=== PATIENT | male | born 1935 | race Caucasian/White ===

== ENCOUNTER 2023-02-16 12:15 | Outpatient (OUT) | payer MEDICARE, SELFPAY ==
--- NOTE | 2023-02-16 12:26 | XR_ITS ---
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 TECHNIQUE: PA and lateral views of the chest. FINDINGS: The cardiomediastinal silhouette is normal. No focal consolidation is identified. There is no pneumothorax. No pleural effusion is noted. The osseous structures are intact. XR/XR chest 2V IMPRESSION: No acute cardiopulmonary process. Suggestion of COPD. Electronically authenticated by: MACRINA PALMA Date: 02/16/2023 13:05
[2023-02-16 15:23] LABS: Thyroid Stimulating Hormone 2.054 uIU/mL (0.358-3.740)
== END 2023-02-16 12:16 | disposition home or self-care (01) ==
LOC: LAB 12:19
PROVIDERS: PCP Internal Medicine; Visit Provider Internal Medicine
DX: I50.22 Chronic systolic (congestive) heart failure (principal); R53.83 Other fatigue; J84.9 Interstitial pulmonary disease, unspecified
CPT/HCPCS: 36415; 71046; 83880; 84443

== ENCOUNTER 2023-02-23 07:21 | Outpatient (OUT) | payer MEDICARE, SELFPAY ==
--- NOTE | 2023-02-23 07:37 | CT_ITS ---
[address] [address] Patient Name: MACI MORTENSEN MRN: [id number] date: 1935 Sex: M Assigned Patient Location: LAB Current Patient Location: LAB Accession/Order Number: [id number] Exam Date: 02/23/2023 08:00 Report Date: 02/23/2023 08:57 At the request of: CAROLE HEATH Procedure: CT chest w con EXAMINATION: CT chest w con HISTORY: Chronic Cough R05.3, Pulmonary Nodule R91.1 ; follow-up lung nodule COMPARISON: XR chest 02/16/2023, CTA chest 01/14/2019 TECHNIQUE: Multi-planar CT images were obtained without and/or with IV contrast as indicated by examination type. Axial, Coronal, and Sagittal images. Dose reduction techniques were achieved by using automated exposure control and/or adjustment of mA and/or kV according to patient size and/or use of iterative reconstruction technique. FINDINGS: LUNGS: 6 mm nodule within lateral basilar segment of left lower lobe. Mild emphysematous changes. PLEURA: A few thin calcified pleural plaques bilaterally. No pleural effusion or pneumothorax. VASCULATURE: No abnormality. TRESSA: No mass or adenopathy. MEDIASTINUM: No mass or adenopathy. CARDIAC: No enlargement, pericardial thickening, or significant calcification. AORTA: Borderline mild dilation of ascending aorta, 4.0 cm in diameter. Minimal atherosclerotic disease. CHEST WALL: No mass or axillary adenopathy. BONES: No bone lesion or fracture. LIMITED ABDOMEN: Fatty infiltration of liver. Limited images of the upper abdomen. OTHER: Negative. CT/CT chest w con IMPRESSION: 1. Stable 6 mm nodule within left lower lobe lateral basilar segment. 2. Mild emphysematous changes. 3. Borderline aneurysmal dilation of aortic arch. 4. Fatty infiltration of liver. Electronically authenticated by: MILKA ANDERS Date: 02/23/2023 08:57
[2023-02-23 07:39] LABS: Hemoglobin 14.2 g/dL (14.0-18.0)
[2023-02-23 07:42] LABS: Estimated GFR (African America >60 (>=60); Estimated GFR (Non-African Ame 60 (>=60)
--- NOTE | 2023-02-23 08:30 | RT_ITS ---
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 The MVV is within normal limits. The airway resistance is normal. The reduced diffusing capacity indicates a moderate loss of functional alveolar capillary surface. 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
== END 2023-02-23 07:22 | disposition home or self-care (01) ==
LOC: LAB 07:21
PROVIDERS: PCP Internal Medicine; Visit Provider Internal Medicine
DX: R91.1 Solitary pulmonary nodule (principal); R05.3 Chronic cough
CPT/HCPCS: 36415; 71260; 82565; 85018; 94010; 94726; 94729; Q9967

== ENCOUNTER 2023-03-09 08:05 | Outpatient (OUT) | payer MEDICARE, SELFPAY ==
--- NOTE | 2023-03-09 08:08 | XR_ITS ---
The [address] [address] Patient Name: MACI MORTENSEN MRN: [id number] date: 1935 Sex: M Assigned Patient Location: RAD Current Patient Location: RAD Accession/Order Number: [id number] Exam Date: 03/09/2023 08:20 Report Date: 03/09/2023 12:07 At the request of: MILKA WALKER Procedure: XR hand RT min 3V STUDY: XR hand RT min 3V, [id number] HISTORY: Right Hand Pain M79.641 COMPARISON: None FINDINGS: No acute fracture, dislocation, or suspicious osseous lesion. Severe joint space narrowing with peripheral osteophytosis and early central erosive changes of the first and second distal interphalangeal joints. Lesser degrees of degenerative changes involving the remainder of the interphalangeal joints. Mild osteoarthritis at the first through third metacarpophalangeal joints as well as at the first carpometacarpal joint. No periarticular osseous erosive changes. XR/XR hand RT min 3V IMPRESSION: 1. Severe osteophytosis in the right hand with findings suggestive of early erosive osteoarthritis. 2. No acute osseous abnormality. Electronically authenticated by: UNA TEMPLE Date: 03/09/2023 12:07
== END 2023-03-09 08:06 | disposition home or self-care (01) ==
LOC: RAD 08:05
PROVIDERS: PCP Internal Medicine; Visit Provider Orthopaedic Surgery
DX: M79.641 Pain in right hand (principal); M19.041 Primary osteoarthritis, right hand
CPT/HCPCS: 73130

== ENCOUNTER 2023-04-22 08:12 | Outpatient (OUT) | payer MEDICARE, SELFPAY ==
[2023-04-23 04:07] LABS: Testosterone 256 ng/dL (264-916)
== END 2023-04-22 08:13 | disposition home or self-care (01) ==
PROVIDERS: PCP Internal Medicine; Visit Provider Urology
DX: E29.1 Testicular hypofunction (principal)
CPT/HCPCS: 36415; 84403

== ENCOUNTER 2023-05-11 09:15 | Outpatient (OUT) | payer MEDICARE, SELFPAY ==
--- NOTE | 2023-05-11 09:19 | ECG_ITS ---
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
--- NOTE | 2023-05-11 10:08 | P.GSHP_ITS ---
History of Present Illness History of Present Illness Chief complaint: right carpal tunnel syndrome Narrative: Patient presents for preadmission testing. The patient states he has right carpal tunnel syndrome with numbness, tingling, and pain. He denies any specific trauma or injury. Review of Systems ROS Narrative REVIEW OF SYSTEMS: Negative except as stated in HPI, ten or more systems reviewed. Constitutional: No fever , chills, weakness ENT: No sore throat or epistaxis Cardiovascular: No edema, chest pain, palpitations, or activity intolerance Respiratory: No shortness of breath, cough, or wheezing Gastrointestinal: No abdominal pain, constipation, diarrhea, or vomiting Genitourinary: No dysuria or hematuria Neurological: No numbness, tingling, weakness, or headache Psychiatric: No mood changes PFSH PFS Medical History (Updated 05/11/23 @ 10:08 by Jeniffer Vidal NP) Acute renal impairment ?N28.9 - Disorder of kidney and ureter, unspecified (ICD-10) Acute systolic heart failure ?I50.21 - Acute systolic (congestive) heart failure (ICD-10) Arthritis ?M19.90 - Unspecified osteoarthritis, unspecified site (ICD-10) 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 without bleeding (ICD-10) Cardiomyopathy ?I42.9 - Cardiomyopathy, unspecified (ICD-10) Carpal tunnel syndrome ?G56.00 - Carpal tunnel syndrome, unspecified upper limb (ICD-10) Chronic kidney disease ?N18.9 - Chronic kidney disease, unspecified (ICD-10) Chronic prostatitis ?N41.1 - Chronic prostatitis (ICD-10) Chronic venous insufficiency ?I87.2 - Venous insufficiency (chronic) (peripheral) (ICD-10) COVID-19 ?U07.1 - COVID-19 (ICD-10) Delayed recovery from anesthesia Dysphagia ?R13.10 - Dysphagia, unspecified (ICD-10) Dysuria ?R30.0 - Dysuria (ICD-10) Heart failure ?I50.9 - Heart failure, unspecified (ICD-10) Increased frequency of urination ?R35.0 - Frequency of micturition (ICD-10) Interstitial lung disease ?J84.9 - Interstitial pulmonary disease, unspecified (ICD-10) Nausea ?R11.0 - Nausea (ICD-10) Nonsustained ventricular tachycardia ?I47.29 - Other ventricular tachycardia (ICD-10) Obstructive sleep apnea ?G47.33 - Obstructive sleep apnea (adult) (pediatric) (ICD-10) Prostate hyperplasia, benign localized, with urinary obstruction ?N40.1 - Benign prostatic hyperplasia with lower urinary tract symptoms (ICD- 10) ?N13.8 - Other obstructive and reflux uropathy (ICD-10) Pulmonary nodule ?R91.1 - Solitary pulmonary nodule (ICD-10) Testicular cancer ?C62.90 - Malignant neoplasm of unspecified testis, unspecified whether descended or undescended (ICD-10) Surgical History (Updated 05/11/23 @ 09:40 by Jeniffer Vidal NP) History of carpal tunnel release ?Z98.890 - Other specified postprocedural states (ICD-10) History of cataract extraction ?Z98.49 - Cataract extraction status, unspecified eye (ICD-10) History of colonoscopy ?Z98.890 - Other specified postprocedural states (ICD-10) History of orchiectomy ?Z90.79 - Acquired absence of other genital organ(s) (ICD-10) History of surgery on arm ?Z98.890 - Other specified postprocedural states (ICD-10) Status post inguinal hernia repair ?Z98.890 - Other specified postprocedural states (ICD-10) ?Z87.19 - Personal history of other diseases of the digestive system (ICD-10) Family History (Updated 05/11/23 @ 09:40 by Jeniffer Vidal NP) Other Family history of colon cancer Liver cirrhosis Social History (Updated 05/11/23 @ 09:32 by Jeniffer Vidal NP) Within the past year, how often did you have a drink containing alcohol: monthly or less Smoking status: Never smoker Highest level of school completed/degree received: high school graduate Meds Home Medications and Allergies Home Medications Medication Instructions Recorded Confirmed Type finasteride 5 mg tablet 5 mg PO DAILY 05/11/23 05/11/23 History losartan 25 mg tablet 25 mg PO DAILY 05/11/23 05/11/23 History metoprolol succinate 25 mg 12.5 mg PO DAILY 05/11/23 05/11/23 History tablet,extended release 24 hr omeprazole 40 mg capsule,delayed 40 mg PO DAILY 05/11/23 05/11/23 History release tamsulosin 0.4 mg capsule (Flomax) 0.4 mg PO DAILY 05/11/23 05/11/23 History Allergies Allergy/AdvReac Type Severity Reaction Status Date / Time No Known Drug Allergies Allergy Verified 05/11/23 09:31 Exam Narrative Exam Narrative: Constitutional: Awake, alert, comfortable, well-appearing, nontoxic, interactive, vital signs as charted Head: Normocephalic, atraumatic Neck: Supple, normal appearance, normal range of motion, no meningeal signs, no lymphadenopathy Respiratory: No respiratory distress, breath sounds clear Cardiovascular: Regular rate and rhythm, strong and regular heart tones Skin: No rashes or induration, no lesions, only visible skin inspected Neuro: No neurological deficits, normal sensation Psychiatric: Oriented ?3, normal affect Assessment and Plan Assessment and Plan (1) Carpal tunnel syndrome: Plan Right endoscopic carpal tunnel release scheduled with Dr. Gunderson 05/25/2023.
[2023-05-11 10:29] LABS: Basophils Percent Auto 0.6 % (0.2-2.0); Eosinophils Absolute Auto 0.1 10^3/uL (0.0-0.7); Eosinophils Percent Auto 1.9 % (0.9-7.0); Hematocrit 42.4 % (42.0-54.0); Hemoglobin 13.4 g/dL (14.0-18.0); Immature Granulocytes Abs Auto 0.02 10^3/uL (0.00-0.03); Immature Granulocytes Pct Auto 0.3 % (0.0-0.5); Lymphocytes Absolute Auto 1.1 10^3/uL (1.2-3.8); Lymphocytes Percent Auto 16.8 % (20.5-60.0); Mean Corpuscular HGB Conc 31.6 g/dL (29.9-35.2); Mean Corpuscular Hemoglobin 28.9 pg (25.9-34.0); Mean Corpuscular Volume 91.6 fL (80.0-94.0); Mean Platelet Volume 10.2 fL (9.5-13.5); Monocytes Absolute Auto 0.5 10^3/uL (0.3-0.8); Monocytes Percent Auto 7.2 % (1.7-12.0); Neutrophils Absolute Auto 4.6 10^3/uL (1.4-6.5); Neutrophils Percent Auto 73.2 % (43.0-75.0); Platelet Count 181 10^3/uL (150-450); Red Blood Count 4.63 10^6/uL (4.70-6.10); Red Cell Distribution Width 13.5 % (11.0-15.0); White Blood Count 6.2 10^3/uL (4.0-11.0)
[2023-05-11 10:46] LABS: INR 0.98; Partial Thromboplastin Time 27.1 sec (22.3-36.2); Prothrombin Time 10.4 sec (9.0-11.6)
[2023-05-11 11:05] LABS: Anion Gap 11.5; BUN Creatinine Ratio 30.8; Calcium 8.6 mg/dL (8.5-10.1); Carbon Dioxide 26.1 mmol/L (21.0-32.0); Chloride 107 mmol/L (98-107); Estimated GFR (African America >60 (>=60); Estimated GFR (Non-African Ame >60 (>=60); Glucose 124 mg/dL (74-106); Potassium 3.6 mmol/L (3.5-5.1); Sodium 141 mmol/L (136-145)
== END 2023-05-11 09:16 | disposition home or self-care (01) ==
LOC: PST 09:16
PROVIDERS: PCP Internal Medicine; Visit Provider Orthopaedic Surgery
DX: Z01.810 Encounter for preprocedural cardiovascular examination (principal); Z01.812 Encounter for preprocedural laboratory examination; G56.01 Carpal tunnel syndrome, right upper limb
CPT/HCPCS: 80048; 85025; 85610; 85730; 93005; G0463

== ENCOUNTER 2023-05-25 10:57 | Day surgery (SDC) | payer MEDICARE, SELFPAY ==
[2023-05-11 09:57] VITALS: BP 121/70; PULSE 82; RESP 18; TEMP 36.4; O2SAT 96; BMI 31.2
[2023-05-25 11:05] VITALS: BP 143/76; PULSE 72; RESP 18; TEMP 36.3; O2SAT 98; BMI 30.3
[2023-05-25] MEDS: LACTATED RINGER'S SOLUTION 1,000 ML 50 ML IV (11:36)
[2023-05-25] MEDS: BUPIVACAINE HCL 0.5% PF 50 MG/10 ML VIAL 5 ML INJ (13:11)
[2023-05-25] MEDS: LIDOCAINE HCL 1%-EPINEPHRINE 1:100,000 10 ML MDV 5 ML INJ (13:31)
[2023-05-25] MEDS: CEFAZOLIN SODIUM/DEXTROSE,ISO 2 GM/50 ML PIGGYBACK IV (13:40)
[2023-05-25 13:58] VITALS: BP 129/87; PULSE 65; RESP 14; TEMP 36.6; O2SAT 97
--- NOTE | 2023-05-25 14:09 | P.ORPRC_ITS ---
Procedure Note Date of procedure: 05/25/23 Pre-op diagnosis: Right carpal tunnel syndrome Post-op diagnosis: same as pre-op Procedure: Preoperative Diagnosis: right carpal tunnel syndrome Postoperative Diagnosis: Same Procedure: Right endoscopic carpal tunnel release Surgeon: Neptali Anesthesia: Local with MAC Estimated blood loss:Minimal Tourniquet time: 2 Minutes at 225 mmHg Complications: None Indications for Surgery: The patient has had signs and symptoms of carpal tunnel syndrome that have failed conservative treatment. Options were discussed with the patient as well as risks and benefits and they have elected to proceed with the surgery. Operative procedure: Prior to surgery the patient received IV antibiotics. The operative extremity was marked preoperatively. After informed consent was obtained the patient was brought to the operating room where MAC anesthesia was administered. Preoperatively 5 mm 0.5% Marcaine plain with 5 mm 1% lidocaine with epinephrine were infiltrated in the operative sight. The arm was then prepped and draped in the usual sterile fashion after placement of a well padded tourniquet. The arm was elevated, exsanguinated, and the tourniquet was inflated. A 1 cm incision was then made in a preexisting distal wrist crease. Hemostasis was achieved with bipolar electrocautery. Blunt dissection was then carried down to the forearm fascia where a U-based flap was created. Proximally the fascia was inc ised for 2 cm under direct visualization. Attention was then turned to the endoscopic carpal tunnel release. The synovial elevator was used to clear the underside of the transverse carpal ligament of soft tissue. Sequential dilators were then placed. The endoscopic carpal tunnel released instrument was then placed. The transverse fibers were then identified and release from distal to proximal. The ligament was completely release. The tourniquet was deflated and hemostasis was achieved. The wound was irrigated and closed with a nylon suture. A sterile dressing was placed. The patient was brought to the recovery room. There were no preoperative or postoperative complications. Anesthesia: MAC Surgeon: Quentin Gunderson Pathology: none sent Condition: stable Disposition: PACU
[2023-05-25 14:15] VITALS: BP 124/72; PULSE 58; RESP 18; O2SAT 97
[2023-05-25 14:30] VITALS: BP 118/68; PULSE 58; RESP 16; O2SAT 99
== END 2023-05-25 14:50 | disposition home or self-care (01) ==
PROVIDERS: PCP Internal Medicine; Visit Provider Orthopaedic Surgery
PROC: (CPT 29848; principal; 2023-05-25 12:00)
DX: G56.01 Carpal tunnel syndrome, right upper limb (principal); M19.90 Unspecified osteoarthritis, unspecified site; I42.9 Cardiomyopathy, unspecified; N18.9 Chronic kidney disease, unspecified; Z86.16 Personal history of COVID-19; R13.10 Dysphagia, unspecified; N41.1 Chronic prostatitis; J84.9 Interstitial pulmonary disease, unspecified; I47.29 Other ventricular tachycardia; G47.33 Obstructive sleep apnea (adult) (pediatric); N40.1 Benign prostatic hyperplasia with lower urinary tract symptoms; N13.8 Other obstructive and reflux uropathy; C62.90 Malignant neoplasm of unspecified testis, unspecified whether descended or undescended; I50.22 Chronic systolic (congestive) heart failure; Z79.899 Other long term (current) drug therapy; Z87.891 Personal history of nicotine dependence
CPT/HCPCS: 29848; 36415; J2704

== ENCOUNTER 2023-06-08 07:58 | Outpatient (OUT) | payer MEDICARE, SELFPAY ==
--- NOTE | 2023-06-08 08:04 | XR_ITS ---
[address] [address] Patient Name: MACI MORTENSEN MRN: [id number] date: 1935 Sex: M Assigned Patient Location: RAD Current Patient Location: [facility] Accession/Order Number: [id number] Exam Date: 06/08/2023 08:10 Report Date: 06/08/2023 09:24 At the request of: MILKA WALKER Procedure: XR knee RT 4V EXAM: XR knee RT 4V HISTORY: Right Knee Pain COMPARISON: None. TECHNIQUE: 4 views FINDINGS: No acute fracture or dislocation. Severe degenerative changes of the knee joint. Mild soft tissue swelling. XR/XR knee RT 4V IMPRESSION: Degenerative changes as above. Electronically authenticated by: MACRINA PALMA Date: 06/08/2023 09:24
== END 2023-06-08 07:59 | disposition home or self-care (01) ==
PROVIDERS: PCP Internal Medicine; Visit Provider Orthopaedic Surgery
DX: M25.561 Pain in right knee (principal)
CPT/HCPCS: 73564

== ENCOUNTER 2023-07-30 07:03 | Outpatient (RCR) | payer MEDICARE, SELFPAY ==
--- NOTE | 2023-03-11 16:23 | CR1_ITS ---
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
--- NOTE | 2023-04-08 14:56 | CR1_ITS ---
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
--- NOTE | 2023-05-06 08:35 | CR1_ITS ---
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
--- NOTE | 2023-06-05 10:28 | CR1_ITS ---
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
--- NOTE | 2023-07-06 14:42 | CR1_ITS ---
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
== END 2023-07-30 15:03 | disposition home or self-care (01) ==
LOC: CR 07:03
PROVIDERS: PCP Internal Medicine; Visit Provider Internal Medicine
DX: I20.9 Angina pectoris, unspecified (principal); I42.9 Cardiomyopathy, unspecified; I50.9 Heart failure, unspecified
CPT/HCPCS: 93797; 93798

== ENCOUNTER 2023-08-17 07:05 | Outpatient (RCR) | payer MEDICARE, SELFPAY | END 2023-09-01 07:02 | disposition home or self-care (01) | LOC: CR 07:05 | PROVIDERS: PCP Internal Medicine; Visit Provider Internal Medicine | DX: I42.9 Cardiomyopathy, unspecified (principal) ==

== ENCOUNTER 2024-01-19 07:23 | Outpatient (OUT) | payer MEDICARE, SELFPAY ==
--- NOTE | 2024-01-19 07:34 | CA_ITS ---
Patient Name: MACI MORTENSEN MR#: [id number] : 1935 Exam Date: 01/19/2024 Ordering Doctor: DR VJ ESPITIA M.D. ECHOCARDIOGRAM REPORT PROCEDURE: CA ECHO DOPPLER COMPLETE INDICATIONS: Heart failure with reduced EF COMPARISON: None. DESCRIPTION: COMPLETE ECHOCARDIOGRAM Real-time transthoracic echocardiography with 2D, M-mode, spectral and color flow Doppler performed. QUALITY: Technical quality was good. LEFT VENTRICLE: Normal chamber size. Mild concentric left ventricular hypertrophy. LV EF: Lower limits of normal left ventricular ejection fraction, (50%). DIASTOLIC: Grade II diastolic dysfunction. ATRIAL SEPTUM: LEFT ATRIUM: Moderate dilatation. RIGHT ATRIUM: Moderate dilatation. RIGHT VENTRICLE: Normal chamber size. Normal right ventricular systolic function. TRICUSPID VALVE: Normal mobility and thickness. No stenosis with trivial regurgitation. Unable to assess right-sided pressures due to lack of measurable tricuspid regurgitation. MITRAL VALVE: Normal mobility and thickness. No evidence of mitral valve stenosis. Mild mitral annular calcification. At least moderate eccentric mitral regurgitation. The jet is directed anteriorly. AORTIC VALVE: Normal trileaflet appearance. Thickened aortic valve. Normal leaflet mobility. No evidence of aortic valve stenosis. Mild aortic regurgitation. AORTIC ROOT: Normal diameter and appearance. Mildly dilated ascending aorta measuring 3.7 cm. PULMONIC VALVE: Grossly normal. No stenosis. No regurgitation. PERICARDIUM: No evidence of pericardial effusion. IVC: Collapses with inspirations. Mild dilatation measuring 2.2 cm. PLEURA: CONCLUSION: 1. Mild concentric left ventricular hypertrophy with low normal systolic function. LVEF is 50%. 2. Normal right ventricular size and systolic function. 3. Grade 2 diastolic dysfunction. 4. Moderate biatrial dilatation. 5. At least moderate mitral regurgitation. The regurgitation jet is eccentric and directed anteriorly. 6. Unable to assess right-sided pressures due to lack of measurable tricuspid regurgitation. 7. A transesophageal echocardiogram is recommended for better assessment of the severity of the mitral regurgitation. Adult Echocardiography Procedure Report Left Ventricle LVEDD (3.7 - 5.6 cm): 5.63 cm LVESD (2.2 - 4.0 cm): 4.10 cm LVIVS thickness (0.6 - 1.2 cm): 1.24 cm LVPW thickness (0.5 - 1.0 cm): 1.15 cm e': 0.09 m/s E - e': 14.47 LVOT Max Gradient: 2.55 mm[Hg] LVOT Area (cm2): 0.80 m/s Peak Velocity (LVOT): 0.80 m/s Mean Velocity (LVOT): 0.50 m/s LVOT Diameter 2.61 cm Left Ventricular Ejection Fraction: 50 % Left Atrium LA Volume Index (2D A2C): 49.57 ml/m2 Left Atrium Systolic Dimension: 4.22 cm Mitral Valve MV E to A Ratio: 1.17 Mitral Valve A-Wave Peak Velocity: 1.09 m/s Mitral Valve E-Wave Peak Velocity: 1.27 m/s Right Ventricle RV Internal Diastolic Dimension: 3.40 cm Aorta AO Root Diam: 3.65 cm Ascending Ao Diam: 3.69 cm Aortic Valve AoV Area (Peak Ben): 4.09 cm2, 4.09 cm2 AoV Area (VTI): 4.59 cm2, 4.[address] [facility]: 1.43 m/s2 Pressure Half-Time: 808.03 ms Peak Velocity(Antegrade Flow): 1.05 m/s Peak Gradient(Antegrade Flow): 4.38 mm[Hg] Mean Velocity(Antegrade Flow): 0.70 m/s Mean Gradient(Antegrade Flow): 2.19 mm[Hg] Velocity Time Integral: 25.32 cm Tricuspid Valve Peak Velocity (Regurgitant Flow): 1.36 m/s, 1.58 m/s Pulmonic Valve Peak Velocity: 0.60 m/s Peak Gradient: 0.82 mm[Hg], 2.21 mm[Hg] Right Atrium Right Atrium Systolic Pressure: 66.13 ml, 66.13 ml Dictated by: Vj Espitia M.D. on 01/19/2024 at 18:48 Approved by: Vj Espitia M.D. on 01/19/2024 at 18:56
== END 2024-01-19 07:24 | disposition home or self-care (01) ==
LOC: CARD 07:23
PROVIDERS: PCP Internal Medicine; Visit Provider Internal Medicine Interventional Cardiology
DX: I50.22 Chronic systolic (congestive) heart failure (principal)
CPT/HCPCS: 93306

== ENCOUNTER 2024-02-05 07:50 | Outpatient (OUT) | payer MEDICARE, SELFPAY ==
--- NOTE | 2024-02-05 07:55 | CT_ITS ---
[address] [address] Patient Name: MACI MORTENSEN MRN: [id number] date: 1935 Sex: M Assigned Patient Location: CT Current Patient Location: Accession/Order Number: [id number] Exam Date: 02/05/2024 08:05 Report Date: 02/06/2024 06:02 At the request of: CAROLE HEATH Procedure: CT angio chest EXAMINATION: CT angio chest HISTORY: Lung Nodule, Ascending Aortic Aneurysm COMPARISON: CT chest 02/23/2023, 01/14/2019 TECHNIQUE: Multi-planar CT images were created with IV contrast. Axial, Coronal, and Sagittal images. Dose reduction techniques were achieved by using automated exposure control and/or adjustment of mA and/or kV according to patient size and/or use of iterative reconstruction technique. 3-D reconstruction was performed on a separate workstation. FINDINGS: VASCULATURE: No pulmonary embolism or abnormal opacity. LUNGS: Mild atelectasis within lung bases partially obscuring a stable, chronic 6 mm nodule within left lower lobe lateral basilar segment. No new or suspicious nodules. PLEURA: Calcified pleural plaques bilaterally. No mass, effusion, or pneumothorax. TRESSA: No mass or adenopathy. MEDIASTINUM: No mass or adenopathy. CARDIAC: [Trace amount pericardial fluid; stable to slightly increased. Mild cardiomegaly. AORTA: Upper limits of normal in diameter. CHEST WALL: No mass or axillary adenopathy. BONES: No bone lesion or fracture. LIMITED ABDOMEN: No suspicious findings. Limited images of the upper abdomen. OTHER: Negative. CT/CT angio chest IMPRESSION: 1. Stable chronic 6 mm nodule within lateral basilar segment of left lower lobe. New mild bibasilar atelectasis or less likely infiltrates. 2. Stable mild emphysematous changes. 3. Borderline mild cardiomegaly and trace amount of pericardial fluid; stable to slightly increased. Electronically authenticated by: MILKA ANDERS Date: 02/06/2024 06:02
--- OUTSIDE RECORDS SUMMARY | 2024-02-05 07:58 | XMS_ITS | CCD ---
Author Organization [facility] Care Team Providers Care Principal Quality Engineer Name Role Phone KEKE AKERS Admitting Unavailable ADITHYA SCHMIDT Referring Unavailable DAVID MARX Primary Care Unavailable Deng Aguilar Attending Unavailable [place] Procedure Practitioner UnavailBETO Davis Surgeon Unavailable DAVID MARX Primary Care Physician [phone] BallDavid Unavailable APLING, FOSTER Sarmad Admitting Unavailable APLING, FOSTER B Attending Unavailable IVANA, DR LAM Primary Care Unavailable BALL, DR LAM Primary Care Unavailable BALL, DR LAM Admitting Unavailable BALL, DR LAM Attending Unavailable REQUEST, DR KIM LISTED Attending Unavaila ble REQUEST, DR KIM LISTED Consulting Unavaila ble REQUEST, DR KIM LISTED Admitting Unavaila ble BALL, DR LAM Primary Care Unavailable ZACANDI, TRIXIE Attending Unavailable ZAHLER, TRIXIE Consulting Unavailable ZATRIXIE CHRISTOPHER Admitting Unavailable BALL, DR LAM Primary Care Unavailable BAUER ., DR BUI Attending Unavailable BAUER ., DR BUI Consulting Unavailable BAUER ., DR BUI Admitting Unavailable BALL, DR LAM Primary Care Unavailable BALL, DR LAM Attending Unavailable BALL, DR LAM Consulting Unavailable BALL, DR LAM Primary Care Unavailable BALL, DR LAM Admitting Unavailable ZIEBER, DR MILKA Jung Consulting Unavailable APLINGFOSTER Attending Unavailable APLING, FOSTER Bañuelos Admitting Unavailable ZIEBER, DR MILKA Jung Consulting Unavailable BALL, DR LAM Primary Care Unavailable APLING FOSTER Sarmad Consulting Unavailable Robert BAUER Attending Unavailable Robert BAUER Attending Unavailable KRISS SILVERIO Attending Unavailable NUSRAT, KRISS Rider Attending Unavailable KRISS SILVERIO Attending Unavailable MOUKAVJ NGUYEN Attending Unavailable CARLO HAIR Attending Unavailable Allergies Allergy Classification Reported Allergen(s) Allergy Type Date of Onset Reaction(s) Facility (10 sources) traMADol; Translations: [TRAMADOL] Drug Allergy 2 Unknown [facility] Repository (3 sources) patient allergy list reviewed by nurse or physicia Propensity to adverse reactions 6 Comment:Done [place] acquired by [employer] Other (6 sources) TraMADol & Dietary Manage Prod *ANALGESICS - OPIOI Propensity to adverse reactions Unknown [place] [facility] by [employer] Other (1 source) No Known Medication Allergies; Translations: [No Known Medication Allergies] Propensity to adverse reactions (disorder) [facility] Repository (1 source) Angiotensin Converting Enzyme (Jose Alfredo) Inhibitors; Translations: [JOSE ALFREDO INHIBITORS] Propensity to adverse reactions to drug (disorder) 3 [facility] Repository Medications Current Medications Medication Drug Class(es) Dates Sig (Normalized) Sig (Original) amiodarone hydrochloride 200 mg oral tablet (1 source) Antiarrhythmic Start: 03-04-2019 take 1 tablet by mouth once daily amiodarone 200 mg Tab 200 mg = 1 tab(s), Oral, Daily Start Date: 03/04/19 Status: Ordered finasteride 5 mg oral tablet (12 sources) 5-alpha Reductase Inhibitor Start: 11-27-2023 take 5 mg by mouth once daily Finasteride Active 5 MG PO Daily November 27, 2023 12:00am Start: 11-15-2021 take 1 tablet by guilherme th once daily finasteride 5 mg Tab 5 mg = 1 tab(s), Oral, Daily, # 90 tab(s), Refills(s) 3, Pharmacy: [facility]/pharmacy #[id number] Start Date: 11/13/22 Status: Ordered furosemide 20 mg oral tablet (11 sources) Loop Diuretic Start: 11-27-2023 take 20 mg by mouth once daily Furosemide Active 20 MG PO Daily November 27, 2023 12:00am Start: 03-04-2019 take 1 tablet by guilherme th every twenty-four hours Furosemide 20 MG 1 tablet Orally Once a day for 30 days Nov, Active losartan potassium 25 mg oral tablet (11 sources) Angiotensin 2 Receptor David Start: 11-27-2023 take 25 mg by mouth once daily Losartan Active 25 MG PO Daily November 27, 2023 12:00am Start: 04-27-2023 losartan 25 mg Tab Refills(s) 0 Start Date: 04/27/23 Status: Ordered 24 hr metoprolol succinate 25 mg extended release oral tablet (12 sources) beta-Adrenergic David Start: 11-27-2023 take 25 mg by mouth once daily Metoprolol Succinate Active 25 MG PO Daily November 27, 2023 12:00am Start: 09-26-2019 take 1 mg by mouth once daily metoprolol 25 mg ER Tab mg tab(s), Oral, Daily, Refills(s) 0 Start Date: 09/26/19 Status: Ordered omeprazole 40 mg delayed release oral capsule (12 sources) Proton Pump Inhibitor Start: 11-27-2023 take 40 mg by mouth once daily Omeprazole Active 40 MG PO Daily November 27, 2023 12:00am Start: 03-04-2019 take 1 capsule by [facility] once daily omeprazole 40 mg Cap-DR 40 mg = 1 cap(s), Oral, Daily Start Date: 03/04/19 Status: Ordered paxlovid (300/100) 20 x 150 mg & 10 x 100mg tablet therapy pack (1 source) Start: 08-10-2023 Paxlovid (300/ 100) 20 x 150 MG & 10 x 100MG as directed Orally bid for 5 days Aug, Active tamsulosin hydrochloride 0.4 mg oral capsule (12 sources) alpha-Adrenergi c David Start: 11-27-2023 take 0.4 mg by mouth once daily Tamsulosin Active 0.4 MG PO Daily November 27, 2023 12:00am Start: 11-15-2021 take 1 capsule by [facility] once daily Flomax 0.4 mg Cap 0.4 mg = 1 cap(s), Oral, Daily, # 90 cap(s), Refills(s) 3, Pharmacy: [facility]/pharmacy #[id number] Start Date: 11/13/22 Status: Ordered testosterone cypionate 200 mg/mL intramuscular solution (2 sources) Start: 11-09-2020 testosterone c ypionate 200 mg/mL intramuscular solution 200 mg = 1 mL, IntraMuscular, q4wk, E29.1, # 10 mL, Refills(s) 3, Pharmacy: [facility]/pharmacy #[id number], 178, cm, 09/10/20 9:06:00 EST, Height/Length Dosing, 87.9, kg, 09/10/20 9:06:00 EST, Weight Dosing Start Date: 11/09/20 Status: Ordered Problems Active Problems Problem Classification Problem Date Documented Da te Episodic/Chronic Abdominal hernia (6 sources) Diaphragmatic hernia; Translations: [Diaphragmatic hernia without mention of obstruction or gangrene] Episodic Allergic reactions (6 sources) Allergic contact dermatitis caused by chemical; Translations: [Allergic contact dermatitis due to other chemical products] Episodic Aortic; peripheral; and visceral artery aneurysms (2 sources) Aneurysm of ascending aorta; Translations: [Ascending aortic aneurysm] 11-28-2023 Chronic 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) Malignant tumor of testis; Translations: [Malignant neoplasm of right testis, unspecified whether descended or undescended] Onset: 05-17-2019 Chronic Cancer of testis (16 sources) History of malignant neoplasm of testis; Translations: [Personal history of malignant neoplasm of testis] Onset: 10-15-2022 Episodic Cardiac dysrhythmias (6 sources) Cardiac arrhythmia; Translations: [Cardiac arrhythmia, unspecified] Onset: 05-15-2016 Chronic Cataract (4 sources) Age-related nuclear cataract, right eye; Translations: [AGE-REL NUCLEAR CATARACT RT EYE] Onset: 10-02-2022 Chronic Chronic kidney disease (20 sources) Chronic kidney disease stage 3A ; Translations: [Stage 3a chronic kidney disease] Onset: 01-24-2019 11-28-2023 Chronic Chronic kidney disease (2 sources) Chronic kidney disease; Translations: [Chronic kidney disease, stage 3 unspecified] Onset: 01-24-2019 Congestive heart failure; nonhypertensive (20 sources) Chronic systolic heart failure; Translations: [Chronic systolic (congestive) heart failure] Onset: 01-14-2019 Resolved: 01-23-2021 Chronic Esophageal disorders (19 sources) Gastro-esophageal reflux disease without esophagitis; Translations: [Esophageal reflux] Onset: 12-03-2015 11-28-2023 Chronic Essential hypertension (1 source) Essential (primary) hypertension; Translations: [ESSENTIAL PRIMARY HYPERTENSION] Onset: 10-15-2022 Chronic Fracture of lower limb (5 sources) Closed fracture of ankle; Translations: [Unspecified closed fracture of ankle] Episodic Genitourinary symptoms and ill-defined conditions (2 sources) Urge incontinence; Translations: [Urge incontinence of urine] Onset: 04-27-2023 Chronic Heart valve disorders (19 sources) Non-rheumatic mitral regurgitation ; Translations: [Nonrheumatic mitral (valve) insufficiency] Onset: 01-14-2019 Chronic Hyperplasia of prostate (20 sources) Benign prostatic hypertrophy with outflow obstruction; Translations: [Benign prostatic hyperplasia with lower urinary tract symptoms] Onset: 08-03-1959 Chronic Immunizations and screening for infectious disease (12 sources) Contact with and (suspected) exposure to other viral communicable diseases; Translations: [Encounter for immunization] Episodic Inflammatory conditions of male genital organs (2 sources) 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 Osteoarthritis (20 sources) Idiopathic osteoarthritis; 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, right knee] Onset: 04-14-2013 11-30-2023 Chronic Other aftercare (1 source) Other care home (current) drug therapy; Translations: [OTH JAIL CURRENT DRUG THERAPY] Onset: 10-15-2022 Episodic Other connective tissue disease (13 sources) Enthesopathy of hip region; Translations: [Iliotibial band syndrome, right leg] Episodic Other connective tissue disease (14 sources) Trochanteric bursitis of right hip; Translations: [Trochanteric bursitis, right hip] Episodic Other connective tissue disease (6 sources) Iliotibial band syndrome, right leg; Translations: [ILIOTIBIAL BAND SYNDROME RIGHT LEG] Onset: 06-17-2022 Episodic Other connective tissue disease (6 sources) Trochanteric bursitis, right hip; Translations: [TROCHANTERIC BURSITIS RIGHT HIP] Onset: 05-29-2022 Episodic Other diseases of veins and lymphatics (20 sources) Peripheral venous insufficiency; Translations: [Venous insufficiency (chronic) (peripheral)] Onset: 01-14-2019 11-28-2023 Episodic Other diseases of veins and lymphatics (5 sources) Venous insufficiency (chronic) (peripheral); Translations: [Venous (peripheral) insufficiency, unspecified] Episodic Other endocrine disorders (8 sources) Testicular hypofunction; 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 Other endocrine disorders (2 sources) 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 Other endocrine disorders (1 source) Testicular hypofunction; Translations: [TESTICULAR HYPOFUNCTION] Onset: 04-20-2022 Chronic Other eye disorders (1 source) Floppy iris syndrome; 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] Onset: 10-15-2022 Episodic Other injuries and conditions due to external causes (1 source) History of falling; Translations: [History of falling] Episodic Other injuries and conditions due to external causes (6 sources) Old healed fracture of bone ; Translations: [Personal history of (healed) traumatic fracture] Episodic Other injuries and conditions due to external causes (5 sources) History of fall; Translations: [History of falling] Episodic Other lower respiratory disease (7 sources) Interstitial lung disease; Translations: [Interstitial pulmonary disease, unspecified] Chronic Other lower respiratory disease (2 sources) Interstitial pulmonary disease, unspecified Chronic Other lower respiratory disease (10 sources) Nodule of lung; Translations: [Solitary pulmonary nodule] 11-28-2023 Episodic Other lower respiratory disease (4 sources) Solitary pulmonary nodule; Translations: [Solitary pulmonary nodule] Episodic Other lower respiratory disease (7 sources) Chronic cough; Translations: [Chronic cough] Episodic Other lower respiratory disease (6 sources) Solitary nodule of lung; Translations: [Solitary pulmonary nodule] Episodic Other lower respiratory disease (1 source) Restrictive lung disease; Translations: [Other disorders of lung] 11-28-2023 Episodic Other lower respiratory disease (1 source) Other disorders of lung; Translations: [Other diseases of lung, not elsewhere classified] 11-30-2023 Episodic Other male genital disorders (2 sources) 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 Other male genital disorders (1 source) H/O: male genital disorder; Translations: [Personal history of other diseases of male genital organs] Onset: 04-14-2022 Episodic Other male genital disorders (2 sources) History of prostatitis 09-10-2020 Episodic Other nervous system disorders (1 source) Carpal tunnel syndrome, left upper limb; Translations: [Carpal tunnel syndrome, left upper limb] Onset: 03-30-2015 Chronic Other nervous system disorders (5 sources) Carpal tunnel syndrome; Translations: [Carpal tunnel syndrome, left upper limb] Onset: 03-30-2015 Chronic Other non-traumatic joint disorders (13 sources) Arthralgia of the pelvic region and thigh; Translations: [Pain in right hip] Onset: 10-11-2018 Episodic Other non-traumatic joint disorders (3 sources) Pain in right hip; Translations: [PAIN IN RIGHT HIP] Onset: 06-20-2022 Episodic Other non-traumatic joint disorders (5 sources) Pain in right hip joint; Translations: [Pain in right hip] Episodic Other nutritional; endocrine; and metabolic disorders (1 source) Obesity, unspecified; Translations: [Obesity, unspecified] Chronic Other nutritional; endocrine; and metabolic disorders (5 sources) Obesity; Translations: [Obesity, unspecified] Chronic Other nutritional; endocrine; and metabolic disorders (2 sources) Overweight; Translations: [Overweight] 11-30-2023 Episodic Other nutritional; endocrine; and metabolic disorders (6 sources) Overweight; Translations: [Overweight] 11-30-2023 Episodic Other upper respiratory infections (6 sources) Acute pharyngitis; Translations: [Acute pharyngitis due to other specified organisms] Episodic Ananya-; endo-; and myocarditis; cardiomyopathy (except that caused by tuberculosis or sexually transmitted disease) (20 sources) Nonischemic congestive cardiomyopathy; Translations: [Dilated cardiomyopathy] Onset: 11-18-2022 Chronic Phlebitis; thrombophlebitis and thromboembolism (18 sources) Acute deep vein thrombosis of lower limb; Translations: [Acute embolism and thrombosis of unspecified deep veins of unspecified proximal lower extremity] Onset: 12-18-2015 Episodic Residual codes; unclassified (20 sources) Obstructive sleep apnea syndrome; Translations: [Obstructive sleep apnea (adult) (pediatric)] Onset: 02-18-2019 11-28-2023 Chronic Residual codes; unclassified (4 sources) Obstructive sleep apnea (adult) (pediatric); Translations: [Obstructive sleep apnea (adult)(pediatric)] Chronic Respiratory failure; insufficiency; arrest (adult) (1 source) Respiratory failure; insufficiency; arrest (adult); Translations: [Unspecified venous (peripheral) insufficiency] Onset: 01-14-2019 Unclassified (1 source) SUBACUTE COUGH; Translations: [SUBACUTE COUGH] Onset: 11-23-2022 Unclassified (1 source) Need for prophylactic vaccination against Streptococcus pneumoniae (pneumococcus); Translations: [Need for prophylactic vaccination against Streptococcus pneumoniae (pneumococcus)] Onset: 05-23-2016 Unclassified (1 source) Need for prophylactic vaccination and inoculation, Influenza; Translations: [Need for prophylactic vaccination and inoculation, Influenza] Onset: 05-18-2018 Unclassified (1 source) Other specified cough; Translations: [Other specified cough] Onset: 11-24-2017 Unclassified (1 source) Unspecified closed fracture of ankle; Translations: [Unspecified closed fracture of ankle] Unclassified (1 source) Long-term (current) use of other medications; Translations: [Long-term (current) use of other medications] 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-2018 Unclassified (1 source) Hypertrophy (benign) of prostate with urinary obstruction and other lower urinary tract symptoms [LUTS]; Translations: [Hypertrophy (benign) of prostate with urinary obstruction and other lower urinary tract symptoms [LUTS]] Onset: 08-03-1959 Unclassified (1 source) Other specified pre-operative examination; Translations: [Other specified pre-operative examination] Onset: 12-03-2015 Unclassified (1 source) Pain in joint, pelvic region and thigh; Translations: [Pain in joint, pelvic region and thigh] Onset: 10-11-2018 Unclassified (1 source) Aneurysm of the ascending aorta, without rupture; Translations: [Aneurysm of the ascending aorta, without rupture] 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-2024 Unclassified (1 source) Other ventricular tachycardia; Translations: [Other ventricular tachycardia] Onset: 02-26-2023 Past or Other Problems Problem Classification Problem Date Documented Da te Episodic/Chronic Abdominal pain (6 sources) Left lower quadrant pain; Translations: [Left lower quadrant pain] Onset: 07-30-2017 Episodic Esophageal disorders (7 sources) Esophageal disorders; Translations: [Gastroesophageal reflux disease with esophagitis without hemorrhage] Genitourinary symptoms and ill-defined conditions (14 sources) Delay when starting to pass urine; Translations: [Dysuria] Onset: 12-15-2018 02-10-2019 Episodic Malaise and fatigue (7 sources) Other fatigue; Translations: [Fatigue] Onset: 04-15-2013 Episodic Nonspecific chest pain (6 sources) Other chest pain; Translations: [Chest pain] Onset: 04-15-2013 Episodic Other connective tissue disease (1 source) Other bursitis of hip, right hip; Translations: [OTHER BURSITIS OF HIP RIGHT HIP] Onset: 03-27-2022 Episodic Other lower respiratory disease (5 sources) Cough; Translations: [Other specified cough] Onset: 11-24-2017 Episodic Other male genital disorders (1 source) Personal history of other diseases of male genital organs; Translations: [PERS HX OTH DZ MALE GENITAL ORGN] Onset: 04-20-2022 Episodic Other nervous system disorders (6 sources) Altered sensation of skin; Translations: [Disturbance of skin sensation] Onset: 11-03-2013 Episodic Other nutritional; endocrine; and metabolic disorders (12 sources) Body mass index 25-29 - overweight; Translations: [Body mass index 29.0-29.9, adult] Onset: 08-03-1959 Episodic Pneumonia (except that caused by tuberculosis or sexually transmitted disease) (6 sources) Pneumonia due to other specified infectious organisms; Translations: [Infective pneumonia] Onset: 11-24-2017 Episodic Residual codes; unclassified (6 sources) Localized edema; Translations: [Localized edema] Onset: 12-18-2015 Episodic Residual codes; unclassified (5 sources) Requires influenza virus vaccination; Translations: [Need for prophylactic vaccination and inoculation, Influenza] Onset: 05-18-2018 Episodic Screening and history of mental health and substance abuse codes (7 sources) History of tobacco use; Translations: [Personal history of tobacco use, presenting hazards to health] Onset: 11-24-2017 Episodic Skin and subcutaneous tissue infections (6 sources) Cellulitis of chest wall ; Translations: [Cellulitis of chest wall] Resolved: 02-22-2021 Episodic Unclassified (1 source) Subacute cough R05.2 Unclassified (2 sources) Chronic cough R05.3 Unclassified (5 sources) Long-term current use of drug therapy; Translations: [Long-term (current) use of other medications] 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-2018 Unclassified (1 source) Aneurysm of the ascending aorta, without rupture; Translations: [Aneurysm of the ascending aorta, without rupture] 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-2024 Unclassified (1 source) Other ventricular tachycardia; Translations: [Other ventricular tachycardia] Onset: 02-27-2023 Varicose veins of lower extremity (6 sources) Asymptomatic varicose veins; Translations: [Venous varices] Onset: 12-18-2015 Episodic Viral infection (1 source) COVID-19 Results Test Name Value Interpretation Reference Range Facility Office Visiton 01-28-2024 Follow-up visit [id number] Yaya De Anda 1935 M Date Provider Department Center 01/28/2024 VJ CUELLO HENRI [facility] Family History Family history unknown: Yes Level of Service:75356 [place] OFFICE/OUTPATIENT ESTABLISHED MOD MDM 30 MIN Normal [facility] Ambulatory Visit Summaryon 0 04-27-2023 Ambulatory Visit Summary YYAA DE ANDA :1935 Visit Date:04/27/2023 Ambulatory Visit Instructions Your Diagnosis BPH with urinary obstruction Hypogonadism male Urge incontinence Tests Performed Urnls Dip Stick Auto w/o Microscopy POC 46589 Your Care Team Attending Physician - Robert BAUER MD Primary Care Physician - DAVID MARX DO This Is Your Medications List finasteride (finasteride 5 mg Tab) tamsulosin (Flomax 0.4 mg Cap) Contact prescribing physician if questions or concerns losartan (losartan 25 mg Tab) metoprolol (metoprolol 25 mg ER Tab) omeprazole (omeprazole 40 mg Cap-DR) testosterone (testosterone cypionate 200 mg/mL intramuscular solution) Procedures Performed Urodynamics (01/05/2013), Cystoscopy (12/28/2012), TURP - Transurethral resection of prostate (11/01/2001), Transrectal biopsy of prostate using ultrasound (US) guidance (12/02/1999), Radical orchiectomy (1990). Discharge Vitals Heart Rate (Peripheral) 93 Respiratory Rate 16 Blood Pressure 130/83 Height 170 cm Height 67 in Weight 86.5 kg Weight 190.3 lb BMI 29.93 What to do next Scheduled Follow-Up Appointments Thursday 10:15 AM EDT With: ZECHARIAH WYNN, Robert Jung Where: [facility] Patient Educationon 04-27-20 23 Patient Education Urology Hypogonadism, Male Male hypogonadism is a condition of having a level of testosterone that is lower than normal. Testosterone is a chemical, or hormone, that is made mainly in the testicles. In boys, testosterone is responsible for the development of male characteristics during puberty. These include: ? Making the penis bigger. ? Growing and building the muscles. ? Growing facial hair. ? Deepening the voice. In adult men, testosterone is responsible for maintaining: ? An interest in sex and the ability to have sex. ? Muscle mass. ? Sperm production. ? Red blood cell production. ? Bone strength. Testosterone also gives men energy and a sense of well-being. Testosterone normally decreases as men age and the testicles make less testosterone. Testosterone levels can vary from man to man. Not all men will have signs and symptoms of low testosterone. Weight, alcohol use, medicines, and certain medical conditions can affect a man's testosterone level. What are the causes? This condition is caused by: ? A natural decrease in testosterone that occurs as a man grows older. This is the main cause of this condition. ? Use of medicines, such as antidepressants, steroids, and opioids. ? Diseases and conditions that affect the testicles or the making of testosterone. These include: ? Injury or damage to the testicles from trauma, cancer, cancer treatment, or infection. ? Diabetes. ? Sleep apnea. ? Genetic conditions that men are born with. ? Disease of the pituitary gland. This gland is in the brain. It produces hormones. ? Obesity. ? Metabolic syndrome. This is a group of diseases that affect blood pressure, blood sugar, cholesterol, and belly fat. ? HIV or AIDS. ? Alcohol abuse. ? Kidney failure. ? Other long-term or chronic diseases. What are the signs or symptoms? Common symptoms of this condition include: ? Loss of interest in sex (low sex drive). ? Inability to have or maintain an erection (erectile dysfunction). ? Feeling tired (fatigue). ? Mood changes, like irritability or depression. ? Loss of muscle and body hair. ? Infertility. ? Large breasts. ? Weight gain (obesity). How is this diagnosed? Your health care provider can diagnose hypogonadism based on: ? Your signs and symptoms. ? A physical exam to check your testosterone levels. This includes blood tests. Testosterone levels can change throughout the day. Levels are highest in the morning. You may need to have repeat blood tests before getting a diagnosis of hypogonadism. Depending on your medical history and test results, your health care provider may also do other tests to find the cause of low testosterone. How is this treated? This condition is treated with testosterone replacement therapy. Testosterone can be given by: ? Injection or through pellets inserted under the skin. ? Gels or patches placed on the skin or in the mouth. Testosterone therapy is not for everyone. It has risks and side effects. Your health care provider will consider your medical history, your risk for prostate cancer, your age, and your symptoms before putting you on testosterone replacement therapy. Follow these instructions at home: ? Take [id number] and prescription medicines only as told by your health care provider. ? Eat foods that are high in fiber, such as beans, whole grains, and fresh fruits and vegetables. Limit foods that are high in fat and processed sugars, such as fried or sweet foods. ? If you drink alcohol: ? Limit how much you have to 0?2 drinks a day. ? Know how much alcohol is in your drink. In the [place] one drink equals one 12 oz bottle of beer (355 mL), one 5 oz glass of wine (148 mL), or one 1? oz glass of hard liquor (44 mL). ? Return to your normal activities as told by your health care provider. Ask your health care provider what activities are safe for you. ? Keep all follow-up visits. This is important. Contact a health care provider if: ? You have any of the signs or symptoms of low testosterone. ? You have any side effects from testosterone therapy. Summary ? Male hypogonadism is a condition of having a level of testosterone that is lower than normal. ? The natural drop in testosterone production that occurs with age is the most common cause of this condition. ? Low testosterone can also be caused by many diseases and conditions that affect the testicles and the making of testosterone. ? This condition is treated with testosterone replacement therapy. ? There are risks and side effects of testosterone therapy. Your health care provider will consider your age, medical history, symptoms, and risks for prostate cancer before putting you on testosterone therapy. This information is not intended to replace advice given to you by your health care provider. Make sure you discuss any questions you have with your health care provider. Document Revised: 03/21/2021 Document (more content not included)... Normal [facility] Urology Office/Clinic Noteon 04-27-2023 Urology Office/Clinic Note Chief Complaint hypogonadism HPI Staff 87 yo male here for 1 yr f/u with T level. Previous Dx: BPH with obstruction, hypogonadism, hx of chronic prostatitis. S/p Urodynamics done 01/05/13, TURP done 11/01/01, TRUS/bx done 12/02/99, and radical orchiectomy done 1990. Most recent testosterone level done 04/2023 is 256 (264-916) and previous done 04/15/22 was 261. Pt continues taking Finasteride 5mg QD and Tamsulosin 0.4mg QD. Dysuria: no Incomplete bladder emptying: no Hematuria: no Frequency: no264- Urgency: yes if he is running water Nocturia: 2x with urgency or he begins to leak Stream: weaker Leaking: only when he gets up in the middle of the night Post void dripping: no Wearing pads/ Depends: no Urge incontinence: no Stress incontinence: no Incontinence without Sensory Awareness: no Abdominal pain: no Flank pain: no Sexual complaints: no History of Present Illness Tests reviewed: reviewed UA, T level I have reviewed the previous health record information and history for this patient from Dr. Bauer. I have reviewed and verified the staff HPI to be accurate for this encounter. There have been no associated fever, chills, flank pain, or blood in the urine. Denies any urinary infections since last encounter. Review of Systems PHQ Score Initial Depression Screen Score: 0 ROS - Provider Constitutional: denies weight loss, denies hot flashes. Eyes: denies eye problems. Gastrointestinal: denies nausea, denies vomiting. Cardiovascular: denies chest pain or angina. Integumentary: no dryness Musculoskeletal: denies musculoskeletal symptoms. ENMT: denies otolaryngeal symptoms. Respiratory: no shortness of breath. Heme/Lymph: denies easy bleeding tendency, denies easy bruising tendency. Psychiatric: no confusion, no anxiety. Genitourinary: See HPI. Physical Exam Vitals & Measurements HR: 93(Peripheral) RR: 16 BP: 130/83 HT: 67 in HT: 170 cm WT: 86.5 kg WT: 190.3 lb BMI: 29.93 General Appearance: alert, no distress, well nourished, well developed male. Genitourinary: normal scrotum, normal testes, normal urethra, normal epididymis, normal vas deferens/spermatic cord. Flank Pain: none. Bladder: nonpalpable. Assessment/Plan 1. BPH with urinary obstruction (N40.1: Benign prostatic hyperplasia with lower urinary tract symptoms) S/p TURP 2001. UA today negative for blood and infection. Taking Tamsulosin 0.4 mg QD and Finasteride 5 mg QD. Doing well with medical management. Follow up 1 yr or sooner if needed. Pt understands and agrees with plan. 2. 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 T level remains stable, level not unreasonable for pt's age unless he is symptomatic. States he has no ambition and no sex drive. Offered to restart TRT (had T injections in the past). -Pt to call if he would like to restart T injections. 3. Urge incontinence (N39.41: Urge incontinence) Nocturia 2x/night. C/o UUI at night. Drinks two cups of water in the evening. -Limit/stop fluids 2 hrs before bed. Drink more throughout the day. Follow-up With When Contact Information ZECHARIAH WYNN, Robert Jung, URL [facility] [address], [place] [address] [phone] Additional Instructions: 1 yr T level Patient Education Hypogonadism, Male I, Savanna Isabel, personally scribed for Dr. Bauer on 04/27/2023 11:21:53. . Documentation recorded by the scribe, Savanna Isabel, accurately reflects the services(s) I performed and decisions made by me. Authenticated by Dr. Bauer on 04/27/2023 11:28:27. 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 Medications finasteride 5 mg Tab, 5 mg= 1 tab(s), Oral, Daily, 3 refills Flomax 0.4 mg Cap, 0.4 mg= 1 cap(s), Oral, Daily, 3 refills losartan 25 mg Tab metoprolol 25 mg ER Tab, Oral, Daily omeprazole 40 mg Cap-DR, 40 mg= 1 cap(s), Oral, Daily testosterone cypionate 200 mg/mL intramuscular solution, 200 mg= 1 mL, IntraMuscular, q4wk, 3 refills, Not taking Allergies No Known Medication Allergies Social History Tobacco Former smoker, quit more than 30 days ago Tobacco Use:., 04/14/2022 Former smoker, quit more than 30 days ago Tobacco Use:., 04/05/2021 Former smoker, quit more than 30 days ago Tobacco Use:., 09/26/2019 Family Hi (more content not included)... Normal [facility] Comment on above: Result Comment: Elec tronically Signed By: ZECHARIAH WYNN, Robert Jung\.br\Date and Time Signed: 04/27/23 11:28 EDT\.br\Electronically Co-Signed By: Savanna Isabel\.br\Date and Time Co-Signed: 04/27/23 11:23 EDT\.br\Electronically Co-Signed By: Savanna Isabel\.br\Date and Time Co-Signed: 04/27/23 11:27 EDT Office Visiton 02-27-2023 Follow-up visit [id number] Yaya De Anda 1935 M Date Provider Department Center 02/27/2023 CARLO OLIVAS HENRI [facility] Family History Family history unknown: Yes Level of Service:18196 [place] OFFICE/OUTPATIENT ESTABLISHED LOW MDM 20-29 MIN Reason for Visit and Comments: Follow-up [168142] Normal [facility] CBC AUTO DIFFon 11-18-2022 BASO # 0.1 103/ul Normal 0.0-0.1 [facility] Comment on above: Performed By: #### D ATCBC #### [facility] [address] [address] [address] Sagrario Schilling Basophils/100 WBC (Bld) 0.8 % Normal 0.2-2.0 [facility] Comment on above: Performed By: #### D ATCBC #### [facility] [address] [address] [address] Sagrario Schilling EO # 0.1 103/ul Normal 0.0-0.7 [facility] Comment on above: Performed By: #### D ATCBC #### [facility] [address] [place] [address] Dr. Sagrario Schilling Eosinophils/100 WBC (Bld) 1.8 % Normal 0.9-7.0 [facility] Comment on above: Performed By: #### D ATCBC #### [facility] [address] [place] [address] Dr. Sagrario Schilling Erythrocyte distribution width (RBC) [Ratio] 13.2 % Normal 11.0-15.0 [facility] Comment on above: Performed By: #### D ATCBC #### [facility] [address] [place] [address] Dr. Sagrario Schilling Hematocrit (Bld) [Volume fraction] 45.2 % Normal 42.0-54.0 [facility] Comment on above: Performed By: #### D ATCBC #### [facility] [address] [place] [address] Dr. Sagrario Schilling Hemoglobin (Bld) [Mass/Vol] 14.6 g/dL Normal 14.0-18.0 [facility] Comment on above: Performed By: #### D ATCBC #### [facility] [address] [place] [address] Dr. Sagrario Schilling IG # 0.03 10e3/ul Normal 0.00-0.03 [facility] Comment on above: Performed By: #### D ATCBC #### [facility] [address] [place] [address] Dr. Sagrario Schilling IG % 0.5 % Normal 0.0-0.5 [facility] Comment on above: Performed By: #### D ATCBC #### [facility] [address] [place] [address] Dr. Sagrario Schilling LYMPH # 1.7 103/ul Normal 1.2-3.8 [facility] Comment on above: Performed By: #### D ATCBC #### [facility] [address] [place] [address] Dr. Sagrario Schilling Lymphocytes/100 WBC (Bld) 27.6 % Normal 20.5-60.0 [facility] Comment on above: Performed By: #### D ATCBC #### [facility] [address] [address] [address] Sagrario Schilling MCH (RBC) [Entitic mass] 28.9 pg Normal 25.9-34.0 [facility] Comment on above: Performed By: #### D ATCBC #### [facility] [address] [place] [address] Dr. Sagrario Schilling MCHC (RBC) [Mass/Vol] 32.3 g/dL Normal 29.9-35.2 [facility] Comment on above: Performed By: #### D ATCBC #### [facility] [address] [place] [address] Dr. Sagrario Schilling MCV (RBC) [Entitic vol] 89.5 fL Normal 80.0-94.0 [facility] Comment on above: Performed By: #### D ATCBC #### [facility] [address] [place] [address] Dr. Sagrario Schilling MONO # 0.4 103/ul Normal 0.3-0.8 [facility] Comment on above: Performed By: #### D ATCBC #### [facility] [address] [place] [address] Dr. Sagrario Schilling Monocytes/100 WBC (Bld) 7.2 % Normal 1.7-12.0 [facility] Comment on above: Performed By: #### D ATCBC #### [facility] [address] [place] [address] Dr. Sagrario Schilling NEUT # 3.7 103/ul Normal 1.4-6.5 [facility] Comment on above: Performed By: #### D ATCBC #### [facility] [address] [place] [address] Dr. Sagrario Schilling Neutrophils/100 WBC (Bld) 62.1 % Normal 43.0-75.0 [facility] Comment on above: Performed By: #### D ATCBC #### [facility] [address] [place] [address] Dr. Sagrario Schilling Platelet mean volume (Bld) [Entitic vol] 10.0 fL Normal 9.5-13.5 [facility] Comment on above: Performed By: #### D ATCBC #### [facility] [address] [address] [address] Sagrario Schilling PLT 171 103/ul Normal 150-450 [facility] Comment on above: Performed By: #### D ATCBC #### [facility] [address] [address] [address] Sagrario Schilling RBC 5.05 106/ul Normal 4.70-6.10 [facility] Comment on above: Performed By: #### D ATCBC #### [facility] [address] [address] [address] Sagrario Schilling WBC 6.0 103/ul Normal 4.0-11.0 [facility] Comment on above: Performed By: #### D ATCBC #### [facility] [address] [place] [address] Dr. Sagrario Schilling DIANE- BMP WITH LIPIDon 2022 Anion gap [Moles/Vol] 10.1 mmol/L Normal [facility] Comment on above: Performed By: #### D ATBMP #### [facility] [address] [place] [address] Dr. Sagrario Schilling Calcium [Mass/Vol] 9.0 mg/dL Normal 8.5-10.1 [facility] Comment on above: Performed By: #### D ATBMP #### [facility] [address] [place] [address] Dr. Sagrario Schilling Chloride [Moles/Vol] 106 mmol/L Normal 98-107 [facility] Comment on above: Performed By: #### D ATBMP #### [facility] [address] [address] [address] Sagrario Schilling Cholesterol [Mass/Vol] 181 mg/dL Normal <=200 [facility] Comment on above: Performed By: #### D ATBMP #### [facility] [address] [place] [address] Dr. Sagrario Schilling Cholesterol in HDL [Mass/Vol] 40 mg/dL Normal 40-60 [facility] Comment on above: Performed By: #### D ATBMP #### [facility] [address] [address] [address] Sagrario Schilling Cholesterol in LDL [Mass/Vol] 109.2 mg/dL Normal [facility] Comment on above: Performed By: #### D ATBMP #### [facility] [address] [address] [address] Sagrario Schilling CO2 [Moles/Vol] 29.1 mmol/L Normal 21.0-32.0 [facility] Comment on above: Performed By: #### D ATBMP #### [facility] [address] [address] [address] Sagrario Schilling Creatinine [Mass/Vol] 1.16 mg/dL Normal 0.70-1.30 [facility] Comment on above: Performed By: #### D ATBMP #### [facility] [address] [address] [address] Sagrario Schilling EGFR-AF NIUEAN >60 Normal >=60 [facility] Comment on above: Performed By: #### D ATBMP #### [facility] [address] [address] [address] Sagrario Schilling EGFR-NON AF NIUEAN =60 Normal >=60 [facility] Comment on above: Performed By: #### D ATBMP #### [facility] [address] [address] [address] Sagrario Schilling Glucose [Mass/Vol] 101 mg/dL Normal 74-106 [facility] Comment on above: Performed By: #### D ATBMP #### [facility] [address] [address] [address] Sagrario Schilling HDL NORMAL > or = 60 mg/dl - LO W CARDIOVASCULAR RISK <40 mg/dl - HIGH CARDIOVASCULAR RISK Normal [facility] Comment on above: Performed By: #### D ATBMP #### [facility] [address] [address] [address] Sagrario Schilling LDL CALC NORMAL SEE BELOW Normal [facility] Comment on above: Result Comment: <100 mg/dl OPTIMAL 100 - 129 mg/dl NEAR OR ABOVE OPTIMAL 130 - 159 mg/dl BORDERLINE HIGH 160 - 189 mg/dl HIGH >190 mg/dl VERY HIGH Performed By: #### D ATBMP #### [facility] [address] [address] [address] Sagrario Schilling Potassium [Moles/Vol] 4.2 mmol/L Normal 3.5-5.1 [facility] Comment on above: Performed By: #### D ATBMP #### [facility] [address] [address] [address] Sagrario Schilling Sodium [Moles/Vol] 141 mmol/L Normal 136-145 [facility] Comment on above: Performed By: #### D ATBMP #### [facility] [address] [address] [address] Sagrario Schilling Triglyceride [Mass/Vol] 159 mg/dL Critically high <=150 [facility] Comment on above: Performed By: #### D ATBMP #### [facility] [address] [address] [address] Sagrario Schilling Urea nitrogen [Mass/Vol] 29.0 mg/dL Critically high 7.0-18.0 [facility] Comment on above: Performed By: #### D ATBMP #### [facility] [address] [place] [address] Dr. Sagrario Schilling Urea nitrogen/Creatinine [Mass ratio] 25.0 mg/mg Normal [facility] Comment on above: Performed By: #### D ATBMP #### [facility] [address] [address] [address] Sagrario Schilling VLDL CALC 31.8 mg/dL Normal [facility] Comment on above: Performed By: #### D ATBMP #### [facility] [address] [address] [address] Sagrario Schilling ECHOCARDIO M/2D COMPLETEon 0 11-18-2022 ECHOCARDIO M/2D COMPLETE Patient: YAYA DE ANDA Exam Date: 11/18/2022 : 1935 Gender:M Ordering : DR DAVID MARX D.O. Admission #: [id number] Family : Order #: [id number] CLICK HERE TO VIEW EXAM ECHOCARDIOGRAM REPORT PROCEDURE: CARDIO PULMONARY ECHOCARDIO M/2D COMP INDICATIONS: Cardiomyopathy, Mitral regurgitation COMPARISON: None. DESCRIPTION: COMPLETE ECHOCARDIOGRAM Real-time transthoracic echocardiography with 2D, M-mode, spectral and color flow Doppler performed. QUALITY: Technical quality was good. LEFT VENTRICLE: Normal chamber size. Mild concentric hypertrophy. Global left ventricular systolic function is normal. LV EF: Visual estimation of left ventricular ejection fraction is 55% DIASTOLIC: Grade II diastolic dysfunction. ATRIAL SEPTUM: LEFT ATRIUM: Mild dilatation. RIGHT ATRIUM: Mild dilatation. RIGHT VENTRICLE: Normal chamber size. Normal right ventricular systolic function. TRICUSPID VALVE: Normal mobility and thickness. No stenosis with trivial regurgitation. No evidence of pulmonary hypertension. RVSP 28 mmHg MITRAL VALVE: Mildly thickened with normal mobility. No mitral valve prolapse. No evidence of mitral valve stenosis. Mild mitral annular calcification. Mild to moderate mitral regurgitation. AORTIC VALVE: Normal trileaflet appearance. Thickened aortic valve. Normal leaflet mobility. No evidence of aortic valve stenosis. Mild aortic regurgitation. AORTIC ROOT: Normal diameter and appearance. PULMONIC VALVE: Normal thickness and mobility. No stenosis. No regurgitation. PERICARDIUM: No evidence of pericardial effusion. IVC: Collapses with inspirations. Normal size. PLEURA: CONCLUSION: 1. Mild concentric left ventricular hypertrophy. Normal left ventricular systolic function. LVEF is 55%. 2. Normal right ventricular size and systolic function. 3. Grade 2 diastolic dysfunction. 4. Mild biatrial dilatation. 5. Mild to moderate mitral and mild aortic regurgitation. 6. Normal right-sided pressures. Adult Echocardiography Procedure Report Left Ventricle LVEDD (3.7 - 5.6 cm): 4.36 cm LVESD (2.2 - 4.0 cm): 3.17 cm LVIVS thickness (0.6 - 1.2 cm): 1.4 cm LVPW thickness (0.5 - 1.0 cm): 1.2 cm e': 0.09 m/s E - e': 14.12 LVOT Max Gradient: 2.12 mm[Hg] Peak Velocity (LVOT): 0.73 m/s Mean Velocity (LVOT): 0.51 m/s LVOT Diameter 2.07 cm Left Ventricular Ejection Fraction: 55 % Left Atrium LA Volume Index (2D A2C): 102.29 ml, 102.29 ml Left Atrium Systolic Dimension: 4.43 cm Mitral Valve MV E to A Ratio: 1.22 Mitral Valve A-Wave Peak Velocity: 1.04 m/s Mitral Valve E-Wave Peak Velocity: 1.27 m/s Right Ventricle RV Internal Diastolic Dimension: 3.01 cm Aorta AO Root Diam: 3.51 cm Ascending Ao Diam: 3.52 cm Aortic Valve AoV Area (Peak Ben): 2.63 cm2, 2.63 cm2 AoV Area (VTI): 3.31 cm2, 3.31 cm2 Deceleration Sebastian: 0.68 m/s2 Pressure Half-Time: 1.35 s Peak Velocity(Antegrade Flow): 0.93 m/s Peak Gradient(Antegrade Flow): 3.49 mm[Hg] Mean Velocity(Antegrade Flow): 0.57 m/s Mean Gradient(Antegrade Flow): 1.52 mm[Hg] Velocity Time Integral: 19.26 cm Tricuspid Valve Peak Velocity (Regurgitant Flow): 1.45 m/s, 1.98 m/s, 2.51 m/s Peak Velocity: 0.51 m/s Pulmonic Valve Mean Gradient: 1.44 mm[Hg] Mean Velocity: 0.57 m/s Peak Velocity: 0.78 m/s, 0.74 m/s Peak Gradient: 2.19 mm[Hg], 2.44 mm[Hg] Right Atrium Right Atrium Systolic Pressure: 64.09 ml, 64.09 ml Dictated by: Vj Pineda M.D. on 11/18/2022 at 10:08 Approved by: Vj Pineda M.D. on 11/18/2022 at 10:21 Normal [facility] XR CHEST 2 Von 11-18-2022 XR CHEST 2 V EXAMINATION: XR CHES T 2 V HISTORY: Cough follow-up COMPARISON: XR chest 12/23/2017 FINDINGS: LUNGS: Mild chronic interstitial changes without appreciable mass or acute infiltrates. VASCULATURE: No increased pulmonary vasculature. PLEURA: No pneumothorax, effusion, or pleural thickening. CARDIAC: No cardiomegaly or cardiac silhouette abnormality. MEDIASTINUM: No visible mass or adenopathy. BONES: No fracture or visible bone lesion. OTHER: Negative. IMPRESSION: 1. No acute cardiopulmonary process. 2. Mild chronic interstitial changes; progressed since 2018. Electronically authenticated by: MILKA ANDERS Date: 2022-11-18 08:44 Normal [facility] MRI HIP RT WO CONon 05-29-20 22 MRI HIP RT WO CON EXAMINATION: MRI HIP RT WO CON HISTORY: Trochanteric bursitis of right hip COMPARISON: No relevant comparison available. TECHNIQUE: A comprehensive examination was performed utilizing a variety of imaging planes and imaging parameters to optimize visualization of suspected pathology. Images were performed without contrast. FINDINGS: FEMORAL HEAD: No AVN, fracture, or significant arthropathy. ACETABULUM: No fracture or significant arthropathy. OTHER BONES: Normal appearance of the visualized portion of the pelvis. LABRUM: Normal appearance for a patient in this age group, with no visible tear. EFFUSIONS: None. No synovitis or loose bodies. BURSAE: Fluid collection posterior and lateral to the greater trochanter. TENDONS: Normal gluteus tendons, iliopsoas tendon, and hamstring origin. MUSCLES: No tear or strain. No inappropriate atrophy. OTHER: Negative. IMPRESSION: 1. Small fluid collection posterior lateral to the right femur greater trochanter compatible with bursitis. 2. No acute bone abnormality, marrow edema, or significant degenerative joint disease. Electronically authenticated by: MILKA ANDERS Date: 2022-05-29 18:20 Normal [facility] TESTOSTERONE, TOTALon 2021 Testosterone [Mass/Vol] 261 ng/dL Critically low 264-916 [facility] Comment on above: Result Comment: Adul t male reference interval is based on a population of healthy nonobese males (BMI <30) between 19 and 39 years old. Liz, et.al. JCEM 2017,102;0993-3390. PMID: [id number]. Performed By: #### T ESTTOT #### [facility] [address] [address] [address] Sagrario Schilling BASIC METABOLIC PANELon 01-01 Calcium [Mass/Vol] 8.6 mg/dL Normal 8.6-10.3 [facility] Comment on above: Order Comment: Yes: Add to Previous draw if able Performed By: #### 5 0103 #### [facility] [address] [place] [address], [facility] Chloride [Moles/Vol] 103 mmol/L Normal 98-107 [facility] Comment on above: Order Comment: Yes: Add to Previous draw if able Performed By: #### 5 0103 #### [facility] [address] [place] [address], [place] CO2 [Moles/Vol] 27 mmol/L Normal 21-31 [facility] Comment on above: Order Comment: Yes: Add to Previous draw if able Performed By: #### 5 0103 #### [facility] [address] [place] [address], [place] Creatinine [Mass/Vol] 1.23 mg/dL Normal 0.70-1.30 [facility] Comment on above: Order Comment: Yes: Add to Previous draw if able Performed By: #### 5 0103 #### [facility] [address] [place] [address], [place] GFR/1.73 sq M predicted among blacks MDRD (S/P/Bld) [Vol rate/Area] mL/min/{1.73_m2} Normal >60 [facility] Comment on above: Order Comment: Yes: Add to Previous draw if able Result Comment: Calc ulation may not be valid for patients over 70 years Performed By: #### 5 0103 #### [facility] [address] [place] [address], [place] GFR/1.73 sq M predicted among non-blacks MDRD (S/P/Bld) [Vol rate/Area] 56 ml/min/1.73sq m Abnormal >60 [facility] Comment on above: Order Comment: Yes: Add to Previous draw if able Result Comment: Calc ulation may not be valid for patients over 70 years Performed By: #### 5 0103 #### [facility] [address] [place] [address], [place] Glucose [Mass/Vol] 100 mg/dL Normal 70-100 [facility] Comment on above: Order Comment: Yes: Add to Previous draw if able Performed By: #### 5 0103 #### [facility] [address] [place] [address], [place] Potassium [Moles/Vol] 4.3 mmol/L Normal 3.5-5.1 [facility] Comment on above: Order Comment: Yes: Add to Previous draw if able Performed By: #### 5 0103 #### [facility] [address] [place] [address], [place] Sodium [Moles/Vol] 133 mmol/L Low 136-145 [facility] Comment on above: Order Comment: Yes: Add to Previous draw if able Performed By: #### 5 0103 #### [facility] [address] [place] [address], [place] Urea nitrogen [Mass/Vol] 26 mg/dL High 7-25 [facility] Comment on above: Order Comment: Yes: Add to Previous draw if able Performed By: #### 5 0103 #### [facility] [address] [place] [address], [facility] CBC COMPLETE BLOOD COUNTon 0 - Erythrocyte distribution width (RBC) [Ratio] 14.0 % Normal 11.5-15.0 [facility] Comment on above: Order Comment: Yes: Add to Previous draw if able Performed By: #### 3 5200, 95113, 00532 #### [facility] [address] [place] [address], [place] Hematocrit (Bld) [Volume fraction] 46.5 % Normal 39.0-50.0 [facility] Comment on above: Order Comment: Yes: Add to Previous draw if able Performed By: #### 3 5200, 64499, 48882 #### [facility] [address] [place] [address], [place] Hemoglobin (Bld) [Mass/Vol] 14.9 g/dL Normal 13.0-17.0 [facility] Comment on above: Order Comment: Yes: Add to Previous draw if able Performed By: #### 3 5200, 89206, 95902 #### [facility] [address] [place] [address], [facility] MCH (RBC) [Entitic mass] 28.9 pg Normal 27.0-33.0 [facility] Comment on above: Order Comment: Yes: Add to Previous draw if able Performed By: #### 3 5200, 79870, 51598 #### [facility] [address] [place] [address], [facility] MCHC (RBC) [Mass/Vol] 32.0 g/dL Normal 32.0-35.0 [facility] Comment on above: Order Comment: Yes: Add to Previous draw if able Performed By: #### 3 5200, 53504, 59723 #### [facility] [address] [place] [address], [facility] MCV (RBC) [Entitic vol] 90.1 fL Normal 82.0-98.0 [facility] Comment on above: Order Comment: Yes: Add to Previous draw if able Performed By: #### 3 0, 92713, 00799 #### [facility] [address] [facility] [place] [address], [facility] Nucleated RBC/100 WBC (Bld) [Ratio] 0 % Normal 0-0 [facility] Comment on above: Order Comment: Yes: Add to Previous draw if able Performed By: #### 3 5200, 37308, 58016 #### [facility] [address] [place] [address], [facility] PLAT CNT 149 10*3/uL Low 150-400 [facility] Comment on above: Order Comment: Yes: Add to Previous draw if able Performed By: #### 3 5200, 51359, 11173 #### [facility] [address] [place] [address], [facility] RBC (Bld) [#/Vol] 5.16 10*6/uL Normal 4.20-5.70 [facility] Comment on above: Order Comment: Yes: Add to Previous draw if able Performed By: #### 3 5200, 82865, 62182 #### [facility] [address] WBC (Bld) [#/Vol] 8.05 10*3/uL Normal 4.00-10.60 [facility] Comment on above: Order Comment: Yes: Add to Previous draw if able Performed By: #### 3 5200, 31596, 59028 #### [facility] [address] PROTHROMBIN TIMEon 9 INR Coag (PPP) [Relative time] 1.04 {INR} Normal 0.91-1.16 [facility] Comment on above: Order Comment: Yes: Add to Previous draw if able Result Comment: ACCC P RECOMMENDED INR FOR WARFARIN THERAPY ------ ------- CONDITION INR PROPHYLAXIS OF VENOUS THROMBOSIS 2-3 (HIGH-RISK SURGERY) TREATMENT OF VENOUS THROMBOSIS 2-3 TREATMENT OF PULMONARY EMBOLISM 2-3 PREVENTION OF SYSTEMIC EMBOLISM: 2-3 ACUTE MYOCARDIAL INFARCTION TISSUE HEART VALVES VALVULAR HEART DISEASE ATRIAL FIBRILLATION RECURRENT SYSTEMIC EMBOLISM MECHANICAL HEART VALVE 2.5-3.5 FROM: ORAL ANTICOAGULANTS. MECHANISM OF ACTION, CLINICAL EFFECTIVENESS, AND OPTIMAL THERAPEUTIC RANGE. CHEST 1995;108:231S-246S. Performed By: #### 5 0103 #### [facility] [address] PT Coag (PPP) [Time] 13.6 s Normal 12.3-14.8 [facility] Comment on above: Order Comment: Yes: Add to Previous draw if able Result Comment: ALL RESULTS MUST BE INTERPRETED WITH RESPECT TO BLOOD DRAWING ARTIFACT OR DILUTION ERROR OF ANTICOAGULANT AT THE TIME OF SAMPLING. Performed By: #### 5 0103 #### [facility] [address] [place] [address], [facility] BASIC METABOLIC PANELon 06- Calcium [Mass/Vol] 8.6 mg/dL Normal 8.6-10.3 [facility] Comment on above: Order Comment: Yes: Add to Previous draw if able Performed By: #### 3 5200, 06124, 78578 #### [facility] [address] [place] [address], [facility] Chloride [Moles/Vol] 102 mmol/L Normal 98-107 [facility] Comment on above: Order Comment: Yes: Add to Previous draw if able Performed By: #### 3 5200, 52938, 34343 #### [facility] [address] [place] [address], [place] CO2 [Moles/Vol] 24 mmol/L Normal 21-31 [facility] Comment on above: Order Comment: Yes: Add to Previous draw if able Performed By: #### 3 5200, 15105, 90669 #### [facility] [address] [place] [address], [place] Creatinine [Mass/Vol] 1.28 mg/dL Normal 0.70-1.30 [facility] Comment on above: Order Comment: Yes: Add to Previous draw if able Performed By: #### 3 5200, 10413, 99999 #### [facility] [address] [place] [address], [place] GFR/1.73 sq M predicted among blacks MDRD (S/P/Bld) [Vol rate/Area] mL/min/{1.73_m2} Normal >60 [facility] Comment on above: Order Comment: Yes: Add to Previous draw if able Result Comment: Calc ulation may not be valid for patients over 70 years Performed By: #### 3 5200, 19375, 48161 #### [facility] [address] [place] [address], [place] GFR/1.73 sq M predicted among non-blacks MDRD (S/P/Bld) [Vol rate/Area] 54 ml/min/1.73sq m Abnormal >60 [facility] Comment on above: Order Comment: Yes: Add to Previous draw if able Result Comment: Calc ulation may not be valid for patients over 70 years Performed By: #### 3 5200, 70852, 66402 #### [facility] [address] [place] [address], [place] Glucose [Mass/Vol] 90 mg/dL Normal 70-100 [facility] Comment on above: Order Comment: Yes: Add to Previous draw if able Performed By: #### 3 5200, 55414, 41277 #### [facility] [address] [place] [address], [place] Potassium [Moles/Vol] 4.1 mmol/L Normal 3.5-5.1 [facility] Comment on above: Order Comment: Yes: Add to Previous draw if able Performed By: #### 3 5200, 65690, 08332 #### [facility] [address] [place] [address], [place] Sodium [Moles/Vol] 135 mmol/L Low 136-145 [facility] Comment on above: Order Comment: Yes: Add to Previous draw if able Performed By: #### 3 5200, 83130, 82467 #### [facility] [address] [place] [address], [place] Urea nitrogen [Mass/Vol] 31 mg/dL High 7-25 [facility] Comment on above: Order Comment: Yes: Add to Previous draw if able Performed By: #### 3 5200, 63033, 81588 #### [facility] [address] [place] [address], [facility] CBC COMPLETE BLOOD COUNTon 0 - Erythrocyte distribution width (RBC) [Ratio] 14.1 % Normal 11.5-15.0 [facility] Comment on above: Order Comment: Yes: Add to Previous draw if able Performed By: #### 3 5200, 62715, 11786 #### [facility] [address] [place] [address], [facility] Hematocrit (Bld) [Volume fraction] 48.7 % Normal 39.0-50.0 [facility] Comment on above: Order Comment: Yes: Add to Previous draw if able Performed By: #### 3 5200, 19770, 14321 #### [facility] [address] [place] [address], [facility] Hemoglobin (Bld) [Mass/Vol] 15.3 g/dL Normal 13.0-17.0 [facility] Comment on above: Order Comment: Yes: Add to Previous draw if able Performed By: #### 3 5200, 82646, 57615 #### [facility] [address] [place] [address], [facility] MCH (RBC) [Entitic mass] 29.1 pg Normal 27.0-33.0 [facility] Comment on above: Order Comment: Yes: Add to Previous draw if able Performed By: #### 3 5200, 92335, 10434 #### [facility] [address] [place] [address], [place] MCHC (RBC) [Mass/Vol] 31.4 g/dL Low 32.0-35.0 [facility] Comment on above: Order Comment: Yes: Add to Previous draw if able Performed By: #### 3 5200, 45731, 21018 #### [facility] [address] [place] [address], [place] MCV (RBC) [Entitic vol] 92.6 fL Normal 82.0-98.0 [facility] Comment on above: Order Comment: Yes: Add to Previous draw if able Performed By: #### 3 5200, 23701, 33132 #### [facility] [address] [place] [address], [place] Nucleated RBC/100 WBC (Bld) [Ratio] 0 % Normal 0-0 [facility] Comment on above: Order Comment: Yes: Add to Previous draw if able Performed By: #### 3 5200, 92880, 66608 #### [facility] [address] [place] [address], [place] PLAT CNT 160 10*3/uL Normal 150-400 [facility] Comment on above: Order Comment: Yes: Add to Previous draw if able Performed By: #### 3 5200, 07279, 98788 #### [facility] [address] [place] [address], [facility] RBC (Bld) [#/Vol] 5.26 10*6/uL Normal 4.20-5.70 [facility] Comment on above: Order Comment: Yes: Add to Previous draw if able Performed By: #### 3 5200, 38790, 99550 #### [facility] [address] [place] [address], [place] WBC (Bld) [#/Vol] 7.34 10*3/uL Normal 4.00-10.60 [facility] Comment on above: Order Comment: Yes: Add to Previous draw if able Performed By: #### 3 5200, 96709, 10849 #### [facility] [address] [place] [address], [place] MAGNESIUM BLOODon 01-18-2019 Magnesium [Mass/Vol] 2.1 mg/dL Normal 1.9-2.7 [facility] Comment on above: Order Comment: Yes: Add to Previous draw if able Performed By: #### 3 5200, 33083, 29886 #### [facility] [address] [place] [address], [facility] PHOSPHORUS BLOODon 9 Phosphate [Mass/Vol] 2.6 mg/dL Normal 2.5-5.0 [facility] Comment on above: Order Comment: Yes: Add to Previous draw if able Performed By: #### 3 5200, 36423, 27716 #### [facility] [address] [facility] [place] [address], [facility] PROTHROMBIN TIMEon 9 INR Coag (PPP) [Relative time] 1.05 {INR} Normal 0.91-1.16 [facility] Comment on above: Order Comment: Yes: Add to Previous draw if able Result Comment: ACCC P RECOMMENDED INR FOR WARFARIN THERAPY ------ ------- CONDITION INR PROPHYLAXIS OF VENOUS THROMBOSIS 2-3 (HIGH-RISK SURGERY) TREATMENT OF VENOUS THROMBOSIS 2-3 TREATMENT OF PULMONARY EMBOLISM 2-3 PREVENTION OF SYSTEMIC EMBOLISM: 2-3 ACUTE MYOCARDIAL INFARCTION TISSUE HEART VALVES VALVULAR HEART DISEASE ATRIAL FIBRILLATION RECURRENT SYSTEMIC EMBOLISM MECHANICAL HEART VALVE 2.5-3.5 FROM: ORAL ANTICOAGULANTS. MECHANISM OF ACTION, CLINICAL EFFECTIVENESS, AND OPTIMAL THERAPEUTIC RANGE. CHEST 1995;108:231S-246S. Performed By: #### 3 5200, 68654, 20160 #### [facility] [address] [place] [address], [facility] PT Coag (PPP) [Time] 13.7 s Normal 12.3-14.8 [facility] Comment on above: Order Comment: Yes: Add to Previous draw if able Result Comment: ALL RESULTS MUST BE INTERPRETED WITH RESPECT TO BLOOD DRAWING ARTIFACT OR DILUTION ERROR OF ANTICOAGULANT AT THE TIME OF SAMPLING. Performed By: #### 3 5200, 01777, 17820 #### [facility] [address] [place] [address], [place] BASIC METABOLIC PANELon - Calcium [Mass/Vol] 8.2 mg/dL Low 8.6-10.3 [facility] Comment on above: Order Comment: Yes: Add to Previous draw if able Performed By: #### 3 5200, 26261, 14135 #### [facility] [address] [place] [address], [place] Chloride [Moles/Vol] 100 mmol/L Normal 98-107 [facility] Comment on above: Order Comment: Yes: Add to Previous draw if able Performed By: #### 3 5200, 37811, 61414 #### [facility] [address] [place] [address], [place] CO2 [Moles/Vol] 26 mmol/L Normal 21-31 [facility] Comment on above: Order Comment: Yes: Add to Previous draw if able Performed By: #### 3 5200, 71802, 01090 #### [facility] [address] [place] [address], [place] Creatinine [Mass/Vol] 1.53 mg/dL High 0.70-1.30 [facility] Comment on above: Order Comment: Yes: Add to Previous draw if able Performed By: #### 3 5200, 26168, 38998 #### [facility] [address] [place] [address], [place] GFR/1.73 sq M predicted among blacks MDRD (S/P/Bld) [Vol rate/Area] 53 ml/min/1.73sq m Abnormal >60 [facility] Comment on above: Order Comment: Yes: Add to Previous draw if able Result Comment: Calc ulation may not be valid for patients over 70 years Performed By: #### 3 5200, 84255, 18021 #### [facility] [address] [place] [address], [place] GFR/1.73 sq M predicted among non-blacks MDRD (S/P/Bld) [Vol rate/Area] 44 ml/min/1.73sq m Abnormal >60 [facility] Comment on above: Order Comment: Yes: Add to Previous draw if able Result Comment: Calc ulation may not be valid for patients over 70 years Performed By: #### 3 5200, 80112, 12754 #### [facility] [address] [place] [address], [place] Glucose [Mass/Vol] 95 mg/dL Normal 70-100 [facility] Comment on above: Order Comment: Yes: Add to Previous draw if able Performed By: #### 3 5200, 97474, 44163 #### [facility] [address] [place] [address], [place] Potassium [Moles/Vol] 3.7 mmol/L Normal 3.5-5.1 [facility] Comment on above: Order Comment: Yes: Add to Previous draw if able Performed By: #### 3 5200, 15468, 09014 #### [facility] [address] [place] [address], [place] Sodium [Moles/Vol] 135 mmol/L Low 136-145 [facility] Comment on above: Order Comment: Yes: Add to Previous draw if able Performed By: #### 3 5200, 74627, 70346 #### [facility] [address] [place] [address], [place] Urea nitrogen [Mass/Vol] 41 mg/dL High 7-25 [facility] Comment on above: Order Comment: Yes: Add to Previous draw if able Performed By: #### 3 5200, 93205, 80965 #### [facility] [address] [place] [address], [place] CBC COMPLETE BLOOD COUNTon 0 - Erythrocyte distribution width (RBC) [Ratio] 14.3 % Normal 11.5-15.0 [facility] Comment on above: Order Comment: Yes: Add to Previous draw if able Performed By: #### 3 5200, 85894, 82305 #### [facility] [address] [place] [id number], [facility] Hematocrit (Bld) [Volume fraction] 47.8 % Normal 39.0-50.0 [facility] Comment on above: Order Comment: Yes: Add to Previous draw if able Performed By: #### 3 5200, 17012, 01938 #### [facility] [address] [place] [address], [facility] Hemoglobin (Bld) [Mass/Vol] 15.5 g/dL Normal 13.0-17.0 [facility] Comment on above: Order Comment: Yes: Add to Previous draw if able Performed By: #### 3 0, 76517, 78111 #### [facility] [address] [place] [address], [place] MCH (RBC) [Entitic mass] 29.1 pg Normal 27.0-33.0 [facility] Comment on above: Order Comment: Yes: Add to Previous draw if able Performed By: #### 3 0, 51827, 23012 #### [facility] [address] [place] [address], [place] MCHC (RBC) [Mass/Vol] 32.4 g/dL Normal 32.0-35.0 [facility] Comment on above: Order Comment: Yes: Add to Previous draw if able Performed By: #### 3 5200, 70302, 41452 #### [facility] [address] [place] [address], [place] MCV (RBC) [Entitic vol] 89.8 fL Normal 82.0-98.0 [facility] Comment on above: Order Comment: Yes: Add to Previous draw if able Performed By: #### 3 5200, 94619, 51146 #### [facility] [address] [place] [address], [facility] Nucleated RBC/100 WBC (Bld) [Ratio] 0 % Normal 0-0 [facility] Comment on above: Order Comment: Yes: Add to Previous draw if able Performed By: #### 3 5200, 21043, 76870 #### [facility] [address] [place] [address], [facility] PLAT CNT 153 10*3/uL Normal 150-400 [facility] Comment on above: Order Comment: Yes: Add to Previous draw if able Performed By: #### 3 5200, 87490, 16098 #### [facility] [address] [facility] [place] [address], [facility] RBC (Bld) [#/Vol] 5.32 10*6/uL Normal 4.20-5.70 [facility] Comment on above: Order Comment: Yes: Add to Previous draw if able Performed By: #### 3 5200, 20220, 70187 #### [facility] [address] [facility] [place] [address], [facility] WBC (Bld) [#/Vol] 6.80 10*3/uL Normal 4.00-10.60 [facility] Comment on above: Order Comment: Yes: Add to Previous draw if able Performed By: #### 3 5200, 40010, 61422 #### [facility] [address] [facility]. [address] Cardiovascular Lab Reporton 01-17-2019 Cardiovascular Lab Report [facility] Patient Name: [facility] MR #: [id number] Physician: Beto Duff, Department of M.D. Medicine Service Date: 01/17/2019 Division of Birthdate: 1935 Cardiology Room #: [id number] Adult Cardiovascular Services [place] [address] Cardiovascular Laboratory Report CLINICAL PRESENTATION: The patient is an 83-year-old male with past medical history significant for prior DVT, GERD, BPH, and testicular cancer. He is admitted with severe shortness of breath at rest consistent with acute systolic congestive heart failure, NYHA class 4. He has an echocardiogram, which showed an EF of 10-15%. He is referred for right heart catheterization and coronary angiogram. IMPRESSION: 1. Normal coronary arteries. 2. Severely elevated pulmonary capillary wedge pressure with large V-waves representing significant mitral regurgitation. 3. Preserved cardiac output and cardiac index. PLAN: 1. Optimal medical therapy for systolic congestive heart failure. 2. Titrate beta david, JOSE ALFREDO-I/ARB/ARNI, and aldosterone antagonist as tolerated for optimal medical therapy for systolic CHF. 3. Further evaluation for causes of systolic CHF including further evaluation for mitral regurgitation may be appropriate. Transesophageal echocardiogram can be considered once the patient is optimized from a CHF standpoint. PROCEDURES: Coronary angiogram, right heart catheterization, ultrasound guidance for vascular access, conscious sedation 23 minutes. INDICATION: Acute systolic CHF, NYHA class 4. DESCRIPTION OF PROCEDURE: The patient was brought to cardiac catheterization lab in a fasting state. Informed written consent was obtained. He was prepped and draped in usual sterile fashion over the right wrist. Time-out was performed. He was given Versed and fentanyl for sedation. A 1% lidocaine infiltrated over the right radial artery and right internal jugular vein. First, the right internal jugular vein was accessed using a micropuncture access technique and ultrasound guidance. A 6-[place] sheath was placed in the right internal jugular vein. A Gray catheter was then advanced under fluoroscopic and hemodynamic monitoring to the right atrium, pressures obtained of the right atrium, right ventricle, pulmonary artery, pulmonary capillary wedge position. Oxygen saturations drawn from the pulmonary artery and the Minerva cardiac output and cardiac index were calculated. The Gray catheter was then removed. Next, the area over the right radial artery was anesthetized with 1% lidocaine. A 6-[place] Terumo Glidesheath slender was placed in the right radial artery. A 100 mcg nitroglycerin was administered through the sheath to prevent radial artery spasm. A Carvajal wire was advanced and a 5-[place] Moapa catheter were advanced to the descending aorta. The 5-[place] Moapa catheter was used to engage the left main coronary artery and right coronary artery. A coronary angiogram was performed in multiple orthogonal views using hand injection of contrast. At the end of procedure, all catheters and wires removed from the body. The right radial sheath was removed and a TR band was applied to obtain hemostasis. The right internal jugular venous sheath was removed and manual pressure was applied to obtain hemostasis. There were no apparent complications. TOTAL CONTRAST: 20 mL. TOTAL CONSCIOUS SEDATION TIME: 23 minutes. TOTAL FLUOROSCOPY TIME: 3 minute 25 seconds, 0.4 Gy. FINDINGS: Hemodynamics: 1. Right atrial pressure mean 10 mmHg. 2. RV 70/13. 3. PA 70/30 (mean 46). 4. Pulmonary capillary wedge pressure 34; Note: There are large V-waves to 50 mmHg reflecting significant mitral regurgitation. 5. Minerva cardiac output 5.0 L/minute. 6. Minerva cardiac index 2.4 L/minute per meter squared. 7. Oxygen saturations; PA sat 66%, AO sat 92%. 8. Transpulmonary gradient 12 mmHg. 9. Pulmonary vascular resistance 2.4 Wood units (normal). 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 CORONARY ANGIOGRAM: 1. Left main coronary artery: Normal. 2. Left anterior descending coronary artery: Normal. 3. Left circumflex coronary artery: The circumflex artery is diminutive and patent. 4. Right coronary artery: The RCA is a large vessel and dominant, and is widely patent. The RCA branches are patent also. Electronically Signed by: Beto Duff M.D. 01/26/2019 03:57 P Beto Duff M.D. Date Dict: 01/17/2019/09:46 Adry/Beto Duff M.D. Date Trans: 01/17/2019 11:54 Adry/catarino DN_[id number] cc: David Marx D.O. [address] [place] [address], [facility] [id number] Adithya Schmidt M.D. [address] [facility] [id number] Normal [facility] MAGNESIUM BLOODon 01-17-2019 Magnesium [Mass/Vol] 1.9 mg/dL Normal 1.9-2.7 [facility] Comment on above: Order Comment: Yes: Add to Previous draw if able Performed By: #### 3 5200, 72583, 40633 #### [facility] [address] PROTHROMBIN TIMEon 9 INR Coag (PPP) [Relative time] 1.06 {INR} Normal 0.91-1.16 [facility] Comment on above: Order Comment: Yes: Add to Previous draw if able Result Comment: ACCC P RECOMMENDED INR FOR WARFARIN THERAPY ------ ------- CONDITION INR PROPHYLAXIS OF VENOUS THROMBOSIS 2-3 (HIGH-RISK SURGERY) TREATMENT OF VENOUS THROMBOSIS 2-3 TREATMENT OF PULMONARY EMBOLISM 2-3 PREVENTION OF SYSTEMIC EMBOLISM: 2-3 ACUTE MYOCARDIAL INFARCTION TISSUE HEART VALVES VALVULAR HEART DISEASE ATRIAL FIBRILLATION RECURRENT SYSTEMIC EMBOLISM MECHANICAL HEART VALVE 2.5-3.5 FROM: ORAL ANTICOAGULANTS. MECHANISM OF ACTION, CLINICAL EFFECTIVENESS, AND OPTIMAL THERAPEUTIC RANGE. CHEST 1995;108:231S-246S. Performed By: #### 3 5200, 51428, 30941 #### [facility] [address] [place] [address], [facility] PT Coag (PPP) [Time] 13.8 s Normal 12.3-14.8 [facility] Comment on above: Order Comment: Yes: Add to Previous draw if able Result Comment: ALL RESULTS MUST BE INTERPRETED WITH RESPECT TO BLOOD DRAWING ARTIFACT OR DILUTION ERROR OF ANTICOAGULANT AT THE TIME OF SAMPLING. Performed By: #### 3 5200, 59733, 77537 #### [facility] [address] [facility] HEPARIN ASSAYon 01-18-20 19 UNFRACTIONATED HEPARIN 0.29 IU/mL Low 0.30-0.70 [facility] Comment on above: Result Comment: [place] roxaban and Apixaban will interfere with the anti Xa assay used to monitor UFH and LMWH. Performed By: #### 3 5200, 63302, 02153 #### [facility] [address] BASIC METABOLIC PANELon 01-01 Calcium [Mass/Vol] 8.4 mg/dL Low 8.6-10.3 [facility] Comment on above: Order Comment: Yes: Add to Previous draw if able Performed By: #### 3 5200, 34141, 62520 #### [facility] [address] [place] [address], [facility] Chloride [Moles/Vol] 98 mmol/L Normal 98-107 [facility] Comment on above: Order Comment: Yes: Add to Previous draw if able Performed By: #### 3 5200, 74613, 86934 #### [facility] [address] [place] [address], [facility] CO2 [Moles/Vol] 27 mmol/L Normal 21-31 [facility] Comment on above: Order Comment: Yes: Add to Previous draw if able Performed By: #### 3 5200, 73364, 90848 #### [facility] [address] [place] [address], [facility] Creatinine [Mass/Vol] 1.60 mg/dL High 0.70-1.30 [facility] Comment on above: Order Comment: Yes: Add to Previous draw if able Performed By: #### 3 5200, 55644, 19907 #### [facility] [address] [place] [address], [facility] GFR/1.73 sq M predicted among blacks MDRD (S/P/Bld) [Vol rate/Area] 50 ml/min/1.73sq m Abnormal >60 [facility] Comment on above: Order Comment: Yes: Add to Previous draw if able Result Comment: Calc ulation may not be valid for patients over 70 years Performed By: #### 3 5200, 45344, 75729 #### [facility] [address] [place] [address], [place] GFR/1.73 sq M predicted among non-blacks MDRD (S/P/Bld) [Vol rate/Area] 42 ml/min/1.73sq m Abnormal >60 [facility] Comment on above: Order Comment: Yes: Add to Previous draw if able Result Comment: Calc ulation may not be valid for patients over 70 years Performed By: #### 3 5200, 75399, 06152 #### [facility] [address] [place] [address], [place] Glucose [Mass/Vol] 107 mg/dL High 70-100 [facility] Comment on above: Order Comment: Yes: Add to Previous draw if able Performed By: #### 3 5200, 46963, 01492 #### [facility] [address] [place] [address], [place] Potassium [Moles/Vol] 3.4 mmol/L Low 3.5-5.1 [facility] Comment on above: Order Comment: Yes: Add to Previous draw if able Performed By: #### 3 5200, 24142, 23174 #### [facility] [address] [place] [address], [place] Sodium [Moles/Vol] 135 mmol/L Low 136-145 [facility] Comment on above: Order Comment: Yes: Add to Previous draw if able Performed By: #### 3 5200, 88970, 76132 #### [facility] [address] [place] [address], [place] Urea nitrogen [Mass/Vol] 39 mg/dL High 7-25 [facility] Comment on above: Order Comment: Yes: Add to Previous draw if able Performed By: #### 3 5200, 44983, 37402 #### [facility] [address] [place] [address], [facility] CBC COMPLETE BLOOD COUNTon 0 - Erythrocyte distribution width (RBC) [Ratio] 14.3 % Normal 11.5-15.0 [facility] Comment on above: Order Comment: Yes: Add to Previous draw if able Performed By: #### 3 5200, 87073, 51367 #### [facility] [address] [place] [address], [place] Hematocrit (Bld) [Volume fraction] 50.8 % High 39.0-50.0 [facility] Comment on above: Order Comment: Yes: Add to Previous draw if able Performed By: #### 3 5200, 41766, 27757 #### [facility] [address] [place] [address], [place] Hemoglobin (Bld) [Mass/Vol] 16.2 g/dL Normal 13.0-17.0 [facility] Comment on above: Order Comment: Yes: Add to Previous draw if able Performed By: #### 3 5200, 49818, 12711 #### [facility] [address] [place] [address], [place] MCH (RBC) [Entitic mass] 28.9 pg Normal 27.0-33.0 [facility] Comment on above: Order Comment: Yes: Add to Previous draw if able Performed By: #### 3 5200, 52867, 59903 #### [facility] [address] [place] [address], [place] MCHC (RBC) [Mass/Vol] 31.9 g/dL Low 32.0-35.0 [facility] Comment on above: Order Comment: Yes: Add to Previous draw if able Performed By: #### 3 5200, 77777, 99696 #### [facility] [address] [place] [address], [place] MCV (RBC) [Entitic vol] 90.6 fL Normal 82.0-98.0 [facility] Comment on above: Order Comment: Yes: Add to Previous draw if able Performed By: #### 3 5200, 00659, 97873 #### [facility] [address] [place] [address], [facility] Nucleated RBC/100 WBC (Bld) [Ratio] 0 % Normal 0-0 [facility] Comment on above: Order Comment: Yes: Add to Previous draw if able Performed By: #### 3 5200, 85001, 05607 #### [facility] [address] [place] [address], [facility] PLAT CNT 179 10*3/uL Normal 150-400 [facility] Comment on above: Order Comment: Yes: Add to Previous draw if able Performed By: #### 3 5200, 67603, 48157 #### [facility] [address] [place] [address], [facility] RBC (Bld) [#/Vol] 5.61 10*6/uL Normal 4.20-5.70 The [facility] Comment on above: Order Comment: Yes: Add to Previous draw if able Performed By: #### 3 5200, 02352, 00609 #### [facility] [address] [place] [address], [facility] WBC (Bld) [#/Vol] 7.83 10*3/uL Normal 4.00-10.60 The [facility] Comment on above: Order Comment: Yes: Add to Previous draw if able Performed By: #### 3 5200, 74394, 42926 #### [facility] [address] [place] [address], [facility] PROTHROMBIN TIMEon 9 INR Coag (PPP) [Relative time] 1.05 {INR} Normal 0.91-1.16 [facility] Comment on above: Result Comment: [facility] P RECOMMENDED INR FOR WARFARIN THERAPY ------ ------- CONDITION INR PROPHYLAXIS OF VENOUS THROMBOSIS 2-3 (HIGH-RISK SURGERY) TREATMENT OF VENOUS THROMBOSIS 2-3 TREATMENT OF PULMONARY EMBOLISM 2-3 PREVENTION OF SYSTEMIC EMBOLISM: 2-3 ACUTE MYOCARDIAL INFARCTION TISSUE HEART VALVES VALVULAR HEART DISEASE ATRIAL FIBRILLATION RECURRENT SYSTEMIC EMBOLISM MECHANICAL HEART VALVE 2.5-3.5 FROM: ORAL ANTICOAGULANTS. MECHANISM OF ACTION, CLINICAL EFFECTIVENESS, AND OPTIMAL THERAPEUTIC RANGE. CHEST 1995;108:231S-246S. Performed By: #### 3 5200, 08680, 63671 #### [facility] [address] PT Coag (PPP) [Time] 13.7 s Normal 12.3-14.8 [facility] Comment on above: Result Comment: ALL RESULTS MUST BE INTERPRETED WITH RESPECT TO BLOOD DRAWING ARTIFACT OR DILUTION ERROR OF ANTICOAGULANT AT THE TIME OF SAMPLING. Performed By: #### 3 5200, 45638, 42917 #### [facility] [address] UFH HEPARIN ASSAYon 01-17-20 19 UNFRACTIONATED HEPARIN 0.54 IU/mL Normal 0.30-0.70 [facility] Comment on above: Result Comment: [place] roxaban and Apixaban will interfere with the anti Xa assay used to monitor UFH and LMWH. Performed By: #### 3 5200, 08916, 75644 #### [facility] [address] UNFRACTIONATED HEPARIN 0.49 IU/mL Normal 0.30-0.70 [facility] Comment on above: Result Comment: [place] roxaban and Apixaban will interfere with the anti Xa assay used to monitor UFH and LMWH. Performed By: #### 3 5200, 40974, 99473 #### [facility] [address] [facility] [place] [address], [facility] APTTon 01-15-2019 aPTT Coag (Bld) [Time] s Critically high 25.0-35.0 [facility] Comment on above: Order Comment: Yes: Add to Previous draw if able Result Comment: ALL RESULTS MUST BE INTERPRETED WITH RESPECT TO BLOOD DRAWING ARTIFACT OR DILUTION ERROR OF ANTICOAGULANT AT THE TIME OF SAMPLING. THE APTT SHOULD NOT BE USED TO MONITOR UNFRACTIONATED HEPARIN THERAPY, THIS LABORATORY NO LONGER HAS AN ESTABLISHED THERAPEUTIC RANGE BASED ON THE APTT. IT IS RECOMMENDED THAT THE UFH - HEPARIN ASSAY (ANTI-XA ACTIVITY) BE USED FOR THIS PURPOSE. APTT RESULT REPEATED AND CONFIRMED RESULTS CHECKED AND CALLED. ACCURATELY READ BACK BY TAWNYA MOSQUEDA RN AT 21:44 SPECIMEN DRAWN FROM ARM NOT CONTAINING IV LINE PER TAWNYA MOSQUEDA RN. ACTUAL UFH = 1.16 Performed By: #### 3 5200, 22344, 62070 #### [facility] [address] [facility]. [address] aPTT Coag (Bld) [Time] 65.5 s High 25.0-35.0 [facility] Comment on above: Order Comment: Yes: Add to Previous draw if able Result Comment: ALL RESULTS MUST BE INTERPRETED WITH RESPECT TO BLOOD DRAWING ARTIFACT OR DILUTION ERROR OF ANTICOAGULANT AT THE TIME OF SAMPLING. THE APTT SHOULD NOT BE USED TO MONITOR UNFRACTIONATED HEPARIN THERAPY, THIS LABORATORY NO LONGER HAS AN ESTABLISHED THERAPEUTIC RANGE BASED ON THE APTT. IT IS RECOMMENDED THAT THE UFH - HEPARIN ASSAY (ANTI-XA ACTIVITY) BE USED FOR THIS PURPOSE. Performed By: #### 3 5200, 24160, 14369 #### [facility] [address] [facility] [address] BNP (B-TYPE NATRIURETIC PEPT JOSE)on 01-15-2019 Natriuretic peptide B (Bld) [Mass/Vol] 682 pg/mL High 0-100 [facility] Comment on above: Order Comment: Yes: Add to Previous draw if able Result Comment: Give n the appropriate clinical setting a BNP result of >100 pg/mL indicates congestive heart failure. Performed By: #### 8 5123 #### [facility] [address] [facility] CBC W/DIFFon 01-15-2019 ABS BASOPHILS 0.1 10*3/uL Normal 0.0-0.2 The [facility] Comment on above: Order Comment: Yes: Add to Previous draw if able Performed By: #### 5 0103 #### [facility] [address] ABS IMM GRANS 0.1 10*3/uL Normal 0.0-0.2 The [facility] Comment on above: Order Comment: Yes: Add to Previous draw if able Performed By: #### 5 0103 #### [facility] [address] [facility] ABS NEUTROPHILS 8.5 10*3/uL High 1.6-7.6 The [facility] Comment on above: Order Comment: Yes: Add to Previous draw if able Performed By: #### 5 0103 #### [facility] [address] [facility] [place] [address], [facility] Basophils/100 WBC (Bld) 0.4 % Normal 0.0-1.0 [facility] Comment on above: Order Comment: Yes: Add to Previous draw if able Performed By: #### 5 0103 #### [facility] [address] [facility] [place] [address], [facility] Eosinophils (Bld) [#/Vol] 0.1 10*3/uL Normal 0.0-0.5 [facility] Comment on above: Order Comment: Yes: Add to Previous draw if able Performed By: #### 5 0103 #### [facility] [address] [facility] [place] [address], [facility] Eosinophils/100 WBC (Bld) 0.7 % Normal 0.0-6.0 [facility] Comment on above: Order Comment: Yes: Add to Previous draw if able Performed By: #### 5 0103 #### [facility] [address] [place] [address], [facility] Erythrocyte distribution width (RBC) [Ratio] 14.4 % Normal 11.5-15.0 [facility] Comment on above: Order Comment: Yes: Add to Previous draw if able Performed By: #### 5 0103 #### [facility] [address] [place] [address], [facility] Hematocrit (Bld) [Volume fraction] 53.0 % High 39.0-50.0 [facility] Comment on above: Order Comment: Yes: Add to Previous draw if able Performed By: #### 3 #### [facility] [address] [place] [address], [facility] Hemoglobin (Bld) [Mass/Vol] 16.8 g/dL Normal 13.0-17.0 [facility] Comment on above: Order Comment: Yes: Add to Previous draw if able Performed By: #### 5 0103 #### [facility] [address] [place] [address], [facility] IMMATURE GRANS 0.4 % Normal 0.0-1.0 The [facility] Comment on above: Order Comment: Yes: Add to Previous draw if able Performed By: #### 5 0103 #### [facility] [address] [place] [address], [facility] Lymphocytes (Bld) [#/Vol] 1.7 10*3/uL Normal 1.2-4.0 [facility] Comment on above: Order Comment: Yes: Add to Previous draw if able Performed By: #### 5 0103 #### [facility] [address] [place] [id number], [facility] Lymphocytes/100 WBC (Bld) 14.8 % Low 20.0-45.0 [facility] Comment on above: Order Comment: Yes: Add to Previous draw if able Performed By: #### 5 0103 #### [facility] [address] MCH (RBC) [Entitic mass] 29.0 pg Normal 27.0-33.0 [facility] Comment on above: Order Comment: Yes: Add to Previous draw if able Performed By: #### 5 0103 #### [facility] [address] MCHC (RBC) [Mass/Vol] 31.7 g/dL Low 32.0-35.0 [facility] Comment on above: Order Comment: Yes: Add to Previous draw if able Performed By: #### 102 #### [facility] [address] [facility] [address] MCV (RBC) [Entitic vol] 91.5 fL Normal 82.0-98.0 [facility] Comment on above: Order Comment: Yes: Add to Previous draw if able Performed By: #### 102 #### [facility] [address] [facility] [place] [address], [facility] Monocytes (Bld) [#/Vol] 0.9 10*3/uL Normal 0.1-1.0 [facility] Comment on above: Order Comment: Yes: Add to Previous draw if able Performed By: #### 5 3 #### [facility] [address] [facility] [place] [place] [address], [facility] MONOS 7.8 % Normal 5.0-12.0 [facility] Comment on above: Order Comment: Yes: Add to Previous draw if able Performed By: #### 5 102 #### [facility] [address] [place] [address], [facility] Neutrophils/100 WBC (Bld) 75.9 % High 40.0-72.0 [facility] Comment on above: Order Comment: Yes: Add to Previous draw if able Performed By: #### 5 0103 #### [facility] [address] [place] [address], [facility] Nucleated RBC/100 WBC (Bld) [Ratio] 0 % Normal 0-0 [facility] Comment on above: Order Comment: Yes: Add to Previous draw if able Performed By: #### 5 0103 #### [facility] [address] [place] [address], [facility] PLAT CNT 187 10*3/uL Normal 150-400 [facility] Comment on above: Order Comment: Yes: Add to Previous draw if able Performed By: #### 5 0103 #### [facility] [address] [facility] [place] [address], [facility] RBC (Bld) [#/Vol] 5.79 10*6/uL High 4.20-5.70 The [facility] Comment on above: Order Comment: Yes: Add to Previous draw if able Performed By: #### 5 0103 #### [facility] [address] [facility] [place] [address], [facility] WBC (Bld) [#/Vol] 11.18 10*3/uL High 4.00-10.60 [facility] Comment on above: Order Comment: Yes: Add to Previous draw if able Performed By: #### 5 0103 #### [facility] [address] [facility] [place] [address], [facility] COMP METABOLIC PANELon 01-15 Albumin [Mass/Vol] 4.2 g/dL Normal 3.5-5.7 [facility] Comment on above: Order Comment: Yes: Add to Previous draw if able Performed By: #### 3 5200, 02194, 23203 #### [facility] [address] [place] [address], [facility] ALKALINE PHOSPH 38 IU/L Normal 34-104 [facility] Comment on above: Order Comment: Yes: Add to Previous draw if able Performed By: #### 3 5200, 17791, 28024 #### [facility] [address] [place] [address], [place] ALT [Catalytic activity/Vol] 19 U/L Normal 7-52 [facility] Comment on above: Order Comment: Yes: Add to Previous draw if able Performed By: #### 3 5200, 61693, 37984 #### [facility] [address] [place] [address], [place] AST [Catalytic activity/Vol] 20 U/L Normal 13-39 [facility] Comment on above: Order Comment: Yes: Add to Previous draw if able Performed By: #### 3 5200, 12552, 49042 #### [facility] [address] [place] [address], [place] Bilirubin [Mass/Vol] 0.9 mg/dL Normal 0.3-1.0 [facility] Comment on above: Order Comment: Yes: Add to Previous draw if able Performed By: #### 3 5200, 64467, 58219 #### [facility] [address] [place] [address], [place] Calcium [Mass/Vol] 9.2 mg/dL Normal 8.6-10.3 [facility] Comment on above: Order Comment: Yes: Add to Previous draw if able Performed By: #### 3 5200, 81841, 05069 #### [facility] [address] [place] [address], [place] Chloride [Moles/Vol] 99 mmol/L Normal 98-107 [facility] Comment on above: Order Comment: Yes: Add to Previous draw if able Performed By: #### 3 5200, 70780, 36841 #### [facility] [address] [place] [address], [place] CO2 [Moles/Vol] 24 mmol/L Normal 21-31 [facility] Comment on above: Order Comment: Yes: Add to Previous draw if able Performed By: #### 3 5200, 13729, 15945 #### [facility] [address] [place] [address], [place] Creatinine [Mass/Vol] 1.37 mg/dL High 0.70-1.30 [facility] Comment on above: Order Comment: Yes: Add to Previous draw if able Performed By: #### 3 5200, 26967, 95495 #### [facility] [address] [place] [address], [place] GFR/1.73 sq M predicted among blacks MDRD (S/P/Bld) [Vol rate/Area] 60 ml/min/1.73sq m Abnormal >60 [facility] Comment on above: Order Comment: Yes: Add to Previous draw if able Result Comment: Calc ulation may not be valid for patients over 70 years Performed By: #### 3 0, 80347, 93065 #### [facility] [address] [place] [address], [place] GFR/1.73 sq M predicted among non-blacks MDRD (S/P/Bld) [Vol rate/Area] 50 ml/min/1.73sq m Abnormal >60 [facility] Comment on above: Order Comment: Yes: Add to Previous draw if able Result Comment: Calc ulation may not be valid for patients over 70 years Performed By: #### 3 0, 84330, 16099 #### [facility] [address] [place] [address], [place] Glucose [Mass/Vol] 107 mg/dL High 70-100 [facility] Comment on above: Order Comment: Yes: Add to Previous draw if able Performed By: #### 3 5200, 82080, 24386 #### [facility] [address] [place] [address], [place] Potassium [Moles/Vol] 3.8 mmol/L Normal 3.5-5.1 [facility] Comment on above: Order Comment: Yes: Add to Previous draw if able Performed By: #### 3 5200, 31442, 50353 #### [facility] [address] [place] [id number], [facility] Protein [Mass/Vol] 7.4 g/dL Normal 6.0-8.3 [facility] Comment on above: Order Comment: Yes: Add to Previous draw if able Performed By: #### 3 5200, 17472, 34415 #### [facility] [address] [place] [address], [place] Sodium [Moles/Vol] 135 mmol/L Low 136-145 [facility] Comment on above: Order Comment: Yes: Add to Previous draw if able Performed By: #### 3 5200, 18584, 17142 #### [facility] [address] [place] [address], [facility] Urea nitrogen [Mass/Vol] 30 mg/dL High 7-25 [facility] Comment on above: Order Comment: Yes: Add to Previous draw if able Performed By: #### 3 5200, 32208, 93840 #### [facility] [address] [place] [id number], [place] CPKon 01-15-2019 CK [Catalytic activity/Vol] 67 U/L Normal 30-223 [facility] Comment on above: Performed By: #### 3 5200, 08590 #### [facility] [address] [place] [address], [place] MAGNESIUM BLOODon 01-15-2019 Magnesium [Mass/Vol] 1.9 mg/dL Normal 1.9-2.7 [facility] Comment on above: Order Comment: Yes: Add to Previous draw if able Performed By: #### 3 5200, 21490, 69326 #### [facility] [address] [place] [address], [place] PROTHROMBIN TIMEon 9 INR Coag (PPP) [Relative time] 1.04 {INR} Normal 0.91-1.16 [facility] Comment on above: Order Comment: if no t already done No: Do not add to previous draw Result Comment: [facility] P RECOMMENDED INR FOR WARFARIN THERAPY ------ ------- CONDITION INR PROPHYLAXIS OF VENOUS THROMBOSIS 2-3 (HIGH-RISK SURGERY) TREATMENT OF VENOUS THROMBOSIS 2-3 TREATMENT OF PULMONARY EMBOLISM 2-3 PREVENTION OF SYSTEMIC EMBOLISM: 2-3 ACUTE MYOCARDIAL INFARCTION TISSUE HEART VALVES VALVULAR HEART DISEASE ATRIAL FIBRILLATION RECURRENT SYSTEMIC EMBOLISM MECHANICAL HEART VALVE 2.5-3.5 FROM: ORAL ANTICOAGULANTS. MECHANISM OF ACTION, CLINICAL EFFECTIVENESS, AND OPTIMAL THERAPEUTIC RANGE. CHEST 1995;108:231S-246S. Performed By: #### 5 6101, 21975, 03885 #### [facility] [address] [place] [address], [facility] PT Coag (PPP) [Time] 13.6 s Normal 12.3-14.8 [facility] Comment on above: Order Comment: if no t already done No: Do not add to previous draw Result Comment: ALL RESULTS MUST BE INTERPRETED WITH RESPECT TO BLOOD DRAWING ARTIFACT OR DILUTION ERROR OF ANTICOAGULANT AT THE TIME OF SAMPLING. Performed By: #### 5 6101, 06320, 97000 #### [facility] [address] [place] [address], [facility] TROPONIN-Ion 01-15-2019 Troponin I.cardiac [Mass/Vol] 0.05 ng/mL High 0.00-0.04 [facility] Comment on above: Order Comment: No: D o not add to previous draw Result Comment: REFE RENCE RANGES: 0.00 - 0.04 ng/ml NORMAL 0.05 - 0.50 ng/ml INDETERMINATE > 0.50 ng/ml CONSISTENT WITH AN M.I. Performed By: #### 3 5200, 39608 #### [facility] [address] [place] [address], [facility] Troponin I.cardiac [Mass/Vol] 0.05 ng/mL High 0.00-0.04 [facility] Comment on above: Order Comment: Yes: Add to Previous draw if able Result Comment: REFE RENCE RANGES: 0.00 - 0.04 ng/ml NORMAL 0.05 - 0.50 ng/ml INDETERMINATE > 0.50 ng/ml CONSISTENT WITH AN M.I. Performed By: #### 3 5200, 98536, 48430 #### [facility] [address] [place] [address], [facility] UFH HEPARIN ASSAYon 01-16-20 19 UNFRACTIONATED HEPARIN >1.00 Critically high 0.30-0.70 [facility] Comment on above: Result Comment: Angy roxaban and Apixaban will interfere with the anti Xa assay used to monitor UFH and LMWH. RESULTS CHECKED AND CALLED. ACCURATELY READ BACK BY TAWNYA MOSQUEDA,RN AT 21:44 SPECIMEN DRAWN FROM ARM NOT CONTAINING IV LINE PER TAWNYA MOSQUEDA RN. Performed By: #### 3 5200, 36433, 62170 #### [facility] [address] [place] [address], [facility] UNFRACTIONATED HEPARIN 0.79 IU/mL High 0.30-0.70 [facility] Comment on above: Result Comment: Angy roxaban and Apixaban will interfere with the anti Xa assay used to monitor UFH and LMWH. Performed By: #### 3 5200, 83029, 76088 #### [facility] [address] [place] [address], [facility] UNFRACTIONATED HEPARIN 0.35 IU/mL Normal 0.30-0.70 [facility] Comment on above: Result Comment: [place] roxaban and Apixaban will interfere with the anti Xa assay used to monitor UFH and LMWH. Performed By: #### 5 6101, 89581, 16863 #### [facility] [address] UNFRACTIONATED HEPARIN 0.15 IU/mL Critically low 0.30-0.70 [facility] Comment on above: Result Comment: Angy roxaban and Apixaban will interfere with the anti Xa assay used to monitor UFH and LMWH. RESULTS CHECKED AND CALLED. ACCURATELY READ BACK BY JONE MENDOZA RN @ 0728 Performed By: #### 3 0477 #### [facility] [address] Vital Signs Date Time Vital Sign Value Performing Clinician Facility 11-30-2023 10:47-0400 Body height 175.26 cm [facility] 11-30-2023 10:47-0400 Body mass index (BMI) [Ratio] 28.8 kg/m2 [facility] 11-30-2023 10:47-0400 Body weight 88.67 kg [facility] 11-30-2023 10:47-0400 Diastolic blood pressure 74 mm[Hg] [facility] 11-30-2023 10:47-0400 Heart rate 81 /min [facility] 11-30-2023 10:47-0400 Respiratory rate 12 /min [facility] 11-30-2023 10:47-0400 Systolic blood pressure 119 mm[Hg] [facility] 06-02-2023 10:30-0400 Body height 175.26 cm [employer] Other [facility] [facility] [employer] Other 06-02-2023 10:30-0400 Body mass index (BMI) [Ratio] 29.44 kg/m2 [employer] Other [place] [facility] [employer] Other 06-02-2023 10:30-0400 Body weight 90.45 kg David [employer] Other [facility] [employer] Other 06-02-2023 10:30-0400 Diastolic blood pressure 88 mm[Hg] David Ball Other [place] [facility] [employer] Other 06-02-2023 10:30-0400 Systolic blood pressure 138 mm[Hg] David Ball Other [facility] [employer] Other 04-27-2023 10:29-0400 Blood Pressure Location Robert BAUER [facility] 04-27-2023 10:29-0400 Diastolic blood pressure 83 mm[Hg] Robert BAUER [facility] 04-27-2023 10:29-0400 Heart rate 93 /min Robert BAUER [facility] 04-27-2023 10:29-0400 Respiratory rate 16 /min Robert BAUER [facility] 04-27-2023 10:29-0400 Systolic blood pressure 130 mm[Hg] Robert BAUER [facility] 11-05-2022 11:00-0400 Body height 175.26 cm David Ball Other [facility] [employer] Other 11-05-2022 11:00-0400 Body mass index (BMI) [Ratio] 30.12 kg/m2 David Ball Other [facility] [employer] Other 11-05-2022 11:00-0400 Body weight 92.53 kg David Ball Other [place] [facility] [employer] Other 11-05-2022 11:00-0400 Diastolic blood pressure 76 mm[Hg] David Ball Other [place] [facility] [employer] Other 11-05-2022 11:00-0400 SaO2% (BldA) [Mass fraction] 94 % David Marx Other [place] [facility] [employer] Other 11-05-2022 11:00-0400 Systolic blood pressure 123 mm[Hg] David Marx Other [place] [facility] [employer] Other 04-14-2022 09:00-0400 Blood Pressure Location Robert BAUER [facility] 04-14-2022 09:00-0400 Diastolic blood pressure 73 mm[Hg] Robert ABUER [facility] 04-14-2022 09:00-0400 Heart rate 101 /min Robert BAUER [facility] 04-14-2022 09:00-0400 Respiratory rate 16 /min Robert BAUER [facility] 04-14-2022 09:00-0400 Systolic blood pressure 114 mm[Hg] Robertsulema BAUER [facility] Encounters Encounter Date Encounter Type Care Provider Facility Start: 04-25-2024 ambulatory Robert BAUER Facili ty:[facility] Start: 01-28-2024 End: 01-28-2024 ambulatory [facility] Start: 12-24-2023 End: 12-24-2023 ambulatory KRISS SILVERIO Not Available Start: 11-30-2023 End: 11-30-2023 ambulatory [facility] Work Phone: Start: 11-30-2023 End: 11-30-2023 Patient encounter procedure [facility] Work Phone: Start: 10-15-2023 End: 10-15-2023 ambulatory KRISS SILVERIO Not Available Start: 08-10-2023 End: 08-10-2023 ambulatory David Marx Other [place] [facility] [employer] Other Start: 08-10-2023 Office outpatient vi sit 15 minutes David Marx [facility] Start: 08-06-2023 End: 08-06-2023 ambulatory KRISS Rider NUSRAT Not Available Start: 06-02-2023 End: 06-02-2023 ambulatory David Marx Other [place] [facility] [employer] Other Start: 06-02-2023 Office outpatient vi sit 25 minutes David Marx [facility] Start: 06-02-2023 Telephone encounter David Marx [facility] Start: 05-29-2023 End: 05-29-2023 ambulatory David Marx Other [place] [facility] [employer] Other Start: 05-29-2023 Nursing evaluation o f patient and report David Marx [facility] Start: 04-28-2023 End: 04-28-2023 ambulatory David Marx Other [place] [facility] [employer] Other Start: 04-28-2023 Telephone encounter David Marx [facility] Start: 04-27-2023 End: 04-28-2023 ambulatory Robert BAUER Facility:[facility] Start: 04-27-2023 End: 04-27-2023 Patient encounter procedure Robert BAUER [facility] Start: 02-27-2023 End: 02-27-2023 ambulatory [facility] Start: 02-25-2023 End: 02-25-2023 ambulatory David Marx Other [place] [facility] [employer] Other Start: 02-25-2023 Telephone encounter David Marx [facility] Start: 02-16-2023 End: 02-16-2023 ambulatory David Marx Other [place] [facility] [employer] Other Start: 02-16-2023 Telephone encounter David Marx [facility] Start: 11-18-2022 End: 11-19-[address] DAVID MARX Facility:[facility] Start: 11-05-2022 End: 11-05-2022 ambulatory David Marx Other [place] [facility] [employer] Other Start: 11-05-2022 Patient encounter procedure David Marx [facility] Start: 11-05-2022 Telephone encounter David Marx [facility] Start: 10-02-2022 End: 10-02-2022 ambulatory TRIXIE CANDELARIA Facility:[facility] Start: 06-17-2022 End: 07-19-[address] DAVID MARX Facility:[facility] Start: 05-29-2022 End: 05-30-2022 ambulatory FOSTER STONE Facility:[facility] Start: 04-15-2022 End: 04-16-[address] ROBERT BAUER . Facility:[facility] Start: 04-14-2022 End: 04-14-2022 Patient encounter procedure Robert BAUER [facility] Start: 03-27-2022 End: 04-25-2022 ambulatory FOSTER STONE Facility:[facility] Start: 10-16-2021 Adult health examination David Marx Other [place] [facility] [employer] Other Start: 01-15-2019 End: 01-19-2019 Evaluation and management of inpatient KEKE AL-BRAYDON Facility:[facility] Procedures Date Procedure Procedure Detail Performing Clinician Start: 01-17-2019 MEASURE OF CARDIAC S AMPL \T\ PRESSURE, R HEART, PERC APPROACH BETO DUFF Start: 01-17-2019 FLUOROSCOPY OF MULTI PLE CORONARY ARTERIES USING OTH CONTRAST BETO DUFF Start: 04-14-2016 Preoperative cardiov ascular examination David Marx Other Start: 12-03-2015 Pre-surgery evaluation David Marx Other Start: 01-05-2013 Urodynamic studies Ricco BAUER Start: 12-28-2012 Cystoscopy Robert SIEGEL Start: 11-01-2001 Transurethral prostatectomy Robert BAUER Start: 12-02-1999 Transrectal biopsy o f prostate using ultrasound guidance Robert BAUER Start: 08-03-1990 Radical orchiectomy Meghana BAUER Depression screening Vamsi Marx Other Immunizations Immunization Date Immunization Notes Care Provider Fa [facility] 05-29-2023 influenza, high dose seasonal, preservative-free David Marx Other [place] [facility] [employer] Other 05-29-2023 influenza virus vaccine, unspecified formulation [facility] 05-31-2022 COVID-19 Moderna (BIvalent) David Marx Other [facility] 05-23-2022 influenza, high dose seasonal, preservative-free David Marx Other [place] [facility] [employer] Other 05-23-2022 influenza virus vaccine, split virus (incl. purified surface antigen) David Marx Other [place] [facility] [employer] Other 05-23-2022 influenza virus vaccine, unspecified formulation [facility] 12-20-2021 SARS-CoV-2 (COVID-19 ) mRNA-1273 vaccine Robert BAUER [facility] Comment on above: Result Comment: 2021: [id number] 06-18-2021 SARS-CoV-2 (COVID-19 ) mRNA-1273 vaccine Robert BAUER [facility] Comment on above: Result Comment: 2021: [id number] 05-28-2021 influenza virus vaccine, split virus (incl. purified surface antigen) David Marx Other [place] [facility] [employer] Other 05-28-2021 influenza virus vaccine, unspecified formulation [facility] 10-02-2020 SARS-CoV-2 (COVID-19 ) mRNA-1273 vaccine Robert BAUER [facility] 09-04-2020 SARS-CoV-2 (COVID-19 ) mRNA-1273 vaccine Robert BAUER [facility] 05-09-2020 influenza virus vaccine, split virus (incl. purified surface antigen) David Marx Other [facility] [employer] Other 05-09-2020 influenza virus vaccine, unspecified formulation [facility] 05-17-2019 influenza virus vaccine, split virus (incl. purified surface antigen) David Marx Other [place] [facility] [employer] Other 05-17-2019 influenza virus vaccine, unspecified formulation [facility] 05-18-2018 influenza virus vaccine, split virus (incl. purified surface antigen) David Marx Other [place] [facility] [employer] Other 05-18-2018 influenza virus vaccine, unspecified formulation Robert BAUER [facility] 05-27-2017 influenza virus vaccine, split virus (incl. purified surface antigen) David Marx Other [place] [facility] [employer] Other 05-27-2017 influenza virus vaccine, unspecified formulation Robert BAUER [facility] 05-23-2016 pneumococcal conjuga te vaccine, 13 valent Robert BAUER [facility] 05-23-2016 pneumococcal Conjuga te, unspecified formulation; Translations: [Need for prophylactic vaccination against Streptococcus pneumoniae (pneumococcus)] David Marx Other [place] [facility] [employer] Other 05-16-2016 influenza virus vaccine, split virus (incl. purified surface antigen) David Marx Other [place] [facility] [employer] Other 05-16-2016 influenza virus vaccine, unspecified formulation Robert BAUER [facility] 05-31-2015 influenza virus vaccine, unspecified formulation Robert BAUER [facility] 05-03-2014 pneumococcal polysaccharide vaccine, 23 valent Robert BAUER [facility] 04-14-2013 tetanus and diphther ia toxoids, adsorbed, preservative free, for adult use (5 Lf of tetanus toxoid and 2 Lf of diphtheria toxoid) David Marx Other [facility] 04-14-2012 tetanus and diphther ia toxoids, adsorbed, preservative free, for adult use (5 Lf of tetanus toxoid and 2 Lf of diphtheria toxoid) David Marx Other [facility] Payers Date Payer Category Payer Medicare [id number] 1958 Self-pay 1958 Unknown [id number] 1936 Unknown [id number] 2.16.8 [id number] 1936 Unknown [id number] 2.16.84 [id number] 1936 Unknown [id number] 2.16.84 [id number] 1936 Unknown [id number] 2.16.84 [id number] 1936 Unknown [id number] 2.16.84 [id number] 1936 Unknown [id number] 2.16.84 [id number] 1936 Unknown [id number] 2.16.84 [id number] 1936 Unknown [id number] 2.16.8 [id number] 1936 Unknown [id number] 2.16.8 [id number] 1936 Unknown [id number] 2.16.84 [id number] 1936 Unknown [id number] 2.16.84 [id number] 1936 Unknown [id number] 2.16.840 .[id number] Medicare [id number] Unknown [id number] 2.16.84 [id number] Social History Date Type Detail Facility Start: 04-14-2022 Tobacco smoking status Ex-smoker (fi nding) [facility] Sex Assigned At Male [facility] Start: 1935 Sex Assigned At Male [facility] Functional Status Date Assessment Result Facility 04-27-2023 Functional Status N/A [facility] 04-14-2022 Functional Status N/A [facility] Clinical Notes 04-14-2022 to 01-28-2024 Note Date & Type Note Facility 01-28-2024 Note [place] [facility] Subjective Yaya De Anda is a 88 y.o. year old male patient being seen for 6 mo follow up chronic systolic heart failure and NSVT. Had routine labs w/ lipid profile a few weeks ago, and echo also. He said Dr. Marx advised him to drink more water for elevated BUN. No repeat labs were ordered per patient. He denies chest pain, SOB, palpitations, and lightheadedness/syncope. Does cardiac rehab once a week. 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 Chronic pain Chronic prostatitis Dysphagia Dysuria Hypogonadism in male Increased frequency of urination Malignant tumor of testis (CMS/HCC) Nocturia Nonsustained ventricular tachycardia (CMS/HCC) Onychomycosis Pain in limb Plantar fasciitis of right foot Primary osteoarthritis Urinary hesitancy Ascending aortic aneurysm (CMS/HCC) Chronic venous insufficiency Gastroesophageal reflux disease with esophagitis without hemorrhage Heart failure with improved ejection fraction (HFimpEF) (CMS/HCC) History of chronic prostatitis Obstructive sleep apnea Overweight Primary osteoarthritis of right knee Pulmonary nodule Restrictive lung disease Urge incontinence Family History Family history unknown: Yes Social History Tobacco Use Smoking status: Former Types: Cigarettes Smokeless tobacco: Never Substance Use Topics Alcohol use: Not Currently Drug use: Never HPI Yaya is seen in follow-up. 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 During that initial hospitalization he had episodes of nonsustained ventricular tachycardia for which she was started on amiodarone. His follow-up ejection fraction in January 2021 was normal. He previously had a normal coronary angiogram. In addition he has mild ascending aortic dilatation measuring 4.1 cm by echocardiogram in 2020. His prior medical history is significant for SVT [duplex ultrasound 2015 showed chronic thrombus in the right proximal small saphenous vein and superficial left medial mid calf vein], GE reflux disease, BPH, testicular cancer. Today he reports that he has been doing well without shortness of breath or chest pain. He does not feel palpitations. He has no dizziness or lightheadedness. He is able to do his activities of daily living without any issues. Review of Systems Constitutional: Positive for malaise/fatigue. All other systems reviewed and are negative. Objective Visit Vitals BP 122/68 (BP Location: Left arm, Patient Position: Sitting) Pulse 59 Ht 1.753 m (5' 9 ) Wt 89.4 kg (197 lb) SpO2 97% BMI 29.09 kg/m??? Smoking Status Former BSA 2.09 m??? Physical Exam Constitutional: Appearance: He is well-developed. He is not ill-appearing. HENT: Head: Normocephalic and atraumatic. Nose: Nose normal. Eyes: General: No scleral icterus. Pupils: Pupils are equal, round, and reactive to light. Neck: Thyroid: No thyromegaly. Vascular: No JVD. Cardiovascular: Rate and Rhythm: Normal rate and regular rhythm. Pulses: Radial pulses are 2+ on the right side and 2+ on the left side. Heart sounds: Murmur heard. Systolic (apex) murmur is present with a grade of 3/6. No friction rub. No gallop. Pulmonary: Effort: Pulmonary effort is normal. No respiratory distress. Breath sounds: Normal breath sounds. No wheezing or rales. Chest: Chest wall: No tenderness. Abdominal: General: Bowel sounds are normal. There is no distension. Palpations: Abdomen is soft. Tenderness: There is no abdominal tenderness. Musculoskeletal: General: No swelling. Cervical back: Neck supple. Right lower le+ Pitting Edema present. Left lower le+ Pitting Edema present. Skin: General: Skin is warm and dry. Neurological: General: No focal deficit present. Mental Status: He is alert and oriented to person, place, and time. Psychiatric: Mood and Affect: Mood normal. Behavior: Behavior is cooperative. Judgment: Judgment normal. Allergies Allergies Allergen Reactions Jose Alfredo Inhibitors Cough Tramadol Hives and Unknown Medications Current Outpatient Medications: finasteride (Proscar) 5 mg tablet, Take 1 tablet by mouth in the morning., Disp: , Rfl: losartan (Cozaar) 25 mg tablet, TAKE 1 TABLET BY MOUTH EVERY DAY, Disp: 90 tablet, Rfl: 3 metoprolol succinate XL (Toprol-XL) 25 mg 24 hr tablet, TAKE 1/2 TABLET BY MOUTH EVERY DAY, Disp: 45 tablet, Rfl: 3 omeprazole (PriLOSEC) [address] capsule, TAKE 1 CAPSULE BY MOUTH EVERYDAY ON AN EMPTY STOMACH FOLLOWED IN 30 MINUTES BY BREAKFAST, Disp: , Rfl: tamsulosin (Flomax) 0.4 mg 24 hr capsule, Take 1 tablet (more content not included)... [facility] 08-10-2023 Evaluation note Encounter Date Diagnosis Assessment Notes Aug, COVID-19 (ICD-10 - U07.1) Self isolate at home. - Cannot work - avoid contact with others - avoid pets - wipe counters, door knobs if touched - if can't avoid leaving home, must wear mask to protect others - need to stay isolated for 10 days from onset of symptoms - to discontinue isolation must be 5 days AND must be without fever for 24 hours AND symptoms must be improving. Always wear a mask in public places for complete 10 days Instructed to use Robitussin or Mucinex for cough, saline or Flonase NS for congestion, Tylenol for pain and fever. Aug, ILD (interstitial lung disease) (ICD-10 - J84.9) INcreases his risk for COVID complications. Recommend Paxlovid. 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 Recommend Paxlovid. [place] [facility] [employer] Other 11-01-2023 History general Narrative - Reported* Type Description Date Medical History Trochanteric bursitis of right h ip Medical History Iliotibial band syndrome, right Medical History Stage 3a chronic kidney disease Medical History Nonischemic dilated cardiomyopat hy Medical History History of testicular cancer Medical History Gastroesophageal ref lux disease with esophagitis without hemorrhage Medical History Chronic venous insufficiency Medical History Obstructive sleep apnea Medical History Nonischemic cardiomyopathy Medical History Acute pain of right hip Medical History Pulmonary nodule Surgical History LEFT INGUINAL HERNIORRHAPHY Surgical History RIGHT ORCHIECTOMY Surgical History LEFT RADIUS / ULNA Surgical History LEFT CARPAL TUNNEL RELEASE Surgical History LEFT CATARACT EXTRACTION Surgical History Right Carpal Tunnel 05/25/23 Hospitalization History [facility] [place] [facility] [employer] Other 10-31-2023 Evaluation note* Encounter Date Diagnosis Assessment Notes Treatment Notes Treatment Clinical Notes May, 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 Daily weights Lasix for unexpected weight gain or lower extremity edema. May, Chronic HFrEF (heart failure with reduced ejection fraction) (ICD-10 - I50.22) Instructed on low salt diet, exercise and daily weights. Instructed to notify office for any unexpected weight gain > 3lbs and/or increased dyspnea, difficulty breathing during sleep, worsening lower extremity swelling, chest pain or lightheadedness. Reviewed GDMT w/ beta blockers, JOSE ALFREDO/ARB/ARNI, MRA and SGLT-2 May, Obstructive sleep apnea (ICD-10 - G47.33) This patient is aware of the benefits associated with ANDREW: With continued use, the patient reduces the risk for NC, CVA, HTN, cardiac dysrhythmias and sudden cardiac deaths.The patient is also aware of the association between ANDREW and morning headaches, daytime somnolence, fatigue and obesity, which also has been improved with continued use.The patient is compliant with treatment, wearing the equipment every night for greater than 4 hours.The patient is instructed to continue use of the CPAP for ANDREW treatment. May, Chronic cough (ICD-1 0 - R05.3) CXR, CT unremarkable. PFT w/ decreased TLC and DLCO - consistent w/ ILD but CXR and CT w/o typical findings Cough and deep breathing exercises. Monitor for now, consider Pulmonary referral May, Gastroesophageal reflux disease with esophagitis without hemorrhage (ICD-10 - K21.00) Diet instructions: Smaller portions, avoid eating and laying flat, avoid eating or drinking prior to bedtime. Weight loss. May, Chronic venous insufficiency (ICD-10 - I87.2) Avoid salt and elevate lower extremities, support stockings, inspect legs and feet daily for blisters and ulcerations. May, Pulmonary nodule (ICD-10 - R91.1) Stable over 2 year period, no further scans necessary 6mm pulmonary nodule Stable over many years, no f/u scans necessary. May, ILD (interstitial shivam ng disease) (ICD-10 - J84.9) Etiology of persistent cough? No eosinophilia No obvious autoimmune process May, Fatigue, unspecified type (ICD-10 - R53.83) Nonspecific. - r/o anemia, thyroid disease - r/o CHF Continue exercise w/ CR, heatlhy diet and weight loss [place] [facility] [employer] Other 10-28-2023 History general Narrative - Reported* Type Description Date Medical History Trochanteric bursitis of right h ip Medical History Iliotibial band syndrome, right Medical History Stage 3a chronic kidney disease Medical History Nonischemic dilated cardiomyopat hy Medical History History of testicular cancer Medical History Gastroesophageal ref lux disease with esophagitis without hemorrhage Medical History Chronic venous insufficiency Medical History Obstructive sleep apnea Medical History Nonischemic cardiomyopathy Medical History Acute pain of right hip Medical History Pulmonary nodule Surgical History LEFT INGUINAL HERNIORRHAPHY Surgical History RIGHT ORCHIECTOMY Surgical History LEFT RADIUS / ULNA Surgical History LEFT CARPAL TUNNEL RELEASE Surgical History LEFT CATARACT EXTRACTION Hospitalization History SEE [employer] Other 09-25-2023 Hospital Discharge instructions Patient Education 04/27/2023 11:04:42 Hypogonadism, Male Hypogonadism, Male Male hypogonadism is a condition of having a level of testosterone that is lower than normal. Testosterone is a chemical, or hormone, that is made mainly in the testicles. In boys, testosterone is responsible for the development of male characteristics during puberty. These include: Making the penis bigger. Growing and building the muscles. Growing facial hair. Deepening the voice. In adult men, testosterone is responsible for maintaining: An interest in sex and the ability to have sex. Muscle mass. Sperm production. Red blood cell production. Bone strength. Testosterone also gives men energy and a sense of well-being. Testosterone normally decreases as men age and the testicles make less testosterone. Testosterone levels can vary from man to man. Not all men will have signs and symptoms of low testosterone. Weight, alcohol use, medicines, and certain medical conditions can affect a man's testosterone level. What are the causes? This condition is caused by: A natural decrease in testosterone that occurs as a man grows older. This is the main cause of thiscondition. Use of medicines, such as antidepressants, steroids, and opioids. Diseases and conditions that affect the testicles or the making of testosterone. These include: ?Injury or damage to the testicles from trauma, cancer, cancer treatment, or infection. ?Diabetes. ?Sleep apnea. ?Genetic conditions that men are born with. ?Disease of the pituitary gland. This gland is in the brain. It produces hormones. ?Obesity. ?Metabolic syndrome. This is a group of diseases that affect blood pressure, blood sugar, cholesterol, and belly fat. ?HIV or AIDS. ?Alcohol abuse. ?Kidney failure. ?Other long-term or chronic diseases. What are the signs or symptoms? Common symptoms of this condition include: Loss of interest in sex (low sex drive). Inability to have or maintain an erection (erectile dysfunction). Feeling tired (fatigue). Mood changes, like irritability or depression. Loss of muscle and body hair. Infertility. Large breasts. Weight gain (obesity). How is this diagnosed? Your health care provider can diagnose hypogonadism based on: Your signs and symptoms. A physical exam to check your testosterone levels. This includes blood tests. Testosterone levels can change throughout the day. Levels are highest in the morning. You may need to have repeat blood tests before getting a diagnosis of hypogonadism. Depending on your medical history and test results, your health care provider may also do other tests to find the cause of low testosterone. How is this treated? This condition is treated with testosterone replacement therapy. Testosterone can be given by: Injection or through pellets inserted under the skin. Gels or patches placed on the skin or in the mouth. Testosterone therapy is not for everyone. It has risks and side effects. Your health care provider will consider your medical history, your risk for prostate cancer, your age, and your symptoms before putting you on testosterone replacement therapy. Follow these instructions at home: Take qdjs-iet-szembuq and prescription medicines only as told by your health care provider. Eat foods that are high in fiber, such as beans, whole grains, and fresh fruits and vegetables. Limit foods that are high in fat and processed sugars, such as fried or sweet foods. If you drink alcohol: ?Limit how much you have to 0 2 drinks a day. ?Know how much alcohol is in your drink. In the [place] one drink equals one 12 oz bottle of beer (355 mL), one 5 oz glass of wine (148 mL), or one 1 oz glass of hard liquor (44 mL). Return to your normal activities as told by your health care provider. Ask your health care provider what activities are safe for you. Keep all follow-up visits. This is important. Contact a health care provider if: You have any of the signs or symptoms of low testosterone. You have any side effects from testosterone therapy. Summary Male hypogonadism is a condition of having a level of testosterone that is lower than normal. The natural drop in testosterone production that occurs with age is the most common cause of this condition. Low testosterone can also be caused by many diseases and conditions that affect the testicles and the making of testosterone. This condition is treated with testosterone replacement therapy. There are risks and side effects of testosterone therapy. Your health care provider will consider your age, medical history, symptoms, and risks for prostate cancer before putting you on testosteronetherapy. This information is not intended to replace advice given to you by your health care provider. Make sure you discuss any questions you have with your health care provider. Document Revised: 03/21/2021 Document Reviewed: 03/21/2021 [employer] Patient Education 2022 [employer]. Follow Up Care 04/14/2022 09:41:33 With:ZECHARIAH WYNN, Robert Jung, URL Address: [facility] [address], [place] [address]- [phone] When: Unknown [facility] [place] 07-28-2023 NoteSubjective Patient ID: Yaya De Anda is a 87 y.o. male who presents for Follow-up. HPI Review of Systems Constitutional: Positive for fatigue. All other systems reviewed and are negative. Objective There were no vitals taken for this visit. Physical Exam Assessment/Plan No diagnosis found. No orders of the defined types were placed in this encounter. No results found for this or any previous visit (from the past 36 hour(s)). No follow-ups on file.[facility]07-28-2023 Note Cardiology Clinic Note Subjective Yaya De Anda is a 87 y.o. year old male patient With past medical history of none ischemic cardiomyopathy heart failure improved ejection fraction, EF 10 to 15% (01/15/2019) improved to 55% (11/18/2022), normal coronaries on angiography (01/17/2019) and nonsustained ventricular tachycardia seen in follow-up. 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 year old male patient With past medical history of none ischemic cardiomyopathy heart failure improved ejection fraction, EF 10 to 15% (01/15/2019) improved to 55% (11/18/2022), normal coronaries on angiography (01/17/2019) and nonsustained ventricular tachycardia seen in follow-up. Update 04/18/2019: He is seen in follow-up. He has been doing well. No chest pain and no dyspnea. Sleep study showed ANDREW and he has CPAP now. Update: 02/27/2023 Feels tired which is insidious Has been doing well without acute concerns Compliant with cpap Does not wear compression stockings but restricts sodium intake Denies chest pain, dyspnea, or palpitations Review of Systems Cardiovascular: Positive for leg swelling. Negative for chest pain, dyspnea on exertion, irregular heartbeat, near-syncope, orthopnea, palpitations, paroxysmal nocturnal dyspnea and syncope. Objective Visit Vitals BP 100/50 (BP Location: Left arm, Patient Position: Sitting, BP Cuff Size: Adult) Pulse 72 Resp 11 Ht 1.753 m (5' 9 ) Wt 88.1 kg (194 lb 3.2 oz) SpO2 97% BMI 28.68 kg/m??? Smoking Status Former BSA 2.07 m??? Physical Exam General: Awake, alert, NAD Pulm: Breath sounds clear to ascultation bilaterally with no wheeze, crackles or rhonchi Cards: Regular rate and rhythm, S1, S2. No S3 or S4 gallop. Murmur: none Extr: Lower extremity edema: trace . Skin: warm, dry, well perfused Neuro: A&Ox3, No gross deficits Allergies Allergies Allergen Reactions Jose Alfredo Inhibitors Cough Tramadol Hives and Unknown Medications Current Outpatient Medications: finasteride (Proscar) 5 mg tablet, Take 1 tablet by mouth in the morning., Disp: , Rfl: losartan (Cozaar) 25 mg tablet, Take 1 tablet by mouth in the morning., Disp: , Rfl: metoprolol succinate XL (Toprol-XL) 25 mg 24 hr tablet, Take 0.5 tablets by mouth in the morning., Disp: , Rfl: omeprazole (PriLOSEC) [address] capsule, TAKE 1 CAPSULE BY MOUTH EVERYDAY ON AN EMPTY STOMACH FOLLOWED IN 30 MINUTES BY BREAKFAST, Disp: , Rfl: tamsulosin (Flomax) 0.4 mg 24 hr capsule, Take 1 tablet by mouth in the morning., Disp: , Rfl: Recent Labs 11/18/2022 WBC 6, hemoglobin 14.6, hematocrit 45.2, platelets 171 Sodium 141, potassium 4.2, CO2 29.1, BUN 29, serum creatinine 1.16, estimated GFR 60% Total cholesterol 181, HDL 40, triglycerides 159, LDL 109.2 Imaging and other tests Echo: 11/18/2022 Mild concentric left ventricular hypertrophy. Normal left ventricular systolic function. LVEF is 55%. Normal right ventricular size and systolic function Grade 2 diastolic dysfunction Mild biatrial dilatation Mild to moderate mitral and mild aortic regurgitation Normal right-sided pressures Echocardiogram 04/05/2019: Global left ventricular systolic function is at lower limits of normal (Visually estimated EF 50%). The left ventricle is normal size. Left ventricular wall thickness is normal. Concentric cardiac remodeling. No regional wall motion abnormality. Limited echocardiogram was done to assess left ventricular systolic function Compared to the prior echocardiogram from 01/15/19 left ventricular systolic function has increased with improvement of ejection fraction from 10/15% to 50%. Echocardiogram 01/15/2019: Global left ventricular systolic function is severely reduced (Visually estimated EF 10-15%). Diffuse global hypokinesis. No thrombus in left ventricle. Right ventricular systolic function appears reduced. Mild mitral regurgitation. Unable to assess right sided pressures due to lack of measurable tricuspid regurgitation. No pericardial effusion. No significant valvular abnormalities Rhythm is bigeminy. Due to suboptimal imaging Definity contrast was administered for opacification and better delineation of endocardial borders. Coronary angiog (more content not included)...[facility]04-05-2023 Evaluation note* Encounter Date Diagnosis Assessment Notes Treatment Notes Treatment Clinical Notes Nov, Medicare annual wellness visit, subsequent (ICD-10 - Z00.00) Personalized health advice was given to the beneficiary including a written plan for screenings discussed and provided. Advanced care planning reviewed and/or information given as requested. Additional counseling was provided here today in regards to, [ ]. The above visit was performed by [ ], under direct supervision of [ ]. Document reviewed and amended by provider signed below. Healthy diet and exercise. Reviewed age-appropriate preventive testing recommended. 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 They are also educated on the associated risks of NSAIDs and PPI use with kidney disease. They were instructed on adequate fluid balance and to avoid dehydration. Nov, Obstructive sleep apnea (ICD-10 - G47.33) This patient is aware of the benefits associated with ANDREW: With continued use, the patient reduces the risk for NC, CVA, HTN, cardiac dysrhythmias and sudden cardiac deaths.The patient is also aware of the association between ANDREW and morning headaches, daytime somnolence, fatigue and obesity, which also has been improved with continued use.The patient is compliant with treatment, wearing the equipment every night for greater than 4 hours.The patient is instructed to continue use of the CPAP for ANDREW treatment. Nov, Chronic venous insufficiency (ICD-10 - I87.2) Avoid salt and elevate lower extremities, support stockings, inspect legs and feet daily for blisters and ulcerations. Nov, Gastroesophageal reflux disease with esophagitis without hemorrhage (ICD-10 - K21.00) Diet instructions: Smaller portions, avoid eating and laying flat, avoid eating or drinking prior to bedtime. Weight loss. Nov, Pulmonary nodule (ICD-10 - R91.1) Stable over 2 year period, no further scans necessary Stable, no further scans necessary Nov, Subacute cough (ICD- 10 - R05.2) [facility] 04-05-2023 Evaluation note* Encounter Date Diagnosis Assessment Notes Treatment Notes Treatment Clinical Notes Nov, Chronic venous insufficiency (ICD-10 - I87.2) [facility] 03-02-2023 NoteOPERATIVE NOTE OPERATION DATE: 11/24/2022 PREOPERATIVE DIAGNOSIS: 1. Nuclear sclerotic cataract right eye. 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 POSTOPERATIVE DIAGNOSIS: 1. Nuclear sclerotic cataract right eye. 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 PROCEDURE: Complex cataract extraction with intraocular lens placement of the right eye. ANESTHESIA: Topical ESTIMATED BLOOD LOSS: Zero. COMPLICATIONS: None. PROCEDURE: The patient was brought to the Operating Room in supine position. After proper identification, the right eye was prepped and draped in a sterile ophthalmic fashion. A paracentesis was created at the 11 o'clock position. Approximately 1 cc of unpreserved Xylocaine was injected into the anterior chamber followed by Amvisc Plus. Using a 2.6 mm Keratome blade, a clear corneal incision was created at the 9 o'clock limbus. Healon 5 was injected beneath the iris plane at the 3, 6 and 12 o'clock locations. A Malyugin ring measuring 7.0 mm was then inserted into the anterior chamber, engaging the islets of the Malyugin ring with the iris at the 3, 6 and 12 o'clock locations. The trailing islet was engaged with the iris at the 9 o'clock location with the assistance of a Kuglen hook. A cystotome was then used to begin a curvilinear capsulorrhexis that was continued for 360 degrees with the Utrata forceps. BSS on a 26 gauge cannula was injected beneath the anterior capsule to hydrodissect as well as hydrodelineate the lens. After ensuring mobility, phacoemulsification was performed in a [id number]-[id number]-type fashion. After all nuclear material had been removed from the eye, IA was introduced and all residual cortical material was cleaned up. Additional Amvisc Plus was injected into the posterior bag and a lens model MX60, 21.5 diopters was injected and dialed into position. After ensuring centration, second hand piece instrument was utilized to disengage the islets of the Malyugin ring at the 3 and 9 o'clock location. This was then removed from the eye without difficulty. IA was reintroduced into the anterior chamber and all residual Amvisc Plus and Healon 5 removed from the eye. BSS on a 30 gauge cannula was then injected into the stroma of both the clear corneal incision as well as paracentesis to hydrate the wounds. Additional BSS was injected into the anterior chamber to pressurize the eye at approximately 20 to 22 mmHg by finger tension. 0.1 cc of antibiotic was injected into the anterior chamber, maintaining the pressure as above. Weck-Justine sponges were used to check the wounds to be watertight. One drop of apraclonidine and one drop of prednisolone acetate were placed into the eye and a shield was placed over top. The patient was sent to the postoperative area in satisfactory condition to follow up the following day for postoperative care.[facility] [place] [id number] NoteOPERATIVE NOTE OPERATION DATE: 10/02/2022 SURGEON: Trixie Candelaria D.O. PREOPERATIVE DIAGNOSIS: 1. 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 Nuclear sclerotic cataract left eye. 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 PROCEDURE NAME: Complex cataract extraction with intraocular lens placement of the right eye. ANESTHESIA: Topical ESTIMATED BLOOD LOSS: Zero. COMPLICATIONS: None. PROCEDURE: The patient was brought to the Operating Room in supine position. After proper identification, the right eye was prepped and draped in a sterile ophthalmic fashion. A paracentesis was created at the 9 o'clock position. Approximately 1 cc of unpreserved Xylocaine was injected into the anterior chamber followed by Amvisc Plus. Using a 2.6 mm Keratome blade, a clear corneal incision was created at the 9 o'clock limbus. Healon 5 was injected beneath the iris plane at the 3, 6 and 12 o'clock locations. A Malyugin ring measuring 7.0 mm was then inserted into the anterior chamber, engaging the islets of the Malyugin ring with the iris at the 3, 6 and 12 o'clock locations. The trailing islet was engaged with the iris at the 9 o'clock location with the assistance of a Kuglen hook. Further Healon 5 was then injected over the iris and Malyugin ring complex to push it posteriorly and stabilize it. A cystotome was then used to begin a curvilinear capsulorrhexis that was continued for 360 degrees with the Utrata forceps. BSS on a 26 gauge cannula was injected beneath the anterior capsule to hydrodissect as well as hydrodelineate the lens. After ensuring mobility, phacoemulsification was performed in a [id number]-dds-bdjdxh-type fashion. After all nuclear material had been removed from the eye, IA was introduced and all residual cortical material was cleaned up. Additional Amvisc Plus was injected into the posterior bag and a lens model MX60, 21.5 diopters was injected and dialed into position. After ensuring centration, second hand piece instrument was utilized to disengage the islets of the Malyugin ring at the 3 and 9 o'clock location. This was then removed from the eye without difficulty. IA was reintroduced into the anterior chamber and all residual Amvisc Plus and Healon 5 removed from the eye. BSS on a 30 gauge cannula was then injected into the stroma of both the clear corneal incision as well as paracentesis to hydrate the wounds. Additional BSS was injected into the anterior chamber to pressurize the eye at approximately 20 to 22 mmHg by finger tension. 0.1 cc of antibiotic was injected into the anterior chamber, maintaining the pressure as above. Weck-Justine sponges were used to check the wounds to be watertight. One drop of apraclonidine and one drop of prednisolone acetate were placed into the eye and a shield was placed over top. The patient was sent to the postoperative area in satisfactory condition to follow up the following day for postoperative care.[facility] 10-02-2022 NotePREOPERATIVE HISTORY AND PHYSICAL Date:10/01/2022 HISTORY: Patient is an 87-year-old white male with complaints of declining vision out of his right eye. He believes over a period of approximately 6-12 months there has been a gradual decline in his vision, affecting his distance as well as near vision. He notes having difficulty reading and seeing the computer screen. He also states having difficulty at night time while driving because of headlights creating glare and halos. PAST OCULAR HISTORY: Status post cataract extraction with intraocular lens placement for the left eye. PAST MEDICAL HISTORY: 1. Surgery for testicular cancer. 2. GERD. 3. History of testicular cancer. 4. BPH. 5. Hypertension. SOCIAL HISTORY: Denies tobacco, alcohol, or recreational drug abuse. SYSTEMIC MEDICATIONS: Include metoprolol, losartan, testosterone, omeprazole, tamsulosin and finasteride. ALLERGIES: Denies. REVIEW OF SYSTEMS: No pertinent positives. PHYSICAL EXAM: VITALS: Blood pressure measured at 115/80 with a respiratory rate of 12 and pulse of 84. GENERAL: He is awake, alert and oriented x3, well developed, well nourished, in no acute distress. HEART: Regular rate and rhythm. LUNGS: Clear bilaterally. ABDOMEN: Soft, non-tender, non-distended. EXTREMITIES: No pitting edema. OPHTHALMIC EXAM: Revealed a visual acuity of 20/50 -1 that glared to 20/100 in the right eye and 20/40 +2 that glared to 20/100 in the left eye. Pupils motility, muscle balance, confrontational visual rachel within normal limits bilaterally. Pressures measured at 19 and 20, right and left eye respectively. Slit lamp exam revealed blepharitis with a severe decrease in tear film bilaterally. Conjunctiva, cornea, anterior chamber and iris were within normal limits bilaterally. Lens status demonstrated 3+ nuclear sclerosis with 1+ cortical changes and vacuoles in the right eye, and a well center posterior chamber intraocular lens in the left eye. FUNDUS EXAM: Revealed a good view with good dilation bilaterally. Optic discs, macula, vessels, periphery and vitreous were within normal limits bilaterally. ASSESSMENT AND PLAN: 1. Visually significant cataract, right eye. After risks, benefits, alternatives, as well as expectations were delivered to the patient, he elected to go forward with cataract removal. He understands the risks include but not limited to infection, bleeding, loss of vision, loss of the eye itself. Secondly, he understands postoperatively he is likely to require spectacle correction for his best visual acuity. He has a history of Flomax usage, and therefore it is expected that intraoperative floppy iris syndrome may affect his eye, and therefore, steps will be taken to avoid this. Finally, a complete ophthalmic exam was performed, there is not determined to be any other source of visual decline other than that of the cataract. 2. COVID-19, the patient was briefed in the office and consented for elective cataract surgery in the setting of the pandemic of coronavirus. He understands that he is at heightened risk going into a hospital setting; however, feels that his activities of daily living are depleted severe enough by his cataracts that he is willing to incur this risk and go forward with his elective procedure.[id number] Hospital Discharge instructions Patient Education 04/14/2022 09:29:08 Benign Prostatic Hyperplasia Benign Prostatic Hyperplasia Benign prostatic hyperplasia (BPH) is an enlarged prostate gland that is caused by the normal agingprocess and not by cancer. The prostate is a walnut-sized gland that is involved in the production of semen. It is located in front of the rectum and below the bladder. The bladder stores urine and the urethra is the tube that carries the urine out of the body. The prostate may get bigger as a man gets older. An enlarged prostate can press on the urethra. This can make it harder to pass urine. The build-up of urine in the bladder can cause infection. Back pressure and infection may progress to bladder damage and kidney (renal) failure. What are the causes? This condition is part of a normal aging process. However, not all men develop problems from this condition. If the prostate enlarges away from the urethra, urine flow will not be blocked. If it enlarges toward the urethra and compresses it, there will be problems passing urine. What increases the risk? This condition is more likely to develop in men over the age of 50 years. What are the signs or symptoms? Symptoms of this condition include: Getting up often during the night to urinate. Needing to urinate frequently during the day. Difficulty starting urine flow. Decrease in size and strength of your urine stream. Leaking (dribbling) after urinating. Inability to pass urine. This needs immediate treatment. Inability to completely empty your bladder. Pain when you pass urine. This is more common if there is also an infection. Urinary tract infection (UTI). How is this diagnosed? This condition is diagnosed based on your medical history, a physical exam, and your symptoms. Tests will also be done, such as: A post-void bladder scan. This measures any amount of urine that may remain in your bladder after you finish urinating. A digital rectal exam. In a rectal exam, your health care provider checks your prostate by putting a lubricated, gloved finger into your rectum to feel the back of your prostate gland. This exam detects the size of your gland and any abnormal lumps or growths. An exam of your urine (urinalysis). A prostate specific antigen (PSA) screening. This is a blood test used to screen for prostate cancer. An ultrasound. This test uses sound waves to electronically produce a picture of your prostate gland. Your health care provider may refer you to a specialist in kidney and prostate diseases (urologist). How is this treated? Once symptoms begin, your health care provider will monitor your condition (active surveillance or watchful waiting). Treatment for this condition will depend on the severity of your condition. Treatment may include: Observation and yearly exams. This may be the only treatment needed if your condition and symptoms are mild. Medicines to relieve your symptoms, including: ?Medicines to shrink the prostate. ?Medicines to relax the muscle of the prostate. Surgery in severe cases. Surgery may include: ?Prostatectomy. In this procedure, the prostate tissue is removed completely through an open incision or with a laparoscope or robotics. ?Transurethral resection of the prostate (TURP). In this procedure, a tool is inserted through the opening at the tip of the penis (urethra). It is used to cut away tissue of the inner core of the prostate. The pieces are removed through the same opening of the penis. This removes the blockage. ?Transurethral incision (TUIP). In this procedure, small cuts are made in the prostate. This lessens the prostate's pressure on the urethra. ?Transurethral microwave thermotherapy (TUMT). This procedure uses microwaves to create heat. The heat destroys and removes a small amount of prostate tissue. ?Transurethral needle ablation (TUNA). This procedure uses radio frequencies to destroy and remove a small amount of prostate tissue. ?Interstitial laser coagulation (ILC). This procedure uses a laser to destroy and remove a small amount of prostate tissue. ?Transurethral electrovaporization (TUVP). This procedure uses electrodes to destroy and remove a small amount of prostate tissue. ?Prostatic urethral lift. This procedure inserts an implant to push the lobes of the prostate away from the urethra. Follow these instructions at home: Take oplf-saf-ghcqdya and prescription medicines only as told by your health care provider. Monitor your symptoms for any changes. Contact your health care provider with any changes. Avoid drinking large amounts of liquid before going to bed or out in public. Avoid or reduce how much caffeine or alcohol you drink. Give yourself time when you urinate. Keep all follow-up visits as told by your health care provider. This is important. Contact a health care provider if: You have unexplained back pain. Your symptoms do not get better with treatment. You develop side effects from the medicine you are taking. Your urine becomes very dark or has a bad smell. Your lower abdomen becomes distended and you have trouble passing your urine. Get help right away if: You have a fever or chills. You suddenly cannot urinate. You feel lightheaded, or very dizzy, or you faint. There are large amounts of blood or clots in the urine. Your urinary problems become hard to manage. You develop moderate to severe low back or flank pain. The flank is the side of your body between the ribs and the hip. These symptoms may represent a serious problem that is an emergency. Do not wait to see if the symptoms will go away. Get medical help right away. Call your local emergency services (911 in the [place] Do not drive yourself to the hospital. Summary Benign prostatic hyperplasia (BPH) is an enlarged prostate that is caused by the normal aging process and not by cancer. An enlarged prostate can press on the urethra. This can make it hard to pass urine. This condition is part of a normal aging process and is more likely to develop in men over the age of 50 years. Get help right away if you suddenly cannot urinate. This information is not intended to replace advice given to you by your health care provider. Make sure you discuss any questions you have with your health care provider. Document Released: 07/20/2006 Document Revised: 06/14/2019 Document Reviewed: 08/24/2017 [employer] Patient Education 2020 [employer]. Follow Up Care 04/05/2021 10:45:58 With:Robert BAUER MD, URL Address: [facility] [address], [place] [address]- [phone] When:04/14/2023 [facility] evaluation + Plan note Future Appointments Appointment Date:04/17/2023 08:15:00 AM Scheduled Provider:Robert BAUER MD Location:[facility] Appointment Type:URO Office Visit Diagnostic Tests Pending * Testosterone Level Total 04/14/22 [facility] evaluation + Plan note Future Appointments Appointment Date:04/25/2024 10:15:00 AM Scheduled Provider:Robert BAUER MD Location:[facility] Appointment Type:URO Office Visit Diagnostic Tests Pending * Testosterone Level Total 04/27/23 [facility] evaluation [employer] Other Evaluation noteNo InformationNo[employer] Other evaluation note* Diagnosis Onset Date Resolution Status Ascending aortic aneurysm ac manjit Chronic venous insufficiency acute Gastroesophageal reflux dise ase with esophagitis without hemorrhage acute 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 Obstructive sleep apnea acut e Overweight acute Primary osteoarthritis of right knee acute Pulmonary nodule acute Restrictive lung disease acu te Medicare annual wellness visit, subsequent noneactive [facility] Work Phone: History general Narrative - Reported* Type Description Date Medical History Trochanteric bursitis of right h ip Medical History Iliotibial band syndrome, right Medical History Stage 3a chronic kidney disease Medical History Nonischemic dilated cardiomyopat hy Medical History History of testicular cancer Medical History Gastroesophageal ref lux disease with esophagitis without hemorrhage Medical History Chronic venous insufficiency Medical History Obstructive sleep apnea Medical History Nonischemic cardiomyopathy Medical History Acute pain of right hip Medical History Pulmonary nodule Surgical History LEFT INGUINAL HERNIORRHAPHY Surgical History RIGHT ORCHIECTOMY Surgical History LEFT RADIUS / ULNA Surgical History LEFT CARPAL TUNNEL RELEASE Surgical History LEFT CATARACT EXTRACTION Hospitalization History SEE SURGICAL [place] [facility] Other History [facility] Other History general Narrative - Reported* Type Description Date Medical History Trochanteric bursitis of right h ip Medical History Iliotibial band syndrome, right Medical History Stage 3a chronic kidney disease Medical History Nonischemic dilated cardiomyopat hy Medical History History of testicular cancer Medical History Gastroesophageal ref lux disease with esophagitis without hemorrhage Medical History Chronic venous insufficiency Medical History Obstructive sleep apnea Medical History Nonischemic cardiomyopathy Medical History Acute pain of right hip Medical History Pulmonary nodule Surgical History LEFT INGUINAL HERNIORRHAPHY Surgical History RIGHT ORCHIECTOMY Surgical History LEFT RADIUS / ULNA Surgical History LEFT CARPAL TUNNEL RELEASE Surgical History LEFT CATARACT EXTRACTION Surgical History Right Carpal Tunnel 05/25/23 Hospitalization History SEE SURGICAL [place] [facility] Other Hospital course Narrative No data available for this section [facility] progress note No data available for this section [facility] Summary Purpose Family History No Family History Records Found Relationship Condition Age at Onset Recorded Date/T krishna father Unknown Not Specified Unknown Family history of colon cancer Unknown Malignant neoplasm Unknown Advance Directives No Advanced Directives Records Found Advance Directive Response Recorded Date/ Time Advance Directives No August 31, 2023 1:47pm Hospital Course Note MR#: [id number] [facility] Pt. Name: Yaya De Anda Admitted: 01/15/2019 Discharged: 01/19/2019 Date of : 1935 Physician: Deng Aguilar MD DISCHARGE SUMMARY DISCHARGING PHYSICIAN: Deng Aguilar MD. CONSULTS: Cardiology. PROCEDURES: 1. Cardiac catheterization with normal coronary artery, very high PCWP with V wave of 58 mmHg. 2. RANDI. DISCHARGE DIAGNOSES: 1. New-onset systolic heart failure (EF 10%-15%) with exacerbation. 2. Nonischemic cardiomyopathy. 3. Moderate mitral regurgitation. 4. Nonsustained ventricular tachycardia. 5. Acute kidney injury. 6. Hypokalemia. 7. BPH with recent urinary tract infection. 8. Acid reflux. 9. History of deep venous thrombosis with prior use of Xarelto. 10. History of testicular cancer, status post orchiectomy 24 years ago. HISTORY OF PRESENT ILLNESS/ BRIEF COURSE: An 83-year-old male with past medical history of BPH, testicular cancer, status post orchiectomy, recent UTI about 1 month ago, presented with 3 da (more content not included)... Chief Complaint and Reason for Visit Chief Complaint [facility] [place] Wellness Reason for Visit Ascending aortic ane urysm Chronic venous insufficiency Gastroesophageal reflux disease with esophagitis without hemorrhage Heart failure with improved ejection fraction (HFimpEF) Obstructive sleep apnea Overweight Primary osteoarthritis of right knee Pulmonary nodule Restrictive lung disease Medicare annual wellness visit, subsequent Additional Source Comments (unrecognized sect ion and content) No Status Records FoundNo Status Records FoundNo Status Records FoundNo Status Records FoundNo Status Records Found INFORMATION SOURCE (unrecogn ized section and content) DATE CREATED AUTHOR 04/02/2019 [facility] DATE CREATED AUTHOR AUTHOR'S ORGANIZ ATION 11/28/2022 [facility] DATE CREATED AUTHOR AUTHOR'S ORGANIZ ATION 05/04/2023 [facility] DATE CREATED AUTHOR AUTHOR'S ORGANIZ ATION 12/26/2023 [facility] DATE CREATED AUTHOR AUTHOR'S ORGANIZ ATION 01/30/2024 [facility] Care Team (unrecognized sect ion and content) Team Status: Active Member Role Status Dates David Marx DO Primary Care Provider Active Team Status: Inactive Member Role Status Dates David Marx , DO Primary Care Provide r, Attending Provider Active Start: November 30, 2023 End: November 30, 2023 REASON FOR VISIT (unrecogniz ed section and content) MEDICARE WELLNESSRefillNo In formationPFT resultsPlane MedicationFLU Shot2 month Follow [id number] cough, runny nose Goals (unrecognized section and content) Goals may be documented in a n alternate section FOR RECORDS PERTAINING TO PATIENTS WHO ARE OR HAVE BEEN ENROLLED IN A CHEMICAL DEPENDENCY/SUBSTANCEABUSE PROGRAM, SOME INFORMATION MAY BE OMITTED. This clinical summary was aggregated from multiple sources. Caution should be exercised in using it in the provision of clinical care. This summary normalizes information from multiple sources, and as a consequence, information in this document may materially change the coding, format and clinical context of patient data. In addition, data may be omitted in some cases. CLINICAL DECISIONS SHOULD BE BASED ON THE PRIMARY CLINICAL RECORDS. [facility] provides no warranty or guarantee of the accuracy or completeness of information in this document.
== END 2024-02-05 07:51 | disposition home or self-care (01) ==
LOC: CT 07:50
PROVIDERS: PCP Internal Medicine; Visit Provider Internal Medicine
DX: R91.1 Solitary pulmonary nodule (principal); I71.21 Aneurysm of the ascending aorta, without rupture
CPT/HCPCS: 71275; Q9967

== ENCOUNTER 2024-06-13 08:18 | Outpatient (OUT) | payer MEDICARE, SELFPAY ==
--- OUTSIDE RECORDS SUMMARY | 2024-06-13 08:36 | XMS_ITS | CCD ---
Author Organization [facility] Care Team Providers Care Trapper Animal Name Role Phone JAQUELINEARAMKEKE Admitting Unavailable ADITHYA SCHMIDT Referring DAVID Damon Primary Care Unavailable Deng Aguilar Attending Unavailable OR Procedure Practitioner UnavailBETO Davis Surgeon Unavailable DAVID MARX Primary Care Physician [phone] David Marx Unavailable APLINGFOSTER Admitting Unavailable APLINGFOSTER B Attending Unavailable FRANCISCO J, DR LAM Primary Care Unavailable FRANCISCO J, DR LAM Primary Care Unavailable FRANCISCO J, DR LAM Admitting Unavailable FRNACISCO J, DR LAM Attending Unavailable REQUEST, DR KIM LISTED Attending Unavaila ble REQUEST, DR KIM LISTED Consulting Unavaila ble REQUEST, DR KIM LISTED Admitting Unavaila ble BALL, DR LAM Primary Care Unavailable TRIXIE CANDELARIA Attending Unavailable TRIXIE CANDELARIA Consulting Unavailable TRIXIE CANDELARIA Admitting Unavailable FRANCISCO J, DR LAM Primary Care Unavailable ZECHARIAH ., DR BUI Attending Unavailable ZECHARIAH ., DR BUI Consulting Unavailable ZECHARIAH ., DR BUI Admitting Unavailable FRANCISCO J, DR LAM Primary Care Unavailable BALL, DR LAM Attending Unavailable BALL, DR LAM Consulting Unavailable BALL, DR LAM Primary Care Unavailable BALL, DR LAM Admitting Unavailable ZIEBER, DR MILKA Jung Consulting Unavailable APLINGFOSTER Attending Unavailable APLINGFOSTER Admitting Unavailable ZIEBER, DR MILKA Jung Consulting Unavailable FRANCISCO J, DR LAM Primary Care Unavailable APLINGFOSTER Consulting Unavailable VJ ESPITIA Attending Unavailable CARLO HAIR Attending Unavailable Robert BAUER Attending Unavailable Robert BAUER Attending Unavailable David Marx MD Primary Care Provider YFN GUSMAN Attending Unavailable YFN GUSMAN Attending Unavailable YFN GUSMAN Attending Unavailable YFN GUSMAN Attending Unavailable YFN GUSMAN Attending Unavailable Allergies Allergy Classification Reported Allergen(s) Allergy Type Date of Onset Reaction(s) Facility (12 sources) traMADol; Translations: [TRAMADOL] Drug Allergy 2 Hives [facility] Repository (3 sources) patient allergy list reviewed by nurse or physicia Propensity to adverse reactions 6 Comment:Done ZAP Other (6 sources) TraMADol & Dietary Manage Prod *ANALGESICS - OPIOI Propensity to adverse reactions Unknown [employer] [facility] Other (3 sources) Angiotensin Converting Enzyme (Jose Alfredo) Inhibitors; Translations: [JOSE ALFREDO INHIBITORS] Propensity to adverse reactions to drug (disorder) 3 Cough [facility] Repository (1 source) No Known Medication Allergies; Translations: [No Known Medication Allergies] Propensity to adverse reactions (disorder) [facility] Repository Medications Current Medications Medication Drug Class(es) Dates Sig (Normalized) Sig (Original) acetaminophen 325 mg / HYDROcodone bitartrate 5 mg oral tablet (2 sources) Opioid Agonist Start: 05-25-2023 HYDROcodone-aceta minophen ([place]) 5-325 MG tablet 05/25/2023 Active amiodarone hydrochloride 200 mg oral tablet (1 source) Antiarrhythmic Start: 03-04-2019 take 1 tablet by mouth once daily amiodarone 200 mg Tab 200 mg = 1 tab(s), Oral, Daily Start Date: 03/04/19 Status: Ordered azithromycin 250 mg oral tablet (2 sources) Macrolide Antimicrobial Start: 04-22-2024 Azithromycin Active 250 MG PO As Directed 6 April 22, 2024 12:00am finasteride 5 mg oral tablet (17 sources) 5-alpha Reductase Inhibitor Start: 11-15-2021 take 5 mg by mouth once daily Finasteride Active 5 MG PO Daily November 27, 2023 12:00am furosemide 20 mg oral tablet (16 sources) Loop Diuretic Start: 03-04-2019 End: 01-08-2024 take 1 tablet by mouth in the morning furosemide (Lasix) 20 MG tablet Take 20 mg by mouth in the morning. 11/05/2022 Active ketorolac tromethamine 5 mg/ml ophthalmic solution (2 sources) Nonsteroidal Anti-inflammatory Drug, Cyclooxygenase Inhibitor Start: 09-17-2022 ketorolac (Acular) 0.5 % ophthalmic solution Administer 1 drop into both eyes in the morning and 1 drop at noon and 1 drop in the evening and 1 drop before bedtime. 09/17/2022 Active losartan potassium 25 mg oral tablet (16 sources) Angiotensin 2 Receptor David Start: 04-27-2023 take 25 mg by mouth once daily Losartan Active 25 MG PO Daily November 27, 2023 12:00am 24 hr metoprolol succinate 25 mg extended release oral tablet (17 sources) beta-Adrenergic David Start: 11-27-2023 take 25 mg by mouth once daily Metoprolol Succinate Active 25 MG PO Daily November 27, 2023 12:00am Start: 09-26-2019 take 1 mg by mouth once daily metoprolol 25 mg ER Tab mg tab(s), Oral, Daily, Refills(s) 0 Start Date: 09/26/19 Status: Ordered take 1 tablet by guilherme th every twenty-four hours in the morning metoprolol succinate XL (Toprol-XL) 25 MG 24 hr tablet Take 25 mg by mouth in the morning. Active ofloxacin 3 mg/ml ophthalmic solution (2 sources) Quinolone Antimicrobial Start: 09-17-2022 ofloxacin (Ocuflox) 0.3 % ophthalmic solution Administer 1 drop into both eyes in the morning and 1 drop at noon and 1 drop in the evening and 1 drop before bedtime. 09/17/2022 Active omeprazole 40 mg delayed release oral capsule (20 sources) Proton Pump Inhibitor Start: 01-14-2024 take 1 capsule by mouth once daily at breakfast Omeprazole Active 0 .ROUTE .COMPLEX 90 January 14, 2024 7:39am TAKE 1 CAPSULE BY MOUTH EVERYDAY ON AN EMPTY STOMACH FOLLOWED IN 30 MINUTES BY BREAKFAST Start: 03-04-2019 End: 01-14-2024 take 40 mg by mouth once daily Omeprazole Discontinued 40 MG PO Daily November 27, 2023 12:00am January 14, 2024 7:39am paxlovid (300/100) 20 x 150 mg & 10 x 100mg tablet therapy pack (1 source) Start: 08-10-2023 Paxlovid (300/ 100) 20 x 150 MG & 10 x 100MG as directed Orally bid for 5 days Aug, Active tamsulosin hydrochloride 0.4 mg oral capsule (17 sources) alpha-Adrenergi c David Start: 11-27-2023 take 0.4 mg by mouth once daily Tamsulosin Active 0.4 MG PO Daily November 27, 2023 12:00am Start: 11-15-2021 take 1 capsule by mo [facility] once daily Flomax 0.4 mg Cap 0.4 mg = 1 cap(s), Oral, Daily, # 90 cap(s), Refills(s) 3, [id number] Start Date: 11/13/22 Status: Ordered take 1 capsule by [facility] every twenty-four hours in the morning tamsulosin (Flomax) 0.4 MG 24 hr capsule Take 0.4 mg by mouth in the morning. Active testosterone cypionate 100 mg/ml injectable solution (2 sources) Androgen testosterone cyp ionate (Depo-Testosterone) 100 MG/ML injection Inject 100 mg into the shoulder, thigh, or buttocks every 14 (fourteen) days. Active testosterone cypionate 200 mg/mL intramuscular solution (2 sources) Start: 11-09-2020 testosterone cypionate 200 m g/mL intramuscular solution 200 mg = 1 mL, IntraMuscular, q4wk, E29.1, # 10 mL, Refills(s) 3, Pharmacy: [id number], 178, cm, 09/10/20 9:06:00 EST, Height/Length Dosing, 87.9, kg, 09/10/20 9:06:00 EST, Weight Dosing Start Date: 11/09/20 Status: Ordered Problems Active Problems Problem Classification Problem Date Documented Da te Episodic/Chronic Abdominal hernia (6 sources) Diaphragmatic hernia; Translations: [Diaphragmatic hernia without mention of obstruction or gangrene] Episodic Acute bronchitis (4 sources) Acute infective bronchitis; Translations: [Acute bronchitis due to other specified organisms] 04-22-2024 Episodic Allergic reactions (6 sources) Allergic contact dermatitis caused by chemical; Translations: [Allergic contact dermatitis due to other chemical products] Episodic Aortic; peripheral; and visceral artery aneurysms (8 sources) Aneurysm of ascending aorta; Translations: [Ascending [...] Onset: 01-14-2019 Resolved: 01-23-2021 Chronic Esophageal disorders (20 sources) Gastro-esophageal reflux disease without esophagitis; Translations: [...] organs (2 sources) 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 Mycoses (3 sources) Pain in toe; Translations: [Tinea unguium] Onset: 12-24-2022 05-16-2024 Episodic Osteoarthritis (20 sources) Idiopathic osteoarthritis; 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, right knee] Onset: 04-14-2013 11-30-2023 Chronic Other aftercare (1 source) 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; Translations: [OTH GAS PUMPER CURRENT DRUG THERAPY] Onset: 10-15-2022 Episodic Other [...] Episodic Other diseases of veins and lymphatics (8 sources) Venous insufficiency (chronic) (peripheral); Translations: [Venous (peripheral) insufficiency, unspecified] Episodic Other diseases of veins and lymphatics (1 source) Vascular insufficiency; Translations: [Venous insufficiency (chronic) (peripheral)] 05-16-2024 Episodic Other endocrine disorders (8 sources) Testicular [...] disease, unspecified Chronic Other lower respiratory disease (13 sources) Nodule of lung; Translations: [Solitary pulmonary nodule] 11-28-2023 Episodic Other lower respiratory disease (7 sources) Solitary pulmonary nodule; Translations: [Solitary pulmonary nodule] Episodic Other lower respiratory disease (7 sources) Chronic cough; Translations: [Chronic cough] Episodic Other lower respiratory disease (6 sources) Solitary nodule of lung; Translations: [Solitary pulmonary nodule] Episodic Other lower respiratory disease (4 sources) Restrictive lung disease; Translations: [Other disorders of lung] 11-28-2023 Episodic Other lower respiratory disease (4 sources) Other disorders of lung; Translations: [Other diseases [...] nutritional; endocrine; and metabolic disorders (5 sources) Overweight; Translations: [Overweight] 11-30-2023 Episodic Other nutritional; endocrine; and metabolic disorders (9 sources) Overweight; Translations: [Overweight] 11-30-2023 Episodic Other [...] Onset: 02-18-2019 11-28-2023 Chronic Residual codes; unclassified (7 sources) Obstructive sleep apnea (adult) (pediatric); Translations: [...] HIP RIGHT HIP] Onset: 03-27-2022 Episodic Other connective tissue disease (2 sources) Pain in limb; Translations: [Pain in unspecified limb] Onset: 12-24-2022 12-24-2022 Episodic Other connective tissue disease (2 sources) Plantar fasciitis of right foot; Translations: [Plantar fascial fibromatosis] Onset: 12-24-2022 12-24-2022 Episodic Other lower respiratory disease (5 sources) [...] Range Facility Office Visiton 01-28-2024 Follow-up visit [id number] Yaya De Anda 1935 M Date Provider Department Center 01/28/2024 VJ CUELLO HENRI [facility] Family History Family history unknown: Yes Level of Service:59695 OR OFFICE/OUTPATIENT ESTABLISHED MOD MDM 30 MIN Normal [facility] Basophils Auto (Bld) [#/Vol] on 01-06-2024 Basophils (Bld) [#/Vol] 0.0 10 3/uL 0.0-0.1 [facility] Basophils/100 WBC Auto (Bld) on 01-06-2024 Basophils/100 WBC (Bld) 0.5 % 0.2-2.0 [facility] Cholesterol in LDL Calc [Mas s/Vol]on 01-06-2024 Cholesterol in LDL [Mass/Vol] 102.0 mg/dL [facility] Comment on above: <100 mg/dl [id number] 0-129 mg/dl NEAR OR ABOVE [id number] mg/dl BORDERLINE [id number] mg/dl HIGH>190 mg/dl VERY HIGH Cholesterol in VLDL Calc [Ma ss/Vol]on 01-06-2024 Cholesterol in VLDL [Mass/Vol] 26.0 mg/dL [facility] Eosinophils/100 WBC Auto (Bl d)on 01-06-2024 Eosinophils/100 WBC (Bld) 2.1 % 0.9-7.0 [facility] Erythrocyte distribution wid th Auto (RBC) [Ratio]on 01-06-2024 Erythrocyte distribution width (RBC) [Ratio] 13.2 % 11.0-15.0 [facility] Estimated glomerular filtrat ion rate (GFR) non- Americanon 01-06-2024 GFR/1.73 sq M.predicted among non-blacks MDRD (S/P/Bld) [Vol rate/Area] 55 mL/min/{1.73_m2} Low >=60 [facility] Globulin Calc (S) [Mass/Vol] on 01-06-2024 Globulin (S) [Mass/Vol] 3.5 g/dL [facility] Hematocrit Auto (Bld) [Volum e fraction]on 01-06-2024 Hematocrit (Bld) [Volume fraction] 43.7 % 42.0-54.0 [facility] Hemoglobin [Mass/volume] in Bloodon 01-06-2024 Hemoglobin (Bld) [Mass/Vol] 14.0 g/dL 14.0-18.0 [facility] Laboratory - Chemistry and C hemistry - challengeon 01-06-2024 Albumin [Mass/Vol] 3.7 g/dL 3.4-5.0 [facility] ALP [Catalytic activity/Vol] 59 U/L 46-116 [facility] ALT [Catalytic activity/Vol] 32 U/L 16-63 [facility] AST [Catalytic activity/Vol] 25 U/L 15-37 [facility] Bilirubin [Mass/Vol] 0.8 mg/dL 0.2-1.0 [facility] Calcium [Mass/Vol] 9.0 mg/dL 8.5-10.1 [facility] Chloride [Moles/Vol] 105 mmol/L 98-107 [facility] Cholesterol [Mass/Vol] 175 mg/dL <=200 [facility] Cholesterol in HDL [Mass/Vol] 47 mg/dL 40-60 [facility] Comment on above: > or =60 mg/dl - LOW CARDIOVASCULAR RISK<40 mg/dl - HIGH CARDIOVASCULAR RISK CO2 [Moles/Vol] 27.0 mmol/L 21.0-32.0 [facility] Creatinine [Mass/Vol] 1.24 mg/dL 0.70-1.30 [facility] GFR/1.73 sq M.predicted MDRD (S/P/Bld) [Vol rate/Area] mL/min/{1.73_m2} >=60 [facility] Glucose [Mass/Vol] 106 mg/dL 74-106 [facility] Potassium [Moles/Vol] 4.1 mmol/L 3.5-5.1 [facility] Protein [Mass/Vol] 7.2 g/dL 6.4-8.2 [facility] Sodium [Moles/Vol] 144 mmol/L 136-145 [facility] Triglyceride [Mass/Vol] 130 mg/dL <=150 [facility] Urea nitrogen [Mass/Vol] 35.0 mg/dL High 7.0-18.0 [facility] Urea nitrogen/Creatinine [Mass ratio] 28.2 mg/mg [facility] Laboratory - Hematology and Cell countson 01-06-2024 Immature granulocytes/100 WBC (Bld) 0.2 % 0.0-0.5 [facility] Leukocytes [#/volume] correc pam for nucleated erythrocytes in Blood by Automated counon 01-06-2024 WBC corrected for nucl RBC Auto (Bld) [#/Vol] 5.7 10 3/uL 4.0-11.0 [facility] Lymphocytes Auto (Bld) [#/Vo l]on 01-06-2024 Lymphocytes (Bld) [#/Vol] 1.7 10 3/uL 1.2-3.8 [facility] Lymphocytes/100 WBC Auto (Bl d)on 01-06-2024 Lymphocytes/100 WBC (Bld) 30.7 % 20.5-60.0 [facility] MCH Auto (RBC) [Entitic mass ]on 01-06-2024 MCH (RBC) [Entitic mass] 29.1 pg 25.9-34.0 [facility] MCHC Auto (RBC) [Mass/Vol]on 01-06-2024 MCHC (RBC) [Mass/Vol] 32.0 g/dL 29.9-35.2 [facility] MCV Auto (RBC) [Entitic vol] on 01-06-2024 MCV (RBC) [Entitic vol] 90.9 fL 80.0-94.0 [facility] Monocytes Auto (Bld) [#/Vol] on 01-06-2024 Monocytes (Bld) [#/Vol] 0.4 10 3/uL 0.3-0.8 [facility] Monocytes/100 WBC Auto (Bld) on 01-06-2024 Monocytes/100 WBC (Bld) 7.2 % 1.7-12.0 [facility] Neutrophils Auto (Bld) [#/Vo l]on 01-06-2024 Neutrophils (Bld) [#/Vol] 3.4 10 3/uL 1.4-6.5 [facility] Neutrophils/100 WBC Auto (Bl d)on 01-06-2024 Neutrophils/100 WBC (Bld) 59.3 % 43.0-75.0 [facility] No Panel Informationon 01-05 Eosinophils # (Auto) 0.1 10 3/uL 0.0-0.7 [facility] Immature Granulocyte # (Auto) 0.01 10 3/uL 0.00-0.03 [facility] Nucleated Red Blood Cells/100 WBC 0 [facility] Platelet mean volume Auto (B ld) [Entitic vol]on 01-06-2024 Platelet mean volume (Bld) [Entitic vol] 10.6 fL 9.5-13.5 [facility] Platelets Auto (Bld) [#/Vol] on 01-06-2024 Platelets (Bld) [#/Vol] 169 10 3/uL 150-450 [facility] RBC Auto (Bld) [#/Vol]on RBC (Bld) [#/Vol] 4.81 10 6/uL 4.70-6.10 [facility] Serum or plasma albumin/glob ulin mass ratioon 01-06-2024 Albumin/Globulin [Mass ratio] 1.1 {ratio} [facility] Serum or plasma anion gap de terminationon 01-06-2024 Anion gap [Moles/Vol] 16.1 mmol/L [facility] Serum or plasma total choles terol/high density lipoprotein (HDL) cholesterol mass luis enrique 01-06-2024 Cholesterol.total/Ch olesterol in HDL [Mass ratio] 3.7 {ratio} [facility] Comment on above: 3.3 - 4.4 LOW RISK4. 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 Take ltac-unb-zjrzvsi and prescription medicines only as told by [...] 03/21/2021 Document (more content not included)... Normal [facility] Urology Office/Clinic Noteon 04-27-2023 Urology Office/Clinic Note [...] URL [facility] [address], [place] [address] [phone] Additional Instructions: 1 yr T level Patient [...] Family Hi (more content not included)... Normal [facility] Comment on above: Result Comment: Elec tronically Signed By: Robert BAUER MD\.br\Date and Time Signed: 04/27/23 11:28 EDT\.br\Electronically Co-Signed By: Savanna Isabel.br\Date and Time Co-Signed: 04/27/23 11:23 EDT\.br\Electronically Co-Signed By: Savanna Isabel\.br\Date and Time Co-Signed: 04/27/23 11:27 EDT Office Visiton 02-27-2023 Follow-up visit [id number] Yaya De Anda 1935 M Date Provider Department Center 02/27/2023 CARLO OLIVAS [facility] Family History Family history unknown: Yes Level of Service:85182 OR OFFICE/OUTPATIENT ESTABLISHED LOW MDM 20-29 MIN Reason for Visit and Comments: Follow-up [908676] Normal [facility] CBC AUTO DIFFon 11-18-2022 BASO # 0.1 103/ul Normal 0.0-0.1 [facility] Comment on above: Performed By: #### D ATCBC #### [facility] [address] [place] [address] Dr. Sagrario Schilling Basophils/100 WBC (Bld) 0.8 % Normal 0.2-2.0 [facility] Comment on above: Performed By: #### D ATCBC #### [facility] [address] [address] [address] Sagrario Schilling EO # 0.1 103/ul Normal 0.0-0.7 [facility] Comment on above: Performed By: #### D ATCBC #### [facility] [address] [address] [address] Sagrario Schilling Eosinophils/100 WBC (Bld) 1.8 % Normal 0.9-7.0 [facility] Comment on above: Performed By: #### D ATCBC #### [facility] [address] [address] [address] Sagrario Schilling Erythrocyte distribution width (RBC) [Ratio] 13.2 % Normal 11.0-15.0 [facility] Comment on above: Performed By: #### D ATCBC #### [facility] [address] [place] [address] Dr. Sagrario Schilling Hematocrit (Bld) [Volume fraction] 45.2 % Normal 42.0-54.0 [facility] Comment on above: Performed By: #### D ATCBC #### [facility] [address] [address] [address] Sagrario Schilling Hemoglobin (Bld) [Mass/Vol] 14.6 g/dL Normal 14.0-18.0 [facility] Comment on above: Performed By: #### D ATCBC #### [facility] [address] [address] [address] Sagrario Schilling IG # 0.03 10e3/ul Normal 0.00-0.03 [facility] Comment on above: Performed By: #### D ATCBC #### [facility] [address] [place] [address] Dr. Sagrario Schilling IG % 0.5 % Normal 0.0-0.5 [facility] Comment on above: Performed By: #### D ATCBC #### [facility] [address] [place] [address] Dr. Sagrario Schilling LYMPH # 1.7 103/ul Normal 1.2-3.8 [facility] Comment on above: Performed By: #### D ATCBC #### [facility] [address] [place] [address] Dr. Sagrario Schilling Lymphocytes/100 WBC (Bld) 27.6 % Normal 20.5-60.0 [facility] Comment on above: Performed By: #### D ATCBC #### [facility] [address] [place] [address] Dr. Sagrario Schilling MCH (RBC) [Entitic mass] 28.9 pg Normal 25.9-34.0 [facility] Comment on above: Performed By: #### D ATCBC #### [facility] [address] [place] [address] Dr. Sagrario Schilling MCHC (RBC) [Mass/Vol] 32.3 g/dL Normal 29.9-35.2 [facility] Comment on above: Performed By: #### D ATCBC #### [facility] [address] [place] [address] Dr. Sagrario Schilling MCV (RBC) [Entitic vol] 89.5 fL Normal 80.0-94.0 [facility] Comment on above: Performed By: #### D ATCBC #### [facility] [address] [address] [address] Sagrario Schilling MONO # 0.4 103/ul Normal 0.3-0.8 [facility] Comment on above: Performed By: #### D ATCBC #### [facility] [address] [address] [address] Sagrario Schilling Monocytes/100 WBC (Bld) 7.2 % Normal 1.7-12.0 [facility] Comment on above: Performed By: #### D ATCBC #### [facility] [address] [address] [address] Sagrario Schilling NEUT # 3.7 103/ul Normal 1.4-6.5 [facility] Comment on above: Performed By: #### D ATCBC #### [facility] [address] [place] [address] Dr. Sagrario Schilling Neutrophils/100 WBC (Bld) 62.1 % Normal 43.0-75.0 [facility] Comment on above: Performed By: #### D ATCBC #### [facility] [address] [place] [address] Dr. Sagrario Schilling Platelet mean volume (Bld) [Entitic vol] 10.0 fL Normal 9.5-13.5 [facility] Comment on above: Performed By: #### D ATCBC #### [facility] [address] [place] [address] Dr. Sagrario Schilling PLT 171 103/ul Normal 150-450 [facility] Comment on above: Performed By: #### D ATCBC #### [facility] [address] [place] [address] Dr. Sagrario Schilling RBC 5.05 106/ul Normal 4.70-6.10 [facility] Comment on above: Performed By: #### D ATCBC #### [facility] [address] [address] [address] Sagrario Schilling WBC 6.0 103/ul Normal 4.0-11.0 [facility] Comment on above: Performed By: #### D ATCBC #### [facility] [address] [address] [address] Sagrario Schilling DIANE- BMP WITH LIPIDon 2022 Anion gap [Moles/Vol] 10.1 mmol/L Normal [facility] Comment on above: Performed By: #### D ATBMP #### [facility] [address] [address] [address] Sagrario Schilling Calcium [Mass/Vol] 9.0 mg/dL Normal 8.5-10.1 [facility] Comment on above: Performed By: #### D ATBMP #### [facility] [address] [address] [address] Sagrario Schilling Chloride [Moles/Vol] 106 mmol/L Normal 98-107 [facility] Comment on above: Performed By: #### D ATBMP #### [facility] [address] [address] [address] Sagrario Schilling Cholesterol [Mass/Vol] 181 mg/dL Normal <=200 [facility] Comment on above: Performed By: #### D ATBMP #### [facility] [address] [address] [address] Sagrario Schilling Cholesterol in HDL [Mass/Vol] 40 mg/dL Normal 40-60 [facility] Comment on above: Performed By: #### D ATBMP #### [facility] [address] [address] [address] Sagrario Schilling Cholesterol in LDL [Mass/Vol] 109.2 mg/dL Normal [facility] Comment on above: Performed By: #### D ATBMP #### [facility] [address] [address] [address] Sagrario Schilling CO2 [Moles/Vol] 29.1 mmol/L Normal 21.0-32.0 [facility] Comment on above: Performed By: #### D ATBMP #### [facility] [facility] [address] [address] [address] Sagrario Schilling Creatinine [Mass/Vol] 1.16 mg/dL Normal 0.70-1.30 [facility] Comment on above: Performed By: #### D ATBMP #### [facility] [address] [address] [address] Sagrario Schilling EGFR-AF TURKISH >60 Normal >=60 [facility] Comment on above: Performed By: #### D ATBMP #### [facility] [address] [address] [address] Sagrario Schilling EGFR-NON AF TURKISH =60 Normal >=60 [facility] Comment on above: Performed By: #### D ATBMP #### [facility] [address] [address] [address] Sagrario Schilling Glucose [Mass/Vol] 101 mg/dL Normal 74-106 [facility] Comment on above: Performed By: #### D ATBMP #### [facility] [address] [address] [address] Sagrario Schilling HDL NORMAL > or = 60 mg/dl - LO W CARDIOVASCULAR RISK <40 mg/dl - HIGH CARDIOVASCULAR RISK Normal [facility] Comment on above: Performed By: #### D ATBMP #### [facility] [address] [address] [address] Sagrario Schilling LDL CALC NORMAL SEE BELOW Normal [facility] Comment on above: Result Comment: <100 mg/dl OPTIMAL 100 - 129 mg/dl NEAR OR ABOVE OPTIMAL 130 - 159 mg/dl BORDERLINE HIGH 160 - 189 mg/dl HIGH >190 mg/dl VERY HIGH Performed By: #### D ATBMP #### [facility] [address] [address] [address] Sagrario Schilling Potassium [Moles/Vol] 4.2 mmol/L Normal 3.5-5.1 [facility] Comment on above: Performed By: #### D ATBMP #### [facility] [address] [address] [address] Sagrario Schilling Sodium [Moles/Vol] 141 mmol/L Normal 136-145 [facility] Comment on above: Performed By: #### D ATBMP #### [facility] [address] [address] [address] Sagrario Schilling Triglyceride [Mass/Vol] 159 mg/dL Critically high <=150 [facility] Comment on above: Performed By: #### D ATBMP #### [facility] [address] [address] [address] Sagrario Schilling Urea nitrogen [Mass/Vol] 29.0 mg/dL Critically high 7.0-18.0 [facility] Comment on above: Performed By: #### D ATBMP #### [facility] [address] [address] [address] Sagrario Schilling Urea nitrogen/Creatinine [Mass ratio] 25.0 mg/mg Normal [facility] Comment on above: Performed By: #### D ATBMP #### [facility] [address] [place] [address] Dr. Sagrario Schilling VLDL CALC 31.8 mg/dL Normal [facility] Comment on above: Performed By: #### D ATBMP #### [facility] [address] [place] [address] Dr. Sagrario Schilling ECHOCARDIO M/2D COMPLETEon 0 11-18-2022 ECHOCARDIO M/2D COMPLETE Patient: YAYA DE ANDA Exam Date: 11/18/2022 : 1935 Gender:M Ordering : DR DAVID MARX D.O. Admission #: [id number] Family : Order #: [id number] CLICK HERE TO VIEW EXAM ECHOCARDIOGRAM REPORT [...] Area (VTI): 3.31 cm2, 3.31 cm2 Deceleration [place]: 0.68 m/s2 Pressure Half-Time: 1.35 s Peak [...] 64.09 ml, 64.09 ml Dictated by: Vj Espitia M.D. on 11/18/2022 at 10:08 Approved by: Vj Espitia M.D. on 11/18/2022 at 10:21 Normal [facility] XR CHEST 2 Von 11-18-2022 XR [...] MILKA ANDERS Date: 2022-11-18 08:44 Normal [facility] MRI HIP RT WO CONon 05-29-20 MRI HIP RT WO CON EXAMINATION: MRI [...] MILKA ANDERS Date: 2022-05-29 18:20 Normal [facility] TESTOSTERONE, TOTALon 2021 Testosterone [Mass/Vol] 261 ng/dL Critically low 264-916 [facility] Comment on above: Result Comment: Adul t male reference interval is based on a population of healthy nonobese males (BMI <30) between 19 and 39 years old. Liz, et.al. JCEM 2017,102;7974-0894. PMID: [id number]. Performed By: #### T ESTTOT #### [facility] [address] [address] [address] Sagrario Schilling BASIC METABOLIC PANELon 01-01 Calcium [Mass/Vol] 8.6 mg/dL Normal 8.6-10.3 [facility] Comment on above: Order Comment: Yes: Add to Previous draw if able Performed By: #### 5 0103 #### [facility] [address] [facility] [place] [address], [facility] Chloride [Moles/Vol] 103 mmol/L Normal 98-107 [facility] Comment on above: Order Comment: Yes: Add to Previous draw if able Performed By: #### 5 0103 #### [facility] [address] [facility] [address], [facility] CO2 [Moles/Vol] 27 mmol/L Normal 21-31 [facility] Comment on above: Order Comment: Yes: Add to Previous draw if able Performed By: #### 5 0103 #### [facility] [address] [facility] [address], [facility] [place] Creatinine [Mass/Vol] 1.23 mg/dL Normal 0.70-1.30 [facility] Comment on above: Order Comment: Yes: Add to Previous draw if able Performed By: #### 5 0103 #### [facility] [address] [place] [address], [place] GFR/1.73 sq M predicted among blacks MDRD (S/P/Bld) [Vol rate/Area] mL/min/{1.73_m2} Normal >60 [facility] Comment on above: Order Comment: Yes: Add to Previous draw if able Result Comment: Calc ulation may not be valid for patients over 70 years Performed By: #### 5 0103 #### [facility] [address] [place] [address], [place] GFR/1.73 sq M predicted among non-blacks MDRD (S/P/Bld) [Vol rate/Area] 56 ml/min/1.73sq m Abnormal >60 [facility] Comment on above: Order Comment: Yes: Add to Previous draw if able Result Comment: Calc ulation may not be valid for patients over 70 years Performed By: #### 5 0103 #### [facility] [address] [place] [address], [place] Glucose [Mass/Vol] 100 mg/dL Normal 70-100 [facility] Comment on above: Order Comment: Yes: Add to Previous draw if able Performed By: #### 5 0103 #### [facility] [address] [place] [address], [place] Potassium [Moles/Vol] 4.3 mmol/L Normal 3.5-5.1 [facility] Comment on above: Order Comment: Yes: Add to Previous draw if able Performed By: #### 5 0103 #### [facility] [address] [place] [address], [place] Sodium [Moles/Vol] 133 mmol/L Low 136-145 [facility] Comment on above: Order Comment: Yes: Add to Previous draw if able Performed By: #### 5 0103 #### [facility] [address] [place] [address], [place] Urea nitrogen [Mass/Vol] 26 mg/dL High 7-25 [facility] Comment on above: Order Comment: Yes: Add to Previous draw if able Performed By: #### 5 0103 #### [facility] [address] [place] [id number], [facility] [place] CBC COMPLETE BLOOD COUNTon - Erythrocyte distribution width (RBC) [Ratio] 14.0 % Normal 11.5-15.0 [facility] Comment on above: Order Comment: Yes: Add to Previous draw if able Performed By: #### 3 5200, 43521, 14243 #### [facility] [address] [place] [id number], [facility] [place] Hematocrit (Bld) [Volume fraction] 46.5 % Normal 39.0-50.0 [facility] Comment on above: Order Comment: Yes: Add to Previous draw if able Performed By: #### 3 5200, 87052, 32762 #### [facility] [address] [place] [address], [facility] [place] Hemoglobin (Bld) [Mass/Vol] 14.9 g/dL Normal 13.0-17.0 [facility] Comment on above: Order Comment: Yes: Add to Previous draw if able Performed By: #### 3 5200, 06168, 73288 #### [facility] [address] [place] [address], [place] MCH (RBC) [Entitic mass] 28.9 pg Normal 27.0-33.0 [facility] Comment on above: Order Comment: Yes: Add to Previous draw if able Performed By: #### 3 5200, 52672, 14088 #### [facility] [address] [place] [address], [place] MCHC (RBC) [Mass/Vol] 32.0 g/dL Normal 32.0-35.0 [facility] Comment on above: Order Comment: Yes: Add to Previous draw if able Performed By: #### 3 5200, 19661, 98657 #### [facility] [address] [place] [address], [facility] [place] MCV (RBC) [Entitic vol] 90.1 fL Normal 82.0-98.0 [facility] Comment on above: Order Comment: Yes: Add to Previous draw if able Performed By: #### 3 5200, 91787, 80465 #### [facility] [address] [place] [id number], [facility] [place] Nucleated RBC/100 WBC (Bld) [Ratio] 0 % Normal 0-0 [facility] Comment on above: Order Comment: Yes: Add to Previous draw if able Performed By: #### 3 5200, 53805, 21306 #### [facility] [address] [place] [address], [facility] [place] PLAT CNT 149 10*3/uL Low 150-400 [facility] Comment on above: Order Comment: Yes: Add to Previous draw if able Performed By: #### 3 5200, 74008, 03412 #### [facility] [address] [facility] [place] [address], [facility] RBC (Bld) [#/Vol] 5.16 10*6/uL Normal 4.20-5.70 [facility] Comment on above: Order Comment: Yes: Add to Previous draw if able Performed By: #### 3 0, 00639, 53944 #### [facility] [address] [place] [address], [facility] [place] WBC (Bld) [#/Vol] 8.05 10*3/uL Normal 4.00-10.60 [facility] Comment on above: Order Comment: Yes: Add to Previous draw if able Performed By: #### 3 5200, 42777, 06814 #### [facility] [address] [place] [address], [facility] [place] PROTHROMBIN TIMEon 9 INR Coag (PPP) [Relative time] 1.04 {INR} Normal 0.91-1.16 [facility] [place] [facility] Comment on above: Order Comment: Yes: Add to Previous draw if able Result Comment: ACCC P RECOMMENDED INR FOR WARFARIN THERAPY ------- ------- CONDITION INR PROPHYLAXIS OF VENOUS THROMBOSIS 2-3 (HIGH-RISK SURGERY) TREATMENT OF VENOUS THROMBOSIS 2-3 TREATMENT OF PULMONARY EMBOLISM 2-3 PREVENTION OF SYSTEMIC EMBOLISM: 2-3 ACUTE MYOCARDIAL INFARCTION TISSUE HEART VALVES VALVULAR HEART DISEASE ATRIAL FIBRILLATION RECURRENT SYSTEMIC EMBOLISM MECHANICAL HEART VALVE 2.5-3.5 FROM: ORAL ANTICOAGULANTS. MECHANISM OF ACTION, CLINICAL EFFECTIVENESS, AND OPTIMAL THERAPEUTIC RANGE. CHEST 1995;108:231S-246S. Performed By: #### 5 0103 #### [facility] [address] [place] [address], [facility] PT Coag (PPP) [Time] 13.6 s Normal 12.3-14.8 [facility] Comment on above: Order Comment: Yes: Add to Previous draw if able Result Comment: ALL RESULTS MUST BE INTERPRETED WITH RESPECT TO BLOOD DRAWING ARTIFACT OR DILUTION ERROR OF ANTICOAGULANT AT THE TIME OF SAMPLING. Performed By: #### 5 0103 #### [facility] [address] [place] [address], [facility] [place] BASIC METABOLIC PANELon 01-01 Calcium [Mass/Vol] 8.6 mg/dL Normal 8.6-10.3 [facility] Comment on above: Order Comment: Yes: Add to Previous draw if able Performed By: #### 3 5200, 87460, 56013 #### [facility] [address] [place] [address], [place] Chloride [Moles/Vol] 102 mmol/L Normal 98-107 [facility] Comment on above: Order Comment: Yes: Add to Previous draw if able Performed By: #### 3 5200, 98349, 55307 #### [facility] [address] [place] [address], [place] CO2 [Moles/Vol] 24 mmol/L Normal 21-31 [facility] Comment on above: Order Comment: Yes: Add to Previous draw if able Performed By: #### 3 5200, 40507, 42302 #### [facility] [address] [place] [address], [place] Creatinine [Mass/Vol] 1.28 mg/dL Normal 0.70-1.30 [facility] Comment on above: Order Comment: Yes: Add to Previous draw if able Performed By: #### 3 5200, 76097, 72264 #### [facility] [address] [place] [address], [place] GFR/1.73 sq M predicted among blacks MDRD (S/P/Bld) [Vol rate/Area] mL/min/{1.73_m2} Normal >60 [facility] Comment on above: Order Comment: Yes: Add to Previous draw if able Result Comment: Calc ulation may not be valid for patients over 70 years Performed By: #### 3 5200, 65492, 43905 #### [facility] [address] [place] [address], [place] GFR/1.73 sq M predicted among non-blacks MDRD (S/P/Bld) [Vol rate/Area] 54 ml/min/1.73sq m Abnormal >60 [facility] Comment on above: Order Comment: Yes: Add to Previous draw if able Result Comment: Calc ulation may not be valid for patients over 70 years Performed By: #### 3 5200, 54397, 90024 #### [facility] [address] [place] [address], [place] Glucose [Mass/Vol] 90 mg/dL Normal 70-100 [facility] Comment on above: Order Comment: Yes: Add to Previous draw if able Performed By: #### 3 5200, 15307, 73670 #### [facility] [address] [place] [address], [facility] [place] Potassium [Moles/Vol] 4.1 mmol/L Normal 3.5-5.1 [facility] Comment on above: Order Comment: Yes: Add to Previous draw if able Performed By: #### 3 5200, 89781, 63196 #### [facility] [address] [place] [address], [place] Sodium [Moles/Vol] 135 mmol/L Low 136-145 [facility] Comment on above: Order Comment: Yes: Add to Previous draw if able Performed By: #### 3 0, 67820, 26194 #### [facility] [address] [place] [address], [facility] [place] Urea nitrogen [Mass/Vol] 31 mg/dL High 7-25 [facility] Comment on above: Order Comment: Yes: Add to Previous draw if able Performed By: #### 3 5200, 92426, 71865 #### [facility] [address] CBC COMPLETE BLOOD COUNTon 0 - Erythrocyte distribution width (RBC) [Ratio] 14.1 % Normal 11.5-15.0 [facility] Comment on above: Order Comment: Yes: Add to Previous draw if able Performed By: #### 3 5200, 88652, 90094 #### [facility] [address] [place] [address], [place] Hematocrit (Bld) [Volume fraction] 48.7 % Normal 39.0-50.0 [facility] Comment on above: Order Comment: Yes: Add to Previous draw if able Performed By: #### 3 5200, 71617, 75599 #### [facility] [address] [place] [address], [facility] [place] Hemoglobin (Bld) [Mass/Vol] 15.3 g/dL Normal 13.0-17.0 [facility] Comment on above: Order Comment: Yes: Add to Previous draw if able Performed By: #### 3 5200, 10086, 02743 #### [facility] [address] [place] [id number], [facility] [place] MCH (RBC) [Entitic mass] 29.1 pg Normal 27.0-33.0 [facility] Comment on above: Order Comment: Yes: Add to Previous draw if able Performed By: #### 3 5200, 52968, 43987 #### [facility] [address] [place] [address], [facility] [place] MCHC (RBC) [Mass/Vol] 31.4 g/dL Low 32.0-35.0 [facility] Comment on above: Order Comment: Yes: Add to Previous draw if able Performed By: #### 3 5200, 97536, 36477 #### [facility] [address] [place] [address], [facility] [place] MCV (RBC) [Entitic vol] 92.6 fL Normal 82.0-98.0 [facility] Comment on above: Order Comment: Yes: Add to Previous draw if able Performed By: #### 3 5200, 58705, 78397 #### [facility] [address] [facility] [address], [facility] Nucleated RBC/100 WBC (Bld) [Ratio] 0 % Normal 0-0 [facility] Comment on above: Order Comment: Yes: Add to Previous draw if able Performed By: #### 3 5200, 03696, 97902 #### [facility] [address] [place] [id number], [facility] PLAT CNT 160 10*3/uL Normal 150-400 [facility] Comment on above: Order Comment: Yes: Add to Previous draw if able Performed By: #### 3 5200, 77509, 93817 #### [facility] [address] [place] [address], [facility] RBC (Bld) [#/Vol] 5.26 10*6/uL Normal 4.20-5.70 [facility] Comment on above: Order Comment: Yes: Add to Previous draw if able Performed By: #### 3 5200, 29280, 59331 #### [facility] [address] [place] [address], [facility] [place] WBC (Bld) [#/Vol] 7.34 10*3/uL Normal 4.00-10.60 [facility] Comment on above: Order Comment: Yes: Add to Previous draw if able Performed By: #### 3 5200, 05058, 54234 #### [facility] [address] [place] [address], [facility] [place] MAGNESIUM BLOODon 01-18-2019 Magnesium [Mass/Vol] 2.1 mg/dL Normal 1.9-2.7 [facility] Comment on above: Order Comment: Yes: Add to Previous draw if able Performed By: #### 3 5200, 02908, 90499 #### [facility] [address] [place] [address], [facility] PHOSPHORUS BLOODon 9 Phosphate [Mass/Vol] 2.6 mg/dL Normal 2.5-5.0 [facility] Comment on above: Order Comment: Yes: Add to Previous draw if able Performed By: #### 3 5200, 88108, 81790 #### [facility] [address] [place] [address], [facility] PROTHROMBIN TIMEon 9 INR Coag (PPP) [Relative time] 1.05 {INR} Normal 0.91-1.16 [facility] Comment on above: Order Comment: Yes: Add to Previous draw if able Result Comment: ACCC P RECOMMENDED INR FOR WARFARIN THERAPY ------- ------- CONDITION INR PROPHYLAXIS OF VENOUS THROMBOSIS 2-3 (HIGH-RISK SURGERY) TREATMENT OF VENOUS THROMBOSIS 2-3 TREATMENT OF PULMONARY EMBOLISM 2-3 PREVENTION OF SYSTEMIC EMBOLISM: 2-3 ACUTE MYOCARDIAL INFARCTION TISSUE HEART VALVES VALVULAR HEART DISEASE ATRIAL FIBRILLATION RECURRENT SYSTEMIC EMBOLISM MECHANICAL HEART VALVE 2.5-3.5 FROM: ORAL ANTICOAGULANTS. MECHANISM OF ACTION, CLINICAL EFFECTIVENESS, AND OPTIMAL THERAPEUTIC RANGE. CHEST 1995;108:231S-246S. Performed By: #### 3 5200, 67703, 22392 #### [facility] [address] PT Coag (PPP) [Time] 13.7 s Normal 12.3-14.8 [facility] Comment on above: Order Comment: Yes: Add to Previous draw if able Result Comment: ALL RESULTS MUST BE INTERPRETED WITH RESPECT TO BLOOD DRAWING ARTIFACT OR DILUTION ERROR OF ANTICOAGULANT AT THE TIME OF SAMPLING. Performed By: #### 3 5200, 00954, 76522 #### [facility] [address] BASIC METABOLIC PANELon 06- Calcium [Mass/Vol] 8.2 mg/dL Low 8.6-10.3 [facility] Comment on above: Order Comment: Yes: Add to Previous draw if able Performed By: #### 3 5200, 04456, 34796 #### [facility] [address] Chloride [Moles/Vol] 100 mmol/L Normal 98-107 [facility] Comment on above: Order Comment: Yes: Add to Previous draw if able Performed By: #### 3 5200, 07605, 56697 #### [facility] [address] [place] [address], [place] CO2 [Moles/Vol] 26 mmol/L Normal 21-31 [facility] Comment on above: Order Comment: Yes: Add to Previous draw if able Performed By: #### 3 5200, 51496, 91083 #### [facility] [address] [place] [address], [place] Creatinine [Mass/Vol] 1.53 mg/dL High 0.70-1.30 [facility] Comment on above: Order Comment: Yes: Add to Previous draw if able Performed By: #### 3 5200, 42504, 19913 #### [facility] [address] [place] [address], [place] GFR/1.73 sq M predicted among blacks MDRD (S/P/Bld) [Vol rate/Area] 53 ml/min/1.73sq m Abnormal >60 [facility] Comment on above: Order Comment: Yes: Add to Previous draw if able Result Comment: Calc ulation may not be valid for patients over 70 years Performed By: #### 3 5200, 07550, 96887 #### [facility] [address] [place] [address], [place] GFR/1.73 sq M predicted among non-blacks MDRD (S/P/Bld) [Vol rate/Area] 44 ml/min/1.73sq m Abnormal >60 [facility] Comment on above: Order Comment: Yes: Add to Previous draw if able Result Comment: Calc ulation may not be valid for patients over 70 years Performed By: #### 3 5200, 88280, 18401 #### [facility] [address] [place] [address], [place] Glucose [Mass/Vol] 95 mg/dL Normal 70-100 [facility] Comment on above: Order Comment: Yes: Add to Previous draw if able Performed By: #### 3 5200, 20008, 74999 #### [facility] [address] [place] [address], [place] Potassium [Moles/Vol] 3.7 mmol/L Normal 3.5-5.1 [facility] Comment on above: Order Comment: Yes: Add to Previous draw if able Performed By: #### 3 5200, 93585, 66673 #### [facility] [address] [place] [address], [place] Sodium [Moles/Vol] 135 mmol/L Low 136-145 [facility] Comment on above: Order Comment: Yes: Add to Previous draw if able Performed By: #### 3 5200, 31433, 22385 #### [facility] [address] [place] [address], [place] Urea nitrogen [Mass/Vol] 41 mg/dL High 7-25 [facility] Comment on above: Order Comment: Yes: Add to Previous draw if able Performed By: #### 3 5200, 77141, 71402 #### [facility] [address] [place] [address], [place] CBC COMPLETE BLOOD COUNTon 0 - Erythrocyte distribution width (RBC) [Ratio] 14.3 % Normal 11.5-15.0 [facility] Comment on above: Order Comment: Yes: Add to Previous draw if able Performed By: #### 3 5200, 05190, 60709 #### [facility] [address] [place] [address], [place] Hematocrit (Bld) [Volume fraction] 47.8 % Normal 39.0-50.0 [facility] Comment on above: Order Comment: Yes: Add to Previous draw if able Performed By: #### 3 5200, 03162, 08910 #### [facility] [address] [place] [address], [place] Hemoglobin (Bld) [Mass/Vol] 15.5 g/dL Normal 13.0-17.0 [facility] Comment on above: Order Comment: Yes: Add to Previous draw if able Performed By: #### 3 5200, 61928, 85039 #### [facility] [address] [place] [address], [facility] MCH (RBC) [Entitic mass] 29.1 pg Normal 27.0-33.0 [facility] Comment on above: Order Comment: Yes: Add to Previous draw if able Performed By: #### 3 5200, 19528, 42499 #### [facility] [address] [place] [id number], [facility] [place] MCHC (RBC) [Mass/Vol] 32.4 g/dL Normal 32.0-35.0 [facility] Comment on above: Order Comment: Yes: Add to Previous draw if able Performed By: #### 3 5200, 05669, 90632 #### [facility] [address] [place] [id number], [facility] [place] MCV (RBC) [Entitic vol] 89.8 fL Normal 82.0-98.0 [facility] Comment on above: Order Comment: Yes: Add to Previous draw if able Performed By: #### 3 5200, 75468, 89068 #### [facility] [address] [place] [id number], [facility] [place] Nucleated RBC/100 WBC (Bld) [Ratio] 0 % Normal 0-0 [facility] Comment on above: Order Comment: Yes: Add to Previous draw if able Performed By: #### 3 5200, 84457, 24818 #### [facility] [address] [place] [address], [place] PLAT CNT 153 10*3/uL Normal 150-400 [facility] Comment on above: Order Comment: Yes: Add to Previous draw if able Performed By: #### 3 5200, 19806, 29812 #### [facility] [address] [place] [id number], [facility] RBC (Bld) [#/Vol] 5.32 10*6/uL Normal 4.20-5.70 [facility] Comment on above: Order Comment: Yes: Add to Previous draw if able Performed By: #### 3 5200, 13075, 29905 #### [facility] [address] WBC (Bld) [#/Vol] 6.80 10*3/uL Normal 4.00-10.60 [facility] Comment on above: Order Comment: Yes: Add to Previous draw if able Performed By: #### 3 5200, 21300, 66558 #### [facility] [address] Cardiovascular Lab Reporton 01-17-2019 Cardiovascular Lab Report [facility] Patient Name: Adilson [facility] MR #: [id number] Physician: Beto Duff, Department of M.D. Medicine Service Date: 01/17/2019 Division of Birthdate: 1935 Cardiology Room #: [id number] Adult Cardiovascular Services [facility] [address] [place] [address] Cardiovascular Laboratory Report CLINICAL PRESENTATION: The patient [...] micropuncture access technique and ultrasound guidance. A 6-Canadian sheath was placed in the right internal [...] artery was anesthetized with 1% lidocaine. A 6-Canadian Terumo Glidesheath slender was placed in the right radial artery. A 100 mcg nitroglycerin was administered through the sheath to prevent radial artery spasm. A Carvajal wire was advanced and a 5-Canadian [facility] catheter were advanced to the descending aorta. The 5-Canadian [facility] catheter was used to engage the left [...] Adry/Beto Duff M.D. Date Trans: 01/17/2019 11:54 Som [id number] cc: David Marx D.O. [address] [place] [id number] Ad[address] Schmidt M[address], [facility] [id number] Normal [facility] MAGNESIUM BLOODon 01-17-2019 Magnesium [Mass/Vol] 1.9 mg/dL Normal 1.9-2.7 [facility] Comment on above: Order Comment: Yes: Add to Previous draw if able Performed By: #### 3 5200, 36994, 34764 #### [facility] [address] PROTHROMBIN TIMEon 9 INR Coag (PPP) [Relative time] 1.06 {INR} Normal 0.91-1.16 [facility] Comment on above: Order Comment: Yes: Add to Previous draw if able Result Comment: ACCC P RECOMMENDED INR FOR WARFARIN THERAPY ------- ------- CONDITION INR PROPHYLAXIS OF VENOUS THROMBOSIS 2-3 (HIGH-RISK SURGERY) TREATMENT OF VENOUS THROMBOSIS 2-3 TREATMENT OF PULMONARY EMBOLISM 2-3 PREVENTION OF SYSTEMIC EMBOLISM: 2-3 ACUTE MYOCARDIAL INFARCTION TISSUE HEART VALVES VALVULAR HEART DISEASE ATRIAL FIBRILLATION RECURRENT SYSTEMIC EMBOLISM MECHANICAL HEART VALVE 2.5-3.5 FROM: ORAL ANTICOAGULANTS. MECHANISM OF ACTION, CLINICAL EFFECTIVENESS, AND OPTIMAL THERAPEUTIC RANGE. CHEST 1995;108:231S-246S. Performed By: #### 3 5200, 16009, 09439 #### [facility] [address] PT Coag (PPP) [Time] 13.8 s Normal 12.3-14.8 [facility] Comment on above: Order Comment: Yes: Add to Previous draw if able Result Comment: ALL RESULTS MUST BE INTERPRETED WITH RESPECT TO BLOOD DRAWING ARTIFACT OR DILUTION ERROR OF ANTICOAGULANT AT THE TIME OF SAMPLING. Performed By: #### 3 5200, 77420, 56042 #### [facility] 3000 [facility]. [address] UFH HEPARIN ASSAYon 01-18-20 19 UNFRACTIONATED HEPARIN 0.29 IU/mL Low 0.30-0.70 [facility] Comment on above: Result Comment: [place] roxaban and Apixaban will interfere with the anti Xa assay used to monitor UFH and LMWH. Performed By: #### 3 5200, 24823, 03024 #### [facility] [address] [facility] [address] BASIC METABOLIC PANELon - Calcium [Mass/Vol] 8.4 mg/dL Low 8.6-10.3 [facility] Comment on above: Order Comment: Yes: Add to Previous draw if able Performed By: #### 3 5200, 22205, 63217 #### [facility] [address] [place] [address], [place] Chloride [Moles/Vol] 98 mmol/L Normal 98-107 [facility] Comment on above: Order Comment: Yes: Add to Previous draw if able Performed By: #### 3 5200, 24920, 70276 #### [facility] [address] [place] [address], [place] CO2 [Moles/Vol] 27 mmol/L Normal 21-31 [facility] Comment on above: Order Comment: Yes: Add to Previous draw if able Performed By: #### 3 5200, 62961, 61756 #### [facility] [address] [place] [address], [place] Creatinine [Mass/Vol] 1.60 mg/dL High 0.70-1.30 [facility] Comment on above: Order Comment: Yes: Add to Previous draw if able Performed By: #### 3 5200, 23549, 03202 #### [facility] [address] [place] [address], [place] GFR/1.73 sq M predicted among blacks MDRD (S/P/Bld) [Vol rate/Area] 50 ml/min/1.73sq m Abnormal >60 [facility] Comment on above: Order Comment: Yes: Add to Previous draw if able Result Comment: Calc ulation may not be valid for patients over 70 years Performed By: #### 3 5200, 20297, 75103 #### [facility] [address] [place] [address], [place] GFR/1.73 sq M predicted among non-blacks MDRD (S/P/Bld) [Vol rate/Area] 42 ml/min/1.73sq m Abnormal >60 [facility] Comment on above: Order Comment: Yes: Add to Previous draw if able Result Comment: Calc ulation may not be valid for patients over 70 years Performed By: #### 3 5200, 27640, 47186 #### [facility] [address] [place] [address], [place] Glucose [Mass/Vol] 107 mg/dL High 70-100 [facility] Comment on above: Order Comment: Yes: Add to Previous draw if able Performed By: #### 3 5200, 56979, 44242 #### [facility] [address] [place] [address], [place] Potassium [Moles/Vol] 3.4 mmol/L Low 3.5-5.1 [facility] Comment on above: Order Comment: Yes: Add to Previous draw if able Performed By: #### 3 5200, 38505, 24864 #### [facility] [address] [place] [address], [place] Sodium [Moles/Vol] 135 mmol/L Low 136-145 [facility] Comment on above: Order Comment: Yes: Add to Previous draw if able Performed By: #### 3 5200, 86804, 92604 #### [facility] [address] [place] [address], [place] Urea nitrogen [Mass/Vol] 39 mg/dL High 7-25 [facility] Comment on above: Order Comment: Yes: Add to Previous draw if able Performed By: #### 3 5200, 61180, 04553 #### [facility] [address] [place] [id number], [facility] [place] CBC COMPLETE BLOOD COUNTon 0 - Erythrocyte distribution width (RBC) [Ratio] 14.3 % Normal 11.5-15.0 [facility] Comment on above: Order Comment: Yes: Add to Previous draw if able Performed By: #### 3 5200, 62482, 00098 #### [facility] [address] [place] [address], [place] Hematocrit (Bld) [Volume fraction] 50.8 % High 39.0-50.0 [facility] Comment on above: Order Comment: Yes: Add to Previous draw if able Performed By: #### 3 5200, 07933, 36497 #### [facility] [address] [place] [address], [facility] [place] Hemoglobin (Bld) [Mass/Vol] 16.2 g/dL Normal 13.0-17.0 [facility] Comment on above: Order Comment: Yes: Add to Previous draw if able Performed By: #### 3 5200, 02606, 45890 #### [facility] [address] [place] [address], [facility] [place] MCH (RBC) [Entitic mass] 28.9 pg Normal 27.0-33.0 [facility] Comment on above: Order Comment: Yes: Add to Previous draw if able Performed By: #### 3 5200, 39090, 98564 #### [facility] [address] [place] [address], [facility] [place] MCHC (RBC) [Mass/Vol] 31.9 g/dL Low 32.0-35.0 [facility] Comment on above: Order Comment: Yes: Add to Previous draw if able Performed By: #### 3 5200, 59445, 92214 #### [facility] [address] [place] [id number], [facility] [place] MCV (RBC) [Entitic vol] 90.6 fL Normal 82.0-98.0 [facility] Comment on above: Order Comment: Yes: Add to Previous draw if able Performed By: #### 3 5200, 82051, 77736 #### [facility] [address] [place] [id number], [place] Nucleated RBC/100 WBC (Bld) [Ratio] 0 % Normal 0-0 [facility] Comment on above: Order Comment: Yes: Add to Previous draw if able Performed By: #### 3 5200, 13071, 51386 #### [facility] [address] [place] [address], [place] PLAT CNT 179 10*3/uL Normal 150-400 [facility] Comment on above: Order Comment: Yes: Add to Previous draw if able Performed By: #### 3 5200, 87260, 98810 #### [facility] [address] [place] [address], [facility] [place] RBC (Bld) [#/Vol] 5.61 10*6/uL Normal 4.20-5.70 [facility] Comment on above: Order Comment: Yes: Add to Previous draw if able Performed By: #### 3 5200, 95365, 45019 #### [facility] [address] [place] [address], [facility] [place] WBC (Bld) [#/Vol] 7.83 10*3/uL Normal 4.00-10.60 [facility] Comment on above: Order Comment: Yes: Add to Previous draw if able Performed By: #### 3 5200, 33697, 67628 #### [facility] [address] [facility] [address] PROTHROMBIN TIMEon 9 INR Coag (PPP) [Relative time] 1.05 {INR} Normal 0.91-1.16 [facility] Comment on above: Result Comment: ACCC P RECOMMENDED INR FOR WARFARIN THERAPY ------- ------- CONDITION INR PROPHYLAXIS OF VENOUS THROMBOSIS 2-3 (HIGH-RISK SURGERY) TREATMENT OF VENOUS THROMBOSIS 2-3 TREATMENT OF PULMONARY EMBOLISM 2-3 PREVENTION OF SYSTEMIC EMBOLISM: 2-3 ACUTE MYOCARDIAL INFARCTION TISSUE HEART VALVES VALVULAR HEART DISEASE ATRIAL FIBRILLATION RECURRENT SYSTEMIC EMBOLISM MECHANICAL HEART VALVE 2.5-3.5 FROM: ORAL ANTICOAGULANTS. MECHANISM OF ACTION, CLINICAL EFFECTIVENESS, AND OPTIMAL THERAPEUTIC RANGE. CHEST 1995;108:231S-246S. Performed By: #### 3 5200, 53943, 73304 #### [facility] [address] [place] [address], [facility] PT Coag (PPP) [Time] 13.7 s Normal 12.3-14.8 [facility] Comment on above: Result Comment: ALL RESULTS MUST BE INTERPRETED WITH RESPECT TO BLOOD DRAWING ARTIFACT OR DILUTION ERROR OF ANTICOAGULANT AT THE TIME OF SAMPLING. Performed By: #### 3 5200, 74562, 46905 #### [facility] [address] UFH HEPARIN ASSAYon 01-17-20 19 UNFRACTIONATED HEPARIN 0.54 IU/mL Normal 0.30-0.70 [facility] Comment on above: Result Comment: [place] roxaban and Apixaban will interfere with the anti Xa assay used to monitor UFH and LMWH. Performed By: #### 3 5200, 04798, 02048 #### [facility] [address] UNFRACTIONATED HEPARIN 0.49 IU/mL Normal 0.30-0.70 [facility] Comment on above: Result Comment: [place] roxaban and Apixaban will interfere with the anti Xa assay used to monitor UFH and LMWH. Performed By: #### 3 5200, 54902, 85908 #### [facility] [address] [place] [address], [facility] APTTon 01-15-2019 aPTT Coag (Bld) [Time] s Critically high 25.0-35.0 [facility] Comment on above: Order Comment: [...] ARM NOT CONTAINING IV LINE PER TAWNYA MOSQUEDA,RN. ACTUAL UFH = 1.16 Performed By: #### 3 5200, 63445, 66925 #### [facility] [address] [facility] [address], [facility] [place] aPTT Coag (Bld) [Time] 65.5 s High 25.0-35.0 [facility] Comment on above: Order Comment: Yes: [...] THIS PURPOSE. Performed By: #### 3 5200, 53880, 79199 #### [facility] 3000 [facility]. [address] BNP (B-TYPE NATRIURETIC PEPT JOSE)on 01-15-2019 Natriuretic peptide B (Bld) [Mass/Vol] 682 pg/mL High 0-100 [facility] Comment on above: Order Comment: Yes: Add to Previous draw if able Result Comment: Give n the appropriate clinical setting a BNP result of >100 pg/mL indicates congestive heart failure. Performed By: #### 8 5123 #### [facility] [address] [facility] [place] [address], [facility] [place] CBC W/DIFFon 01-15-2019 ABS BASOPHILS 0.1 10*3/uL Normal 0.0-0.2 [facility] Comment on above: Order Comment: Yes: Add to Previous draw if able Performed By: #### 5 0103 #### [facility] [address] [facility] [place] [address], [facility] ABS IMM GRANS 0.1 10*3/uL Normal 0.0-0.2 [facility] Comment on above: Order Comment: Yes: Add to Previous draw if able Performed By: #### 5 0103 #### [facility] [address] [place] [address], [place] ABS NEUTROPHILS 8.5 10*3/uL High 1.6-7.6 [facility] Comment on above: Order Comment: Yes: Add to Previous draw if able Performed By: #### 5 0103 #### [facility] [address] [place] [address], [place] Basophils/100 WBC (Bld) 0.4 % Normal 0.0-1.0 [facility] Comment on above: Order Comment: Yes: Add to Previous draw if able Performed By: #### 5 0103 #### [facility] [address] [place] [address], [place] Eosinophils (Bld) [#/Vol] 0.1 10*3/uL Normal 0.0-0.5 [facility] Comment on above: Order Comment: Yes: Add to Previous draw if able Performed By: #### 5 0103 #### [facility] [address] [place] [address], [place] Eosinophils/100 WBC (Bld) 0.7 % Normal 0.0-6.0 [facility] Comment on above: Order Comment: Yes: Add to Previous draw if able Performed By: #### 5 0103 #### [facility] [address] [place] [address], [place] Erythrocyte distribution width (RBC) [Ratio] 14.4 % Normal 11.5-15.0 [facility] Comment on above: Order Comment: Yes: Add to Previous draw if able Performed By: #### 5 0103 #### [facility] [address] [place] [address], [place] Hematocrit (Bld) [Volume fraction] 53.0 % High 39.0-50.0 [facility] Comment on above: Order Comment: Yes: Add to Previous draw if able Performed By: #### 5 0103 #### [facility] [address] [facility] [place] [place] [address], [facility] Hemoglobin (Bld) [Mass/Vol] 16.8 g/dL Normal 13.0-17.0 [facility] Comment on above: Order Comment: Yes: Add to Previous draw if able Performed By: #### 5 0103 #### [facility] [address] [facility] [place] [address], [facility] IMMATURE GRANS 0.4 % Normal 0.0-1.0 [facility] Comment on above: Order Comment: Yes: Add to Previous draw if able Performed By: #### 5 3 #### [facility] [address] [facility] Lymphocytes (Bld) [#/Vol] 1.7 10*3/uL Normal 1.2-4.0 [facility] Comment on above: Order Comment: Yes: Add to Previous draw if able Performed By: #### 5 3 #### [facility] [address] [place] [address], [facility] Lymphocytes/100 WBC (Bld) 14.8 % Low 20.0-45.0 [facility] Comment on above: Order Comment: Yes: Add to Previous draw if able Performed By: #### 5 3 #### [facility] [address] [facility]. [address] MCH (RBC) [Entitic mass] 29.0 pg Normal 27.0-33.0 [facility] Comment on above: Order Comment: Yes: Add to Previous draw if able Performed By: #### 5 3 #### [facility] [address] [facility] [address], [facility] MCHC (RBC) [Mass/Vol] 31.7 g/dL Low 32.0-35.0 [facility] Comment on above: Order Comment: Yes: Add to Previous draw if able Performed By: #### 5 0103 #### [facility] [address] [place] [address], [facility] MCV (RBC) [Entitic vol] 91.5 fL Normal 82.0-98.0 [facility] Comment on above: Order Comment: Yes: Add to Previous draw if able Performed By: #### 5 0103 #### [facility] [address] [place] [address], [facility] Monocytes (Bld) [#/Vol] 0.9 10*3/uL Normal 0.1-1.0 [facility] Comment on above: Order Comment: Yes: Add to Previous draw if able Performed By: #### 5 0103 #### [facility] [address] [place] [address], [facility] MONOS 7.8 % Normal 5.0-12.0 [facility] Comment on above: Order Comment: Yes: Add to Previous draw if able Performed By: #### 3 #### [facility] [address] [place] [address], [facility] Neutrophils/100 WBC (Bld) 75.9 % High 40.0-72.0 [facility] Comment on above: Order Comment: Yes: Add to Previous draw if able Performed By: #### 3 #### [facility] [address] [place] [address], [facility] Nucleated RBC/100 WBC (Bld) [Ratio] 0 % Normal 0-0 [facility] Comment on above: Order Comment: Yes: Add to Previous draw if able Performed By: #### 5 0103 #### [facility] [address] [place] [address], [place] PLAT CNT 187 10*3/uL Normal 150-400 [facility] Comment on above: Order Comment: Yes: Add to Previous draw if able Performed By: #### 3 #### [facility] [address] [place] [id number], [facility] RBC (Bld) [#/Vol] 5.79 10*6/uL High 4.20-5.70 [facility] Comment on above: Order Comment: Yes: Add to Previous draw if able Performed By: #### 5 0103 #### [facility] [address] [place] [address], [facility] WBC (Bld) [#/Vol] 11.18 10*3/uL High 4.00-10.60 [facility] Comment on above: Order Comment: Yes: Add to Previous draw if able Performed By: #### 5 0103 #### [facility] [address] [place] [address], [facility] COMP METABOLIC PANELon 01-15 Albumin [Mass/Vol] 4.2 g/dL Normal 3.5-5.7 [facility] Comment on above: Order Comment: Yes: Add to Previous draw if able Performed By: #### 3 5200, 37896, 81790 #### [facility] [address] [place] [id number], [facility] ALKALINE PHOSPH 38 IU/L Normal 34-104 [facility] Comment on above: Order Comment: Yes: Add to Previous draw if able Performed By: #### 3 5200, 36508, 58101 #### [facility] [address] [place] [id number], [facility] ALT [Catalytic activity/Vol] 19 U/L Normal 7-52 [facility] Comment on above: Order Comment: Yes: Add to Previous draw if able Performed By: #### 3 5200, 62988, 38539 #### [facility] [address] [place] [address], [place] AST [Catalytic activity/Vol] 20 U/L Normal 13-39 [facility] Comment on above: Order Comment: Yes: Add to Previous draw if able Performed By: #### 3 5200, 54708, 84233 #### [facility] [address] [place] [address], [place] Bilirubin [Mass/Vol] 0.9 mg/dL Normal 0.3-1.0 [facility] Comment on above: Order Comment: Yes: Add to Previous draw if able Performed By: #### 3 5200, 01898, 95856 #### [facility] [address] [place] [address], [place] Calcium [Mass/Vol] 9.2 mg/dL Normal 8.6-10.3 [facility] Comment on above: Order Comment: Yes: Add to Previous draw if able Performed By: #### 3 5200, 80329, 33471 #### [facility] [address] [place] [address], [place] Chloride [Moles/Vol] 99 mmol/L Normal 98-107 [facility] Comment on above: Order Comment: Yes: Add to Previous draw if able Performed By: #### 3 5200, 80262, 55035 #### [facility] [address] [place] [address], [place] CO2 [Moles/Vol] 24 mmol/L Normal 21-31 [facility] Comment on above: Order Comment: Yes: Add to Previous draw if able Performed By: #### 3 5200, 42837, 72138 #### [facility] [address] [place] [address], [place] Creatinine [Mass/Vol] 1.37 mg/dL High 0.70-1.30 [facility] Comment on above: Order Comment: Yes: Add to Previous draw if able Performed By: #### 3 5200, 57987, 93413 #### [facility] [address] [place] [address], [place] GFR/1.73 sq M predicted among blacks MDRD (S/P/Bld) [Vol rate/Area] 60 ml/min/1.73sq m Abnormal >60 [facility] Comment on above: Order Comment: Yes: Add to Previous draw if able Result Comment: Calc ulation may not be valid for patients over 70 years Performed By: #### 3 5200, 13659, 48964 #### [facility] [address] [place] [address], [place] GFR/1.73 sq M predicted among non-blacks MDRD (S/P/Bld) [Vol rate/Area] 50 ml/min/1.73sq m Abnormal >60 [facility] Comment on above: Order Comment: Yes: Add to Previous draw if able Result Comment: Calc ulation may not be valid for patients over 70 years Performed By: #### 3 5200, 24962, 94985 #### [facility] [address] [place] [address], [place] Glucose [Mass/Vol] 107 mg/dL High 70-100 [facility] Comment on above: Order Comment: Yes: Add to Previous draw if able Performed By: #### 3 5200, 68524, 70493 #### [facility] [address] [place] [address], [place] Potassium [Moles/Vol] 3.8 mmol/L Normal 3.5-5.1 [facility] Comment on above: Order Comment: Yes: Add to Previous draw if able Performed By: #### 3 5200, 55094, 56961 #### [facility] [address] [place] [address], [place] Protein [Mass/Vol] 7.4 g/dL Normal 6.0-8.[address] [facility] Comment on above: Order Comment: Yes: Add to Previous draw if able Performed By: #### 3 5200, 18946, 25360 #### [facility] [address] [place] [address], [place] Sodium [Moles/Vol] 135 mmol/L Low 136-[address] [facility] Comment on above: Order Comment: Yes: Add to Previous draw if able Performed By: #### 3 5200, 36627, 11441 #### [facility] [address] Urea nitrogen [Mass/Vol] 30 mg/dL High 7-25 [facility] Comment on above: Order Comment: Yes: Add to Previous draw if able Performed By: #### 3 5200, 99092, 01754 #### [facility] [address] [place] [address], [facility] CPKon 01-15-2019 CK [Catalytic activity/Vol] 67 U/L Normal 30-223 [facility] Comment on above: Performed By: #### 3 5200, 10253 #### [facility] [address] MAGNESIUM BLOODon 01-15-2019 Magnesium [Mass/Vol] 1.9 mg/dL Normal 1.9-2.7 [facility] Comment on above: Order Comment: Yes: Add to Previous draw if able Performed By: #### 3 5200, 45160, 21815 #### [facility] [address] PROTHROMBIN TIMEon 9 INR Coag (PPP) [Relative time] 1.04 {INR} Normal 0.91-1.16 [facility] Comment on above: Order Comment: if no t already done No: Do not add to previous draw Result Comment: ACCC P RECOMMENDED INR FOR WARFARIN THERAPY ------- ------- CONDITION INR PROPHYLAXIS OF VENOUS THROMBOSIS 2-3 (HIGH-RISK SURGERY) TREATMENT OF VENOUS THROMBOSIS 2-3 TREATMENT OF PULMONARY EMBOLISM 2-3 PREVENTION OF SYSTEMIC EMBOLISM: 2-3 ACUTE MYOCARDIAL INFARCTION TISSUE HEART VALVES VALVULAR HEART DISEASE ATRIAL FIBRILLATION RECURRENT SYSTEMIC EMBOLISM MECHANICAL HEART VALVE 2.5-3.5 FROM: ORAL ANTICOAGULANTS. MECHANISM OF ACTION, CLINICAL EFFECTIVENESS, AND OPTIMAL THERAPEUTIC RANGE. CHEST 1995;108:231S-246S. Performed By: #### 5 [id number], [id number], [id number] #### [facility] [address] [employer]. [address] PT Coag (PPP) [Time] 13.6 s Normal 12.3-14.8 [facility] Comment on above: Order Comment: if no t already done No: Do not add to previous draw Result Comment: ALL RESULTS MUST BE INTERPRETED WITH RESPECT TO BLOOD DRAWING ARTIFACT OR DILUTION ERROR OF ANTICOAGULANT AT THE TIME OF SAMPLING. Performed By: #### 5 6101, [id number], [id number] #### [facility] [address] [employer]. [address] TROPONIN-Ion 01-15-2019 Troponin I.cardiac [Mass/Vol] 0.05 ng/mL High 0.00-0.04 [facility] Comment on above: Order Comment: No: D o not add to previous draw Result Comment: REFE RENCE RANGES: 0.00 - 0.04 ng/ml NORMAL 0.05 - 0.50 ng/ml INDETERMINATE > 0.50 ng/ml CONSISTENT WITH AN M.I. Performed By: #### 3 [id number], [id number] #### [facility] [address] [place] [address], [facility] Troponin I.cardiac [Mass/Vol] 0.05 ng/mL High 0.00-0.04 [facility] Comment on above: Order Comment: Yes: Add to Previous draw if able Result Comment: REFE RENCE RANGES: 0.00 - 0.04 ng/ml NORMAL 0.05 - 0.50 ng/ml INDETERMINATE > 0.50 ng/ml CONSISTENT WITH AN M.I. Performed By: #### 3 [id number], [id number], [id number] #### [facility] [address] [place] [address], [facility] UFH HEPARIN ASSAYon 01-16-20 19 UNFRACTIONATED HEPARIN >1.00 Critically high 0.30-0.70 [facility] Comment on above: Result Comment: [place] roxaban and Apixaban will interfere with the anti Xa assay used to monitor UFH and LMWH. RESULTS CHECKED AND CALLED. ACCURATELY READ BACK BY TAWNYA MOSQUEDA RN AT 21:44 SPECIMEN DRAWN FROM ARM NOT CONTAINING IV LINE PER TAWNYA MOSQUEDA RN. Performed By: #### 3 5200, [id number], [id number] #### [facility] [address] [place] [address], [facility] UNFRACTIONATED HEPARIN 0.79 IU/mL High 0.30-0.70 [facility] Comment on above: Result Comment: [place] roxaban and Apixaban will interfere with the anti Xa assay used to monitor UFH and LMWH. Performed By: #### 3 5200, [id number], 19521 #### [facility] [address] [place] [address], [facility] UNFRACTIONATED HEPARIN 0.35 IU/mL Normal 0.30-0.70 [facility] Comment on above: Result Comment: Angy roxaban and Apixaban will interfere with the anti Xa assay used to monitor UFH and LMWH. Performed By: #### 5 6101, 64840, 05607 #### [facility] [address] [place] [address], [facility] UNFRACTIONATED HEPARIN 0.15 IU/mL Critically low 0.30-0.70 [facility] Comment on above: Result Comment: Angy roxaban and Apixaban will interfere with the anti Xa assay used to monitor UFH and LMWH. RESULTS CHECKED AND CALLED. ACCURATELY READ BACK BY JONE MENDOZA RN @ 0728 Performed By: #### 3 [id number] #### [facility] [address] [place] [address], [facility] Vital Signs Date Time Vital Sign Value Performing Clinician Facility 05-19-2024 08:53-0400 Body height 175.3 cm Yfn Gusman DPM Work Phone: [facility] 05-19-2024 08:53-0400 Body mass index (BMI) [Ratio] 31.01 kg/m2 Yfn Gusman DPM Work Phone: [facility] 05-19-2024 08:53-0400 Body weight 95.25 kg Yfn Gusman DPM Work Phone: [facility] 05-19-2024 08:53-0400 Diastolic blood pressure 80 mm[Hg] Yfn Gusman DPM Work Phone: [facility] 05-19-2024 08:53-0400 Heart rate 81 /min Yfn Gusman DPM Work Phone: [facility] 05-19-2024 08:53-0400 Systolic blood pressure 125 mm[Hg] Yfn Gusman DPM Work Phone: [facility] 04-01-2024 10:12-0400 Body height 175.26 cm [facility] 04-01-2024 10:12-0400 Body mass index (BMI) [Ratio] 29.3 kg/m2 [facility] 04-01-2024 10:12-0400 Body weight 90.26 kg [facility] 04-01-2024 10:12-0400 Diastolic blood pressure 65 mm[Hg] [facility] 04-01-2024 10:12-0400 Heart rate 69 /min [facility] 04-01-2024 10:12-0400 Respiratory rate 12 /min [facility] 04-01-2024 10:12-0400 Systolic blood pressure 133 mm[Hg] [facility] 11-30-2023 10:47-0400 Body height 175.26 cm [facility] 11-30-2023 10:47-0400 Body mass index (BMI) [Ratio] 28.8 kg/m2 [facility] 11-30-2023 10:47-0400 Body weight 88.67 kg [facility] 11-30-2023 10:47-0400 Diastolic blood pressure 74 mm[Hg] [facility] 11-30-2023 10:47-0400 Heart rate 81 /min [facility] 11-30-2023 10:47-0400 Respiratory rate 12 /min [facility] 11-30-2023 10:47-0400 Systolic blood pressure 119 mm[Hg] [facility] 06-02-2023 10:30-0400 Body height 175.26 cm David Ball Other [facility] [employer] Other 06-02-2023 10:30-0400 Body mass index (BMI) [Ratio] 29.44 kg/m2 David Ball Other [facility] Other 06-02-2023 10:30-0400 Body weight 90.45 kg David Ball Other [facility] Other 06-02-2023 10:30-0400 Diastolic blood pressure 88 mm[Hg] David Ball Other [employer] [facility] [employer] Other 06-02-2023 10:30-0400 Systolic blood pressure 138 mm[Hg] David Ball Other [employer] [facility] [employer] Other 04-27-2023 10:29-0400 Blood Pressure Location Robert BAUER [facility] 04-27-2023 10:29-0400 Diastolic blood pressure 83 mm[Hg] Robert BAUER [facility] 04-27-2023 10:29-0400 Heart rate 93 /min Robert BAUER [facility] 04-27-2023 10:29-0400 Respiratory rate 16 /min Robert BAUER [facility] 04-27-2023 10:29-0400 Systolic blood pressure 130 mm[Hg] Robert BAUER [facility] 11-05-2022 11:00-0400 Body height 175.26 cm David Ball Other [facility] Other 11-05-2022 11:00-0400 Body mass index (BMI) [Ratio] 30.12 kg/m2 David Ball Other [facility] Other 11-05-2022 11:00-0400 Body weight 92.53 kg David Ball Other [facility] Other 11-05-2022 11:00-0400 Diastolic blood pressure 76 mm[Hg] David Ball Other [facility] Other 11-05-2022 11:00-0400 SaO2% (BldA) [Mass fraction] 94 % David Ball Other [facility] Other 11-05-2022 11:00-0400 Systolic blood pressure 123 mm[Hg] David Ball Other [facility] Other 04-14-2022 09:00-0400 Blood Pressure Location Robert BAUER [facility] 04-14-2022 09:00-0400 Diastolic blood pressure 73 mm[Hg] Robert BAUER [facility] 04-14-2022 09:00-0400 Heart rate 101 /min Robert BAUER [facility] 04-14-2022 09:00-0400 Respiratory rate 16 /min Robert BAUER [facility] 04-14-2022 09:00-0400 Systolic blood pressure 114 mm[Hg] Robert ZECHARIAH [facility] Encounters Encounter Date Encounter Type Care Provider Facility Start: 06-20-2024 ambulatory Robert BAUER Facili ty:[facility] [place] Start: 05-19-2024 End: 05-19-2024 Bamboo flowsheet Yfn Gusman DPM Work Phone: [facility] Start: 05-19-2024 End: 05-19-2024 Bamboo flowsheet Yfn Gusman DPM Work Phone: [facility] Start: 05-19-2024 End: 05-19-2024 Patient encounter procedure Yfn Gusman DPM Work Phone: [facility] Comment on above: Pain due to onychomy cosis of toenails of both feet (Primary Dx); Venous insufficiency Start: 05-19-2024 End: 05-19-2024 ambulatory YFN GUSMAN Not Available Start: 05-16-2024 End: 05-16-2024 ambulatory [facility] Work Phone: Start: 05-16-2024 End: 05-16-2024 Patient encounter procedure [facility] Work Phone: Start: 04-22-2024 End: 04-22-2024 ambulatory [facility] Work Phone: Start: 04-22-2024 End: 04-22-2024 Patient encounter procedure [facility] Work Phone: Start: 04-01-2024 End: 04-01-2024 ambulatory [facility] Work Phone: Start: 04-01-2024 End: 04-01-2024 Patient encounter procedure [facility] Work Phone: Start: 03-10-2024 End: 03-10-2024 ambulatory YFN GUSMAN Not Available Start: 01-28-2024 End: 01-28-2024 ambulatory [facility] Start: 01-06-2024 Non-patient / Non-visit [facility] Work Phone: Start: 12-24-2023 End: 12-24-2023 ambulatory YFN GUSMAN Not Available Start: 11-30-2023 End: 11-30-2023 ambulatory [facility] Work Phone: Start: 11-30-2023 End: 11-30-2023 Patient encounter procedure [facility] Work Phone: Start: 10-15-2023 End: 10-15-2023 ambulatory YFN GUSMAN Not Available Start: 08-10-2023 End: 08-10-2023 ambulatory David Marx Other [facility] Other Start: 08-10-2023 Office outpatient vi sit 15 minutes David Ball [facility] Start: 08-06-2023 End: 08-06-2023 ambulatory YFN GUSMAN Not Available Start: 06-02-2023 End: 06-02-2023 ambulatory David Ball Other [facility] Other Start: 06-02-2023 Office outpatient vi sit 25 minutes David Ball [facility] Start: 06-02-2023 Telephone encounter David Ball [facility] Start: 05-29-2023 End: 05-29-2023 ambulatory David Ball Other [facility] Other Start: 05-29-2023 Nursing evaluation o f patient and report David Ball [facility] Start: 04-28-2023 End: 04-28-2023 ambulatory David Ball Other [facility] Other Start: 04-28-2023 Telephone encounter David Ball [facility] Start: 04-27-2023 End: 04-27-2023 ambulatory Robert BAUER Facility:[facility] Start: 04-27-2023 End: 04-27-2023 Patient encounter procedure Robert BAUER [facility] Start: 02-27-2023 End: 02-27-2023 ambulatory [facility] Start: 02-25-2023 End: 02-25-2023 ambulatory David Marx Other [facility] Other Start: 02-25-2023 Telephone encounter David VERA [facility] Start: 02-16-2023 End: 02-16-2023 ambulatory David Marx Other [facility] Other Start: 02-16-2023 Telephone encounter David VERA [facility] Start: 11-18-2022 End: 11-19-[address] DAVID MARX Facility:[facility] Start: 11-05-2022 End: 11-05-2022 ambulatory David Marx Other [facility] Other Start: 11-05-2022 Patient encounter procedure David Marx [facility] Start: 11-05-2022 Telephone encounter David VERA [facility] Start: 10-02-2022 End: 10-02-2022 ambulatory TRIXIE CANDELARIA Facility:[facility] Start: 06-17-2022 End: 07-19-[address] DAVID MARX Facility:[facility] Start: 05-29-2022 End: 05-30-2022 ambulatory FOSTER STONE Facility:[facility] Start: 04-15-2022 End: 04-16-[address] ROBERT BAUER . Facility:[facility] Start: 04-14-2022 End: 04-14-2022 Patient encounter procedure Robert BAUER [facility] Start: 03-27-2022 End: 09-23-2022 ambulatory FOSTER B APLING Facility:[facility] Start: 10-16-2021 Adult health examination Kashmir Marx Other [facility] Other Start: 01-15-2019 End: 01-19-2019 Evaluation and management of inpatient KEKE AKERS Facility:[facility] Procedures Date Procedure Procedure Detail Performing Clinician [...] Meghana BAUER Depression screening Vamsi Marx Other Plan of Treatment Date Care Activity Detail Author Start: 07-28-2024 End: 07-28-2024 Patient encounter procedure 07/28/2024 8:40 AM EST Procedure Visit [facility] [address] [place] [address] Yfn Gusman DPM [address] [address] [facility] Start: 05-19-2024 End: 05-19-2024 Patient encounter procedure 05/19/2024 8:50 AM EDT Procedure Visit [facility] [address] [place] [address] Yfn Gusman, PETE [address] [address] Pain due to onychomycosis of toenails of both feet (Primary Dx); Venous insufficiency [facility] Comment on above: Pain due to onychomy cosis of toenails of both feet (Primary Dx); Venous insufficiency Start: 04-03-2024 Influenza vaccination Influenza Vacc ine (#1) [facility] Immunizations Immunization Date Immunization Notes Care Provider Fa cility 05-16-2024 influenza virus vaccine, unspecified formulation Yfn Gusman DPM Work Phone: [facility] 05-29-2023 influenza, high dose seasonal, preservative-free David Marx Other [facility] Other 05-29-2023 influenza virus vaccine, unspecified formulation [facility] 05-31-2022 COVID-19 Moderna (BIvalent) David Marx Other [facility] 05-23-2022 influenza, high dose seasonal, preservative-free David Marx Other [facility] Other 05-23-2022 influenza virus vaccine, split virus (incl. purified surface antigen) David Marx Other [facility] Other 05-23-2022 influenza virus vaccine, unspecified formulation [facility] 12-20-2021 SARS-CoV-2 (COVID-19 ) mRNA-1273 vaccine Robert BAUER [facility] Comment on above: Result Comment: 2021: [id number] 06-18-2021 SARS-CoV-2 (COVID-19 ) mRNA-1273 vaccine Robert BAUER [facility] Comment on above: Result Comment: 2021: [id number] 05-28-2021 influenza virus vaccine, split virus (incl. purified surface antigen) David Marx Other [facility] Other 05-28-2021 influenza virus vaccine, unspecified formulation [facility] 10-02-2020 SARS-CoV-2 (COVID-19 ) mRNA-1273 vaccine Robert BAUER [facility] 09-04-2020 SARS-CoV-2 (COVID-19 ) mRNA-1273 vaccine Robert BAUER [facility] 05-09-2020 influenza virus vaccine, split virus (incl. purified surface antigen) David Marx Other [facility] Other 05-09-2020 influenza virus vaccine, unspecified formulation [facility] 05-17-2019 influenza virus vaccine, split virus (incl. purified surface antigen) David Marx Other [facility] Other 05-17-2019 influenza virus vaccine, unspecified formulation [facility] 05-18-2018 influenza virus vaccine, split virus (incl. purified surface antigen) David Marx Other [facility] Other 05-18-2018 influenza virus vaccine, unspecified formulation Robertsulema BAUER [facility] 05-27-2017 influenza virus vaccine, split virus (incl. purified surface antigen) David Marx Other [facility] Other 05-27-2017 influenza virus vaccine, unspecified formulation Robert BAUER [facility] 05-23-2016 pneumococcal conjuga te vaccine, 13 valent Robert BAUER [facility] 05-23-2016 pneumococcal Conjuga te, unspecified formulation; Translations: [Need for prophylactic vaccination against Streptococcus pneumoniae (pneumococcus)] David Marx Other [employer] [facility] [employer] Other 05-16-2016 influenza virus vaccine, split virus (incl. purified surface antigen) David Marx Other [facility] Other 05-16-2016 influenza virus vaccine, unspecified formulation Robert BAUER [facility] 05-31-2015 influenza virus vaccine, unspecified formulation Robert ZECHARIAH [facility] 05-03-2014 pneumococcal polysaccharide vaccine, 23 valent Robert ZECHARIAH [facility] 04-14-2013 tetanus and diphther ia toxoids, adsorbed, preservative free, for adult use (5 Lf of tetanus toxoid and 2 Lf of diphtheria toxoid) David Marx Other [facility] 04-14-2012 tetanus and diphther ia toxoids, adsorbed, preservative free, for adult use (5 Lf of tetanus toxoid and 2 Lf of diphtheria toxoid) David Marx Other [facility] Payers Date Payer Category Payer Private Health Insurance [employer] [place] mber [id number] 2001 Medicare MEDICARE [id number] 1959 Medicare [id number] 1959 Self-pay 1959 Unknown [id number] 1936 Unknown [id number] .647 1936 Unknown [id number] [id number] .593 1936 Unknown [id number] [id number] .593 1936 Unknown [id number] [id number] .593 1936 Unknown [id number] [id number] .593 1936 Unknown [id number] [id number] .593 1936 Unknown [id number] 2.16.840.1.815978.3.579.2 .593 1936 Unknown [id number] 2.16.840.1.178785.3.579.2 .727 1936 Unknown [id number] 2.16.840.1.473916.3.579.2 .727 1936 Unknown [id number] [id number] .1259 1936 Unknown [id number] 2.16.840.1.117425.3.579.2 .1259 1936 Unknown [id number] [id number] .1259 1936 Unknown [id number] 2.16.840.1.180188.3.579.2 .1259 1936 Unknown [id number] [id number] .1259 Medicare [id number] Unknown [id number] [id number] .593 Social History Date Type Detail Facility Start: 04-14-2022 Tobacco smoking status Ex-smoker (finding) [facility] Start: 03-10-2024 Sex Assigned At Male [facility] Start: 1935 Sex Assigned At Male F [facility] Start: 01-01-2023 Tobacco smoking status NHIS Never smoked tobacco [facility] Start: 01-01-2023 Tobacco use and exposure Smokeless tobacco non-user [facility] Start: 03-10-2024 End: 05-19-2024 Alcoholic beverage intake Lifetime non-drinker (finding) [facility] Start: 03-10-2024 History of Social function [facility] Start: 1935 Sex assigned at Not on file [facility] NEGATED: Highlighted rowStart: NINF History of tobacco use Passive smoker [facility] Functional Status Date Assessment Result Facility 04-27-2023 Functional Status N/A [facility] 04-14-2022 Functional Status N/A [facility] Clinical Notes 04-14-2022 to 05-19-2024 Yfn Gusman, DPM - 05/19/2024 8:50 AM EDT Note Date & Type Note Facility 05-19-2024 History of Present illness Narrative Patient: Yaya De Anda : 1935 PCP: David Marx MD SUBJECTIVE This is a 88 y.o. male that presents today with a CC of elongated, thick nails. Pt states nails have been elongated and thick for many years and cause pain with ambulation in shoegear. Pt has tried previous treatment with minimal relief. Pt presents today for nail care and treatment. Patient has history of venous stasis. Allergies: Allergies Allergen Reactions Jose Alfredo Inhibitors Cough Tramadol Hives Past Medical History: Past Medical History: Diagnosis Date At risk for falls BMI 31.0-31.9,adult Congestive heart failure (CHF) ([facility]) GERD (gastroesophageal reflux disease) OA (osteoarthritis) Onychomycosis Plantar fasciitis Plantar fasciitis of right foot Sleep apnea Testicular cancer ([facility]) Tinea pedis Toe pain, bilateral Medications: Current Outpatient Medications: finasteride (Proscar) 5 MG tablet, Take 5 mg by mouth in the morning., Disp: , Rfl: furosemide (Lasix) 20 MG tablet, Take 20 mg by mouth in the morning., Disp: , Rfl: HYDROcodone-acetaminophen (Eastover) 5-325 MG tablet, , Disp: , Rfl: ketorolac (Acular) 0.5 % ophthalmic solution, Administer 1 drop into both eyes in the morning and 1 drop at noon and 1 drop in the evening and 1 drop before bedtime., Disp: , Rfl: losartan (Cozaar) 25 MG tablet, Take 25 mg by mouth in the morning., Disp: , Rfl: metoprolol succinate XL (Toprol-XL) 25 MG 24 hr tablet, Take 25 mg by mouth in the morning., Disp: , Rfl: ofloxacin (Ocuflox) 0.3 % ophthalmic solution, Administer 1 drop into both eyes in the morning and 1 drop at noon and 1 drop in the evening and 1 drop before bedtime., Disp: , Rfl: omeprazole (PriLOSEC) [address] capsule, Take 40 mg by mouth in the morning. Take before meals., Disp: , Rfl: tamsulosin (Flomax) 0.4 MG 24 hr capsule, Take 0.4 mg by mouth in the morning., Disp: , Rfl: testosterone cypionate (Depo-Testosterone) 100 MG/ML injection, Inject 100 mg into the shoulder, thigh, or buttocks every 14 (fourteen) days., Disp: , Rfl: Social History: Social History Socioeconomic History Marital status: Spouse name: Not on file Number of children: Not on file Years of education: Not on file Highest education level: Not on file Occupational History Not on file Tobacco Use Smoking status: Never Passive exposure: Never Smokeless tobacco: Never Vaping Use Vaping status: Unknown Substance and Sexual Activity Alcohol use: Never Drug use: Never Sexual activity: Defer Partners: Decline to Answer Other Topics Concern Not on file Social History Narrative Not on file Social Drivers of Health Financial Resource Strain: Not on file Food Insecurity: Not on file Transportation Needs: Not on file Physical Activity: Not on file Stress: Not on file Social Connections: Not on file Intimate Partner Violence: Unknown (09/24/2023) [facility] from [facility] Safety & Environment Fear of Current or Ex-Partner: Not on file Emotionally Abused: Not on file Physically Abused: Not on file Sexually Abused: Not on file Physically or Sexually Abused: Not on file Housing Stability: Not on file ROS: General: denies fever, chills, fatigue, malaise Cardio: Denies shortness of breath or chest pain with positive history of CHF OBJECTIVE LE EXAM: DERM: Elongated thick yellow crumbly nails digits 1 through 10. Positive hair growth b/l feet. Plus 1 pitting edema to bilateral ankles. VASC: negative DP and positive PT pedal pulses NEURO: Gross sensation intact to bilateral feet ORTHO: Positive pain on palpation to nails 1 through 10 ASSESSMENT 1. Pain due to onychomycosis of toenails of both feet 2. Venous insufficiency PLAN Discussed proper foot care with patient today. Debride nails in length and thickness digits 1 through 10 Yfn Gusman DPM documented in this encounter [facility] 01-28-2024 Note [place] [facility] - [facility] Subjective Yaya De Anda is [...] cardiomyopathy diagnosed when he was admitted to [facility] in January 2019, that has recovered on [...] Take 1 tablet (more content not included)... [facility] 08-10-2023 Evaluation note Encounter Date Diagnosis Assessment [...] his risk for COVID complications. Recommend Paxlovid. [facility] Other 11-01-2023 History general Narrative - Reported* [...] Carpal Tunnel 05/25/23 Hospitalization History [facility] Other 10-31-2023 Evaluation note* Encounter Date Diagnosis [...] use, the patient reduces the risk for SC, CVA, HTN, cardiac dysrhythmias and sudden cardiac [...] w/ CR, heatlhy diet and weight loss [facility] Other 10-28-2023 History general Narrative - Reported* [...] LEFT CATARACT EXTRACTION Hospitalization History [facility] Other 09-25-2023 Hospital Discharge instructions Patient Education [...] therapy. Follow these instructions at home: Take jyww-[id number]-[id number] and prescription medicines only as told by [...] provider. Document Revised: 03/21/2021 Document Reviewed: 03/21/2021 Im[employer]it Patient Education 2022 [employer] Follow Up Care 04/14/2022 09:41:33 With:ZECHARIAH WYNN, Robert Jung, URL Address: [facility] [address], [place] [address] [phone] When: Unknown [facility] 07-28-2023 NoteSubjective Patient ID: Yaya [...] the past 36 hour(s)). No follow-ups on file.[facility]07-28-2023 Note Cardiology Clinic Note Subjective Yaya De [...] endocardial borders. Coronary angiog (more content not included)...[facility]04-05-2023 Evaluation note* Encounter Date Diagnosis Assessment Notes [...] use, the patient reduces the risk for SC, CVA, HTN, cardiac dysrhythmias and sudden cardiac [...] Nov, Subacute cough (ICD- 10 - R05.2) [facility] Other 04-05-2023 Evaluation note* Encounter Date Diagnosis Assessment Notes Treatment Notes Treatment Clinical Notes Nov, Chronic venous insufficiency (ICD-10 - I87.2) [facility] Other 03-02-2023 NoteOPERATIVE NOTE OPERATION DATE: 11/24/2022 [...] ensuring mobility, phacoemulsification was performed in a qkpxvkz-jdk-tdtdah-type fashion. After all nuclear material had been [...] up the following day for postoperative care.[id number] NoteOPERATIVE NOTE OPERATION DATE: 10/02/2022 SURGEON: Trixie [...] ensuring mobility, phacoemulsification was performed in a stixcag-mla-ubctxf-type fashion. After all nuclear material had been [...] up the following day for postoperative care.[facility] 10-02-2022 NotePREOPERATIVE HISTORY AND PHYSICAL Date:10/01/2022 HISTORY: [...] and go forward with his elective procedure.[id number] Hospital Discharge instructions Patient Education 04/14/2022 09:29:08 [...] urethra. Follow these instructions at home: Take mhvy-mzi-ogusajw and prescription medicines only as told by [...] 07/20/2006 Document Revised: 06/14/2019 Document Reviewed: 08/24/2017 Implisit Patient Education 2020 [employer]. Follow Up Care 04/05/2021 10:45:58 With:ZECHARIAH WYNN, Robert Jung, URL Address: [facility] [address], [place] [address]- [phone] When:04/14/2023 [facility] evaluation + Plan note Future Appointments Appointment Date:04/17/2023 08:15:00 AM Scheduled Provider:Robert BAUER MD Location:[facility] Appointment Type:URO Office Visit Diagnostic Tests Pending * Testosterone Level Total 04/14/22 [facility] evaluation + Plan note Future Appointments Appointment Date:04/25/2024 10:15:00 AM Scheduled Provider:Robert BAUER MD Location:[facility] Appointment Type:URO Office Visit Diagnostic Tests Pending * Testosterone Level Total 04/27/23 [facility] evaluation [employer] Other [facility]No [facility] Other [facility]* Diagnosis Onset Date Resolution Status Ascending aortic aneurysm ac [place] Chronic venous insufficiency acute Gastroesophageal reflux dise ase with esophagitis without hemorrhage acute 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 Work Phone: Evaluation note* Diagnosis Onset Date Resolution Status Ascending aortic aneurysm ac [place] Chronic venous insufficiency acute Gastroesophageal reflux dise ase with esophagitis without hemorrhage acute Heart failure with improved ejection fraction (HFimpEF ) acute Obstructive sleep apnea acut e Overweight acute Primary osteoarthritis of right knee acute Pulmonary nodule acute Restrictive lung disease acu te [facility] Work Phone: Evaluation note* Diagnosis Onset Date Resolution Status Ascending aortic aneurysm ac [place] Chronic venous insufficiency acute Gastroesophageal reflux dise ase with esophagitis without hemorrhage acute Heart failure with improved ejection fraction (HFimpEF ) acute Obstructive sleep apnea acut e Overweight acute Primary osteoarthritis of right knee acute Pulmonary nodule acute Restrictive lung disease acu te Acute bronchitis due to other specified organisms acute Heart failure with improved ejection fraction (HFimpEF ) acute [facility] Work Phone: Evaluation note* Diagnosis Pain due to onychomycosis of toenails of both feet- Primary Venous insufficiency Unspecified venous (peripheral) insufficiency documented in this encounter [facility] N[facility]ative - Reported* Type Description Date [...] LEFT CATARACT EXTRACTION Hospitalization History SEE SURGICAL [facility] [employer] [facility] - [facility] History general Narrative - Reported* Type [...] Carpal Tunnel 05/25/23 Hospitalization History SEE SURGICAL [facility] [employer] Other Hospital course Narrative No data available for this section [facility] progress note No data available for this section [facility] Summary Purpose Family History No Family History Records Found Relationship Condition Age at Onset Recorded Date/T krishna father Unknown Not Specified Unknown Family history of colon cancer Unknown Malignant neoplasm Unknown Relationship Condition Age at Onset Recorded Date/T krishna father Unknown mother Unknown Family history of colon cancer Unknown Malignant neoplasm Unknown Advance Directives No Advanced Directives Records Found Advance Directive Response Recorded Date/ Time Advance Directives No August 31, 2023 1:47pm Hospital Course Note MR#: [id number] [facility] Pt. Name: Yaya De Anda Admitted: 01/15/2019 [...] Complaint and Reason for Visit Chief Complaint [facility] Wellness Reason for Visit Ascending aortic ane urysm Chronic venous insufficiency Gastroesophageal reflux disease with esophagitis without hemorrhage Heart failure with improved ejection fraction (HFimpEF) Obstructive sleep apnea Overweight Primary osteoarthritis of right knee Pulmonary nodule Restrictive lung disease Medicare annual wellness visit, subsequent Chief Complaint 4 month f/u Reason for Visit Ascending aortic ane urysm Chronic venous insufficiency Gastroesophageal reflux disease with esophagitis without hemorrhage Heart failure with improved ejection fraction (HFimpEF) Obstructive sleep apnea Overweight Primary osteoarthritis of right knee Pulmonary nodule Restrictive lung disease Chief Complaint 4 month f/u Coughing, COVID- Reason for Visit Ascending aortic ane urysm Chronic venous insufficiency Gastroesophageal reflux disease with esophagitis without hemorrhage Heart failure with improved ejection fraction (HFimpEF) Obstructive sleep apnea Overweight Primary osteoarthritis of right knee Pulmonary nodule Restrictive lung disease Acute bronchitis due to other specified organisms Heart failure with improved ejection fraction (HFimpEF) Chief Complaint 4 month f/u Coughing, COVID- Flu shot Reason for Visit Ascending aortic ane urysm Chronic venous insufficiency Gastroesophageal reflux disease with esophagitis without hemorrhage Heart failure with improved ejection fraction (HFimpEF) Obstructive sleep apnea Overweight Primary osteoarthritis of right knee Pulmonary nodule Restrictive lung disease Acute bronchitis due to other specified organisms Heart failure with improved ejection fraction (HFimpEF) Additional Source Comments (unrecognized sect ion and content) No Status Records FoundNo Status Records FoundNo Status Records FoundNo Status Records FoundNo Status Records Found INFORMATION SOURCE (unrecogn ized section and content) DATE CREATED AUTHOR 04/02/2019 [facility] DATE CREATED AUTHOR AUTHOR'S ORGANIZ ATION 11/28/2022 [facility] DATE CREATED AUTHOR AUTHOR'S ORGANIZ ATION 01/30/2024 [facility] DATE CREATED AUTHOR AUTHOR'S ORGANIZ ATION 04/22/2024 [facility] DATE CREATED AUTHOR AUTHOR'S ORGANIZ ATION 05/21/2024 [facility] EPIC Care Team (unrecognized sect ion and content) Team Status: Active Member Role Status Dates David Marx DO Primary Care Provider Active Team Status: Inactive Member Role Status Dates David Marx DO Primary Care Provide r, Attending Provider Active Start: April 01, 2024 End: April 01, 2024 Team Status: Inactive Member Role Status Dates David Marx DO Primary Care Provide r, Attending Provider Active Start: April 22, 2024 End: April 22, 2024 Team Status: Active Member Role Status Dates David Marx DO Primary Care Provide r, Attending Provider Active Start: January 06, 2024 Team Status: Inactive Member Role Status Dates David Marx DO Primary Care Provide r, Attending Provider Active Start: November 30, 2023 End: November 30, 2023 Team Status: Inactive Member Role Status Dates David DO Francisco J Primary Care Provide r, Attending Provider Active Start: May 16, 2024 End: May 16, 2024 [employer] Relationship Specialty Start Date End Date David Marx MD [address] [place] [id number] PCP - General Internal Medicine 01/01/23 [employer] Relationship Specialty Start Date End Date David Marx MD [address] [place] [id number] PCP - General Internal Medicine 01/01/23 REASON FOR VISIT (unrecogniz ed section and content) Reason Comments Toenail Care Non DM Nails Goals (unrecognized section and content) Goals may [...] BE BASED ON THE PRIMARY CLINICAL RECORDS. [facility] [employer] provides no warranty or guarantee of the accuracy or completeness of information in this document.
[2024-06-14 04:08] LABS: Testosterone 240 ng/dL (264-916)
== END 2024-06-13 08:19 | disposition home or self-care (01) ==
LOC: LAB 08:21
PROVIDERS: PCP Internal Medicine; Visit Provider Urology
DX: E29.1 Testicular hypofunction (principal)
CPT/HCPCS: 36415; 84403

== ENCOUNTER 2024-06-13 13:07 | Outpatient (OUT) | payer MEDICARE, SELFPAY ==
--- NOTE | 2024-06-13 13:06 | CA_ITS ---
Patient Name: MACI MORTENSEN MR#: [id number] : 1935 Exam Date: 06/13/2024 Ordering Doctor: DR VJ ESPITIA M.D. ECHOCARDIOGRAM REPORT PROCEDURE: CA ECHO DOPPLER COMPLETE INDICATIONS: Nonrheumatic mitral regurgitation COMPARISON: None. DESCRIPTION: COMPLETE ECHOCARDIOGRAM Real-time transthoracic echocardiography with 2D, M-mode, spectral and color flow Doppler performed. QUALITY: Technical quality was good. LEFT VENTRICLE: Mild chamber dilatation. Mild eccentric left ventricular hypertrophy. Systolic function is at the lower limits of normal. LV EF: Lower limits of normal left ventricular ejection fraction, (50%). DIASTOLIC: ATRIAL SEPTUM: LEFT ATRIUM: Mild dilatation. RIGHT ATRIUM: Mild dilatation. RIGHT VENTRICLE: Normal chamber size. Normal right ventricular systolic function. TRICUSPID VALVE: Normal mobility and thickness. No stenosis with trivial regurgitation. Unable to assess right-sided pressures due to lack of measurable tricuspid regurgitation. MITRAL VALVE: Normal mobility and thickness. No evidence of mitral valve stenosis. Mitral annular calcification. At least Moderate to severe mitral regurgitation with an eccentric anteriorly directed jet. Flow reversal seen in the Pulmonary veins by doppler flow. AORTIC VALVE: Normal trileaflet appearance. Thickened aortic valve. Normal leaflet mobility. No evidence of aortic valve stenosis. Mild aortic regurgitation. AORTIC ROOT: Normal diameter and appearance. PULMONIC VALVE: Grossly normal. No stenosis. No regurgitation. PERICARDIUM: No evidence of pericardial effusion. IVC: Collapses with inspirations. Normal size. PLEURA: CONCLUSION: 1. Mild eccentric left ventricular hypertrophy with low normal systolic function. LVEF is estimated at 50%. 2. Normal right ventricular size and systolic function. 3. Mild biatrial dilatation. 4. At least moderate to severe mitral regurgitation with an eccentric anteriorly directed jet. 5. Mild aortic regurgitation. 6. Unable to assess right-sided pressures due to lack of measurable tricuspid regurgitation. 7. A transesophageal echocardiogram is recommended for better assessment of the mitral regurgitation. Adult Echocardiography Procedure Report Left Ventricle LVEDD (3.7 - 5.6 cm): 5.81 cm LVESD (2.2 - 4.0 cm): 4.29 cm LVIVS thickness (0.6 - 1.2 cm): 1.19 cm LVPW thickness (0.5 - 1.0 cm): 1.09 cm LVOT Max Gradient: 3.88 mm[Hg] LVOT Area (cm2): 0.98 m/s Peak Velocity (LVOT): 0.98 m/s Mean Velocity (LVOT): 0.58 m/s LVOT Diameter 2.59 cm Left Ventricular Ejection Fraction: 50 % Left Atrium LA Volume Index (2D A2C): 40.50 ml/m2 Left Atrium Systolic Dimension: 4.51 cm Mitral Valve MV E to A Ratio: 0.97 Mitral Valve A-Wave Peak Velocity: 1.05 m/s Mitral Valve E-Wave Peak Velocity: 1.02 m/s Right Ventricle RV Internal Diastolic Dimension: 3.45 cm Aorta AO Root Diam: 3.88 cm Ascending Ao Diam: 3.79 cm Aortic Valve AoV Area (Peak Ben): 3.71 cm2, 3.71 cm2 AoV Area (VTI): 4.13 cm2, 4.13 cm2 Deceleration Garden: 1.87 m/s2 Pressure Half-Time: 627.04 ms Peak Velocity(Antegrade Flow): 1.40 m/s Peak Gradient(Antegrade Flow): 7.86 mm[Hg] Mean Velocity(Antegrade Flow): 0.85 m/s Mean Gradient(Antegrade Flow): 3.34 mm[Hg] Velocity Time Integral: 29.80 cm Tricuspid Valve Peak Velocity (Regurgitant Flow): 1.85 m/s, 1.67 m/s Pulmonic Valve Peak Velocity: 0.90 m/s Peak Gradient: 3.62 mm[Hg], 2.85 mm[Hg] Right Atrium Right Atrium Systolic Pressure: 69.15 ml, 69.15 ml Dictated by: Vj Espitia M.D. on 06/14/2024 at 10:28 Approved by: Vj Espitia M.D. on 06/14/2024 at 10:34
== END 2024-06-13 13:08 | disposition home or self-care (01) ==
LOC: CARD 13:07
PROVIDERS: PCP Internal Medicine; Visit Provider Internal Medicine Interventional Cardiology
DX: I34.0 Nonrheumatic mitral (valve) insufficiency (principal)
CPT/HCPCS: 93306; 93356

== ENCOUNTER 2024-06-27 13:36 | Outpatient (OUT) | payer MEDICARE, SELFPAY ==
--- NOTE | 2024-06-27 | XR_ITS ---
The [address] [address] Patient Name: MACI MORTENSEN MRN: [id number] date: 1935 Sex: M Assigned Patient Location: Current Patient Location: [facility] Accession/Order Number: [id number] Exam Date: 06/27/2024 13:42 Report Date: 06/29/2024 15:25 At the request of: SIVA GUPTA Procedure: XR hip LT 2V w/ pelvis PROCEDURE: XR hip LT 2V w/ pelvis HISTORY: LEFT HIP PAIN COMPARISON: None. FINDINGS: BONES:Mild narrowing of the hip joint spaces. No significant periarticular osteophytes. No fracture or dislocation. SOFT TISSUES:No visible soft tissue swelling. EFFUSION:None visible. OTHER: Negative. XR/XR hip LT 2V w/ pelvis IMPRESSION: 1. 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 2. No appreciable acute abnormality. Electronically authenticated by: MILKA ANDERS Date: 06/29/2024 15:25
--- OUTSIDE RECORDS SUMMARY | 2024-06-27 14:01 | XMS_ITS | CCD ---
Author Organization [facility] Care Team Providers Care Haulpak Driver Name Role Phone KEKE AKRES Admitting Unavailable ADITHYA SCHMIDT Referring DAVID Damon Primary Care Unavailable Deng Aguilar Attending Unavailable [place] Procedure Practitioner Unavailab BETO Eastman Surgeon Unavailable DAVID MARX Primary Care Physician David Marx Unavailable APLFOSTER RYDER Admitting Unavailable APLINGFOSTER B Attending Unavailable FRANCISCO J, DR LAM Primary Care Unavailable FRANCISCO J, DR LAM Primary Care Unavailable FRANCISCO J, DR LAM Admitting Unavailable BALL, DR LAM Attending Unavailable REQUEST, DR KIM LISTED Attending Unavaila ble REQUEST, DR KIM LISTED Consulting Unavaila ble REQUEST, DR KIM LISTED Admitting Unavaila ble FRANCISCO J, DR LAM Primary Care Unavailable TRIXIE CANDELARIA Attending Unavailable PETTY, TRIXIE Consulting Unavailable TRIXIE CANDELARIA Admitting Unavailable FRANCISCO J, DR LAM Primary Care Unavailable BAUER ., DR BUI Attending Unavailable BAUER ., DR BUI Consulting Unavailable BAUER ., DR BUI Admitting Unavailable FRANCISCO J, DR LAM Primary Care Unavailable BALL, DR LAM Attending Unavailable BALL, DR LAM Consulting Unavailable BALL, DR LAM Primary Care Unavailable BALL, DR LAM Admitting Unavailable ZIEBER, DR MILKA Jung Consulting Unavailable APLINGFOSTER Attending Unavailable APLING, FOSTER Bañuelos Admitting Unavailable ZIEBER, DR MILKA Jung Consulting Unavailable FRANCISCO J, DR LAM Primary Care Unavailable APLING, FOSTER Bañuelos Consulting Unavailable VJ ESPITIA Attending Unavailable CARLO HAIR Attending Unavailable David Marx MD Primary Care Provider YFN GUSMAN Attending Unavailable YFN GUSMAN Attending Unavailable YFN GUSMAN Attending Unavailable YFN GUSMAN Attending Unavailable YFN GUSMAN Attending Unavailable Robert BAUER Attending Unavailable Robert BAUER Attending Unavailable BAUER, Robert R Attending Unavailable Allergies Allergy Classification Reported Allergen(s) Allergy Type Date of Onset Reaction(s) Facility (12 sources) traMADol; Translations: [TRAMADOL] Drug Allergy 2 Hives [facility] Repository (3 sources) patient allergy list reviewed by nurse or physicia Propensity to adverse reactions 6 Comment:Done [email or web address] Other (6 sources) TraMADol & Dietary Manage Prod *ANALGESICS - OPIOI Propensity to adverse reactions Unknown [email or web address] Other (3 sources) Angiotensin Converting Enzyme (Jose Alfredo) Inhibitors; Translations: [JOSE ALFREDO INHIBITORS] Propensity to adverse reactions to drug (disorder) 3 Cough [facility] Repository (1 source) No Known Medication Allergies; Translations: [No Known Medication Allergies] Propensity to adverse reactions (disorder) [facility] Repository Medications Current Medications Medication Drug Class(es) Dates Sig (Normalized) Sig (Original) acetaminophen 325 mg / HYDROcodone bitartrate 5 mg oral tablet (2 sources) Opioid Agonist Start: 05-25-2023 HYDROcodone-aceta minophen (Seneca) 5-325 MG tablet 05/25/2023 Active amiodarone hydrochloride [...] 2024 12:00am finasteride 5 mg oral tablet (18 sources) 5-alpha Reductase Inhibitor Start: 11-15-2021 take 1 tablet by mouth once daily finasteride 5 mg Tab 5 mg = 1 tab(s), Oral, Daily, # 90 tab(s), Refills(s) 3, Pharmacy: [facility]/pharmacy #[id number], 170, cm, 04/27/23 10:39:00 EDT, Height/Length Dosing, 86.5, kg, 04/27/23 10:39:00 EDT, Weight Dosing Start Date: 11/10/23 Status: Ordered furosemide 20 mg oral tablet (16 sources) [...] Active losartan potassium 25 mg oral tablet (17 sources) Angiotensin 2 Receptor David Start: 04-27-2023 losartan 25 mg Tab Refills(s) 0 Start Date: 04/27/23 Status: Ordered 24 hr metoprolol succinate 25 mg extended release oral tablet (18 sources) beta-Adrenergic David Start: 09-26-2019 take 25 mg by mouth once daily Metoprolol Succinate Active 25 MG PO Daily November 27, 2023 12:00am take 1 tablet by guilherme th every twenty-four hours in the morning metoprolol succinate XL (Toprol-XL) 25 M G 24 hr tablet Take 25 mg by [...] BY BREAKFAST Start: 03-04-2019 End: 01-14-2024 take 1 capsule by mouth once daily omeprazole 40 mg Cap-DR 40 mg = 1 cap(s), Oral, Daily Start Date: 03/04/19 Status: Ordered paxlovid (300/100) 20 x 150 mg & 10 x 100mg tablet therapy pack (1 source) Start: 08-10-2023 Paxlovid (300/ 100) 20 x 150 MG & 10 x 100MG as directed Orally bid for 5 days Aug, Active tamsulosin hydrochloride 0.4 mg oral capsule (18 sources) alpha-Adrenergi c David Start: 11-10-2023 take 0.4 mg by mouth once daily Tamsulosin Active 0.4 MG PO Daily November 27, 2023 12:00am Start: 11-15-2021 take 1 capsule by mo uth once daily Flomax 0.4 mg Cap 0.4 mg = 1 cap(s), Oral, Daily, # 90 cap(s), Refills(s) 3, Pharmacy: [facility]/pharmacy #[id number] Start Date: 11/13/22 Status: Ordered take 1 capsule by mo ut every twenty-four hours in the morning tamsulosin (Flomax) 0.4 MG 24 hr capsule Take 0.4 mg by mouth in the morning. Active testosterone cypionate 100 mg/ml injectable solution (2 sources) Androgen testosterone cyp ionate (Depo-Testosterone) 100 MG/ML injection Inject 100 mg into the shoulder, thigh, or buttocks every 14 (fourteen) days. Active testosterone cypionate 200 mg/mL IM Kayla (1 source) Start: 06-20-20 inject 150 mg by intramuscular injection every other week testosterone cypionate 200 mg/mL IM Kayla 150 mg, IntraMuscular, q2wk, # 10 mL, Refills(s) 0, Pharmacy: [facility]/pharmacy #[id number], 170, cm, 06/20/24 13:43:00 EST, Height/Length Dosing, 86, kg, 06/20/24 13:43:00 EST, Weight Dosing Start Date: 06/20/24 Status: Ordered testosterone cypionate 200 mg/mL intramuscular solution (2 sources) Start: 11-10-19 testosterone cypionate 200 mg/mL intramuscular solution 200 mg = 1 mL, IntraMuscular, q4wk, E29.1, # 10 mL, Refills(s) 3, Pharmacy: [facility]/pharmacy #[id number], 178, cm, 09/10/20 9:06:00 EST, [...] ankle] Episodic Genitourinary symptoms and ill-defined conditions (3 sources) Urge incontinence; Translations: [Urge incontinence of urine] Onset: 04-27-2023 Chronic Genitourinary symptoms and ill-defined conditions (18 sources) Delay when starting to pass urine; Translations: [Dysuria] Onset: 12-15-2018 02-10-2019 Episodic Heart valve disorders (19 sources) Non-rheumatic mitral [...] Episodic Inflammatory conditions of male genital organs (3 sources) 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 Mycoses (3 sources) Pain in toe; Translations: [Tinea unguium] Onset: 12-24-2022 05-16-2024 Episodic Osteoarthritis (20 sources) Idiopathic osteoarthritis; 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, right knee] Onset: 04-14-2013 11-30-2023 Chronic Other aftercare (1 source) Other mcfp (current) drug therapy; Translations: [OTH GROUP HOME CURRENT DRUG THERAPY] Onset: 10-15-2022 Episodic Other [...] (chronic) (peripheral)] 05-16-2024 Episodic Other endocrine disorders (9 sources) Testicular hypofunction; 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 Other endocrine disorders (3 sources) 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 Other endocrine [...] classified] 11-30-2023 Episodic Other male genital disorders (3 sources) 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 Other male genital disorders (1 source) H/O: male genital disorder; Translations: [Personal history of other diseases of male genital organs] Onset: 04-14-2022 Episodic Other male genital disorders (3 sources) History of prostatitis 09-10-2020 Episodic Other [...] [Gastroesophageal reflux disease with esophagitis without hemorrhage] Malaise and fatigue (7 sources) Other fatigue; [...] Test Name Value Interpretation Reference Range Facility Ambulatory Visit Summaryon 1 08-20-2023 Ambulatory Visit Summary Ambulatory Visit Summary YAYA DE ANDA :1935 Visit Date:06/20/2024 Ambulatory Visit Instructions Your Diagnosis 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 Your Care Team Attending Physician - Robert BAUER MD Primary Care Physician - DAVID MARX DO This Is Your Medications List finasteride (finasteride 5 mg Tab) tamsulosin (Flomax 0.4 mg Cap) testosterone (testosterone cypionate 100 mg/mL intramuscular solution) Contact prescribing physician if questions or concerns losartan (losartan 25 mg Tab) metoprolol (metoprolol 25 mg ER Tab) omeprazole (omeprazole 40 mg Cap-DR) Procedures Performed Urodynamics (01/05/2013), Cystoscopy (12/28/2012), TURP - Transurethral resection of prostate (11/01/2001), Transrectal biopsy of prostate using ultrasound (US) guidance (12/02/1999), Radical orchiectomy (1990). Discharge Vitals Temperature (Oral) 37 ???C Heart Rate (Peripheral) 72 Respiratory Rate 16 Blood Pressure 131/68 Height 170 cm Height 67 in Weight 86 kg Weight 189.597 lb BMI 29.76 What to do next Scheduled Follow-Up Appointments Thursday 10:00 AM EST With: Where: [facility] [address] [place] [address]- Thursday 9:45 AM EDT With: Robert BAUER MD Where: [facility] [address] [facility] [place] [address]- You Need to Schedule the Following Appointments Follow Up with Robert BAUER MD, URL When: Where: [facility] [place] [facility] [place] [phone] Medications What How Much When Why Instructions New testosterone (testosterone cypionate 100 mg/ mL intramuscular solution) 150 Milligram Intramuscular Every 4 weeks Hypogonadism male Refills: 3 Pickup at [facility]/pharmacy #[id number] Unchanged finasteride (finasteride 5 mg Tab) 1 Tablets By Mouth Every day [id number] Unchanged tamsulosin (Flomax 0.4 mg Cap) 1 Capsules By Mouth Every day [id number] Unchanged losartan (losartan 25 mg Tab) Contact prescribing physician if questions or concerns Unchanged metoprolol (metoprolol 25 mg ER Tab) By Mouth Every day Contact prescribing physician if questions or concerns Unchanged omeprazole (omeprazole 40 mg Cap-DR) 1 Capsules By Mouth Every day Contact prescribing physician if questions or concerns Pharmacy Information [facility]/pharmacy #[id number]: [address], [place] [id number] [phone] Allergies No Known Medication Allergies Problems Ongoing - Any problem that you are currently receiving treatment for. 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 Please share your experience with us by completing your survey. We appreciate your feedback and thank you for choosing us for your care. Education Materials Hypogonadism, Male Male hypogonadism is a condition of having a level of testosterone that is lower than normal. Testosterone is a chemical, or hormone, that is made mainly in the testicles. In boys, testosterone is responsible for the development of male characteristics during puberty. These include: ??? Making the penis bigger. ??? Growing and building the muscles. ??? Growing facial hair. ??? Deepening the voice. In adult men, testosterone is responsible for maintaining: ??? An interest in sex and the ability to have sex. ??? Muscle mass. ??? Sperm production. ??? Red blood cell production. ??? Bone strength. Testosterone also gives men energy [...] the causes? This condition is caused by: ??? A natural decrease in testosterone that occurs as a man grows older. This is the main cause of this condition. ??? Use of medicines, such as antidepressants, steroids, and opioids. ??? Diseases and conditions that affect the testicles [...] syndrome. This is a group of diseases (more content not included)... Normal [facility] Urology Office/Clinic Noteon 06-20-2024 Urology Office/Clinic Note Urology Office/Clinic Note Chief Complaint 1yr f/u HPI Staff 1 yr w/ T level. 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 *Flomax 0.4mg qd and Finasteride 5mg qd T-Level: 04/15/22 - 261 04/2023 - 256 06/13/24 - 240 Dysuria: denies Incomplete bladder emptying: unsure, feels he goes kind of frequently but small amounts Hematuria: denies Frequency: every 3hrs Urgency: sometimes Nocturia: 2x per night Stream: weak stream Leaking: denies Post void dripping: denies Wearing pads/ Depends: denies Urge incontinence: once in awhile at night Stress incontinence: denies Incontinence without Sensory Awareness: Abdominal pain: denies Flank pain: denies Sexual complaints: denies History of Present Illness Tests reviewed: reviewed UA, T level I have reviewed the previous health record information and history for this patient from Dr. Bauer. I have reviewed and verified the staff HPI to be accurate for this encounter. Review of Systems PHQ Score Initial Depression Screen Score: 0 SCORE ROS - Provider Constitutional: denies weight loss, denies hot flashes. Eyes: denies eye problems. Gastrointestinal: denies nausea, denies vomiting. Cardiovascular: denies chest pain or angina. Integumentary: no dryness Musculoskeletal: denies musculoskeletal symptoms. ENMT: denies otolaryngeal symptoms. Respiratory: no shortness of breath. Heme/Lymph: denies easy bleeding tendency, denies easy bruising tendency. Psychiatric: no confusion, no anxiety. Genitourinary: See HPI. Physical Exam Vitals & Measurements T: 37 ???C(Oral) HR: 72(Peripheral) RR: 16 BP: 131/68 HT: 67 in HT: 170 cm WT: 86 kg WT: 189.597 lb BMI: 29.76 General Appearance: alert, no distress, well nourished, well developed male. Assessment/Plan 1. 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 Previously reported no ambition and no sex drive, wished to call if he was interested in restarting T injections (had these in the past) but never called. Current T level is low. Reports low energy, has low motivation to get out of chair. Discussed Androgel vs injections. Pt wishes to retry infections. -Restart Testosterone 150mg IM injection q4wks. Rx sent to [facility]. -F/u in 4 mos w/ T level 2. BPH with obstruction/lower urinary tract symptoms (N40.1: Benign prostatic hyperplasia with lower urinary tract symptoms) S/p TURP 2001. Taking Tamsulosin 0.4 mg qd and Finasteride 5 mg qd. Weak stream. Feels he empties. Gets up 1x/night. Reports severe urgency when washing hands. Denies UUI. Does not feel urinary sxs are very bothersome. UA today negative for blood and infection. No gross hematuria, burning, or infections. -Cont Tamsulosin and Finasteride wo changes. Call for refills. Follow-up With When Contact Information ZECHARIAH WYNN, Robert Jung, URL [facility] [address] , [place] [address]- [phone] Additional Instructions: 4 mos w/ T level Patient Education Hypogonadism, Male Benign Prostatic Hyperplasia I, Erica Alamo, personally scribed for Dr. Bauer on 06/20/2024 14:48:44. . Documentation recorded by the scribe, Erica Alamo, accurately reflects the services(s) I performed and decisions made by me. Authenticated by Dr. Bauer on 06/20/2024 14:50:36. Problem List/Past Medical History Ongoing BPH with [...] Cap-DR, 40 mg= 1 cap(s), Oral, Daily Allergies No Known Medication Allergies Social History Alcohol Current. Beer. 1-2 times per month., 06/20/2024 Substance Abuse Never., 06/20/2024 Tobacco Former smoker, quit more than 30 days ago Tobacco Use:. Never Smokeless Tobacco Use:. Cigarettes, 06/20/2024 Former smoker, quit more than 30 days ago Tobacco Use:., 06/20/2024 Former smoker, quit more than 30 days ago Tobacco Use:., 09/26/2019 Family History Cancer: Mother. Immunizations Vaccine Date Status Comments influenza virus vaccine, inactivated 05/16/2024 Recorde (more content not included)... Normal [facility] Comment on above: Result Comment: Elec tronically Signed By: Robert BAUER MD\.br\Date and Time Signed: 06/20/24 14:50 EST\.br\Electronically Co-Signed By: Alamo, Erica B\.br\Date and Time Co-Signed: 06/20/24 14:49 EST Office Visiton 01-28-2024 Follow-up visit [id number] Yaya De Anda 1935 M Date Provider Department Center 01/28/2024 VJ CUELLO HENRI Cornel Mirtha Family History Family history unknown: Yes Level of Service:64358 [place] OFFICE/OUTPATIENT ESTABLISHED MOD MDM 30 MIN Normal [facility] Basophils Auto (Bld) [#/Vol] on 01-06-2024 Basophils (Bld) [#/Vol] 0.0 10 3/uL 0.0-0.1 [facility] Basophils/100 WBC Auto (Bld) on 01-06-2024 Basophils/100 WBC (Bld) 0.5 % 0.2-2.0 [facility] Cholesterol in LDL Calc [Mas s/Vol]on 01-06-2024 Cholesterol in LDL [Mass/Vol] 102.0 mg/dL [facility] Comment on above: <100 mg/dl [id number] 0-129 mg/dl NEAR OR ABOVE [id number] mg/dl BORDERLINE [id number] mg/dl HIGH>190 mg/dl VERY HIGH Cholesterol in VLDL Calc [Ma ss/Vol]on 01-06-2024 Cholesterol in VLDL [Mass/Vol] 26.0 mg/dL [facility] Eosinophils/100 WBC Auto (Bl d)on 01-06-2024 Eosinophils/100 WBC (Bld) 2.1 % 0.9-7.0 [facility] Erythrocyte distribution wid th Auto (RBC) [Ratio]on 01-06-2024 Erythrocyte distribution width (RBC) [Ratio] 13.2 % 11.0-15.0 [facility] Estimated glomerular filtrat ion rate (GFR) non- Americanon 01-06-2024 GFR/1.73 sq M.predicted among non-blacks MDRD (S/P/Bld) [Vol rate/Area] 55 mL/min/{1.73_m2} Low >=60 [facility] Globulin Calc (S) [Mass/Vol] on 01-06-2024 Globulin (S) [Mass/Vol] 3.5 g/dL [facility] Hematocrit Auto (Bld) [Volum e fraction]on 01-06-2024 Hematocrit (Bld) [Volume fraction] 43.7 % 42.0-54.0 [facility] Hemoglobin [Mass/volume] in Bloodon 01-06-2024 Hemoglobin (Bld) [Mass/Vol] 14.0 g/dL 14.0-18.0 [facility] Laboratory - Chemistry and C hemistry - challengeon 01-06-2024 Albumin [Mass/Vol] 3.7 g/dL 3.4-5.0 [facility] ALP [Catalytic activity/Vol] 59 U/L 46-116 [facility] ALT [Catalytic activity/Vol] 32 U/L 16-63 [facility] AST [Catalytic activity/Vol] 25 U/L 15-37 [facility] Bilirubin [Mass/Vol] 0.8 mg/dL 0.2-1.[address] [facility] Calcium [Mass/Vol] 9.0 mg/dL 8.5-10.1 [facility] Chloride [Moles/Vol] 105 mmol/L 98-[address] [facility] Cholesterol [Mass/Vol] 175 mg/dL <=200 [facility] Cholesterol in HDL [Mass/Vol] 47 mg/dL 40-60 [facility] Comment on above: > or =60 mg/dl - LOW CARDIOVASCULAR RISK<40 mg/dl - HIGH CARDIOVASCULAR RISK CO2 [Moles/Vol] 27.0 mmol/L 21.0-32.0 [facility] Creatinine [Mass/Vol] 1.24 mg/dL 0.70-1.30 [facility] GFR/1.73 sq M.predicted MDRD (S/P/Bld) [Vol rate/Area] mL/min/{1.73_m2} >=60 [facility] Glucose [Mass/Vol] 106 mg/dL 74-106 [facility] Potassium [Moles/Vol] 4.1 mmol/L 3.5-5.1 [facility] Protein [Mass/Vol] 7.2 g/dL 6.4-8.2 [facility] Sodium [Moles/Vol] 144 mmol/L 136-145 [facility] Triglyceride [Mass/Vol] 130 mg/dL <=150 [facility] Urea nitrogen [Mass/Vol] 35.0 mg/dL High 7.0-18.0 [facility] Urea nitrogen/Creatinine [Mass ratio] 28.2 mg/mg [facility] Laboratory - Hematology and Cell countson 01-06-2024 Immature granulocytes/100 WBC (Bld) 0.2 % 0.0-0.5 [facility] Leukocytes [#/volume] correc pam for nucleated erythrocytes in Blood by Automated counon 01-06-2024 WBC corrected for nucl RBC Auto (Bld) [#/Vol] 5.7 10 3/uL 4.0-11.0 [facility] Lymphocytes Auto (Bld) [#/Vo l]on 01-06-2024 Lymphocytes (Bld) [#/Vol] 1.7 10 3/uL 1.2-3.8 [facility] Lymphocytes/100 WBC Auto (Bl d)on 01-06-2024 Lymphocytes/100 WBC (Bld) 30.7 % 20.5-60.0 [facility] MCH Auto (RBC) [Entitic mass ]on 01-06-2024 MCH (RBC) [Entitic mass] 29.1 pg 25.9-34.0 [facility] MCHC Auto (RBC) [Mass/Vol]on 01-06-2024 MCHC (RBC) [Mass/Vol] 32.0 g/dL 29.9-35.2 [facility] MCV Auto (RBC) [Entitic vol] on 01-06-2024 MCV (RBC) [Entitic vol] 90.9 fL 80.0-94.0 [facility] Monocytes Auto (Bld) [#/Vol] on 01-06-2024 Monocytes (Bld) [#/Vol] 0.4 10 3/uL 0.3-0.8 [facility] Monocytes/100 WBC Auto (Bld) on 01-06-2024 Monocytes/100 WBC (Bld) 7.2 % 1.7-12.0 [facility] Neutrophils Auto (Bld) [#/Vo l]on 01-06-2024 Neutrophils (Bld) [#/Vol] 3.4 10 3/uL 1.4-6.5 [facility] Neutrophils/100 WBC Auto (Bl d)on 01-06-2024 Neutrophils/100 WBC (Bld) 59.3 % 43.0-75.0 [facility] No Panel Informationon 01-05 Eosinophils # (Auto) 0.1 10 3/uL 0.0-0.7 [facility] Immature Granulocyte # (Auto) 0.01 10 3/uL 0.00-0.03 [facility] Nucleated Red Blood Cells/100 WBC 0 [facility] Platelet mean volume Auto (B ld) [Entitic vol]on 01-06-2024 Platelet mean volume (Bld) [Entitic vol] 10.6 fL 9.5-13.5 [facility] Platelets Auto (Bld) [#/Vol] on 01-06-2024 Platelets (Bld) [#/Vol] 169 10 3/uL 150-450 [facility] RBC Auto (Bld) [#/Vol]on RBC (Bld) [#/Vol] 4.81 10 6/uL 4.70-6.10 [facility] Serum or plasma albumin/glob ulin mass ratioon 01-06-2024 Albumin/Globulin [Mass ratio] 1.1 {ratio} [facility] Serum or plasma anion gap de terminationon 01-06-2024 Anion gap [Moles/Vol] 16.1 mmol/L [facility] Serum or plasma total choles terol/high density lipoprotein (HDL) cholesterol mass luis enrique 01-06-2024 Cholesterol.total/Ch olesterol in HDL [Mass ratio] 3.7 {ratio} [facility] Comment on above: 3.3 - 4.4 LOW RISK4. 4 - 7.1 AVERAGE RISK7.1 - 11.0 MODERATE RISK>11.0 HIGH RISK Office Visiton 02-27-2023 Follow-up visit [id number] Yaya De Anda 1935 M Date Provider Department Center 02/27/2023 [id number] HAIR Family History Family history unknown: Yes Level of Service:46877 [place] OFFICE/OUTPATIENT ESTABLISHED LOW MDM 20-29 MIN Reason for Visit and Comments: Follow-up [183287] Normal [facility] CBC AUTO DIFFon 11-18-2022 BASO # 0.1 103/ul Normal 0.0-0.1 [facility] Comment on above: Performed By: #### D ATCBC #### [facility] [address] [address] [address] Sagrario Schilling Basophils/100 WBC (Bld) 0.8 % Normal 0.2-2.0 [facility] Comment on above: Performed By: #### D ATCBC #### [facility] [address] [place] [address] Dr. Sagrario Schilling EO # 0.1 103/ul Normal 0.0-0.7 [facility] Comment on above: Performed By: #### D ATCBC #### [facility] [address] [place] [address] Dr. Sagrario Schilling Eosinophils/100 WBC (Bld) 1.8 % Normal 0.9-7.0 [facility] Comment on above: Performed By: #### D ATCBC #### [facility] [address] [place] [address] Dr. Sagrario Schilling Erythrocyte distribution width (RBC) [Ratio] 13.2 % Normal 11.0-15.0 [facility] Comment on above: Performed By: #### D ATCBC #### [facility] [address] [place] [address] Dr. Sagrario Schilling Hematocrit (Bld) [Volume fraction] 45.2 % Normal 42.0-54.0 [facility] Comment on above: Performed By: #### D ATCBC #### [facility] [address] [place] [address] Dr. Sagrario Schilling Hemoglobin (Bld) [Mass/Vol] 14.6 g/dL Normal 14.0-18.0 [facility] Comment on above: Performed By: #### D ATCBC #### [facility] [address] [place] [address] Dr. Sagrario Schilling IG # 0.03 10e3/ul Normal 0.00-0.03 [facility] Comment on above: Performed By: #### D ATCBC #### [facility] [address] [place] [address] Dr. Sagrario Schilling IG % 0.5 % Normal 0.0-0.5 [facility] Comment on above: Performed By: #### D ATCBC #### [facility] [address] [place] [address] Dr. Sagrario Schilling LYMPH # 1.7 103/ul Normal 1.2-3.8 [facility] Comment on above: Performed By: #### D ATCBC #### [facility] [address] [place] [address] Dr. Sagrario Schilling Lymphocytes/100 WBC (Bld) 27.6 % Normal 20.5-60.0 [facility] Comment on above: Performed By: #### D ATCBC #### [facility] [address] [place] [address] Dr. Sagrario Schilling MCH (RBC) [Entitic mass] 28.9 pg Normal 25.9-34.0 [facility] Comment on above: Performed By: #### D ATCBC #### [facility] [address] [place] [address] Dr. Sagrario Schilling MCHC (RBC) [Mass/Vol] 32.3 g/dL Normal 29.9-35.2 [facility] Comment on above: Performed By: #### D ATCBC #### [facility] [address] [place] [address] Dr. Sagrario Schilling MCV (RBC) [Entitic vol] 89.5 fL Normal 80.0-94.0 [facility] Comment on above: Performed By: #### D ATCBC #### [facility] [address] [place] [address] Dr. Sagrario Schilling MONO # 0.4 103/ul Normal 0.3-0.8 [facility] Comment on above: Performed By: #### D ATCBC #### [facility] [address] [place] [address] Dr. Sagrario Schilling Monocytes/100 WBC (Bld) 7.2 % Normal 1.7-12.0 [facility] Comment on above: Performed By: #### D ATCBC #### [facility] [address] [address] [address] Sagrario Schilling NEUT # 3.7 103/ul Normal 1.4-6.5 [facility] Comment on above: Performed By: #### D ATCBC #### [facility] [address] [place] [address] Dr. Sagrario Schilling Neutrophils/100 WBC (Bld) 62.1 % Normal 43.0-75.0 [facility] Comment on above: Performed By: #### D ATCBC #### [facility] [address] [place] [address] Dr. Sagrario Schilling Platelet mean volume (Bld) [Entitic vol] 10.0 fL Normal 9.5-13.5 [facility] Comment on above: Performed By: #### D ATCBC #### [facility] [address] [place] [address] Dr. Sagrario Schilling PLT 171 103/ul Normal 150-450 [facility] Comment on above: Performed By: #### D ATCBC #### [facility] [address] [place] [address] Dr. Sagrario Schilling RBC 5.05 106/ul Normal 4.70-6.10 [facility] Comment on above: Performed By: #### D ATCBC #### [facility] [address] [place] [address] Dr. Sagrario Schilling WBC 6.0 103/ul Normal 4.0-11.0 [facility] Comment on above: Performed By: #### D ATCBC #### [facility] [address] [place] [address] Dr. Sagrario Schilling DIANE- BMP WITH LIPIDon 2022 Anion gap [Moles/Vol] 10.1 mmol/L Normal [facility] Comment on above: Performed By: #### D ATBMP #### [facility] [address] [place] [address] Dr. Sagrario Schilling Calcium [Mass/Vol] 9.0 mg/dL Normal 8.5-10.1 [facility] Comment on above: Performed By: #### D ATBMP #### [facility] [address] [address] [address] Sagrario Schilling Chloride [Moles/Vol] 106 mmol/L Normal 98-107 [facility] Comment on above: Performed By: #### D ATBMP #### [facility] [address] [address] [address] Sagrario Schilling Cholesterol [Mass/Vol] 181 mg/dL Normal <=200 [facility] Comment on above: Performed By: #### D ATBMP #### [facility] [address] [address] [address] Sagrario Schilling Cholesterol in HDL [Mass/Vol] 40 mg/dL Normal 40-60 [facility] Comment on above: Performed By: #### D ATBMP #### [facility] [address] [address] [address] Sagrario Schilling Cholesterol in LDL [Mass/Vol] 109.2 mg/dL Normal [facility] Comment on above: Performed By: #### D ATBMP #### [facility] [address] [address] [address] Sagrario Schilling CO2 [Moles/Vol] 29.1 mmol/L Normal 21.0-32.0 [facility] Comment on above: Performed By: #### D ATBMP #### [facility] [address] [address] [address] Sagrario Schilling Creatinine [Mass/Vol] 1.16 mg/dL Normal 0.70-1.30 [facility] Comment on above: Performed By: #### D ATBMP #### [facility] [address] [address] [address] Sagrario Schilling EGFR-AF BURMESE >60 Normal >=60 [facility] Comment on above: Performed By: #### D ATBMP #### [facility] [address] [address] [address] Sagrario Schilling EGFR-NON AF BURMESE =60 Normal >=60 [facility] Comment on above: Performed By: #### D ATBMP #### [facility] [address] [address] [address] Sagrario Schilling Glucose [Mass/Vol] 101 mg/dL Normal 74-106 [facility] Comment on above: Performed By: #### D ATBMP #### [facility] [address] [address] [address] Sagrario Schilling HDL NORMAL > or = 60 mg/dl - LO W CARDIOVASCULAR RISK <40 mg/dl - HIGH CARDIOVASCULAR RISK Normal [facility] Comment on above: Performed By: #### D ATBMP #### [facility] [address] [address] [address] Sagrario Schilling LDL CALC NORMAL SEE BELOW Normal [facility] Comment on above: Result Comment: <100 mg/dl OPTIMAL 100 - 129 mg/dl NEAR OR ABOVE OPTIMAL 130 - 159 mg/dl BORDERLINE HIGH 160 - 189 mg/dl HIGH >190 mg/dl VERY HIGH Performed By: #### D ATBMP #### [facility] [address] [address] [address] Sagrario Schilling Potassium [Moles/Vol] 4.2 mmol/L Normal 3.5-5.1 [facility] Comment on above: Performed By: #### D ATBMP #### [facility] [address] [address] [address] Sagrario Schilling Sodium [Moles/Vol] 141 mmol/L Normal 136-145 [facility] Comment on above: Performed By: #### D ATBMP #### [facility] [address] [address] [address] Sagrario Schilling Triglyceride [Mass/Vol] 159 mg/dL Critically high <=150 [facility] Comment on above: Performed By: #### D ATBMP #### [facility] [address] [address] [address] Sagrario Schilling Urea nitrogen [Mass/Vol] 29.0 mg/dL Critically high 7.0-18.0 [facility] Comment on above: Performed By: #### D ATBMP #### [facility] [address] [address] [address] Sagrario Schilling Urea nitrogen/Creatinine [Mass ratio] 25.0 mg/mg Normal [facility] Comment on above: Performed By: #### D ATBMP #### [facility] [address] [address] [address] Sagrario Schilling VLDL CALC 31.8 mg/dL Normal [facility] Comment on above: Performed By: #### D ATBMP #### [facility] [address] [place], [place] [address] Dr. Sagrario Schilling ECHOCARDIO M/2D COMPLETEon 0 11-18-2022 ECHOCARDIO M/2D COMPLETE Patient: YAYA DE ANDA Exam Date: 11/18/2022 : 1935 Gender:M Ordering : DR DAVID MARX D.O. Admission #: [id number] Family : Order #: [id number] CLICK HERE TO VIEW EXAM ECHOCARDIOGRAM REPORT [...] Area (VTI): 3.31 cm2, 3.31 cm2 Deceleration Martin: 0.68 m/s2 Pressure Half-Time: 1.35 s Peak [...] Espitia M.D. on 11/18/2022 at 10:21 Normal [facility] XR CHEST 2 Von 11-18-2022 XR [...] MILKA ANDERS Date: 2022-11-18 08:44 Normal [facility] HIP RT WO CONon 05-29-20 22 [...] MILKA ANDERS Date: 2022-05-29 18:20 Normal [facility] TESTOSTERONE, TOTALon 2021 Testosterone [Mass/Vol] 261 ng/dL Critically low 264-916 [facility] Comment on above: Result Comment: Adul t male reference interval is based on a population of healthy nonobese males (BMI <30) between 19 and 39 years old. fahad Hill.al. JCEM 2017,102;4039-3070. PMID: [id number]. Performed By: #### T QI #### [facility] [address] [address] [address] Sagrario Schilling BASIC METABOLIC PANELon - Calcium [Mass/Vol] 8.6 mg/dL Normal 8.6-10.3 [facility] Comment on above: Order Comment: Yes: Add to Previous draw if able Performed By: #### 5 0103 #### [facility] [address] [place] [address], [place] Chloride [Moles/Vol] 103 mmol/L Normal 98-107 [facility] Comment on above: Order Comment: Yes: Add to Previous draw if able Performed By: #### 5 0103 #### [facility] [address] [place] [address], [place] CO2 [Moles/Vol] 27 mmol/L Normal 21-31 [facility] Comment on above: Order Comment: Yes: Add to Previous draw if able Performed By: #### 5 0103 #### [facility] [address] [place] [address], [place] Creatinine [Mass/Vol] 1.23 mg/dL Normal 0.70-1.30 [facility] Comment on above: Order Comment: Yes: Add to Previous draw if able Performed By: #### 5 0103 #### [facility] [address] [place] [address], [place] GFR/1.73 sq M predicted among blacks MDRD (S/P/Bld) [Vol rate/Area] mL/min/{1.73_m2} Normal >60 [facility] Comment on above: Order Comment: Yes: Add to Previous draw if able Result Comment: Calc ulation may not be valid for patients over 70 years Performed By: #### 5 0103 #### [facility] [address] [place] [address], [facility] GFR/1.73 sq M predicted among non-blacks MDRD (S/P/Bld) [Vol rate/Area] 56 ml/min/1.73sq m Abnormal >60 [facility] Comment on above: Order Comment: Yes: Add to Previous draw if able Result Comment: Calc ulation may not be valid for patients over 70 years Performed By: #### 5 0103 #### [facility] [address] [place] [address], [facility] Glucose [Mass/Vol] 100 mg/dL Normal 70-100 [facility] Comment on above: Order Comment: Yes: Add to Previous draw if able Performed By: #### 5 0103 #### [facility] [address] [place] [address], [facility] Potassium [Moles/Vol] 4.3 mmol/L Normal 3.5-5.1 [facility] Comment on above: Order Comment: Yes: Add to Previous draw if able Performed By: #### 5 0103 #### [facility] [address] [place] [address], [facility] Sodium [Moles/Vol] 133 mmol/L Low 136-145 [facility] Comment on above: Order Comment: Yes: Add to Previous draw if able Performed By: #### 5 0103 #### [facility] [address] [place] [address], [facility] Urea nitrogen [Mass/Vol] 26 mg/dL High 7-25 [facility] Comment on above: Order Comment: Yes: Add to Previous draw if able Performed By: #### 5 0103 #### [facility] [address] [place] [address], [facility] CBC COMPLETE BLOOD COUNTon 0 - Erythrocyte distribution width (RBC) [Ratio] 14.0 % Normal 11.5-15.0 [facility] Comment on above: Order Comment: Yes: Add to Previous draw if able Performed By: #### 3 5200, 56445, 90905 #### [facility] [address] [place] [address], [facility] Hematocrit (Bld) [Volume fraction] 46.5 % Normal 39.0-50.0 [facility] Comment on above: Order Comment: Yes: Add to Previous draw if able Performed By: #### 3 5200, 56584, 20811 #### [facility] [address] [place] [address], [facility] Hemoglobin (Bld) [Mass/Vol] 14.9 g/dL Normal 13.0-17.0 [facility] Comment on above: Order Comment: Yes: Add to Previous draw if able Performed By: #### 3 5200, 36709, 26897 #### [facility] [address] [place] [address], [place] MCH (RBC) [Entitic mass] 28.9 pg Normal 27.0-33.0 [facility] Comment on above: Order Comment: Yes: Add to Previous draw if able Performed By: #### 3 5200, 06981, 17389 #### [facility] [address] [place] [address], [place] MCHC (RBC) [Mass/Vol] 32.0 g/dL Normal 32.0-35.0 [facility] Comment on above: Order Comment: Yes: Add to Previous draw if able Performed By: #### 3 5200, 68686, 84742 #### [facility] [address] [place] [address], [place] MCV (RBC) [Entitic vol] 90.1 fL Normal 82.0-98.0 [facility] Comment on above: Order Comment: Yes: Add to Previous draw if able Performed By: #### 3 5200, 28571, 14037 #### [facility] [address] [place] [address], [place] Nucleated RBC/100 WBC (Bld) [Ratio] 0 % Normal 0-0 [facility] Comment on above: Order Comment: Yes: Add to Previous draw if able Performed By: #### 3 5200, 28341, 55260 #### [facility] [address] [place] [address], [facility] PLAT CNT 149 10*3/uL Low 150-400 [facility] Comment on above: Order Comment: Yes: Add to Previous draw if able Performed By: #### 3 5200, 65660, 52675 #### [facility] [address] [place] [address], [facility] RBC (Bld) [#/Vol] 5.16 10*6/uL Normal 4.20-5.[address] [facility] Comment on above: Order Comment: Yes: Add to Previous draw if able Performed By: #### 3 5200, 98812, 88097 #### [facility] [address] [place] [address], [facility] WBC (Bld) [#/Vol] 8.05 10*3/uL Normal 4.00-10.[address] [facility] Comment on above: Order Comment: Yes: Add to Previous draw if able Performed By: #### 3 5200, 74316, 72672 #### [facility] [address] PROTHROMBIN TIMEon 9 INR Coag (PPP) [Relative time] 1.04 {INR} Normal 0.91-1.16 [facility] Comment on above: Order Comment: Yes: [...] 1995;108:231S-246S. Performed By: #### 5 0103 #### [facility] [address] PT Coag (PPP) [Time] 13.6 s Normal 12.3-14.8 [facility] Comment on above: Order Comment: Yes: Add to Previous draw if able Result Comment: ALL RESULTS MUST BE INTERPRETED WITH RESPECT TO BLOOD DRAWING ARTIFACT OR DILUTION ERROR OF ANTICOAGULANT AT THE TIME OF SAMPLING. Performed By: #### 5 0103 #### [facility] [address] [facility] BASIC METABOLIC PANELon - Calcium [Mass/Vol] 8.6 mg/dL Normal 8.6-10.3 [facility] Comment on above: Order Comment: Yes: Add to Previous draw if able Performed By: #### 3 5200, 55881, 59642 #### [facility] [address] [facility] [place] [address], [facility] Chloride [Moles/Vol] 102 mmol/L Normal 98-107 [facility] Comment on above: Order Comment: Yes: Add to Previous draw if able Performed By: #### 3 5200, 51391, 21683 #### [facility] [address] [facility] [place] [address], [facility] CO2 [Moles/Vol] 24 mmol/L Normal 21-31 [facility] Comment on above: Order Comment: Yes: Add to Previous draw if able Performed By: #### 3 5200, 76844, 54257 #### [facility] [address] [place] [address], [place] Creatinine [Mass/Vol] 1.28 mg/dL Normal 0.70-1.30 [facility] Comment on above: Order Comment: Yes: Add to Previous draw if able Performed By: #### 3 5200, 29220, 76989 #### [facility] [address] [place] [address], [place] GFR/1.73 sq M predicted among blacks MDRD (S/P/Bld) [Vol rate/Area] mL/min/{1.73_m2} Normal >60 [facility] Comment on above: Order Comment: Yes: Add to Previous draw if able Result Comment: Calc ulation may not be valid for patients over 70 years Performed By: #### 3 5200, 38369, 06796 #### [facility] [address] [place] [address], [place] GFR/1.73 sq M predicted among non-blacks MDRD (S/P/Bld) [Vol rate/Area] 54 ml/min/1.73sq m Abnormal >60 [facility] Comment on above: Order Comment: Yes: Add to Previous draw if able Result Comment: Calc ulation may not be valid for patients over 70 years Performed By: #### 3 5200, 02132, 78337 #### [facility] [address] [place] [address], [place] Glucose [Mass/Vol] 90 mg/dL Normal 70-100 [facility] Comment on above: Order Comment: Yes: Add to Previous draw if able Performed By: #### 3 5200, 36607, 50113 #### [facility] [address] [place] [address], [place] Potassium [Moles/Vol] 4.1 mmol/L Normal 3.5-5.1 [facility] Comment on above: Order Comment: Yes: Add to Previous draw if able Performed By: #### 3 5200, 92797, 75112 #### [facility] [address] [place] [address], [place] Sodium [Moles/Vol] 135 mmol/L Low 136-145 [facility] Comment on above: Order Comment: Yes: Add to Previous draw if able Performed By: #### 3 5200, 76362, 00735 #### [facility] [address] [place] [address], [facility] Urea nitrogen [Mass/Vol] 31 mg/dL High 7-25 [facility] Comment on above: Order Comment: Yes: Add to Previous draw if able Performed By: #### 3 5200, 97439, 69158 #### [facility] [address] [place] [address], [facility] CBC COMPLETE BLOOD COUNTon - Erythrocyte distribution width (RBC) [Ratio] 14.1 % Normal 11.5-15.0 [facility] Comment on above: Order Comment: Yes: Add to Previous draw if able Performed By: #### 3 5200, 26416, 67370 #### [facility] [address] [place] [address], [facility] Hematocrit (Bld) [Volume fraction] 48.7 % Normal 39.0-50.0 [facility] Comment on above: Order Comment: Yes: Add to Previous draw if able Performed By: #### 3 5200, 55081, 93052 #### [facility] [address] [place] [address], [place] Hemoglobin (Bld) [Mass/Vol] 15.3 g/dL Normal 13.0-17.0 [facility] Comment on above: Order Comment: Yes: Add to Previous draw if able Performed By: #### 3 5200, 48797, 50247 #### [facility] [address] [place] [address], [place] MCH (RBC) [Entitic mass] 29.1 pg Normal 27.0-33.0 [facility] Comment on above: Order Comment: Yes: Add to Previous draw if able Performed By: #### 3 5200, 87713, 40774 #### [facility] [address] [place] [id number], [facility] MCHC (RBC) [Mass/Vol] 31.4 g/dL Low 32.0-35.0 [facility] Comment on above: Order Comment: Yes: Add to Previous draw if able Performed By: #### 3 5200, 78065, 99648 #### [facility] [address] [place] [address], [place] MCV (RBC) [Entitic vol] 92.6 fL Normal 82.0-98.0 [facility] Comment on above: Order Comment: Yes: Add to Previous draw if able Performed By: #### 3 5200, 77859, 18839 #### [facility] [address] [place] [address], [place] Nucleated RBC/100 WBC (Bld) [Ratio] 0 % Normal 0-0 [facility] Comment on above: Order Comment: Yes: Add to Previous draw if able Performed By: #### 3 5200, 64852, 21699 #### [facility] [address] [place] [address], [place] PLAT CNT 160 10*3/uL Normal 150-400 [facility] Comment on above: Order Comment: Yes: Add to Previous draw if able Performed By: #### 3 5200, 64954, 01486 #### [facility] [address] [place] [address], [place] RBC (Bld) [#/Vol] 5.26 10*6/uL Normal 4.20-5.[address] [facility] Comment on above: Order Comment: Yes: Add to Previous draw if able Performed By: #### 3 5200, 85643, 87472 #### [facility] [address] [place] [address], [place] WBC (Bld) [#/Vol] 7.34 10*3/uL Normal 4.00-10.[address] [facility] Comment on above: Order Comment: Yes: Add to Previous draw if able Performed By: #### 3 5200, 95326, 21882 #### [facility] [address] [place] [address], [facility] MAGNESIUM BLOODon 01-18-2019 Magnesium [Mass/Vol] 2.1 mg/dL Normal 1.9-2.7 [facility] Comment on above: Order Comment: Yes: Add to Previous draw if able Performed By: #### 3 5200, 07044, 32725 #### [facility] [address] [place] [address], [facility] PHOSPHORUS BLOODon 9 Phosphate [Mass/Vol] 2.6 mg/dL Normal 2.5-5.0 [facility] Comment on above: Order Comment: Yes: Add to Previous draw if able Performed By: #### 3 5200, 97220, 20593 #### [facility] [address] PROTHROMBIN TIMEon 9 INR Coag (PPP) [Relative time] 1.05 {INR} Normal 0.91-1.16 [facility] Comment on above: Order Comment: Yes: [...] CHEST 1995;108:231S-246S. Performed By: #### 3 5200, 19046, 95568 #### [facility] [address] [place] [address], [facility] PT Coag (PPP) [Time] 13.7 s Normal 12.3-14.8 [facility] Comment on above: Order Comment: Yes: Add to Previous draw if able Result Comment: ALL RESULTS MUST BE INTERPRETED WITH RESPECT TO BLOOD DRAWING ARTIFACT OR DILUTION ERROR OF ANTICOAGULANT AT THE TIME OF SAMPLING. Performed By: #### 3 5200, 22647, 86378 #### [facility] [address] [place] [address], [facility] BASIC METABOLIC PANELon 01-01 Calcium [Mass/Vol] 8.2 mg/dL Low 8.6-10.3 [facility] Comment on above: Order Comment: Yes: Add to Previous draw if able Performed By: #### 3 0, 69956, 02103 #### [facility] [address] [place] [address], [place] Chloride [Moles/Vol] 100 mmol/L Normal 98-107 [facility] Comment on above: Order Comment: Yes: Add to Previous draw if able Performed By: #### 3 5200, 13345, 31794 #### [facility] [address] [place] [address], [place] CO2 [Moles/Vol] 26 mmol/L Normal 21-31 [facility] Comment on above: Order Comment: Yes: Add to Previous draw if able Performed By: #### 3 5200, 54021, 80268 #### [facility] [address] [place] [address], [place] Creatinine [Mass/Vol] 1.53 mg/dL High 0.70-1.30 [facility] Comment on above: Order Comment: Yes: Add to Previous draw if able Performed By: #### 3 5200, 32952, 23756 #### [facility] [address] [place] [address], [place] GFR/1.73 sq M predicted among blacks MDRD (S/P/Bld) [Vol rate/Area] 53 ml/min/1.73sq m Abnormal >60 [facility] Comment on above: Order Comment: Yes: Add to Previous draw if able Result Comment: Calc ulation may not be valid for patients over 70 years Performed By: #### 3 5200, 43843, 36410 #### [facility] [address] [place] [address], [place] GFR/1.73 sq M predicted among non-blacks MDRD (S/P/Bld) [Vol rate/Area] 44 ml/min/1.73sq m Abnormal >60 [facility] Comment on above: Order Comment: Yes: Add to Previous draw if able Result Comment: Calc ulation may not be valid for patients over 70 years Performed By: #### 3 5200, 13019, 56907 #### [facility] [address] [place] [address], [place] Glucose [Mass/Vol] 95 mg/dL Normal 70-100 [facility] Comment on above: Order Comment: Yes: Add to Previous draw if able Performed By: #### 3 5200, 72083, 51992 #### [facility] [address] [place] [address], [place] Potassium [Moles/Vol] 3.7 mmol/L Normal 3.5-5.1 [facility] Comment on above: Order Comment: Yes: Add to Previous draw if able Performed By: #### 3 5200, 92181, 78444 #### [facility] [address] [place] [address], [place] Sodium [Moles/Vol] 135 mmol/L Low 136-145 [facility] Comment on above: Order Comment: Yes: Add to Previous draw if able Performed By: #### 3 5200, 58284, 38893 #### [facility] [address] [place] [address], [facility] Urea nitrogen [Mass/Vol] 41 mg/dL High 7-25 [facility] Comment on above: Order Comment: Yes: Add to Previous draw if able Performed By: #### 3 5200, [address]6401, 34296 #### [facility] [address] [place] [address], [facility] CBC COMPLETE BLOOD COUNTon 0 - Erythrocyte distribution width (RBC) [Ratio] 14.3 % Normal 11.5-15.0 [facility] Comment on above: Order Comment: Yes: Add to Previous draw if able Performed By: #### 3 5200, 04066, 42812 #### [facility] [address] [place] [address], [facility] Hematocrit (Bld) [Volume fraction] 47.8 % Normal 39.0-50.0 [facility] Comment on above: Order Comment: Yes: Add to Previous draw if able Performed By: #### 3 5200, 19010, 38507 #### [facility] [address] [place] [address], [place] Hemoglobin (Bld) [Mass/Vol] 15.5 g/dL Normal 13.0-17.0 [facility] Comment on above: Order Comment: Yes: Add to Previous draw if able Performed By: #### 3 5200, 67232, 08743 #### [facility] [address] [place] [address], [place] MCH (RBC) [Entitic mass] 29.1 pg Normal 27.0-33.0 [facility] Comment on above: Order Comment: Yes: Add to Previous draw if able Performed By: #### 3 5200, 43147, 67342 #### [facility] [address] MCHC (RBC) [Mass/Vol] 32.4 g/dL Normal 32.0-35.0 [facility] Comment on above: Order Comment: Yes: Add to Previous draw if able Performed By: #### 3 5200, 06098, 69361 #### [facility] [address] [place] [address], [facility] MCV (RBC) [Entitic vol] 89.8 fL Normal 82.0-98.0 [facility] Comment on above: Order Comment: Yes: Add to Previous draw if able Performed By: #### 3 5200, 28112, 85920 #### [facility] [address] [facility]. [address] Nucleated RBC/100 WBC (Bld) [Ratio] 0 % Normal 0-0 [facility] Comment on above: Order Comment: Yes: Add to Previous draw if able Performed By: #### 3 5200, 84658, 58461 #### [facility] [address] [facility] [place] [address], [facility] PLAT CNT 153 10*3/uL Normal 150-400 [facility] Comment on above: Order Comment: Yes: Add to Previous draw if able Performed By: #### 3 5200, 99417, 99175 #### [facility] [address] [facility] [place] [address], [facility] RBC (Bld) [#/Vol] 5.32 10*6/uL Normal 4.20-5.[address] [facility] Comment on above: Order Comment: Yes: Add to Previous draw if able Performed By: #### 3 5200, 66237, 53960 #### [facility] [address] [place] [address], [facility] WBC (Bld) [#/Vol] 6.80 10*3/uL Normal 4.00-10.[address] [facility] Comment on above: Order Comment: Yes: Add to Previous draw if able Performed By: #### 3 5200, 80380, 36954 #### [facility] [address] [place] [address], [facility] Cardiovascular Lab Reporton 01-17-2019 Cardiovascular Lab Report [facility] Patient Name: Yaya De Anda [facility] MR #: [id number] Physician: Beto Duff, Department of M.D. Medicine Service Date: 01/17/2019 Division of Birthdate: 1935 Cardiology Room #: 3AB [id number] Adult Cardiovascular Services [facility] [address] [place], [place] [address] Cardiovascular Laboratory Report CLINICAL PRESENTATION: The patient [...] micropuncture access technique and ultrasound guidance. A 6-Italian sheath was placed in the right internal [...] artery was anesthetized with 1% lidocaine. A 6-Italian Terumo Glidesheath slender was placed in the right radial artery. A 100 mcg nitroglycerin was administered through the sheath to prevent radial artery spasm. A Carvajal wire was advanced and a 5-Italian Eugene catheter were advanced to the descending aorta. The 5-Italian Eugene catheter was used to engage the left [...] P Beto Duff M.D. Date Dict: 01/17/2019/09:46 Nova Duff M.D. Date Trans: 01/17/2019 11:54 Adry/catarino [id number] cc: David Marx D.O. [address] [place] [address] A [facility] [address] Adithya Schmidt M.D. [address], [facility] [address] Normal [facility] MAGNESIUM BLOODon 01-17-2019 Magnesium [Mass/Vol] 1.9 mg/dL Normal 1.9-2.7 [facility] Comment on above: Order Comment: Yes: Add to Previous draw if able Performed By: #### 3 5200, 05661, 90479 #### [facility] [address] PROTHROMBIN TIMEon 9 INR Coag (PPP) [Relative time] 1.06 {INR} Normal 0.91-1.16 [facility] Comment on above: Order Comment: Yes: [...] CHEST 1995;108:231S-246S. Performed By: #### 3 5200, 76341, 08051 #### [facility] [address] [place] [address], [facility] PT Coag (PPP) [Time] 13.8 s Normal 12.3-14.8 [facility] Comment on above: Order Comment: Yes: Add to Previous draw if able Result Comment: ALL RESULTS MUST BE INTERPRETED WITH RESPECT TO BLOOD DRAWING ARTIFACT OR DILUTION ERROR OF ANTICOAGULANT AT THE TIME OF SAMPLING. Performed By: #### 3 5200, 77922, 72943 #### [facility] [address] UFH HEPARIN ASSAYon 01-18-20 19 UNFRACTIONATED HEPARIN 0.29 IU/mL Low 0.30-0.70 [facility] Comment on above: Result Comment: [place] roxaban and Apixaban will interfere with the anti Xa assay used to monitor UFH and LMWH. Performed By: #### 3 5200, 13870, 80972 #### [facility] [address] BASIC METABOLIC PANELon 01-01 Calcium [Mass/Vol] 8.4 mg/dL Low 8.6-10.3 [facility] Comment on above: Order Comment: Yes: Add to Previous draw if able Performed By: #### 3 5200, 84722, 46251 #### [facility] [address] [place] [address], [facility] Chloride [Moles/Vol] 98 mmol/L Normal 98-107 [facility] Comment on above: Order Comment: Yes: Add to Previous draw if able Performed By: #### 3 5200, 39130, 73501 #### [facility] [address] [place] [address], [facility] CO2 [Moles/Vol] 27 mmol/L Normal 21-31 [facility] Comment on above: Order Comment: Yes: Add to Previous draw if able Performed By: #### 3 5200, 51306, 36028 #### [facility] [address] [place] [address], [place] Creatinine [Mass/Vol] 1.60 mg/dL High 0.70-1.30 [facility] Comment on above: Order Comment: Yes: Add to Previous draw if able Performed By: #### 3 5200, 13323, 08946 #### [facility] [address] [place] [address], [place] GFR/1.73 sq M predicted among blacks MDRD (S/P/Bld) [Vol rate/Area] 50 ml/min/1.73sq m Abnormal >60 [facility] Comment on above: Order Comment: Yes: Add to Previous draw if able Result Comment: Calc ulation may not be valid for patients over 70 years Performed By: #### 3 0, 18627, 88688 #### [facility] [address] [place] [address], [place] GFR/1.73 sq M predicted among non-blacks MDRD (S/P/Bld) [Vol rate/Area] 42 ml/min/1.73sq m Abnormal >60 [facility] Comment on above: Order Comment: Yes: Add to Previous draw if able Result Comment: Calc ulation may not be valid for patients over 70 years Performed By: #### 3 0, 68409, 33416 #### [facility] [address] [place] [address], [place] Glucose [Mass/Vol] 107 mg/dL High 70-100 [facility] Comment on above: Order Comment: Yes: Add to Previous draw if able Performed By: #### 3 5200, 01859, 48874 #### [facility] [address] [place] [address], [place] Potassium [Moles/Vol] 3.4 mmol/L Low 3.5-5.1 [facility] Comment on above: Order Comment: Yes: Add to Previous draw if able Performed By: #### 3 5200, 43552, 23649 #### [facility] [address] [place] [address], [place] Sodium [Moles/Vol] 135 mmol/L Low 136-145 [facility] Comment on above: Order Comment: Yes: Add to Previous draw if able Performed By: #### 3 5200, 40114, 88918 #### [facility] [address] [place] [address], [place] Urea nitrogen [Mass/Vol] 39 mg/dL High 7-25 [facility] Comment on above: Order Comment: Yes: Add to Previous draw if able Performed By: #### 3 5200, 11262, 60925 #### [facility] [address] [place] [address], [place] CBC COMPLETE BLOOD COUNTon 0 - Erythrocyte distribution width (RBC) [Ratio] 14.3 % Normal 11.5-15.0 [facility] Comment on above: Order Comment: Yes: Add to Previous draw if able Performed By: #### 3 5200, 35609, 79640 #### [facility] [address] [place] [address], [place] Hematocrit (Bld) [Volume fraction] 50.8 % High 39.0-50.0 [facility] Comment on above: Order Comment: Yes: Add to Previous draw if able Performed By: #### 3 5200, 63000, 04850 #### [facility] [address] [place] [address], [place] Hemoglobin (Bld) [Mass/Vol] 16.2 g/dL Normal 13.0-17.0 [facility] Comment on above: Order Comment: Yes: Add to Previous draw if able Performed By: #### 3 5200, 92625, 06978 #### [facility] [address] [place] [address], [place] MCH (RBC) [Entitic mass] 28.9 pg Normal 27.0-33.0 [facility] Comment on above: Order Comment: Yes: Add to Previous draw if able Performed By: #### 3 5200, 77649, 50659 #### [facility] [address] [place] [id number], [facility] MCHC (RBC) [Mass/Vol] 31.9 g/dL Low 32.0-35.0 [facility] Comment on above: Order Comment: Yes: Add to Previous draw if able Performed By: #### 3 5200, 29072, 28310 #### [facility] [address] [place] [address], [facility] MCV (RBC) [Entitic vol] 90.6 fL Normal 82.0-98.0 [facility] Comment on above: Order Comment: Yes: Add to Previous draw if able Performed By: #### 3 5200, 55942, 05300 #### [facility] [address] [place] [address], [facility] Nucleated RBC/100 WBC (Bld) [Ratio] 0 % Normal 0-0 [facility] Comment on above: Order Comment: Yes: Add to Previous draw if able Performed By: #### 3 5200, 64753, 16540 #### [facility] [address] [place] [address], [place] PLAT CNT 179 10*3/uL Normal 150-400 [facility] Comment on above: Order Comment: Yes: Add to Previous draw if able Performed By: #### 3 5200, 65910, 51401 #### [facility] [address] [place] [id number], [facility] RBC (Bld) [#/Vol] 5.61 10*6/uL Normal 4.20-5.[address] [facility] Comment on above: Order Comment: Yes: Add to Previous draw if able Performed By: #### 3 5200, 19661, 72949 #### [facility] [address] [facility]. [address] WBC (Bld) [#/Vol] 7.83 10*3/uL Normal 4.00-10.60 [facility] Comment on above: Order Comment: Yes: Add to Previous draw if able Performed By: #### 3 5200, 54097, 26830 #### [facility] [address] [facility] [address] PROTHROMBIN TIMEon 9 INR Coag (PPP) [Relative time] 1.05 {INR} Normal 0.91-1.16 [facility] Comment on above: Result Comment: ACCC [...] CHEST 1995;108:231S-246S. Performed By: #### 3 5200, 99366, 60945 #### [facility] [address] [facility] [place] [address], [facility] PT Coag (PPP) [Time] 13.7 s Normal 12.3-14.8 [facility] Comment on above: Result Comment: ALL RESULTS MUST BE INTERPRETED WITH RESPECT TO BLOOD DRAWING ARTIFACT OR DILUTION ERROR OF ANTICOAGULANT AT THE TIME OF SAMPLING. Performed By: #### 3 5200, 90873, 92236 #### [facility] [address] [place] [address], [facility] UFH HEPARIN ASSAYon 01-17-20 UNFRACTIONATED HEPARIN 0.54 IU/mL Normal 0.30-0.70 [facility] Comment on above: Result Comment: [place] roxaban and Apixaban will interfere with the anti Xa assay used to monitor UFH and LMWH. Performed By: #### 3 5200, 15210, 77887 #### [facility] [address] [place] [address], [facility] UNFRACTIONATED HEPARIN 0.49 IU/mL Normal 0.30-0.70 [facility] Comment on above: Result Comment: [place] roxaban and Apixaban will interfere with the anti Xa assay used to monitor UFH and LMWH. Performed By: #### 3 5200, , 37183 #### [facility] [address] [place] [address], [facility] APTTon 01-15-2019 aPTT Coag (Bld) [Time] s Critically high 25.0-35.0 [facility] Comment on above: Order Comment: Yes: [...] = 1.16 Performed By: #### 3 5200, 43190, 35502 #### [facility] [address] [place] [address], [facility] aPTT Coag (Bld) [Time] 65.5 s High 25.0-35.0 [facility] Comment on above: Order Comment: Yes: [...] THIS PURPOSE. Performed By: #### 3 5200, 56152, 97948 #### [facility] [address] BNP (B-TYPE NATRIURETIC PEPT JOSE)on 01-15-2019 Natriuretic peptide B (Bld) [Mass/Vol] 682 pg/mL High 0-100 [facility] Comment on above: Order Comment: Yes: Add to Previous draw if able Result Comment: Give n the appropriate clinical setting a BNP result of >100 pg/mL indicates congestive heart failure. Performed By: #### 8 5123 #### [facility] [address] CBC W/DIFFon 01-15-2019 ABS BASOPHILS 0.1 10*3/uL Normal 0.0-0.2 [facility] Comment on above: Order Comment: Yes: Add to Previous draw if able Performed By: #### 5 0103 #### [facility] [address] ABS IMM GRANS 0.1 10*3/uL Normal 0.0-0.2 [facility] Comment on above: Order Comment: Yes: Add to Previous draw if able Performed By: #### 5 0103 #### [facility] [address] ABS NEUTROPHILS 8.5 10*3/uL High 1.6-7.[address] [facility] Comment on above: Order Comment: Yes: Add to Previous draw if able Performed By: #### 5 0103 #### [facility] [address] [place] [address], [facility] Basophils/100 WBC (Bld) 0.4 % Normal 0.0-1.0 [facility] Comment on above: Order Comment: Yes: Add to Previous draw if able Performed By: #### 5 0103 #### [facility] [address] [place] [id number], [facility] Eosinophils (Bld) [#/Vol] 0.1 10*3/uL Normal 0.0-0.5 [facility] Comment on above: Order Comment: Yes: Add to Previous draw if able Performed By: #### 3 #### [facility] [address] [place] [address], [facility] Eosinophils/100 WBC (Bld) 0.7 % Normal 0.0-6.0 [facility] Comment on above: Order Comment: Yes: Add to Previous draw if able Performed By: #### 3 #### [facility] [address] [place] [address], [facility] Erythrocyte distribution width (RBC) [Ratio] 14.4 % Normal 11.5-15.0 [facility] Comment on above: Order Comment: Yes: Add to Previous draw if able Performed By: #### 5 3 #### [facility] [address] [place] [address], [facility] Hematocrit (Bld) [Volume fraction] 53.0 % High 39.0-50.0 [facility] Comment on above: Order Comment: Yes: Add to Previous draw if able Performed By: #### 0103 #### [facility] [address] [place] [id number], [facility] Hemoglobin (Bld) [Mass/Vol] 16.8 g/dL Normal 13.0-17.0 [facility] Comment on above: Order Comment: Yes: Add to Previous draw if able Performed By: #### 3 #### [facility] [address] IMMATURE GRANS 0.4 % Normal 0.0-1.0 [facility] Comment on above: Order Comment: Yes: Add to Previous draw if able Performed By: #### 5 0103 #### [facility] [address] [place] [address], [facility] Lymphocytes (Bld) [#/Vol] 1.7 10*3/uL Normal 1.2-4.0 [facility] Comment on above: Order Comment: Yes: Add to Previous draw if able Performed By: #### 5 0103 #### [facility] [address] [place] [address], [facility] Lymphocytes/100 WBC (Bld) 14.8 % Low 20.0-45.0 [facility] Comment on above: Order Comment: Yes: Add to Previous draw if able Performed By: #### 5 3 #### [facility] [address] [place] [address], [facility] MCH (RBC) [Entitic mass] 29.0 pg Normal 27.0-33.0 [facility] Comment on above: Order Comment: Yes: Add to Previous draw if able Performed By: #### 5 0103 #### [facility] [address] [place] [address], [facility] MCHC (RBC) [Mass/Vol] 31.7 g/dL Low 32.0-35.0 [facility] Comment on above: Order Comment: Yes: Add to Previous draw if able Performed By: #### 5 0103 #### [facility] [address] [place] [address], [facility] MCV (RBC) [Entitic vol] 91.5 fL Normal 82.0-98.0 [facility] Comment on above: Order Comment: Yes: Add to Previous draw if able Performed By: #### 5 3 #### [facility] [address] [place] [address], [facility] Monocytes (Bld) [#/Vol] 0.9 10*3/uL Normal 0.1-1.0 [facility] Comment on above: Order Comment: Yes: Add to Previous draw if able Performed By: #### 5 0103 #### [facility] [address] [place] [address], [place] MONOS 7.8 % Normal 5.0-12.0 [facility] Comment on above: Order Comment: Yes: Add to Previous draw if able Performed By: #### 5 0103 #### [facility] [address] [place] [address], [place] Neutrophils/100 WBC (Bld) 75.9 % High 40.0-72.0 [facility] Comment on above: Order Comment: Yes: Add to Previous draw if able Performed By: #### 5 0103 #### [facility] [address] [place] [address], [facility] Nucleated RBC/100 WBC (Bld) [Ratio] 0 % Normal 0-0 [facility] Comment on above: Order Comment: Yes: Add to Previous draw if able Performed By: #### 5 0103 #### [facility] [address] [place] [address], [place] PLAT CNT 187 10*3/uL Normal 150-400 [facility] Comment on above: Order Comment: Yes: Add to Previous draw if able Performed By: #### 5 0103 #### [facility] [address] [place] [address], [place] RBC (Bld) [#/Vol] 5.79 10*6/uL High 4.20-5.[address] [facility] Comment on above: Order Comment: Yes: Add to Previous draw if able Performed By: #### 5 0103 #### [facility] [address] [place] [address], [place] WBC (Bld) [#/Vol] 11.18 10*3/uL High 4.00-10.60 [facility] Comment on above: Order Comment: Yes: Add to Previous draw if able Performed By: #### 5 0103 #### [facility] [address] [place] [address], [place] COMP METABOLIC PANELon 01-15 Albumin [Mass/Vol] 4.2 g/dL Normal 3.5-5.7 [facility] Comment on above: Order Comment: Yes: Add to Previous draw if able Performed By: #### 3 5200, 50031, 64072 #### [facility] [address] [address], [place] ALKALINE PHOSPH 38 IU/L Normal 34-104 [facility] Comment on above: Order Comment: Yes: Add to Previous draw if able Performed By: #### 3 5200, 53377, 40142 #### [facility] [address] [place] [address], [place] ALT [Catalytic activity/Vol] 19 U/L Normal 7-52 [facility] Comment on above: Order Comment: Yes: Add to Previous draw if able Performed By: #### 3 5200, 80234, 49043 #### [facility] [address] [place] [address], [place] AST [Catalytic activity/Vol] 20 U/L Normal 13-39 [facility] Comment on above: Order Comment: Yes: Add to Previous draw if able Performed By: #### 3 5200, 98885, 39255 #### [facility] [address] [address], [place] Bilirubin [Mass/Vol] 0.9 mg/dL Normal 0.3-1.0 [facility] Comment on above: Order Comment: Yes: Add to Previous draw if able Performed By: #### 3 5200, 62115, 17489 #### [facility] [address] [place] [address], [place] Calcium [Mass/Vol] 9.2 mg/dL Normal 8.6-10.3 [facility] [place] [facility] Comment on above: Order Comment: Yes: Add to Previous draw if able Performed By: #### 3 5200, 82909, 17845 #### [facility] [address] [place] [address], [place] Chloride [Moles/Vol] 99 mmol/L Normal 98-107 [facility] Comment on above: Order Comment: Yes: Add to Previous draw if able Performed By: #### 3 5200, 34467, 70337 #### [facility] [address] [place] [address], [place] CO2 [Moles/Vol] 24 mmol/L Normal 21-31 [facility] Comment on above: Order Comment: Yes: Add to Previous draw if able Performed By: #### 3 5200, 51481, 59617 #### [facility] [address] [place] [address], [place] Creatinine [Mass/Vol] 1.37 mg/dL High 0.70-1.30 [facility] Comment on above: Order Comment: Yes: Add to Previous draw if able Performed By: #### 3 5200, 06246, 68279 #### [facility] [address] [place] [address], [place] GFR/1.73 sq M predicted among blacks MDRD (S/P/Bld) [Vol rate/Area] 60 ml/min/1.73sq m Abnormal >60 [facility] Comment on above: Order Comment: Yes: Add to Previous draw if able Result Comment: Calc ulation may not be valid for patients over 70 years Performed By: #### 3 5200, 83114, 14956 #### [facility] [address] [place] [address], [place] GFR/1.73 sq M predicted among non-blacks MDRD (S/P/Bld) [Vol rate/Area] 50 ml/min/1.73sq m Abnormal >60 [facility] Comment on above: Order Comment: Yes: Add to Previous draw if able Result Comment: Calc ulation may not be valid for patients over 70 years Performed By: #### 3 5200, 37416, 59514 #### [facility] [address] [address], [place] Glucose [Mass/Vol] 107 mg/dL High 70-100 [facility] Comment on above: Order Comment: Yes: Add to Previous draw if able Performed By: #### 3 5200, 23481, 57957 #### [facility] [address] [place] [address], [place] Potassium [Moles/Vol] 3.8 mmol/L Normal 3.5-5.1 [facility] Comment on above: Order Comment: Yes: Add to Previous draw if able Performed By: #### 3 5200, 65565, 27665 #### [facility] [address] [place] [address], [place] Protein [Mass/Vol] 7.4 g/dL Normal 6.0-8.3 [facility] Comment on above: Order Comment: Yes: Add to Previous draw if able Performed By: #### 3 5200, 02902, 87405 #### [facility] [address] [address], [place] Sodium [Moles/Vol] 135 mmol/L Low 136-145 [facility] Comment on above: Order Comment: Yes: Add to Previous draw if able Performed By: #### 3 5200, 82676, 07953 #### [facility] [address] [place] [address], [place] Urea nitrogen [Mass/Vol] 30 mg/dL High 7-25 [facility] Comment on above: Order Comment: Yes: Add to Previous draw if able Performed By: #### 3 5200, 79829, 64714 #### [facility] [address] [address], [place] CPKon 01-15-2019 CK [Catalytic activity/Vol] 67 U/L Normal 30-223 [facility] Comment on above: Performed By: #### 3 5200, 69264 #### [facility] [address] [place] [address], [facility] MAGNESIUM BLOODon 01-15-2019 Magnesium [Mass/Vol] 1.9 mg/dL Normal 1.9-2.7 [facility] Comment on above: Order Comment: Yes: Add to Previous draw if able Performed By: #### 3 5200, [id number], [id number] #### [facility] [address] [place] [address], [facility] PROTHROMBIN TIMEon 9 INR Coag (PPP) [Relative time] 1.04 {INR} Normal 0.91-1.16 [facility] Comment on above: Order Comment: if [...] CHEST 1995;[id number]. Performed By: #### 5 6101, 82701, 04707 #### [facility] [address] [place] [address], [facility] PT Coag (PPP) [Time] 13.6 s Normal 12.3-14.8 [facility] Comment on above: Order Comment: if no t already done No: Do not add to previous draw Result Comment: ALL RESULTS MUST BE INTERPRETED WITH RESPECT TO BLOOD DRAWING ARTIFACT OR DILUTION ERROR OF ANTICOAGULANT AT THE TIME OF SAMPLING. Performed By: #### 5 6101, 29073, [id number] #### [facility] [address] TROPONIN-Ion 01-15-2019 Troponin I.cardiac [Mass/Vol] 0.05 ng/mL High 0.00-0.04 [facility] Comment on above: Order Comment: No: D o not add to previous draw Result Comment: REFE RENCE RANGES: 0.00 - 0.04 ng/ml NORMAL 0.05 - 0.50 ng/ml INDETERMINATE > 0.50 ng/ml CONSISTENT WITH AN M.I. Performed By: #### 3 5200, [id number] #### [facility] [address] Troponin I.cardiac [Mass/Vol] 0.05 ng/mL High 0.00-0.04 [facility] Comment on above: Order Comment: Yes: Add to Previous draw if able Result Comment: REFE RENCE RANGES: 0.00 - 0.04 ng/ml NORMAL 0.05 - 0.50 ng/ml INDETERMINATE > 0.50 ng/ml CONSISTENT WITH AN M.I. Performed By: #### 3 5200, 05227, 86038 #### [facility] [address] UFH HEPARIN ASSAYon 01-16-20 19 UNFRACTIONATED HEPARIN >1.00 Critically high 0.30-0.70 [facility] Comment on above: Result Comment: Angy roxaban and Apixaban will interfere with the anti Xa assay used to monitor UFH and LMWH. RESULTS CHECKED AND CALLED. ACCURATELY READ BACK BY TAWNYA MOSQUEDA,RN AT 21:44 SPECIMEN DRAWN FROM ARM NOT CONTAINING IV LINE PER TAWNYA MOSQUEDA RN. Performed By: #### 3 5200, 10585, [id number] #### [facility] [address] [place] [address], [facility] UNFRACTIONATED HEPARIN 0.79 IU/mL High 0.30-0.70 [facility] Comment on above: Result Comment: [place] roxaban and Apixaban will interfere with the anti Xa assay used to monitor UFH and LMWH. Performed By: #### 3 5200, 27551, 09954 #### [facility] [address] [place] [address], [facility] UNFRACTIONATED HEPARIN 0.35 IU/mL Normal 0.30-0.70 [facility] Comment on above: Result Comment: [place] roxaban and Apixaban will interfere with the anti Xa assay used to monitor UFH and LMWH. Performed By: #### 5 6101, 21610, 92241 #### [facility] [address] [place] [address], [facility] UNFRACTIONATED HEPARIN 0.15 IU/mL Critically low 0.30-0.70 [facility] Comment on above: Result Comment: Angy roxaban and Apixaban will interfere with the anti Xa assay used to monitor UFH and LMWH. RESULTS CHECKED AND CALLED. ACCURATELY READ BACK BY JONE MENDOZA RN @ 0728 Performed By: #### 3 0477 #### [facility] [address] Vital Signs Date Time Vital Sign Value Performing Clinician Facility 06-20-2024 13:39-0500 Blood Pressure Location Robert BAUER [facility] 06-20-2024 13:39-0500 Body temperature 98.6 [degF] Robert BAUER [facility] 06-20-2024 13:39-0500 Diastolic blood pressure 68 mm[Hg] Robert BAUER [facility] 06-20-2024 13:39-0500 Heart rate 72 /min Robert BAUER [facility] 06-20-2024 13:39-0500 Respiratory rate 16 /min Robert BAUER [facility] 06-20-2024 13:39-0500 Systolic blood pressure 131 mm[Hg] Robert BAUER [facility] 05-19-2024 08:53-0400 Body height 175.3 cm Yfn Gusman DPM Work Phone: [facility] 05-19-2024 08:53-0400 Body mass index (BMI) [Ratio] 31.01 kg/m2 Yfn Gusman DPM Work Phone: [facility] 05-19-2024 08:53-0400 Body weight 95.25 kg Yfn Gusman DPM Work Phone: [facility] 05-19-2024 08:53-0400 Diastolic blood pressure 80 mm[Hg] Yfn Gusman DPM Work Phone: [facility] 05-19-2024 08:53-0400 Heart rate 81 /min Yfn Gusman DPM Work Phone: [facility] 05-19-2024 08:53-0400 Systolic blood pressure 125 mm[Hg] Yfn Gusman DPM Work Phone: [facility] 04-01-2024 10:12-0400 Body height 175.26 cm [facility] 04-01-2024 10:12-0400 Body mass index (BMI) [Ratio] 29.3 kg/m2 [facility] 04-01-2024 10:12-0400 Body weight 90.26 kg [facility] 04-01-2024 10:12-0400 Diastolic blood pressure 65 mm[Hg] [facility] 04-01-2024 10:12-0400 Heart rate 69 /min [facility] 04-01-2024 10:12-0400 Respiratory rate 12 /min [facility] 04-01-2024 10:12-0400 Systolic blood pressure 133 mm[Hg] [facility] 11-30-2023 10:47-0400 Body height 175.26 cm [facility] 11-30-2023 10:47-0400 Body mass index (BMI) [Ratio] 28.8 kg/m2 [facility] 11-30-2023 10:47-0400 Body weight 88.67 kg [facility] 11-30-2023 10:47-0400 Diastolic blood pressure 74 mm[Hg] [facility] 11-30-2023 10:47-0400 Heart rate 81 /min [facility] 11-30-2023 10:47-0400 Respiratory rate 12 /min [facility] 11-30-2023 10:47-0400 Systolic blood pressure 119 mm[Hg] [facility] 06-02-2023 10:30-0400 Body height 175.26 cm David Ball Other [facility] [employer] Other 06-02-2023 10:30-0400 Body mass index (BMI) [Ratio] 29.44 kg/m2 David Ball Other [facility] [employer] Other 06-02-2023 10:30-0400 Body weight 90.45 kg David Ball Other [facility] [employer] Other 06-02-2023 10:30-0400 Diastolic blood pressure 88 mm[Hg] David Ball Other [email or web address] Other 06-02-2023 10:30-0400 Systolic blood pressure 138 mm[Hg] David Ball Other [email or web address] Other 04-27-2023 10:29-0400 Blood Pressure Location Robert BAUER [facility] 04-27-2023 10:29-0400 Diastolic blood pressure 83 mm[Hg] Robert BAUER [facility] 04-27-2023 10:29-0400 Heart rate 93 /min Robert BAUER [facility] 04-27-2023 10:29-0400 Respiratory rate 16 /min Robert BAUER [facility] 04-27-2023 10:29-0400 Systolic blood pressure 130 mm[Hg] Robert BAUER [facility] 11-05-2022 11:00-0400 Body height 175.26 cm David [employer] Other [facility] [employer] Other 11-05-2022 11:00-0400 Body mass index (BMI) [Ratio] 30.12 kg/m2 David [employer] Other [facility] [employer] Other 11-05-2022 11:00-0400 Body weight 92.53 kg David [employer] Other [email or web address] Other 11-05-2022 11:00-0400 Diastolic blood pressure 76 mm[Hg] David Ball Other [facility] [employer] Other 11-05-2022 11:00-0400 SaO2% (BldA) [Mass fraction] 94 % David Ball Other [email or web address] Other 11-05-2022 11:00-0400 Systolic blood pressure 123 mm[Hg] David Ball Other [email or web address] Other 04-14-2022 09:00-0400 Blood Pressure Location Robert BAUER [facility] 04-14-2022 09:00-0400 Diastolic blood pressure 73 mm[Hg] Robert BAUER [facility] 04-14-2022 09:00-0400 Heart rate 101 /min Robert BAUER [facility] 04-14-2022 09:00-0400 Respiratory rate 16 /min Robert BAUER [facility] 04-14-2022 09:00-0400 Systolic blood pressure 114 mm[Hg] Robert BAUER [facility] Encounters Encounter Date Encounter Type Care Provider Facility Start: 10-21-2024 ambulatory Robert BAUER Facili ty:[facility] Start: 07-08-2024 ambulatory Robert BAUER Facili ty:[facility] Start: 06-20-2024 End: 06-20-2024 ambulatory Robert BAUER Facility:[facility] Start: 06-20-2024 End: 06-20-2024 Patient encounter procedure Robert BAUER [facility] Start: 05-19-2024 End: 05-19-2024 Bamboo flowsheet Yfn [...] Not Available Start: 05-16-2024 End: 05-16-2024 ambulatory [facility] Work Phone: Start: 05-16-2024 End: 05-16-2024 Patient encounter procedure [facility] Work Phone: Start: 04-22-2024 End: 04-22-2024 ambulatory [facility] Work Phone: Start: 04-22-2024 End: 04-22-2024 Patient encounter procedure [facility] Work Phone: Start: 04-01-2024 End: 04-01-2024 ambulatory [facility] Work Phone: Start: 04-01-2024 End: 04-01-2024 Patient encounter procedure [facility] Work Phone: Start: 03-10-2024 End: 03-10-2024 ambulatory YFN GUSMAN Not Available Start: 01-28-2024 End: 01-28-[address] [facility] Start: 01-06-2024 Non-patient / Non-visit [facility] [employer] Work Phone: Start: 12-24-2023 End: 12-24-2023 ambulatory YFN GUSMAN Not Available Start: 11-30-2023 End: 11-30-2023 ambulatory [facility] Work Phone: Start: 11-30-2023 End: 11-30-2023 Patient encounter procedure [facility] Work Phone: Start: 10-15-2023 End: 10-15-2023 ambulatory YFN GUSMAN Not Available Start: 08-10-2023 End: 08-10-2023 ambulatory David Marx Other [facility] [employer] Other Start: 08-10-2023 Office outpatient vi sit 15 minutes David Marx [facility] Start: 08-06-2023 End: 08-06-2023 ambulatory YFN GUSMAN Not Available Start: 06-02-2023 End: 06-02-2023 ambulatory David Marx Other [email or web address] Other Start: 06-02-2023 Office outpatient vi sit 25 minutes David Marx [facility] Start: 06-02-2023 Telephone encounter David Marx [facility] Start: 05-29-2023 End: 05-29-2023 ambulatory David Marx Other [email or web address] Other Start: 05-29-2023 Nursing evaluation o f patient and report David Francisco J [facility] Start: 04-28-2023 End: 04-28-2023 ambulatory David Marx Other [email or web address] Other Start: 04-28-2023 Telephone encounter David Marx [facility] Start: 04-27-2023 End: 04-27-2023 Patient encounter procedure Robert BAUER [facility] Start: 02-27-2023 End: 02-27-2023 ambulatory [facility] Start: 02-25-2023 End: 02-25-2023 ambulatory David Marx Other [email or web address] Other Start: 02-25-2023 Telephone encounter David VERA [facility] Start: 02-16-2023 End: 02-16-2023 ambulatory David Marx Other [email or web address] Other Start: 02-16-2023 Telephone encounter David Francisco J [facility]A [facility] Start: 11-18-2022 End: 11-19-[address] DAVID MARX Facility: Start: 11-05-2022 End: 11-05-2022 ambulatory David Marx Other [email or web address] Other Start: 11-05-2022 Patient encounter procedure David Marx [facility] Start: 11-05-2022 Telephone encounter David Marx JODY G [facility] Start: 10-02-2022 End: 10-02-2022 ambulatory TRIXIEMIYA CANDELARIA Facility:[facility] Start: 06-17-2022 End: 07-19-[address] DAVID MARX Facility:[facility] Start: 05-29-2022 End: 05-30-2022 ambulatory FOSTER STONE Facility:[facility] Start: 04-15-2022 End: 04-16-[address] ROBERT BAUER . Facility:[facility] Start: 04-14-2022 End: 04-14-2022 Patient encounter procedure Robert BAUER [facility] Start: 03-27-2022 End: 04-25-2022 ambulatory FOSTER STONE Facility:[facility] Start: 10-16-2021 Adult health examination Kashmir Marx Other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
== END 2024-06-27 13:37 | disposition home or self-care (01) ==
LOC: EC 13:37
PROVIDERS: PCP Internal Medicine; Visit Provider Student in an Organized Health Care Education/Training Program
DX: M25.552 Pain in left hip (principal); M16.0 Bilateral primary osteoarthritis of hip
CPT/HCPCS: 73502

== ENCOUNTER 2024-10-14 07:49 | Outpatient (OUT) | payer MEDICARE, SELFPAY ==
--- OUTSIDE RECORDS SUMMARY | 2024-10-14 07:53 | XMS_ITS | CCD ---
Author Organization [facility] CliniSymt Care Team Providers Care Patient Insurance Clerk Name Role Phone KEKE AKERS Admitting Unavailable ADITHYA SCHMIDT Referring DAVID Damon Primary Care Unavailable Deng Aguilar Attending Unavailable MS Procedure Practitioner Unavailab BETO Eastman Surgeon Unavailable DAVID MARX Primary Care Physician [phone] David Marx Unavailable APLING, FOSTER Bañuelos Admitting Unavailable APLING, FOSTER B Attending Unavailable FRANCISCO J, DR LAM [...] Unavailable ZIEBER, DR MILKA Jung Consulting Unavailable APLING, FOSTER Bañuelos Attending Unavailable APLING, FOSTER Bañuelos Admitting Unavailable ZIEBER, DR MILKA Jung Consulting Unavailable FRANCISCO J, DR LAM Primary Care Unavailable APLING, FOSTER Sarmad Consulting Unavailable David Marx MD Primary Care Provider VJ ESPITIA Attending Unavailable VJ ESPITIA Attending Unavailable YFN GUSMAN Attending Unavailable YNF GUSMAN Attending Unavailable YFN GUSMAN Attending Unavailable YFN GUSMAN Attending Unavailable YFN GUSMAN Attending Unavailable ILYA MAHAJAN Attending Unavailable Robert BAUER Attending Unavailable Robert BAUER Attending Unavailable Robert BAUER Attending Unavailable Robert BAUER Attending Unavailable ILYA MAHAJAN Attending Unavailable Robert BAUER Attending Unavailable Allergies Allergy Classification Reported Allergen(s) Allergy Type Date of Onset Reaction(s) Facility (14 sources) traMADol; Translations: [TRAMADOL] Drug Allergy 2 Hives [email or web address] Other (3 sources) patient allergy list reviewed by nurse or physicia Propensity to adverse reactions 6 Comment:Done [email or web address] Other (6 sources) TraMADol & Dietary Manage Prod *ANALGESICS - OPIOI Propensity to adverse reactions Unknown [email or web address] Other (5 sources) Angiotensin-con verting enzyme inhibitor agent; Translations: [JOSE ALFREDO INHIBITORS] Drug Allergy 3 [facility] (1 source) No Known Medication Allergies; Translations: [No Known Medication Allergies] Propensity to adverse reactions (disorder) [facility] Repository Medications Current Medications Medication Drug Class(es) Dates Sig (Normalized) Sig (Original) acetaminophen 325 mg / HYDROcodone bitartrate 5 mg oral tablet (4 sources) Opioid Agonist Start: 05-25-2023 HYDROcodone-aceta minophen ([place]) 5-325 MG tablet 05/25/2023 Active amiodarone hydrochloride [...] 2024 12:00am finasteride 5 mg oral tablet (20 sources) 5-alpha Reductase Inhibitor Start: 11-15-2021 take 1 tablet by mouth once daily finasteride 5 mg Tab 5 mg = 1 tab(s), Oral, Daily, # 90 tab(s), Refills(s) 3, Pharmacy: [facility]/pharmacy #[id number], 170, cm, 04/27/23 10:39:00 EDT, Height/Length Dosing, 86.5, kg, 04/27/23 10:39:00 EDT, Weight Dosing Start Date: 11/10/23 Status: Ordered furosemide 20 mg oral tablet (18 sources) Loop Diuretic Start: 03-04-2019 End: 01-08-2024 take 1 tablet by mouth in the morning furosemide (Lasix) 20 MG tablet Take 20 mg by mouth in the morning. 11/05/2022 Active ketorolac tromethamine 5 mg/ml ophthalmic solution (4 sources) Nonsteroidal Anti-inflammatory Drug, Cyclooxygenase Inhibitor Start: 09-17-2022 ketorolac (Acular) 0.5 % ophthalmic solution Administer 1 drop into both eyes in the morning and 1 drop at noon and 1 drop in the evening and 1 drop before bedtime. 09/17/2022 Active losartan potassium 25 mg oral tablet (20 sources) Angiotensin 2 Receptor David Start: 04-27-2023 losartan 25 mg Tab Refills(s) 0 Start Date: 04/27/23 Status: Ordered 24 hr metoprolol succinate 25 mg extended release oral tablet (20 sources) beta-Adrenergic David Start: 09-26-2019 take 1 mg by mouth once daily metoprolol 25 mg ER Tab mg tab(s), Oral, Daily, Refills(s) 0 Start Date: 09/26/19 Status: Ordered take 1 tablet by guilherme th every twenty-four hours in the morning metoprolol succinate XL (Toprol-XL) 25 M G 24 hr tablet Take 25 mg by mouth in the morning. Active ofloxacin 3 mg/ml ophthalmic solution (4 sources) Quinolone Antimicrobial Start: 09-17-2022 ofloxacin (Ocuflox) [...] therapy pack (1 source) Start: 08-10-2023 Paxlovid (300/100) 20 x 150 MG & 10 x 100MG as directed Orally bid for 5 days Aug, Active tamsulosin hydrochloride 0.4 mg oral capsule (20 sources) alpha-Adrenergi c David Start: 11-10-2023 take 1 capsule by mouth once daily Flomax 0.4 mg Cap 0.4 mg = 1 cap(s), Oral, Daily, # 90 cap(s), Refills(s) 3, Pharmacy: [facility]/pharmacy #[id number], 170, cm, 04/27/23 10:39:00 EDT, Height/Length Dosing, 86.5, kg, 04/27/23 10:39:00 EDT, Weight Dosing Start Date: 11/10/23 Status: Ordered Start: 11-15-2021 take 1 capsule by mo uth once daily Flomax 0.4 mg Cap 0.4 mg = 1 cap(s), Oral, Daily, # 90 cap(s), Refills(s) 3, Pharmacy: [facility]/pharmacy #[id number] Start Date: 11/13/22 Status: Ordered take 1 capsule by mo uth every twenty-four hours in the morning tamsulosin (Flomax) 0.4 MG 24 hr capsule Take 0.4 mg by mouth in the morning. Active testosterone cypionate 100 mg/ml injectable solution (4 sources) Androgen testosterone cyp ionate (Depo-Testosterone) 100 MG/ML injection Inject 100 mg into the shoulder, thigh, or buttocks every 14 (fourteen) days. Active testosterone cypionate 200 mg/mL IM Kayla (5 sources) Start: 06-20-20 inject 150 mg by intramuscular injection every other week testosterone cypionate 200 mg/mL IM Kayla 150 mg, IntraMuscular, q2wk, # 10 mL, Refills(s) 0, Pharmacy: [facility]/pharmacy #[id number], 170, cm, 06/20/24 13:43:00 EST, Height/Length Dosing, 86, kg, 06/20/24 13:43:00 EST, Weight Dosing Start Date: 06/20/24 Status: Ordered testosterone cypionate 200 mg/mL intramuscular solution (2 sources) Start: 11-10-19 testosterone cypionate 200 mg/mL intramuscular solution 200 mg = 1 mL, IntraMuscular, q4wk, E29.1, # 10 mL, Refills(s) 3, Pharmacy: 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 Mycoses (6 sources) Pain in toe; Translations: [Tinea unguium] Onset: 12-24-2022 05-16-2024 Episodic Osteoarthritis (20 sources) Idiopathic osteoarthritis; 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, right knee] Onset: 04-14-2013 11-30-2023 Chronic Other aftercare (1 source) Other fci (current) drug therapy; Translations: [OTH COLLECTION SPECIALIST CURRENT DRUG THERAPY] Onset: 10-15-2022 Episodic Other [...] Episodic Other diseases of veins and lymphatics (2 sources) Vascular insufficiency; Translations: [Venous insufficiency (chronic) (peripheral)] 05-16-2024 Episodic Other endocrine disorders (13 sources) Testicular hypofunction; 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 Other endocrine disorders (7 sources) 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 Other endocrine [...] classified] 11-30-2023 Episodic Other male genital disorders (7 sources) 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 Other male genital disorders (1 source) H/O: male genital disorder; Translations: [Personal history of other diseases of male genital organs] Onset: 04-14-2022 Episodic Other male genital disorders (7 sources) History of prostatitis 09-10-2020 Episodic Other [...] the ascending aorta, without rupture] 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-2024 Past or Other Problems Problem Classification Problem [...] Onset: 03-27-2022 Episodic Other connective tissue disease (4 sources) Pain in limb; Translations: [Pain in unspecified limb] Onset: 12-24-2022 12-24-2022 Episodic Other connective tissue disease (4 sources) Plantar fasciitis of right foot; Translations: [...] the ascending aorta, without rupture] 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-2024 Varicose veins of lower extremity (6 sources) Asymptomatic varicose veins; Translations: [Venous varices] Onset: 12-18-2015 Episodic Viral infection (1 source) COVID-19 Results Test Name Value Interpretation Reference Range Facility Ambulatory Visit Summaryon 0 09-01-2024 Ambulatory Visit Summary Ambulatory Visit Summary YAYA DE ANDA :1935 Visit Date:09/01/2024 Ambulatory Visit Instructions Your Diagnosis Hypogonadism male Your Care Team Attending Physician - Robert BAUER MD Primary Care Physician - DAVID MARX DO This Is Your Medications List finasteride (finasteride 5 mg Tab) losartan (losartan 25 mg Tab) metoprolol (metoprolol 25 mg ER Tab) omeprazole (omeprazole 40 mg Cap-DR) tamsulosin (Flomax 0.4 mg Cap) testosterone (testosterone cypionate 200 mg/mL IM Kayla) Procedures Performed Urodynamics (01/05/2013), Cystoscopy (12/28/2012), TURP - Transurethral resection of prostate (11/01/2001), Transrectal biopsy of prostate using ultrasound (US) guidance (12/02/1999), Radical orchiectomy (1990). What to do next Scheduled Follow-Up Appointments 2024 10:00 AM EST With: Where: [facility] [address] [facility] [place] [address]- Thursday 9:45 AM EDT With: Robert BAUER MD Where: [facility] [address] [place] [address]- Medications What How Much When Instructions Unchanged finasteride (finasteride 5 mg Tab) 1 Tablets By Mouth Every day Unchanged losartan (losartan 25 mg Tab) Unchanged metoprolol (metoprolol 25 mg ER Tab) By Mouth Every day Unchanged omeprazole (omeprazole 40 mg Cap-DR) 1 Capsules By Mouth Every day Unchanged tamsulosin (Flomax 0.4 mg Cap) 1 Capsules By Mouth Every day Unchanged testosterone (testosterone cypionate 200 mg/ mL IM Kayla) 150 Milligram Intramuscular Every other week Allergies No Known Medication Allergies Problems Ongoing [...] you for choosing us for your care. Normal [facility] Office Visiton 07-18-2024 Follow-up visit [id number] Yaya De Anda 1935 M Date Provider Department Center 07/18/2024 LeeVJ ESPITIA HENRI Shannon Family History Family history unknown: Yes Level of Service:96522 MS OFFICE/OUTPATIENT ESTABLISHED LOW MDM 20 MIN Normal [facility] Ambulatory Visit Summaryon 1 08-20-2023 Ambulatory Visit [...] AM EST With: Where: [facility] [address] [place] [address]- Thursday 9:45 AM EDT With: Robert BAUER MD Where: [facility] [address] [place] [address]- You Need to Schedule the Following Appointments Follow Up with Robert BAUER MD, URL When: Where: [facility] [address] [place] [address] [phone] Medications What How Much When Why Instructions New testosterone (testosterone cypionate 100 mg/ mL intramuscular solution) 150 Milligram Intramuscular Every 4 weeks Hypogonadism male Refills: [address] [facility]/pharmacy #[id number] Unchanged finasteride (finasteride 5 mg Tab) 1 Tablets By Mouth Every day Pickup at [facility]/pharmacy #[id number] Unchanged tamsulosin (Flomax 0.4 mg Cap) 1 Capsules By Mouth Every day Pickup at [facility]/pharmacy #[id number] Unchanged losartan (losartan 25 mg Tab) Contact prescribing physician if questions or concerns Unchanged metoprolol (metoprolol 25 mg ER Tab) By Mouth Every day Contact prescribing physician if questions or concerns Unchanged omeprazole (omeprazole 40 mg Cap-DR) 1 Capsules By Mouth Every day Contact prescribing physician if questions or concerns Pharmacy Information [facility]/pharmacy #[id number]: [address], [place] [id number] [phone] Allergies No Known Medication Allergies Problems Ongoing [...] (more content not included)... Normal [facility] Urology Office/Clinic Noteon 06-20-2024 Urology Office/Clinic Note Urology Office/Clinic Note Chief Complaint 1yr f/u HPI Staff 1 yr w/ T level. 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 *Flomax 0.4mg qd and Finasteride 5mg qd T-Level: 04/15/22 - 261 04/2023 - 06/13/24 Dysuria: denies Incomplete bladder emptying: unsure, feels [...] 150mg IM injection q4wks. Rx sent to [facility] Cornel. -F/u in 4 mos w/ T level [...] [facility] [address], [place] [address] [phone] Additional Instructions: 4 mos w/ T level [...] (more content not included)... Normal [facility] Comment on above: Result Comment: Elec tronically Signed By: Robert BAUER MD\.br\Date and Time Signed: 06/20/24 14:50 EST\.br\Electronically Co-Signed By: Erica Alamo\.br\Date and Time Co-Signed: 06/20/24 14:49 EST Office Visiton 01-28-2024 Follow-up visit [id number] Yaya De Anda 1935 M Date Provider Department Center 01/28/2024 VJ CUELLO HENRI [place] [facility] Family History Family history unknown: Yes Level of Service:50408 MS OFFICE/OUTPATIENT ESTABLISHED MOD MDM 30 MIN Normal [facility] Basophils Auto (Bld) [#/Vol] on 01-06-2024 Basophils (Bld) [#/Vol] 0.0 10 3/uL 0.0-0.1 [facility] Basophils/100 WBC Auto (Bld) on 01-06-2024 Basophils/100 WBC (Bld) 0.5 % 0.2-2.0 [facility] Cholesterol in LDL Calc [Mas s/Vol]on 01-06-2024 Cholesterol in LDL [Mass/Vol] 102.0 mg/dL [facility] Comment on above: <100 mg/dl [id number] 0-129 mg/dl NEAR OR ABOVE [id number] mg/dl BORDERLINE [id number] mg/dl HIGH>190 mg/dl VERY HIGH Cholesterol in VLDL Calc [Ma ss/Vol]on 01-06-2024 Cholesterol in VLDL [Mass/Vol] 26.0 mg/dL [facility] Eosinophils/100 WBC Auto (Bl d)on 01-06-2024 Eosinophils/100 WBC (Bld) 2.1 % 0.9-7.0 [facility] Erythrocyte distribution wid th Auto (RBC) [Ratio]on 01-06-2024 Erythrocyte distribution width (RBC) [Ratio] 13.2 % 11.0-15.0 [facility] Estimated glomerular filtrat ion rate (GFR) non- Americanon 01-06-2024 GFR/1.73 sq M.predicted among non-blacks MDRD (S/P/Bld) [Vol rate/Area] 55 mL/min/{1.73_m2} Low >=60 [facility] Globulin Calc (S) [Mass/Vol] on 01-06-2024 Globulin (S) [Mass/Vol] 3.5 g/dL [facility] Hematocrit Auto (Bld) [Volum e fraction]on 01-06-2024 Hematocrit (Bld) [Volume fraction] 43.7 % 42.0-54.0 [facility] Hemoglobin [Mass/volume] in Bloodon 01-06-2024 Hemoglobin (Bld) [Mass/Vol] 14.0 g/dL 14.0-18.0 [facility] Laboratory - Chemistry and C hemistry - challengeon 01-06-2024 Albumin [Mass/Vol] 3.7 g/dL 3.4-5.0 [facility] ALP [Catalytic activity/Vol] 59 U/L 46-116 [facility] ALT [Catalytic activity/Vol] 32 U/L 16-63 [facility] AST [Catalytic activity/Vol] 25 U/L 15-37 [facility] Bilirubin [Mass/Vol] 0.8 mg/dL 0.2-1.0 [facility] Calcium [Mass/Vol] 9.0 mg/dL 8.5-10.1 [facility] Chloride [Moles/Vol] 105 mmol/L 98-107 [facility] Cholesterol [Mass/Vol] 175 mg/dL <=200 [facility] Cholesterol in HDL [Mass/Vol] 47 mg/dL 40-60 [facility] Comment on above: > or =60 mg/dl - LOW CARDIOVASCULAR RISK<40 mg/dl - HIGH CARDIOVASCULAR RISK CO2 [Moles/Vol] 27.0 mmol/L 21.0-32.0 [facility] Creatinine [Mass/Vol] 1.24 mg/dL 0.70-1.30 [facility] GFR/1.73 sq M.predicted MDRD (S/P/Bld) [Vol rate/Area] mL/min/{1.73_m2} >=60 [facility] Glucose [Mass/Vol] 106 mg/dL 74-106 [facility] Potassium [Moles/Vol] 4.1 mmol/L 3.5-5.1 [facility] Protein [Mass/Vol] 7.2 g/dL 6.4-8.2 [facility] Sodium [Moles/Vol] 144 mmol/L 136-145 [facility] Triglyceride [Mass/Vol] 130 mg/dL <=150 [facility] Urea nitrogen [Mass/Vol] 35.0 mg/dL High 7.0-18.0 [facility] Urea nitrogen/Creatinine [Mass ratio] 28.2 mg/mg [facility] Laboratory - Hematology and Cell countson 01-06-2024 Immature granulocytes/100 WBC (Bld) 0.2 % 0.0-0.5 [facility] Leukocytes [#/volume] correc pam for nucleated erythrocytes in Blood by Automated counon 01-06-2024 WBC corrected for nucl RBC Auto (Bld) [#/Vol] 5.7 10 3/uL 4.0-11.0 [facility] Lymphocytes Auto (Bld) [#/Vo l]on 01-06-2024 Lymphocytes (Bld) [#/Vol] 1.7 10 3/uL 1.2-3.8 [facility] Lymphocytes/100 WBC Auto (Bl d)on 01-06-2024 Lymphocytes/100 WBC (Bld) 30.7 % 20.5-60.0 [facility] MCH Auto (RBC) [Entitic mass ]on 01-06-2024 MCH (RBC) [Entitic mass] 29.1 pg 25.9-34.0 [facility] MCHC Auto (RBC) [Mass/Vol]on 01-06-2024 MCHC (RBC) [Mass/Vol] 32.0 g/dL 29.9-35.2 [facility] MCV Auto (RBC) [Entitic vol] on 01-06-2024 MCV (RBC) [Entitic vol] 90.9 fL 80.0-94.0 [facility] Monocytes Auto (Bld) [#/Vol] on 01-06-2024 Monocytes (Bld) [#/Vol] 0.4 10 3/uL 0.3-0.8 [facility] Monocytes/100 WBC Auto (Bld) on 01-06-2024 Monocytes/100 WBC (Bld) 7.2 % 1.7-12.0 [facility] Neutrophils Auto (Bld) [#/Vo l]on 01-06-2024 Neutrophils (Bld) [#/Vol] 3.4 10 3/uL 1.4-6.5 [facility] Neutrophils/100 WBC Auto (Bl d)on 01-06-2024 Neutrophils/100 WBC (Bld) 59.3 % 43.0-75.0 [facility] No Panel Informationon 01-05 Eosinophils # (Auto) 0.1 10 3/uL 0.0-0.7 [facility] Immature Granulocyte # (Auto) 0.01 10 3/uL 0.00-0.03 [facility] Nucleated Red Blood Cells/100 WBC 0 [facility] Platelet mean volume Auto (B ld) [Entitic vol]on 01-06-2024 Platelet mean volume (Bld) [Entitic vol] 10.6 fL 9.5-13.5 [facility] Platelets Auto (Bld) [#/Vol] on 01-06-2024 Platelets (Bld) [#/Vol] 169 10 3/uL 150-450 [facility] RBC Auto (Bld) [#/Vol]on RBC (Bld) [#/Vol] 4.81 10 6/uL 4.70-6.10 [facility] Serum or plasma albumin/glob ulin mass ratioon 01-06-2024 Albumin/Globulin [Mass ratio] 1.1 {ratio} [facility] Serum or plasma anion gap de terminationon 01-06-2024 Anion gap [Moles/Vol] 16.1 mmol/L [facility] Serum or plasma total choles terol/high density lipoprotein (HDL) cholesterol mass luis enrique 01-06-2024 Cholesterol.total/Ch olesterol in HDL [Mass ratio] 3.7 {ratio} [facility] Comment on above: 3.3 - 4.4 LOW RISK4. 4 - 7.1 AVERAGE RISK7.1 - 11.0 MODERATE RISK>11.0 HIGH RISK CBC AUTO DIFFon 11-18-2022 BASO # 0.1 103/ul Normal 0.0-0.1 [facility] Comment on above: Performed By: #### D ATCBC #### [facility] [address] [place] [address] Dr. Sagrario Schilling Basophils/100 WBC (Bld) 0.8 % Normal 0.2-2.0 [facility] Comment on above: Performed By: #### D ATCBC #### [facility] [address] [place] [address] Dr. Sagrario Schilling EO # 0.1 103/ul Normal 0.0-0.7 [facility] Comment on above: Performed By: #### D ATCBC #### [facility] [address] [place] [address] Dr. Sagrario Schilling Eosinophils/100 WBC (Bld) 1.8 % Normal 0.9-7.0 [facility] Comment on above: Performed By: #### D ATCBC #### [facility] [address] [place] [address] Dr. Sagrario Schilling Erythrocyte distribution width (RBC) [Ratio] 13.2 % Normal 11.0-15.0 [facility] Comment on above: Performed By: #### D ATCBC #### [facility] [address] [place] [address] Dr. Sagrario Schilling Hematocrit (Bld) [Volume fraction] 45.2 % Normal 42.0-54.0 [facility] Comment on above: Performed By: #### D ATCBC #### [facility] [address] [address] [address] Sagrario Schilling Hemoglobin (Bld) [Mass/Vol] 14.6 g/dL Normal 14.0-18.0 [facility] Comment on above: Performed By: #### D ATCBC #### [facility] [address] [place] [address] Dr. Sagrario Schilling IG # 0.03 10e3/ul Normal 0.00-0.03 [facility] Comment on above: Performed By: #### D ATCBC #### [facility] [address] [place] [address] Dr. Sagrario Schilling IG % 0.5 % Normal 0.0-0.5 [facility] Comment on above: Performed By: #### D ATCBC #### [facility] [address] [place] [address] Dr. Sagrario Schilling LYMPH # 1.7 103/ul Normal 1.2-3.8 [facility] Comment on above: Performed By: #### D ATCBC #### [facility] [address] [place] [address] Dr. Sagrario Schilling Lymphocytes/100 WBC (Bld) 27.6 % Normal 20.5-60.0 [facility] Comment on above: Performed By: #### D ATCBC #### [facility] [address] [place] [address] Dr. Sagrario Schilling MCH (RBC) [Entitic mass] 28.9 pg Normal 25.9-34.0 [facility] Comment on above: Performed By: #### D ATCBC #### [facility] [address] [place] [address] Dr. Sagrario Schilling MCHC (RBC) [Mass/Vol] 32.3 g/dL Normal 29.9-35.2 [facility] Comment on above: Performed By: #### D ATCBC #### [facility] [address] [place] [address] Dr. Sagrario Schilling MCV (RBC) [Entitic vol] 89.5 fL Normal 80.0-94.0 [facility] Comment on above: Performed By: #### D ATCBC #### [facility] [address] [address] [address] Sagrario Schilling MONO # 0.4 103/ul Normal 0.3-0.8 [facility] Comment on above: Performed By: #### D ATCBC #### [facility] [address] [place] [address] Dr. Sagrario Schilling Monocytes/100 WBC (Bld) 7.2 % Normal 1.7-12.0 [facility] Comment on above: Performed By: #### D ATCBC #### [facility] [address] [place] [address] Dr. Sagrario Schilling NEUT # 3.7 103/ul Normal 1.4-6.5 [facility] Comment on above: Performed By: #### D ATCBC #### [facility] [address] [place] [address] Dr. Sagrario Schilling Neutrophils/100 WBC (Bld) 62.1 % Normal 43.0-75.0 [facility] Comment on above: Performed By: #### D ATCBC #### [facility] [address] [place] [address] Dr. Sagrario Schilling Platelet mean volume (Bld) [Entitic vol] 10.0 fL Normal 9.5-13.5 [facility] Comment on above: Performed By: #### D ATCBC #### [facility] [address] [place] [address] Dr. Sagrario Schilling PLT 171 103/ul Normal 150-450 [facility] Comment on above: Performed By: #### D ATCBC #### [facility] [address] [place] [address] Dr. Sagrario Schilling RBC 5.05 106/ul Normal 4.70-6.10 [facility] Comment on above: Performed By: #### D ATCBC #### [facility] [address] [place] [address] Dr. Sagrario Schilling WBC 6.0 103/ul Normal 4.0-11.0 [facility] Comment on above: Performed By: #### D ATCBC #### [facility] [address] [place] [address] Dr. Sagrario Schilling DIANE- BMP WITH LIPIDon 2022 Anion gap [Moles/Vol] 10.1 mmol/L Normal [facility] Comment on above: Performed By: #### D ATBMP #### [facility] [address] [address] [address] Sagrario Schilling Calcium [Mass/Vol] 9.0 mg/dL Normal 8.5-10.1 [facility] Comment on above: Performed By: #### D ATBMP #### [facility] [address] [address] [address] Sagrario Schilling Chloride [Moles/Vol] 106 mmol/L Normal 98-107 [facility] Comment on above: Performed By: #### D ATBMP #### [facility] [address] [address] [address] Sagrario Schilling Cholesterol [Mass/Vol] 181 mg/dL Normal <=200 [facility] Comment on above: Performed By: #### D ATBMP #### [facility] [address] [address] [address] Sagrario Schilling Cholesterol in HDL [Mass/Vol] 40 mg/dL Normal 40-60 [facility] Comment on above: Performed By: #### D ATBMP #### [facility] [address] [address] [address] Sagrario Schilling Cholesterol in LDL [Mass/Vol] 109.2 mg/dL Normal [facility] Comment on above: Performed By: #### D ATBMP #### [facility] [address] [address] [address] Sagrario Schilling CO2 [Moles/Vol] 29.1 mmol/L Normal 21.0-32.0 [facility] Comment on above: Performed By: #### D ATBMP #### [facility] [address] [address] [address] Sagrario Schilling Creatinine [Mass/Vol] 1.16 mg/dL Normal 0.70-1.30 [facility] Comment on above: Performed By: #### D ATBMP #### [facility] [address] [address] [address] Sagrario Schilling EGFR-AF ISRAELI >60 Normal >=60 [facility] Comment on above: Performed By: #### D ATBMP #### [facility] [address] [address] [address] Sagrario Schilling EGFR-NON AF ISRAELI =60 Normal >=60 [facility] Comment on above: Performed By: #### D ATBMP #### [facility] [address] [address] [address] Sagrario Schilling Glucose [Mass/Vol] 101 mg/dL Normal 74-106 [facility] Comment on above: Performed By: #### D ATBMP #### [facility] [address] [address] [address] Sagrario Schilling HDL NORMAL > or = 60 mg/dl - LO W CARDIOVASCULAR RISK <40 mg/dl - HIGH CARDIOVASCULAR RISK Normal [facility] Comment on above: Performed By: #### D ATBMP #### [facility] [address] [address] [address] Sagrario Schilling LDL CALC NORMAL SEE BELOW Normal [facility] Comment on above: Result Comment: <100 mg/dl OPTIMAL 100 - 129 mg/dl NEAR OR ABOVE OPTIMAL 130 - 159 mg/dl BORDERLINE HIGH 160 - 189 mg/dl HIGH >190 mg/dl VERY HIGH Performed By: #### D ATBMP #### [facility] [address] [address] [address] Sagrario Schilling Potassium [Moles/Vol] 4.2 mmol/L Normal 3.5-5.1 [facility] Comment on above: Performed By: #### D ATBMP #### [facility] [address] [address] [address] Sagrario Schilling Sodium [Moles/Vol] 141 mmol/L Normal 136-145 [facility] Comment on above: Performed By: #### D ATBMP #### [facility] [address] [address] [address] Sagrario Schilling Triglyceride [Mass/Vol] 159 mg/dL Critically high <=150 [facility] Comment on above: Performed By: #### D ATBMP #### [facility] [address] [place], [place] [address] Dr. Sagrario Schilling Urea nitrogen [Mass/Vol] 29.0 mg/dL Critically high 7.0-18.0 [facility] Comment on above: Performed By: #### D ATBMP #### [facility] [id number] Sagrario Schilling Urea nitrogen/Creatinine [Mass ratio] 25.0 mg/mg Normal [facility] Comment on above: Performed By: #### D ATBMP #### [facility] [address] [address] [address] Sagrario Schilling VLDL CALC 31.8 mg/dL Normal [facility] Comment on above: Performed By: #### D ATBMP #### [facility] [address] [address] [address] Sagrario Schilling ECHOCARDIO M/2D COMPLETEon 0 11-18-2022 ECHOCARDIO M/2D COMPLETE Patient: YAYA DE ANDA Exam Date: 11/18/2022 : 1935 Gender:M Ordering : DR DAVID MARX D.O. Admission #: [id number] Family : Order #: [id number] CLICK HERE TO VIEW EXAM ECHOCARDIOGRAM REPORT [...] Area (VTI): 3.31 cm2, 3.31 cm2 Deceleration Winkler: 0.68 m/s2 Pressure Half-Time: 1.35 s Peak [...] Espitia M.D. on 11/18/2022 at 10:21 Normal [facility] XR CHEST 2 Von 11-18-2022 XR CHEST [...] by: MILKA ANDERS Date: 2022-11-18 08:44 Normal [facility] MRI HIP RT WO CONon 05-29-20 MRI [...] MILKA ANDERS Date: 2022-05-29 18:20 Normal [facility] TESTOSTERONE, TOTALon 2021 Testosterone [Mass/Vol] 261 ng/dL Critically low 264-916 [facility] Comment on above: Result Comment: Adul t male reference interval is based on a population of healthy nonobese males (BMI <30) between 19 and 39 years old. fahad Hill.al. JCEM 2017,102;0844-2603. PMID: [id number]. Performed By: #### T ESTTOT #### [facility] [address] [place] [address] Dr. Sagrario Schilling BASIC METABOLIC PANELon 01-01 Calcium [Mass/Vol] 8.6 mg/dL Normal 8.6-10.3 [facility] Comment on above: Order Comment: Yes: Add to Previous draw if able Performed By: #### 5 0103 #### [facility] [address] [place] [address], [facility] Chloride [Moles/Vol] 103 mmol/L Normal 98-107 [facility] Comment on above: Order Comment: Yes: Add to Previous draw if able Performed By: #### 5 0103 #### [facility] [address] [place] [address], [place] CO2 [Moles/Vol] 27 mmol/L Normal 21-31 [facility] Comment on above: Order Comment: Yes: Add to Previous draw if able Performed By: #### 5 0103 #### [facility] [address] [place] [address], [place] Creatinine [Mass/Vol] 1.23 mg/dL Normal 0.70-1.30 [facility] Comment on above: Order Comment: Yes: Add to Previous draw if able Performed By: #### 5 0103 #### [facility] [address] [place] [address], [place] GFR/1.73 sq M predicted among blacks MDRD (S/P/Bld) [Vol rate/Area] mL/min/{1.73_m2} Normal >60 [facility] Comment on above: Order Comment: Yes: Add to Previous draw if able Result Comment: Calc ulation may not be valid for patients over 70 years Performed By: #### 5 0103 #### [facility] [address] [place] [address], [place] GFR/1.73 sq M predicted among non-blacks MDRD (S/P/Bld) [Vol rate/Area] 56 ml/min/1.73sq m Abnormal >60 [facility] Comment on above: Order Comment: Yes: Add to Previous draw if able Result Comment: Calc ulation may not be valid for patients over 70 years Performed By: #### 5 0103 #### [facility] [address] [place] [address], [facility] Glucose [Mass/Vol] 100 mg/dL Normal 70-100 [facility] Comment on above: Order Comment: Yes: Add to Previous draw if able Performed By: #### 5 0103 #### [facility] [address] [place] [address], [place] Potassium [Moles/Vol] 4.3 mmol/L Normal 3.5-5.1 [facility] Comment on above: Order Comment: Yes: Add to Previous draw if able Performed By: #### 5 0103 #### [facility] [address] [place] [address], [place] Sodium [Moles/Vol] 133 mmol/L Low 136-145 [facility] Comment on above: Order Comment: Yes: Add to Previous draw if able Performed By: #### 5 0103 #### [facility] [address] [place] [address], [place] Urea nitrogen [Mass/Vol] 26 mg/dL High 7-25 [facility] Comment on above: Order Comment: Yes: Add to Previous draw if able Performed By: #### 5 0103 #### [facility] [address] [place] [address], [facility] CBC COMPLETE BLOOD COUNTon 01-19-2019 Erythrocyte distribution width (RBC) [Ratio] 14.0 % Normal 11.5-15.0 [facility] Comment on above: Order Comment: Yes: Add to Previous draw if able Performed By: #### 3 5200, 02473, 28841 #### [facility] [address] [place] [address], [facility] Hematocrit (Bld) [Volume fraction] 46.5 % Normal 39.0-50.0 [facility] Comment on above: Order Comment: Yes: Add to Previous draw if able Performed By: #### 3 5200, 24565, 20313 #### [facility] [address] [place] [address], [place] Hemoglobin (Bld) [Mass/Vol] 14.9 g/dL Normal 13.0-17.0 [facility] Comment on above: Order Comment: Yes: Add to Previous draw if able Performed By: #### 3 5200, 03675, 48882 #### [facility] [address] [place] [address], [place] MCH (RBC) [Entitic mass] 28.9 pg Normal 27.0-33.0 [facility] Comment on above: Order Comment: Yes: Add to Previous draw if able Performed By: #### 3 5200, 78463, 69382 #### [facility] [address] [place] [address], [place] MCHC (RBC) [Mass/Vol] 32.0 g/dL Normal 32.0-35.0 [facility] Comment on above: Order Comment: Yes: Add to Previous draw if able Performed By: #### 3 5200, 42176, 52612 #### [facility] [address] MCV (RBC) [Entitic vol] 90.1 fL Normal 82.0-98.0 [facility] Comment on above: Order Comment: Yes: Add to Previous draw if able Performed By: #### 3 5200, 69487, 52454 #### [facility] [address] [place] [address], [facility] Nucleated RBC/100 WBC (Bld) [Ratio] 0 % Normal 0-0 [facility] Comment on above: Order Comment: Yes: Add to Previous draw if able Performed By: #### 3 5200, 57053, 48790 #### [facility] [address] [place] [address], [facility] PLAT CNT 149 10*3/uL Low 150-400 [facility] Comment on above: Order Comment: Yes: Add to Previous draw if able Performed By: #### 3 5200, 82370, 47967 #### [facility] [address] [place] [address], [facility] RBC (Bld) [#/Vol] 5.16 10*6/uL Normal 4.20-5.70 [facility] Comment on above: Order Comment: Yes: Add to Previous draw if able Performed By: #### 3 5200, 71493, 27283 #### [facility] [address] [facility] [place] [address], [facility] WBC (Bld) [#/Vol] 8.05 10*3/uL Normal 4.00-10.60 [facility] Comment on above: Order Comment: Yes: Add to Previous draw if able Performed By: #### 3 5200, 29439, 61019 #### [facility] [address] [facility] [place] [address], [facility] PROTHROMBIN TIMEon 9 INR Coag (PPP) [Relative time] 1.04 {INR} Normal 0.91-1.16 [facility] Comment on above: Order Comment: Yes: Add [...] 1995;108:231S-246S. Performed By: #### 5 0103 #### [facility] [address] PT Coag (PPP) [Time] 13.6 s Normal 12.3-14.8 [facility] Comment on above: Order Comment: Yes: Add to Previous draw if able Result Comment: ALL RESULTS MUST BE INTERPRETED WITH RESPECT TO BLOOD DRAWING ARTIFACT OR DILUTION ERROR OF ANTICOAGULANT AT THE TIME OF SAMPLING. Performed By: #### 5 0103 #### [facility] [address] [facility]. [address] BASIC METABOLIC PANELon - Calcium [Mass/Vol] 8.6 mg/dL Normal 8.6-10.3 [facility] Comment on above: Order Comment: Yes: Add to Previous draw if able Performed By: #### 3 4240, 72104, 11981 #### [facility] [address] [place] [address], [facility] Chloride [Moles/Vol] 102 mmol/L Normal 98-107 [facility] Comment on above: Order Comment: Yes: Add to Previous draw if able Performed By: #### 3 5200, 24199, 11934 #### [facility] [address] [place] [address], [place] CO2 [Moles/Vol] 24 mmol/L Normal 21-[address] [facility] Comment on above: Order Comment: Yes: Add to Previous draw if able Performed By: #### 3 5200, 17974, 35065 #### [facility] [address] [place] [address], [place] Creatinine [Mass/Vol] 1.28 mg/dL Normal 0.70-1.30 [facility] Comment on above: Order Comment: Yes: Add to Previous draw if able Performed By: #### 3 5200, 67467, 68169 #### [facility] [address] [place] [address], [place] GFR/1.73 sq M predicted among blacks MDRD (S/P/Bld) [Vol rate/Area] mL/min/{1.73_m2} Normal >60 [facility] Comment on above: Order Comment: Yes: Add to Previous draw if able Result Comment: Calc ulation may not be valid for patients over 70 years Performed By: #### 3 5200, 64957, 65367 #### [facility] [address] [place] [address], [place] GFR/1.73 sq M predicted among non-blacks MDRD (S/P/Bld) [Vol rate/Area] 54 ml/min/1.73sq m Abnormal >60 [facility] Comment on above: Order Comment: Yes: Add to Previous draw if able Result Comment: Calc ulation may not be valid for patients over 70 years Performed By: #### 3 5200, 17412, 14011 #### [facility] [address] [place] [address], [place] Glucose [Mass/Vol] 90 mg/dL Normal 70-100 [facility] Comment on above: Order Comment: Yes: Add to Previous draw if able Performed By: #### 3 5200, 65928, 05019 #### [facility] [address] [place] [address], [place] Potassium [Moles/Vol] 4.1 mmol/L Normal 3.5-5.1 [facility] Comment on above: Order Comment: Yes: Add to Previous draw if able Performed By: #### 3 5200, 03743, 59753 #### [facility] [address] [place] [address], [place] Sodium [Moles/Vol] 135 mmol/L Low 136-145 [facility] Comment on above: Order Comment: Yes: Add to Previous draw if able Performed By: #### 3 5200, 24524, 08092 #### [facility] [address] [place] [address], [place] Urea nitrogen [Mass/Vol] 31 mg/dL High 7-25 [facility] Comment on above: Order Comment: Yes: Add to Previous draw if able Performed By: #### 3 5200, 73800, 52758 #### [facility] [address] [place] [address], [place] CBC COMPLETE BLOOD COUNTon 0 6- Erythrocyte distribution width (RBC) [Ratio] 14.1 % Normal 11.5-15.0 [facility] Comment on above: Order Comment: Yes: Add to Previous draw if able Performed By: #### 3 5200, 07335, 80940 #### [facility] [address] [place] [address], [place] Hematocrit (Bld) [Volume fraction] 48.7 % Normal 39.0-50.0 [facility] Comment on above: Order Comment: Yes: Add to Previous draw if able Performed By: #### 3 5200, 63299, 81560 #### [facility] [address] [place] [address], [place] Hemoglobin (Bld) [Mass/Vol] 15.3 g/dL Normal 13.0-17.0 [facility] Comment on above: Order Comment: Yes: Add to Previous draw if able Performed By: #### 3 5200, 54010, 81628 #### [facility] [address] [place] [address], [facility] MCH (RBC) [Entitic mass] 29.1 pg Normal 27.0-33.0 [facility] Comment on above: Order Comment: Yes: Add to Previous draw if able Performed By: #### 3 5200, 10773, 11061 #### [facility] [address] [place] [address], [facility] MCHC (RBC) [Mass/Vol] 31.4 g/dL Low 32.0-35.0 [facility] Comment on above: Order Comment: Yes: Add to Previous draw if able Performed By: #### 3 5200, 91100, 95520 #### [facility] [address] [place] [address], [facility] MCV (RBC) [Entitic vol] 92.6 fL Normal 82.0-98.0 [facility] Comment on above: Order Comment: Yes: Add to Previous draw if able Performed By: #### 3 5200, 83976, 87256 #### [facility] [address] [place] [address], [facility] Nucleated RBC/100 WBC (Bld) [Ratio] 0 % Normal 0-0 [facility] Comment on above: Order Comment: Yes: Add to Previous draw if able Performed By: #### 3 5200, 77862, 24275 #### [facility] [address] [place] [address], [facility] PLAT CNT 160 10*3/uL Normal 150-400 [facility] Comment on above: Order Comment: Yes: Add to Previous draw if able Performed By: #### 3 5200, 83707, 46297 #### [facility] [address] RBC (Bld) [#/Vol] 5.26 10*6/uL Normal 4.20-5.70 [facility] Comment on above: Order Comment: Yes: Add to Previous draw if able Performed By: #### 3 5200, 54035, 07449 #### [facility] [address] [place] [address], [facility] WBC (Bld) [#/Vol] 7.34 10*3/uL Normal 4.00-10.60 [facility] Comment on above: Order Comment: Yes: Add to Previous draw if able Performed By: #### 3 5200, 63428, 84206 #### [facility] [address] MAGNESIUM BLOODon 01-18-2019 Magnesium [Mass/Vol] 2.1 mg/dL Normal 1.9-2.7 [facility] Comment on above: Order Comment: Yes: Add to Previous draw if able Performed By: #### 3 5200, 69669, 41327 #### [facility] [address] [place] [address], [facility] PHOSPHORUS BLOODon 9 Phosphate [Mass/Vol] 2.6 mg/dL Normal 2.5-5.0 [facility] Comment on above: Order Comment: Yes: Add to Previous draw if able Performed By: #### 3 5200, 28109, 25670 #### [facility] [address] PROTHROMBIN TIMEon 9 INR Coag (PPP) [Relative time] 1.05 {INR} Normal 0.91-1.16 [facility] Comment on above: Order Comment: Yes: Add [...] CHEST 1995;108:231S-246S. Performed By: #### 3 5200, 94984, 26199 #### [facility] [address] PT Coag (PPP) [Time] 13.7 s Normal 12.3-14.8 [facility] Comment on above: Order Comment: Yes: Add to Previous draw if able Result Comment: ALL RESULTS MUST BE INTERPRETED WITH RESPECT TO BLOOD DRAWING ARTIFACT OR DILUTION ERROR OF ANTICOAGULANT AT THE TIME OF SAMPLING. Performed By: #### 3 5200, 30280, 88890 #### [facility] [address] BASIC METABOLIC PANELon 06- Calcium [Mass/Vol] 8.2 mg/dL Low 8.6-10.3 [facility] Comment on above: Order Comment: Yes: Add to Previous draw if able Performed By: #### 3 5200, 06707, 45664 #### [facility] [address] [place] [address], [facility] Chloride [Moles/Vol] 100 mmol/L Normal 98-107 [facility] Comment on above: Order Comment: Yes: Add to Previous draw if able Performed By: #### 3 5200, 15498, 83402 #### [facility] [address] [place] [address], [place] CO2 [Moles/Vol] 26 mmol/L Normal 21-[address] [facility] Comment on above: Order Comment: Yes: Add to Previous draw if able Performed By: #### 3 5200, 70631, 21054 #### [facility] [address] [place] [address], [place] Creatinine [Mass/Vol] 1.53 mg/dL High 0.70-1.30 [facility] Comment on above: Order Comment: Yes: Add to Previous draw if able Performed By: #### 3 5200, 44650, 20848 #### [facility] [address] [place] [address], [facility] GFR/1.73 sq M predicted among blacks MDRD (S/P/Bld) [Vol rate/Area] 53 ml/min/1.73sq m Abnormal >60 [facility] Comment on above: Order Comment: Yes: Add to Previous draw if able Result Comment: Calc ulation may not be valid for patients over 70 years Performed By: #### 3 5200, 97334, 17796 #### [facility] [address] [place] [address], [place] GFR/1.73 sq M predicted among non-blacks MDRD (S/P/Bld) [Vol rate/Area] 44 ml/min/1.73sq m Abnormal >60 [facility] Comment on above: Order Comment: Yes: Add to Previous draw if able Result Comment: Calc ulation may not be valid for patients over 70 years Performed By: #### 3 5200, 92178, 09137 #### [facility] [address] [place] [address], [place] Glucose [Mass/Vol] 95 mg/dL Normal 70-100 [facility] Comment on above: Order Comment: Yes: Add to Previous draw if able Performed By: #### 3 5200, 33515, 31109 #### [facility] [address] [place] [id number], [facility] Potassium [Moles/Vol] 3.7 mmol/L Normal 3.5-5.1 [facility] Comment on above: Order Comment: Yes: Add to Previous draw if able Performed By: #### 3 5200, 19494, 92838 #### [facility] [address] [place] [address], [place] Sodium [Moles/Vol] 135 mmol/L Low 136-145 [facility] Comment on above: Order Comment: Yes: Add to Previous draw if able Performed By: #### 3 5200, 18223, 62800 #### [facility] [address] [place] [id number], [facility] Urea nitrogen [Mass/Vol] 41 mg/dL High 7-25 [facility] Comment on above: Order Comment: Yes: Add to Previous draw if able Performed By: #### 3 5200, 34757, 49138 #### [facility] [address] [place] [address], [facility] CBC COMPLETE BLOOD COUNTon 0 - Erythrocyte distribution width (RBC) [Ratio] 14.3 % Normal 11.5-15.0 [facility] Comment on above: Order Comment: Yes: Add to Previous draw if able Performed By: #### 3 5200, 19827, 83702 #### [facility] [address] [place] [address], [facility] Hematocrit (Bld) [Volume fraction] 47.8 % Normal 39.0-50.0 [facility] Comment on above: Order Comment: Yes: Add to Previous draw if able Performed By: #### 3 5200, 92786, 15455 #### [facility] [address] [place] [address], [place] Hemoglobin (Bld) [Mass/Vol] 15.5 g/dL Normal 13.0-17.0 [facility] Comment on above: Order Comment: Yes: Add to Previous draw if able Performed By: #### 3 0, 88012, 38371 #### [facility] [address] [place] [address], [facility] MCH (RBC) [Entitic mass] 29.1 pg Normal 27.0-33.0 [facility] Comment on above: Order Comment: Yes: Add to Previous draw if able Performed By: #### 3 5200, 61566, 87426 #### [facility] [address] [place] [address], [facility] MCHC (RBC) [Mass/Vol] 32.4 g/dL Normal 32.0-35.0 [facility] Comment on above: Order Comment: Yes: Add to Previous draw if able Performed By: #### 3 5200, 02905, 27852 #### [facility] [address] [place] [id number], [facility] MCV (RBC) [Entitic vol] 89.8 fL Normal 82.0-98.0 [facility] Comment on above: Order Comment: Yes: Add to Previous draw if able Performed By: #### 3 5200, 71873, 89931 #### [facility] [address] [place] [address], [facility] Nucleated RBC/100 WBC (Bld) [Ratio] 0 % Normal 0-0 [facility] Comment on above: Order Comment: Yes: Add to Previous draw if able Performed By: #### 3 5200, 71367, 37610 #### [facility] [address] [place] [id number], [facility] PLAT CNT 153 10*3/uL Normal 150-400 [facility] Comment on above: Order Comment: Yes: Add to Previous draw if able Performed By: #### 3 5200, 37198, 25341 #### [facility] [address] [place] [id number], [facility] RBC (Bld) [#/Vol] 5.32 10*6/uL Normal 4.20-5.70 [facility] Comment on above: Order Comment: Yes: Add to Previous draw if able Performed By: #### 3 5200, 32093, 96384 #### [facility] [address] WBC (Bld) [#/Vol] 6.80 10*3/uL Normal 4.00-10.60 The [facility] Comment on above: Order Comment: Yes: Add to Previous draw if able Performed By: #### 3 5200, 03543, 64820 #### [facility] [address] [place], [place] [id number] [place] [address] Cardiovascular Lab Reporton 01-17-2019 Cardiovascular Lab Report [facility] Patient [facility] MR #: [id number] Physician: Beto Duff Department of M.D. Medicine Service Date: 01/17/2019 Division of Birthdate: 1935 Cardiology Room #: 3AB [id number] Adult Cardiovascular Services [facility] [address] [place] [address] Cardiovascular Laboratory Report CLINICAL PRESENTATION: The patient [...] micropuncture access technique and ultrasound guidance. A 6-Vietnamese sheath was placed in the right internal [...] artery was anesthetized with 1% lidocaine. A 6-Vietnamese Terumo Glidesheath slender was placed in the right radial artery. A 100 mcg nitroglycerin was administered through the sheath to prevent radial artery spasm. A Carvajal wire was advanced and a 5-Vietnamese Cleveland catheter were advanced to the descending aorta. The 5-Vietnamese Cleveland catheter was used to engage the left [...] Duff M.D. Date Trans: 01/17/2019 11:54 Adry/catarino [id number] cc: David Marx D.O. [address] [place] [id number] [address] M[address], [facility] [id number] Normal [facility] MAGNESIUM BLOODon 01-17-2019 Magnesium [Mass/Vol] 1.9 mg/dL Normal 1.9-2.7 [facility] [place] Comment on above: Order Comment: Yes: Add to Previous draw if able Performed By: #### 3 5200, 33782, 18282 #### [facility] [address] PROTHROMBIN TIMEon 9 INR Coag (PPP) [Relative time] 1.06 {INR} Normal 0.91-1.16 [facility] Comment on above: Order Comment: Yes: Add [...] CHEST 1995;108:231S-246S. Performed By: #### 3 5200, 87211, 44367 #### [facility] [address] PT Coag (PPP) [Time] 13.8 s Normal 12.3-14.8 [facility] Comment on above: Order Comment: Yes: Add to Previous draw if able Result Comment: ALL RESULTS MUST BE INTERPRETED WITH RESPECT TO BLOOD DRAWING ARTIFACT OR DILUTION ERROR OF ANTICOAGULANT AT THE TIME OF SAMPLING. Performed By: #### 3 5200, 85944, 00575 #### [facility] [address] UFH HEPARIN ASSAYon 01-18-20 19 UNFRACTIONATED HEPARIN 0.29 IU/mL Low 0.30-0.70 [facility] Comment on above: Result Comment: [place] roxaban and Apixaban will interfere with the anti Xa assay used to monitor UFH and LMWH. Performed By: #### 3 5200, 61107, 79002 #### [facility] [address] BASIC METABOLIC PANELon - Calcium [Mass/Vol] 8.4 mg/dL Low 8.6-10.3 [facility] Comment on above: Order Comment: Yes: Add to Previous draw if able Performed By: #### 3 5200, 74819, 77273 #### [facility] [address] [place] [address], [place] Chloride [Moles/Vol] 98 mmol/L Normal 98-107 [facility] Comment on above: Order Comment: Yes: Add to Previous draw if able Performed By: #### 3 5200, 90978, 86243 #### [facility] [address] [place] [address], [place] CO2 [Moles/Vol] 27 mmol/L Normal 21-31 [facility] Comment on above: Order Comment: Yes: Add to Previous draw if able Performed By: #### 3 5200, 44577, 91513 #### [facility] [address] [place] [address], [place] Creatinine [Mass/Vol] 1.60 mg/dL High 0.70-1.30 [facility] Comment on above: Order Comment: Yes: Add to Previous draw if able Performed By: #### 3 5200, 14368, 50203 #### [facility] [address] [place] [address], [place] GFR/1.73 sq M predicted among blacks MDRD (S/P/Bld) [Vol rate/Area] 50 ml/min/1.73sq m Abnormal >60 [facility] Comment on above: Order Comment: Yes: Add to Previous draw if able Result Comment: Calc ulation may not be valid for patients over 70 years Performed By: #### 3 5200, 33772, 63300 #### [facility] [address] [place] [address], [place] GFR/1.73 sq M predicted among non-blacks MDRD (S/P/Bld) [Vol rate/Area] 42 ml/min/1.73sq m Abnormal >60 [facility] Comment on above: Order Comment: Yes: Add to Previous draw if able Result Comment: Calc ulation may not be valid for patients over 70 years Performed By: #### 3 5200, 71505, 50561 #### [facility] [address] [place] [address], [place] Glucose [Mass/Vol] 107 mg/dL High 70-100 [facility] Comment on above: Order Comment: Yes: Add to Previous draw if able Performed By: #### 3 5200, 15656, 50617 #### [facility] [address] [place] [address], [place] Potassium [Moles/Vol] 3.4 mmol/L Low 3.5-5.1 [facility] [place] Comment on above: Order Comment: Yes: Add to Previous draw if able Performed By: #### 3 5200, 66749, 18872 #### [facility] [address] [place] [address], [place] Sodium [Moles/Vol] 135 mmol/L Low 136-145 [facility] Comment on above: Order Comment: Yes: Add to Previous draw if able Performed By: #### 3 0, 97221, 18801 #### [facility] [address] [place] [address], [facility] Urea nitrogen [Mass/Vol] 39 mg/dL High 7-25 [facility] [place] Comment on above: Order Comment: Yes: Add to Previous draw if able Performed By: #### 3 5200, 20633, 47437 #### [facility] [address] [place] [address], [facility] CBC COMPLETE BLOOD COUNTon 0 - Erythrocyte distribution width (RBC) [Ratio] 14.3 % Normal 11.5-15.0 [facility] [place] Comment on above: Order Comment: Yes: Add to Previous draw if able Performed By: #### 3 5200, 63158, 50833 #### [facility] [address] [place] [address], [place] Hematocrit (Bld) [Volume fraction] 50.8 % High 39.0-50.0 [facility] Comment on above: Order Comment: Yes: Add to Previous draw if able Performed By: #### 3 5200, 82133, 06432 #### [facility] [address] [place] [address], [facility] Hemoglobin (Bld) [Mass/Vol] 16.2 g/dL Normal 13.0-17.0 [facility] Comment on above: Order Comment: Yes: Add to Previous draw if able Performed By: #### 3 5200, 06981, 37051 #### [facility] [address] [place] [address], [facility] MCH (RBC) [Entitic mass] 28.9 pg Normal 27.0-33.0 [facility] [place] Comment on above: Order Comment: Yes: Add to Previous draw if able Performed By: #### 3 5200, 30869, 12195 #### [facility] [address] [place] [address], [facility] MCHC (RBC) [Mass/Vol] 31.9 g/dL Low 32.0-35.0 [facility] [place] Comment on above: Order Comment: Yes: Add to Previous draw if able Performed By: #### 3 5200, 95745, 64892 #### [facility] [address] [place] [address], [facility] MCV (RBC) [Entitic vol] 90.6 fL Normal 82.0-98.0 [facility] [place] Comment on above: Order Comment: Yes: Add to Previous draw if able Performed By: #### 3 5200, 26060, 54740 #### [facility] [address] [place] [address], [facility] Nucleated RBC/100 WBC (Bld) [Ratio] 0 % Normal 0-0 [facility] [place] Comment on above: Order Comment: Yes: Add to Previous draw if able Performed By: #### 3 5200, 88362, 67731 #### [facility] [address] [place] [address], [facility] PLAT CNT 179 10*3/uL Normal 150-400 [facility] Comment on above: Order Comment: Yes: Add to Previous draw if able Performed By: #### 3 5200, 48234, 03934 #### [facility] [address] [place] [address], [facility] RBC (Bld) [#/Vol] 5.61 10*6/uL Normal 4.20-5.70 [facility] Comment on above: Order Comment: Yes: Add to Previous draw if able Performed By: #### 3 5200, 27006, 95602 #### [facility] [address] [place] [address], [facility] WBC (Bld) [#/Vol] 7.83 10*3/uL Normal 4.00-10.60 [facility] Comment on above: Order Comment: Yes: Add to Previous draw if able Performed By: #### 3 5200, , 21335 #### [facility] [address] PROTHROMBIN TIMEon 9 INR Coag (PPP) [Relative time] 1.05 {INR} Normal 0.91-1.16 [facility] Comment on above: Result Comment: ACCC [...] CHEST 1995;108:231S-246S. Performed By: #### 3 5200, 97645, 67509 #### [facility] [address] [place] [address], [facility] PT Coag (PPP) [Time] 13.7 s Normal 12.3-14.8 [facility] [place] Comment on above: Result Comment: ALL RESULTS MUST BE INTERPRETED WITH RESPECT TO BLOOD DRAWING ARTIFACT OR DILUTION ERROR OF ANTICOAGULANT AT THE TIME OF SAMPLING. Performed By: #### 3 5200, 79148, 41037 #### [facility] [address] UFH HEPARIN ASSAYon 01-17-20 19 UNFRACTIONATED HEPARIN 0.54 IU/mL Normal 0.30-0.70 [facility] [place] Comment on above: Result Comment: [place] roxaban and Apixaban will interfere with the anti Xa assay used to monitor UFH and LMWH. Performed By: #### 3 5200, 21131, 84999 #### [facility] [address] UNFRACTIONATED HEPARIN 0.49 IU/mL Normal 0.30-0.70 [facility] [place] Comment on above: Result Comment: [place] roxaban and Apixaban will interfere with the anti Xa assay used to monitor UFH and LMWH. Performed By: #### 3 5200, 73202, 09758 #### [facility] [address] [place] [address], [facility] APTTon 01-15-2019 aPTT Coag (Bld) [Time] s Critically high 25.0-35.0 [facility] [place] Comment on above: Order Comment: Yes: Add [...] = 1.16 Performed By: #### 3 5200, 10230, 39184 #### [facility] [address] [facility] aPTT Coag (Bld) [Time] 65.5 s High 25.0-35.0 [facility] [place] Comment on above: Order Comment: Yes: Add [...] THIS PURPOSE. Performed By: #### 3 5200, 47814, 60626 #### [facility] [address] [facility]. [address] BNP (B-TYPE NATRIURETIC PEPT JOSE)on 01-15-2019 Natriuretic peptide B (Bld) [Mass/Vol] 682 pg/mL High 0-100 [facility] Comment on above: Order Comment: Yes: Add to Previous draw if able Result Comment: Give n the appropriate clinical setting a BNP result of >100 pg/mL indicates congestive heart failure. Performed By: #### 8 5123 #### [facility] [address] [facility] [place] [place] [address], [facility] CBC W/DIFFon 01-15-2019 ABS BASOPHILS 0.1 10*3/uL Normal 0.0-0.2 [facility] Comment on above: Order Comment: Yes: Add to Previous draw if able Performed By: #### 5 0103 #### [facility] [address] [place] [address], [facility] ABS IMM GRANS 0.1 10*3/uL Normal 0.0-0.2 [facility] Comment on above: Order Comment: Yes: Add to Previous draw if able Performed By: #### 5 0103 #### [facility] [address] [place] [address], [facility] ABS NEUTROPHILS 8.5 10*3/uL High 1.6-7.6 [facility] Comment on above: Order Comment: Yes: Add to Previous draw if able Performed By: #### 5 0103 #### [facility] [address] [place] [id number], [facility] Basophils/100 WBC (Bld) 0.4 % Normal 0.0-1.0 [facility] [place] Comment on above: Order Comment: Yes: Add to Previous draw if able Performed By: #### 5 0103 #### [facility] [address] [place] [address], [facility] Eosinophils (Bld) [#/Vol] 0.1 10*3/uL Normal 0.0-0.5 [facility] Comment on above: Order Comment: Yes: Add to Previous draw if able Performed By: #### 0103 #### [facility] [address] [place] [address], [facility] Eosinophils/100 WBC (Bld) 0.7 % Normal 0.0-6.0 [facility] [place] Comment on above: Order Comment: Yes: Add to Previous draw if able Performed By: #### 3 #### [facility] [address] [place] [address], [facility] Erythrocyte distribution width (RBC) [Ratio] 14.4 % Normal 11.5-15.0 [facility] [place] Comment on above: Order Comment: Yes: Add to Previous draw if able Performed By: #### 5 3 #### [facility] [address] [place] [id number], [facility] Hematocrit (Bld) [Volume fraction] 53.0 % High 39.0-50.0 [facility] [place] Comment on above: Order Comment: Yes: Add to Previous draw if able Performed By: #### 5 3 #### [facility] [address] [place] [address], [facility] Hemoglobin (Bld) [Mass/Vol] 16.8 g/dL Normal 13.0-17.0 [facility] Comment on above: Order Comment: Yes: Add to Previous draw if able Performed By: #### 5 3 #### [facility] [address] [place] [address], [facility] IMMATURE GRANS 0.4 % Normal 0.0-1.0 [facility] Comment on above: Order Comment: Yes: Add to Previous draw if able Performed By: #### 5 3 #### [facility] [address] [place] [address], [facility] Lymphocytes (Bld) [#/Vol] 1.7 10*3/uL Normal 1.2-4.0 [facility] Comment on above: Order Comment: Yes: Add to Previous draw if able Performed By: #### 5 3 #### [facility] [address] [place] [address], [facility] Lymphocytes/100 WBC (Bld) 14.8 % Low 20.0-45.0 [facility] [place] Comment on above: Order Comment: Yes: Add to Previous draw if able Performed By: #### 5 3 #### [facility] [address] [place] [address], [facility] MCH (RBC) [Entitic mass] 29.0 pg Normal 27.0-33.0 [facility] [place] Comment on above: Order Comment: Yes: Add to Previous draw if able Performed By: #### 5 0103 #### [facility] [address] [place] [address], [facility] MCHC (RBC) [Mass/Vol] 31.7 g/dL Low 32.0-35.0 [facility] [place] Comment on above: Order Comment: Yes: Add to Previous draw if able Performed By: #### 5 3 #### [facility] [address] [place] [address], [facility] MCV (RBC) [Entitic vol] 91.5 fL Normal 82.0-98.0 [facility] [place] Comment on above: Order Comment: Yes: Add to Previous draw if able Performed By: #### 5 0103 #### [facility] [address] [place] [address], [facility] Monocytes (Bld) [#/Vol] 0.9 10*3/uL Normal 0.1-1.0 [facility] [place] Comment on above: Order Comment: Yes: Add to Previous draw if able Performed By: #### 5 0103 #### [facility] [address] [place] [address], [facility] MONOS 7.8 % Normal 5.0-12.0 [facility] [place] Comment on above: Order Comment: Yes: Add to Previous draw if able Performed By: #### 5 0103 #### [facility] [address] [place] [id number], [facility] Neutrophils/100 WBC (Bld) 75.9 % High 40.0-72.0 [facility] [place] Comment on above: Order Comment: Yes: Add to Previous draw if able Performed By: #### 5 0103 #### [facility] [address] [place] [address], [facility] Nucleated RBC/100 WBC (Bld) [Ratio] 0 % Normal 0-0 [facility] Comment on above: Order Comment: Yes: Add to Previous draw if able Performed By: #### 5 0103 #### [facility] [address] [place] [address], [place] PLAT CNT 187 10*3/uL Normal 150-400 [facility] Comment on above: Order Comment: Yes: Add to Previous draw if able Performed By: #### 5 0103 #### [facility] [address] [place] [address], [facility] RBC (Bld) [#/Vol] 5.79 10*6/uL High 4.20-5.70 [facility] Comment on above: Order Comment: Yes: Add to Previous draw if able Performed By: #### 5 0103 #### [facility] [address] [place] [address], [facility] WBC (Bld) [#/Vol] 11.18 10*3/uL High 4.00-10.60 [facility] [place] Comment on above: Order Comment: Yes: Add to Previous draw if able Performed By: #### 5 0103 #### [facility] [address] [place] [address], [facility] COMP METABOLIC PANELon 01-15 Albumin [Mass/Vol] 4.2 g/dL Normal 3.5-5.7 [facility] Comment on above: Order Comment: Yes: Add to Previous draw if able Performed By: #### 3 5200, 35666, 03934 #### [facility] [address] [place] [address], [place] ALKALINE PHOSPH 38 IU/L Normal 34-104 [facility] Comment on above: Order Comment: Yes: Add to Previous draw if able Performed By: #### 3 5200, 86734, 95567 #### [facility] [address] [place] [address], [place] ALT [Catalytic activity/Vol] 19 U/L Normal 7-52 [facility] [place] Comment on above: Order Comment: Yes: Add to Previous draw if able Performed By: #### 3 5200, 14220, 44342 #### [facility] [address] [place] [address], [place] AST [Catalytic activity/Vol] 20 U/L Normal 13-39 [facility] [place] Comment on above: Order Comment: Yes: Add to Previous draw if able Performed By: #### 3 5200, 59542, 14088 #### [facility] [address] [place] [address], [place] Bilirubin [Mass/Vol] 0.9 mg/dL Normal 0.3-1.0 [facility] Comment on above: Order Comment: Yes: Add to Previous draw if able Performed By: #### 3 5200, 18942, 30095 #### [facility] [address] [place] [address], [place] Calcium [Mass/Vol] 9.2 mg/dL Normal 8.6-10.3 [facility] Comment on above: Order Comment: Yes: Add to Previous draw if able Performed By: #### 3 5200, 18571, 05802 #### [facility] [address] [place] [address], [place] Chloride [Moles/Vol] 99 mmol/L Normal 98-107 [facility] Comment on above: Order Comment: Yes: Add to Previous draw if able Performed By: #### 3 5200, 10661, 60555 #### [facility] [address] [place] [address], [place] CO2 [Moles/Vol] 24 mmol/L Normal 21-[address] [facility] Comment on above: Order Comment: Yes: Add to Previous draw if able Performed By: #### 3 5200, 63033, 12378 #### [facility] [address] [place] [address], [place] Creatinine [Mass/Vol] 1.37 mg/dL High 0.70-1.30 [facility] Comment on above: Order Comment: Yes: Add to Previous draw if able Performed By: #### 3 5200, 01458, 13653 #### [facility] [address] [place] [address], [place] GFR/1.73 sq M predicted among blacks MDRD (S/P/Bld) [Vol rate/Area] 60 ml/min/1.73sq m Abnormal >60 [facility] Comment on above: Order Comment: Yes: Add to Previous draw if able Result Comment: Calc ulation may not be valid for patients over 70 years Performed By: #### 3 5200, 61793, 77808 #### [facility] [address] [place] [address], [place] GFR/1.73 sq M predicted among non-blacks MDRD (S/P/Bld) [Vol rate/Area] 50 ml/min/1.73sq m Abnormal >60 [facility] Comment on above: Order Comment: Yes: Add to Previous draw if able Result Comment: Calc ulation may not be valid for patients over 70 years Performed By: #### 3 5200, 06882, 75983 #### [facility] [address] [place] [address], [place] Glucose [Mass/Vol] 107 mg/dL High 70-100 [facility] Comment on above: Order Comment: Yes: Add to Previous draw if able Performed By: #### 3 5200, 97162, 92515 #### [facility] [address] [place] [address], [place] Potassium [Moles/Vol] 3.8 mmol/L Normal 3.5-5.1 [facility] Comment on above: Order Comment: Yes: Add to Previous draw if able Performed By: #### 3 5200, 97348, 57894 #### [facility] [address] [place] [address], [place] Protein [Mass/Vol] 7.4 g/dL Normal 6.0-8.3 [facility] Comment on above: Order Comment: Yes: Add to Previous draw if able Performed By: #### 3 5200, 29140, 51824 #### [facility] [address] [place] [address], [place] Sodium [Moles/Vol] 135 mmol/L Low 136-145 [facility] Comment on above: Order Comment: Yes: Add to Previous draw if able Performed By: #### 3 5200, 12175, 78560 #### [facility] [address] [place] [address], [facility] Urea nitrogen [Mass/Vol] 30 mg/dL High 7-25 [facility] Comment on above: Order Comment: Yes: Add to Previous draw if able Performed By: #### 3 5200, 64902, 01125 #### [facility] [address] [place] [address], [facility] CPKon 01-15-2019 CK [Catalytic activity/Vol] 67 U/L Normal 30-223 [facility] Comment on above: Performed By: #### 3 5200, 39699 #### [facility] [address] [facility] [place] [address], [facility] MAGNESIUM BLOODon 01-15-2019 Magnesium [Mass/Vol] 1.9 mg/dL Normal 1.9-2.7 [facility] Comment on above: Order Comment: Yes: Add to Previous draw if able Performed By: #### 3 5200, 16077, 00941 #### [facility] [address] [place] [address], [facility] PROTHROMBIN TIMEon 9 INR Coag (PPP) [Relative time] 1.04 {INR} Normal 0.91-1.16 [facility] [place] Comment on above: Order Comment: if no [...] CHEST 1995;108:[id number]. Performed By: #### 5 6101, [id number], [id number] #### [facility] [address] [place] [address], [facility] PT Coag (PPP) [Time] 13.6 s Normal 12.3-14.8 [facility] [place] Comment on above: Order Comment: if no t already done No: Do not add to previous draw Result Comment: ALL RESULTS MUST BE INTERPRETED WITH RESPECT TO BLOOD DRAWING ARTIFACT OR DILUTION ERROR OF ANTICOAGULANT AT THE TIME OF SAMPLING. Performed By: #### 5 6101, [id number], [id number] #### [facility] [address] [place] [address], [facility] TROPONIN-Ion 01-15-2019 Troponin I.cardiac [Mass/Vol] 0.05 ng/mL High 0.00-0.04 [facility] Comment on above: Order Comment: No: D o not add to previous draw Result Comment: REFE RENCE RANGES: 0.00 - 0.04 ng/ml NORMAL 0.05 - 0.50 ng/ml INDETERMINATE > 0.50 ng/ml CONSISTENT WITH AN M.I. Performed By: #### 3 [id number], [id number] #### [facility] [address] [place] [address], [facility] Troponin I.cardiac [Mass/Vol] 0.05 ng/mL High 0.00-0.04 [facility] Comment on above: Order Comment: Yes: Add to Previous draw if able Result Comment: REFE RENCE RANGES: 0.00 - 0.04 ng/ml NORMAL 0.05 - 0.50 ng/ml INDETERMINATE > 0.50 ng/ml CONSISTENT WITH AN M.I. Performed By: #### 3 [id number], 53610, [id number] #### [facility] [address] [place] [address], [place] [facility] HEPARIN ASSAYon 01-16-20 19 UNFRACTIONATED HEPARIN >1.00 Critically high 0.30-0.70 [facility] [place] Comment on above: Result Comment: [place] roxaban and Apixaban will interfere with the anti Xa assay used to monitor UFH and LMWH. RESULTS CHECKED AND CALLED. ACCURATELY READ BACK BY TAWNYA MOSQUEDA RN AT 21:44 SPECIMEN DRAWN FROM ARM NOT CONTAINING IV LINE PER TAWNYA MOSQUEDA RN. Performed By: #### 3 [id number], [id number], [id number] #### [facility] [address] [place] [address], [facility] UNFRACTIONATED HEPARIN 0.79 IU/mL High 0.30-0.70 [facility] [place] Comment on above: Result Comment: [place] roxaban and Apixaban will interfere with the anti Xa assay used to monitor UFH and LMWH. Performed By: #### 3 5200, [id number], [id number] #### [facility] [address] [place] [address], [facility] UNFRACTIONATED HEPARIN 0.35 IU/mL Normal 0.30-0.70 [facility] [place] Comment on above: Result Comment: [place] roxaban and Apixaban will interfere with the anti Xa assay used to monitor UFH and LMWH. Performed By: #### 5 6101, 05445, [id number] #### [facility] [address] [place] [address], [facility] UNFRACTIONATED HEPARIN 0.15 IU/mL Critically low 0.30-0.70 [facility] [place] Comment on above: Result Comment: Angy roxaban and Apixaban will interfere with the anti Xa assay used to monitor UFH and LMWH. RESULTS CHECKED AND CALLED. ACCURATELY READ BACK BY JONE MENDOZA RN @ 0728 Performed By: #### 3 [id number] #### [facility] [address] [place] [address], [place] Vital Signs Date Time Vital Sign Value Performing Clinician Facility 08-11-2024 08:40-0500 Body height 175.3 cm Yfn Gusman DPM Work Phone: [facility] 08-11-2024 08:40-0500 Body mass index (BMI) [Ratio] 31.01 kg/m2 Yfn Gusman DPM Work Phone: [facility] 08-11-2024 08:40-0500 Body weight 95.25 kg Yfn Gusman DPM Work Phone: [facility] 08-11-2024 08:40-0500 Respiratory rate 18 /min Yfn Gusman DPM Work Phone: [facility] 06-20-2024 13:39-0500 Blood Pressure Location Robertsulema BAUER [facility] 06-20-2024 13:39-0500 Body temperature 98.6 [degF] Robertsulema BAUER [facility] 06-20-2024 13:39-0500 Diastolic blood pressure 68 mm[Hg] Robert BAUER [facility] 06-20-2024 13:39-0500 Heart rate 72 /min Robert BAUER [facility] 06-20-2024 13:39-0500 Respiratory rate 16 /min Robert BAUER [facility] 06-20-2024 13:39-0500 Systolic blood pressure 131 mm[Hg] Robert BAUER [facility] 05-19-2024 08:53-0400 Body height 175.3 cm Yfn Gusman DPM Work Phone: [facility] 05-19-2024 08:53-0400 Body mass index (BMI) [Ratio] 31.01 kg/m2 Yfn Gusman DPM Work Phone: [facility] 05-19-2024 08:53-0400 Body weight 95.25 kg Yfn Gusman DPM Work Phone: [facility] 05-19-2024 08:53-0400 Diastolic blood pressure 80 mm[Hg] Yfn Gusman DPM Work Phone: [facility] 05-19-2024 08:53-0400 Heart rate 81 /min Yfn Gusman DPM Work Phone: [facility] 05-19-2024 08:53-0400 Systolic blood pressure 125 mm[Hg] Yfn Gusman DPM Work Phone: [facility] 04-01-2024 10:12-0400 Body height 175.26 cm [facility] 04-01-2024 10:12-0400 Body mass index (BMI) [Ratio] 29.3 kg/m2 [facility] 04-01-2024 10:12-0400 Body weight 90.26 kg [facility] 04-01-2024 10:12-0400 Diastolic blood pressure 65 mm[Hg] [facility] 04-01-2024 10:12-0400 Heart rate 69 /min [facility] 04-01-2024 10:12-0400 Respiratory rate 12 /min [facility] 04-01-2024 10:12-0400 Systolic blood pressure 133 mm[Hg] [facility] 11-30-2023 10:47-0400 Body height 175.26 cm [facility] 11-30-2023 10:47-0400 Body mass index (BMI) [Ratio] 28.8 kg/m2 [facility] 11-30-2023 10:47-0400 Body weight 88.67 kg [facility] 11-30-2023 10:47-0400 Diastolic blood pressure 74 mm[Hg] [facility] 11-30-2023 10:47-0400 Heart rate 81 /min [facility] 11-30-2023 10:47-0400 Respiratory rate 12 /min [facility] 11-30-2023 10:47-0400 Systolic blood pressure 119 mm[Hg] [facility] 06-02-2023 10:30-0400 Body height 175.26 cm David Ball Other [place] [employer] Other 06-02-2023 10:30-0400 Body mass index (BMI) [Ratio] 29.44 kg/m2 David Ball Other [place] [employer] Other 06-02-2023 10:30-0400 Body weight 90.45 kg David Ball Other [facility] [employer] Other 06-02-2023 10:30-0400 Diastolic blood pressure 88 mm[Hg] David Ball Other [place] [employer] Other 06-02-2023 10:30-0400 Systolic blood pressure 138 mm[Hg] David Ball Other [facility] [employer] Other 04-27-2023 10:29-0400 Blood Pressure Location Robertsulema BAUER [facility] 04-27-2023 10:29-0400 Diastolic blood pressure 83 mm[Hg] Robert BAUER [facility] 04-27-2023 10:29-0400 Heart rate 93 /min Robert BAUER [facility] 04-27-2023 10:29-0400 Respiratory rate 16 /min Robert BAUER [facility] 04-27-2023 10:29-0400 Systolic blood pressure 130 mm[Hg] Robert BAUER [facility] 11-05-2022 11:00-0400 Body height 175.26 cm David Ball Other [facility] [employer] Other 11-05-2022 11:00-0400 Body mass index (BMI) [Ratio] 30.12 kg/m2 David Claro Other [email or web address] Other 11-05-2022 11:00-0400 Body weight 92.53 kg David Ball Other [email or web address] Other 11-05-2022 11:00-0400 Diastolic blood pressure 76 mm[Hg] David Ball Other [employer] Other 11-05-2022 11:00-0400 SaO2% (BldA) [Mass fraction] 94 % David Claro Other [employer] Other 11-05-2022 11:00-0400 Systolic blood pressure 123 mm[Hg] David Claro Other [employer] Other 04-14-2022 09:00-0400 Blood Pressure Location Robert Hellotravel [facility] 04-14-2022 09:00-0400 Diastolic blood pressure 73 mm[Hg] Robert BAUER [facility] 04-14-2022 09:00-0400 Heart rate 101 /min Robert BAUER [facility] 04-14-2022 09:00-0400 Respiratory rate 16 /min Robert BAUER [facility] 04-14-2022 09:00-0400 Systolic blood pressure 114 mm[Hg] Robert BAUER [facility] Encounters Encounter Date Encounter Type Care Provider Facility Start: 10-27-2024 ambulatory ILYA Hay ty:XIAO Henderson Start: 10-21-2024 ambulatory Robert Lui ty:[facility] Start: 09-29-2024 End: 09-29-2024 ambulatory ILYA MAHAJAN Facility: [facility] Start: 09-29-2024 End: 09-29-2024 Patient encounter procedure ILYA MAHAJAN [facility] Start: 09-01-2024 End: 09-01-2024 ambulatory Robert Fabiana ZECHARIAH Facility:[facility] Start: 09-01-2024 End: 09-01-2024 Patient encounter procedure Robert BAUER [facility] Start: 08-11-2024 End: 08-11-2024 Bamboo flowsheet Yfn Gusman DPM Work Phone: [facility] Start: 08-11-2024 End: 08-11-2024 Bamboo flowsheet Yfn Gusman DPM Work Phone: [facility] Start: 08-11-2024 End: 08-11-2024 Patient encounter procedure Yfn Gusman DPM Work Phone: [facility] Comment on above: Pain due to onychomy cosis of toenails of both feet (Primary Dx); Venous insufficiency Start: 08-11-2024 End: 08-11-2024 ambulatory YFN GUSMAN Not Available Start: 08-04-2024 End: 08-04-2024 ambulatory Robert BAUER Facility:[facility] Start: 08-04-2024 End: 08-04-2024 Patient encounter procedure Robert BAUER [facility] Start: 07-18-2024 End: 07-18-2024 ambulatory [facility] Start: 07-08-2024 End: 07-08-2024 ambulatory Robertsulema BAUER Facility:[facility] Start: 07-08-2024 End: 07-08-2024 Patient encounter procedure Robert BAUER [facility] Start: 06-20-2024 End: 06-20-2024 ambulatory Robert BAUER Facility:[facility] Start: 06-20-2024 End: 06-20-2024 Patient encounter procedure Robert BAUER [facility] Start: 05-19-2024 End: 05-19-2024 Bamboo [...] Not Available Start: 05-16-2024 End: 05-16-2024 ambulatory [facility] Work Phone: Start: 05-16-2024 End: 05-16-2024 Patient encounter procedure [facility] Work Phone: Start: 04-22-2024 End: 04-22-2024 ambulatory [facility] Work Phone: Start: 04-22-2024 End: 04-22-2024 Patient encounter procedure [facility] Work Phone: Start: 04-01-2024 End: 04-01-2024 ambulatory [facility] Work Phone: Start: 04-01-2024 End: 04-01-2024 Patient encounter procedure [facility] Work Phone: Start: 03-10-2024 End: 03-10-2024 ambulatory YFN GUSMAN Not Available Start: 01-28-2024 End: 01-28-2024 ambulatory [facility] Start: 01-06-2024 Non-patient / Non-visit [facility] Work Phone: Start: 12-24-2023 End: 12-24-2023 ambulatory YFN GUSMAN Not Available Start: 11-30-2023 End: 11-30-2023 ambulatory [facility] Work Phone: Start: 11-30-2023 End: 11-30-2023 Patient encounter procedure [facility] Work Phone: Start: 10-15-2023 End: 10-15-2023 ambulatory YFN GUSMAN Not Available Start: 08-10-2023 End: 08-10-2023 ambulatory David Marx Other [email or web address] Other Start: 08-10-2023 Office outpatient vi sit 15 minutes David Marx [facility] Start: 06-02-2023 End: 06-02-2023 ambulatory David Francisco J Other [email or web address] Other Start: 06-02-2023 Office outpatient vi sit 25 minutes David Ball [facility] Start: 06-02-2023 Telephone encounter David Francisco J [facility] Start: 05-29-2023 End: 05-29-2023 ambulatory David Ball Other [email or web address] Other Start: 05-29-2023 Nursing evaluation o f patient and report David Marx [facility] Start: 04-28-2023 End: 04-28-2023 ambulatory David Marx Other [email or web address] Other Start: 04-28-2023 Telephone encounter David VERA [facility] Start: 04-27-2023 End: 04-27-2023 Patient encounter procedure Robert BAUER [facility] Start: 02-25-2023 End: 02-25-2023 ambulatory David Marx Other [email or web address] Other Start: 02-25-2023 Telephone encounter Dvaid VERA [facility] Start: 02-16-2023 End: 02-16-2023 ambulatory David Marx Other [email or web address] Other Start: 02-16-2023 Telephone encounter David VERA [facility] Start: 11-18-2022 End: 11-19-[address] DAVID MARX Facility:[facility] Start: 11-05-2022 End: 11-05-2022 ambulatory David Marx Other [email or web address] Other Start: 11-05-2022 Patient encounter procedure David Marx [facility] Start: 11-05-2022 Telephone encounter David VERA [facility] Start: 10-02-2022 End: 10-02-2022 ambulatory TRIXIE CANDELARIA Facility:[facility] Start: 06-17-2022 End: 07-19-[address] DAVID MARX Facility:[facility] Start: 05-29-2022 End: 05-30-2022 ambulatory FOSTER STONE Facility:[facility] Start: 04-15-2022 End: 04-16-[address] ROBERT BAUER . Facility:[facility] Start: 04-14-2022 End: 04-14-2022 Patient encounter procedure Robert BAUER [facility] Start: 03-27-2022 End: 04-25-2022 ambulatory FOSTER B APLING Facility:[facility] Start: 10-16-2021 Adult health examination Kashmir Marx Other [email or web address] Other Start: 01-15-2019 End: 01-19-2019 Evaluation and management of inpatient KEKE AKERS Facility:[facility] Procedures Date Procedure Procedure Detail [...] Treatment Date Care Activity Detail Author Start: 10-27-2024 End: 10-27-2024 Patient encounter procedure 10/27/2024 8:40 AM EDT Procedure Visit [facility] [address] [place] [address] Yfn Gusman DPM [address] [facility] [address] [place] [address] [facility] Start: 08-11-2024 End: 08-11-2024 Patient encounter procedure 08/11/2024 8:40 AM EST Procedure Visit [facility] [address] [place] [address] Yfn Gusman DPM [address] [address] Pain due to onychomycosis of toenails of both feet (Primary Dx); Venous insufficiency [facility] Comment on above: Pain due to onychomy cosis of toenails of both feet (Primary Dx); Venous insufficiency Start: 07-28-2024 End: 07-28-2024 Patient encounter procedure 07/28/2024 8:40 AM EST Procedure Visit [facility] [address] [address] Yfn Gusman DPM [address] [address] [facility] Start: 05-19-2024 End: 05-19-2024 Patient encounter procedure 05/19/2024 8:50 AM EDT Procedure Visit [facility] [address] [address] Yfn Gusman DPM [address] [address] Pain due to onychomycosis of toenails of both feet (Primary Dx); Venous insufficiency [facility] Comment on above: Pain due to onychomy cosis of toenails of both feet (Primary Dx); Venous insufficiency Start: 04-03-2024 Influenza vaccination Influenza Vacc ine (#1) [facility] Immunizations Immunization Date Immunization Notes Care Provider Fa cili 05-16-2024 influenza virus vaccine, unspecified formulation Yfn Gusman DPM Work Phone: [facility] 05-29-2023 influenza, high dose seasonal, preservative-free David Marx Other [email or web address] Other 05-29-2023 influenza virus vaccine, unspecified formulation [facility] 02-18-2023 zoster vaccine recombinant Robert BAUER [facility] 09-01-2022 zoster vaccine recombinant Robert BAUER [facility] 05-31-2022 COVID-19 Moderna (BIvalent) David Marx Other [facility] Comment on above: Result Comment: 2023: [id number] 05-23-2022 influenza, high dose seasonal, preservative-free David Marx Other [email or web address] Other 05-23-2022 influenza virus vaccine, split virus (incl. purified surface antigen) David Marx Other [employer] Other 05-23-2022 influenza virus vaccine, unspecified formulation [facility] 12-20-2021 SARS-CoV-2 (COVID-19 ) mRNA-1273 vaccine Robert BAUER [facility] Comment on above: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
[2024-10-15 05:07] LABS: Testosterone 435 ng/dL (264-916)
== END 2024-10-14 07:50 | disposition home or self-care (01) ==
LOC: LAB 07:50
PROVIDERS: PCP Internal Medicine; Visit Provider Urology
DX: E29.1 Testicular hypofunction (principal)
CPT/HCPCS: 36415; 84403

== ENCOUNTER 2024-12-15 08:47 | Outpatient (OUT) | payer MEDICARE, SELFPAY ==
--- NOTE | 2024-12-15 09:00 | CA_ITS ---
Patient Name: MACI MORTENSEN MR#: [id number] : 1935 Exam Date: 12/15/2024 Ordering Doctor: DR VJ ESPITIA M.D. ECHOCARDIOGRAM REPORT PROCEDURE: CA ECHO DOPPLER COMPLETE INDICATIONS: Heart failure with improved ejection fraction, non-rheumatic mitral valve regurgitation COMPARISON: None. DESCRIPTION: COMPLETE ECHOCARDIOGRAM Real-time transthoracic echocardiography with 2D, M-mode, spectral and color flow Doppler performed. QUALITY: Technical quality was good. LEFT VENTRICLE: Normal chamber size. Mild concentric left ventricular hypertrophy. LV EF: Normal left ventricular ejection fraction, (55%). DIASTOLIC: Grade II diastolic dysfunction. Doppler data is consistent with elevated left-sided filling pressures. ATRIAL SEPTUM: Visually appears intact. LEFT ATRIUM: Moderate dilatation. RIGHT ATRIUM: Moderate dilatation. RIGHT VENTRICLE: Normal chamber size. Normal right ventricular systolic function. TRICUSPID VALVE: Normal mobility and thickness. No stenosis with no regurgitation. Unable to assess right-sided pressures due to lack of measurable tricuspid regurgitation. MITRAL VALVE: Normal mobility and thickness. No evidence of mitral valve stenosis. There is no mitral annular calcification. Mild to moderate mitral regurgitation. AORTIC VALVE: Normal trileaflet appearance. No visible sclerosis. Normal leaflet mobility. No evidence of aortic valve stenosis. No aortic regurgitation. AORTIC ROOT: Normal diameter and appearance, measuring 3.9 cm. Ascending aorta is normal in size, measuring 3.2 cm. PULMONIC VALVE: Normal thickness and mobility. No stenosis. No regurgitation. PERICARDIUM: No evidence of pericardial effusion. IVC: IVC is dilated (2.3 cm), does not fully collapse. PLEURA: CONCLUSION: 1. Mild concentric left ventricular hypertrophy with normal systolic function. Estimated LVEF is 55%. 2. Normal right ventricular size and systolic function. 3. Moderate biatrial dilatation. 4. Grade 2 diastolic dysfunction. Doppler data is consistent with elevated left-sided filling pressures. 5. Mild to moderate mitral regurgitation. 6. Unable to assess right-sided pressures due to lack of measurable tricuspid regurgitation. Adult Echocardiography Procedure Report Left Ventricle LVEDD (3.7 - 5.6 cm): 4.27 cm LVESD (2.2 - 4.0 cm): 3.15 cm LVIVS thickness (0.6 - 1.2 cm): 1.11 cm LVPW thickness (0.5 - 1.0 cm): 1.24 cm e': 0.06 m/s E - e': 17.81 LVOT Max Gradient: 1.13 mm[Hg] LVOT Area (cm2): 0.53 m/s Peak Velocity (LVOT): 0.53 m/s Mean Velocity (LVOT): 0.37 m/s LVOT Diameter 2.39 cm Left Atrium LA Volume Index (2D A2C): 50.65 ml/m2 Left Atrium Systolic Dimension: 3.64 cm Mitral Valve MV E to A Ratio: 1.24 Mitral Valve A-Wave Peak Velocity: 0.86 m/s Mitral Valve E-Wave Peak Velocity: 1.06 m/s Right Ventricle Aorta AO Root Diam: 3.92 cm Ascending Ao Diam: 3.22 cm Aortic Valve AoV Area (Peak Ben): 2.43 cm2, 2.43 cm2 AoV Area (VTI): 2.62 cm2, 2.62 cm2 Peak Velocity(Antegrade Flow): 0.98 m/s Peak Gradient(Antegrade Flow): 3.86 mm[Hg] Mean Velocity(Antegrade Flow): 0.65 m/s Mean Gradient(Antegrade Flow): 2.06 mm[Hg] Velocity Time Integral: 22.54 cm Tricuspid Valve Pulmonic Valve Peak Velocity: 0.88 m/s Peak Gradient: 3.06 mm[Hg] Right Atrium Right Atrium Systolic Pressure: 67.12 ml, 67.12 ml Dictated by: Vj Espitia M.D. on 12/15/2024 at 19:15 Approved by: Vj Espitia M.D. on 12/15/2024 at 19:21
--- OUTSIDE RECORDS SUMMARY | 2024-12-15 09:10 | XMS_ITS | CCD ---
Author Organization [facility] CliniSyms Care Team Providers Care Sheep Or Calf Grader Name Role Phone KEKE AKERS Admitting Unavailable ADITHYA SCHMIDT Referring Unavailable DAVID MARX Primary Care Unavailable Deng Aguilar Attending Unavailable MA Procedure Practitioner UnavailHEATHER Davis Surgeon Unavailable DAVID MARX Primary Care Physician [phone] David Marx Unavailable APLING, FOSTER B Admitting Unavailable APLING, FOSTER B Attending Unavailable IVANA, DR LAM Primary Care Unavailable IVANA, DR LAM Primary Care Unavailable IVANA, DR LAM Admitting Unavailable IVANA, DR LAM Attending Unavailable REQUEST, DR KIM LISTED Attending Unavaila ble REQUEST, DR KIM LISTED Consulting Unavaila ble REQUEST, DR KIM LISTED Admitting Unavaila ble IVANA, DR LAM Primary Care Unavailable TRIXIE CANDELARIA Attending Unavailable TRIXIE CANDELARIA Consulting Unavailable TRIXIE CANDELARIA Admitting Unavailable IVANA, DR LAM Primary Care Unavailable BAUER ., DR BUI Attending Unavailable BAUER ., DR BUI Consulting Unavailable BAUER ., DR BUI Admitting Unavailable IVANA, DR LAM Primary Care Unavailable IVANA, DR LAM Attending Unavailable BALL, DR LAM Consulting Unavailable BALL, DR LAM Primary Care Unavailable BALL, DR LAM Admitting Unavailable ZIEBER, DR MILKA Jung Consulting Unavailable APLING, FOSTER Bañuelos Attending Unavailable APLING, FOSTER Bañuelos Admitting Unavailable ZIEBER, DR MILKA Jung Consulting Unavailable IVANA, DR LAM Primary Care Unavailable APLING, FOSTER Sarmad Consulting Unavailable David Marx MD Primary Care Provider VJ ESPITIA Attending Unavailable VJ ESPITIA Attending Unavailable YFN GUSMAN Attending Unavailable YFN GUSMAN Attending Unavailable NUSRAT, YFN Rider Attending Unavailable NUSRAT, YFN Rider Attending Unavailable YFN GUSMAN Attending Unavailable ILYA MAHAJAN Attending Unavailable Ramya BAUER Attending Unavailable Ramya BAUER Attending Unavailable Ramya BAUER Attending Unavailable Ramya BAUER Attending Unavailable Ramya BAUER Attending Unavailable ILYA MAHAJAN Attending Unavailable ILYA MAHAJAN Attending Unavailable ILYA MAHAJAN Attending Unavailable Ramya BAUER Attending Unavailable Ramya BAUER Attending Unavailable ILYA MAHAJAN Attending Unavailable ILYA MAHAJAN Attending Unavailable Allergies Allergy Classification Reported Allergen(s) Allergy Type Date of Onset Reaction(s) Facility (15 sources) traMADol; Translations: [TRAMADOL] Drug Allergy 2 Hives [facility] Other (3 sources) patient allergy list reviewed by nurse or physicia Propensity to adverse reactions 6 Comment:Done [facility] Other (6 sources) TraMADol & Dietary Manage Prod *ANALGESICS - OPIOI Propensity to adverse reactions Unknown [facility] Other (6 sources) Angiotensin-con verting enzyme inhibitor agent; Translations: [BERNARDINO INHIBITORS] Drug Allergy 3 [facility] (1 source) No Known Medication Allergies; Translations: [No Known Medication Allergies] Propensity to adverse reactions (disorder) [facility] Repository Medications Current Medications Medication Drug Class(es) Dates Sig (Normalized) Sig (Original) acetaminophen 325 mg / HYDROcodone bitartrate 5 mg oral tablet (5 sources) Opioid Agonist Start: 05-25-2023 HYDROcodone-aceta minophen (Melissa) 5-325 MG tablet 05/25/2023 Active amiodarone hydrochloride 200 mg oral tablet (1 source) Antiarrhythmic Start: 03-04-2019 take 1 tablet by mouth once daily amiodarone 200 mg Tab 200 mg = 1 tab(s), Oral, Daily Start Date: 03/04/19 Status: Ordered finasteride 5 mg oral tablet (20 sources) 5-alpha Reductase Inhibitor Start: 11-15-2021 take 1 tablet by mouth once daily Finasteride 5 mg tablet Active 5 MG PO Daily November 27, 2023 12:00am ketorolac tromethamine 5 mg/ml ophthalmic solution (5 sources) Nonsteroidal Anti-inflammatory Drug, Cyclooxygenase Inhibitor Start: 09-17-2022 ketorolac (Acular) 0.5 % ophthalmic solution Administer 1 drop into both eyes in the morning and 1 drop at noon and 1 drop in the evening and 1 drop before bedtime. 09/17/2022 Active losartan potassium 25 mg oral tablet (20 sources) Angiotensin 2 Receptor Paul Start: 04-27-2023 take 1 tablet by mouth once daily Losartan 25 mg tablet Active 25 MG PO Daily November 27, 2023 12:00am 24 hr metoprolol succinate 25 mg extended release oral tablet (20 sources) beta-Adrenergic Paul Start: 09-26-2019 take 1 tablet by mouth once daily Metoprolol Succinate 25 mg tablet extended release 24 hr Active 25 MG PO Daily November 27, 2023 12:00am take 1 tablet by guilherme th every twenty-four hours in the morning metoprolol succinate XL (Toprol-XL) 25 M G 24 hr tablet Take 25 mg by mouth in the morning. Active ofloxacin 3 mg/ml ophthalmic solution (5 sources) Quinolone Antimicrobial Start: 09-17-2022 ofloxacin (Ocuflox) 0.3 % ophthalmic solution Administer 1 drop into both eyes in the morning and 1 drop at noon and 1 drop in the evening and 1 drop before bedtime. 09/17/2022 Active omeprazole 40 mg delayed release oral capsule (20 sources) Proton Pump Inhibitor Start: 01-14-2024 End: 10-04-2024 take 1 capsule by mouth once daily at breakfast Omeprazole 40 mg capsule,delayed release(DR/EC) Active 0 .ROUTE .COMPLEX 90 October 04, 2024 12:52pm TAKE 1 CAPSULE BY MOUTH EVERYDAY ON AN EMPTY STOMACH FOLLOWED IN 30 MINUTES BY BREAKFAST Start: 03-04-2019 End: 01-14-2024 take 1 capsule by mouth once daily Omeprazole 40 mg capsule,delayed release(DR/EC) Discontinued 40 MG PO Daily November 27, 2023 12:00am January 14, 2024 7:39am paxlovid (300/100) 20 x 150 mg & 10 x 100mg tablet therapy pack (1 source) Start: 08-10-2023 Paxlovid (300/100) 20 x 150 MG & 10 x 100MG as directed Orally bid for 5 days Aug, Active tamsulosin hydrochloride 0.4 mg oral capsule (20 sources) alpha-Adrenergi c Paul Start: 04-09-2024 take 1 capsule by mouth once daily Tamsulosin 0.4 mg capsule Active 0.4 MG PO Daily November 27, 2023 12:00am Start: 11-15-2021 take 1 capsule by [facility] once daily Flomax 0.4 mg Cap 0.4 mg = 1 cap(s), Oral, Daily, # 90 cap(s), Refills(s) 3, Pharmacy: [facility]/pharmacy #[id number] Start Date: 11/13/22 Status: Ordered take 1 capsule by [facility] every twenty-four hours in the morning tamsulosin (Flomax) 0.4 MG 24 hr capsule Take 0.4 mg by mouth in the morning. Active testosterone cypionate 200 mg/ml injectable solution (6 sources) Androgen Start: 07-29-2024 Testosterone C ypionate 200 mg/mL kit Active 200 MG IM EVERY 4 WEEKS July 29, 2024 1:00am testosterone cyp ionate (Depo-Testosterone) 100 MG/ML injection Inject 100 mg into the shoulder, thigh, or buttocks every 14 (fourteen) days. Active testosterone cypionate 200 mg/mL IM Kayla (5 sources) Start: 06-20-2024 inject 150 mg by intramuscular injection every other week testosterone cypionate 200 mg/mL IM Kayla 150 mg, IntraMuscular, q2wk, # 10 mL, Refills(s) 0, Pharmacy: [facility]/pharmacy #[id number], 170, cm, 06/20/24 13:43:00 EST, Height/Length Dosing, 86, kg, 06/20/24 13:43:00 EST, Weight Dosing Start Date: 06/20/24 Status: Ordered testosterone cypionate 200 mg/mL intramuscular solution (2 sources) Start: 11-09-2020 testosterone c ypionate 200 mg/mL intramuscular solution 200 mg = 1 mL, IntraMuscular, q4wk, E29.1, # 10 mL, Refills(s) 3, Pharmacy: [facility]/pharmacy #[id number], 178, cm, 09/10/20 9:06:00 EST, Height/Length Dosing, 87.9, kg, 09/10/20 9:06:00 EST, Weight Dosing Start Date: 11/09/20 Status: Ordered Completed/Discontinued Medications Medication Drug Class(es) Dates Sig (Normalized) Sig (Original) azithromycin 250 mg oral tablet (3 sources) Macrolide Antimicrobial Start: 04-22-2024 End: 07-29-2024 Azithromycin 250 mg tablet Discontinued 250 MG PO As Directed 6 5 April 22, 2024 12:00am July 29, 2024 11:04am furosemide 20 mg oral tablet (20 sources) Loop Diuretic Start: 03-04-2019 End: 01-08-2024 take 1 tablet by mouth once daily Furosemide 20 mg tablet Discontinued 20 MG PO Daily November 27, 2023 12:00am January 08, 2024 1:33pm Problems Active Problems Problem Classification Problem Date Documented Da te Episodic/Chronic Abdominal hernia (6 sources) Diaphragmatic hernia; Translations: [Diaphragmatic hernia without mention of obstruction or gangrene] Episodic Acute bronchitis (5 sources) Acute infective bronchitis; Translations: [Acute bronchitis due to other specified organisms] 04-22-2024 Episodic Allergic reactions (6 sources) Allergic contact dermatitis caused by chemical; Translations: [Allergic contact dermatitis due to other chemical products] Episodic Aortic; peripheral; and visceral artery aneurysms (10 sources) Aneurysm of ascending aorta; Translations: [Ascending aortic aneurysm] 11-28-2023 Chronic Comment on above: CT: 4mm - 01/2023Echo : 3.7mm - 01/2024 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) Malignant tumor [...] heart failure] Onset: 01-14-2019 Resolved: 01-23-2021 Chronic Comment on above: Echo: LVEF 50%, SAGAR, normal RV size/function, mod 06/2024 Esophageal disorders (20 sources) Gastro-esophageal reflux disease [...] Onset: 12-15-2018 02-10-2019 Episodic Heart valve disorders (20 sources) Non-rheumatic mitral regurgitation ; Translations: [Nonrheumatic [...] (7 sources) 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 Mycoses (8 sources) Pain in toe; Translations: [Tinea unguium] Onset: 12-24-2022 05-16-2024 Episodic Osteoarthritis (20 sources) Idiopathic osteoarthritis; 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, right knee] Onset: 04-14-2013 11-30-2023 Chronic Other aftercare (1 source) Other detention (current) drug therapy; Translations: [OTH TEST 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 CURRENT DRUG THERAPY] Onset: 10-15-2022 Episodic Other [...] Episodic Other diseases of veins and lymphatics (9 sources) Venous insufficiency (chronic) (peripheral); Translations: [Venous (peripheral) insufficiency, unspecified] Episodic Other diseases of veins and lymphatics (3 sources) Vascular insufficiency; Translations: [Venous insufficiency (chronic) [...] disease, unspecified Chronic Other lower respiratory disease (14 sources) Nodule of lung; Translations: [Solitary pulmonary nodule] 11-28-2023 Episodic Comment on above: CT 6mm LLL - 01/2023, 02/2024 Other lower respiratory disease (8 sources) Solitary pulmonary nodule; Translations: [Solitary pulmonary nodule] Episodic Other lower respiratory disease (7 sources) Chronic cough; Translations: [Chronic cough] Episodic Other lower respiratory disease (6 sources) Solitary nodule of lung; Translations: [Solitary pulmonary nodule] Episodic Other lower respiratory disease (5 sources) Restrictive lung disease; Translations: [Other disorders of lung] 11-28-2023 Episodic Other lower respiratory disease (5 sources) Other disorders of lung; Translations: [Other [...] Chronic Other nutritional; endocrine; and metabolic disorders (6 sources) Overweight; Translations: [Overweight] 11-30-2023 Episodic Other nutritional; endocrine; and metabolic disorders (10 sources) Overweight; Translations: [Overweight] 11-30-2023 Episodic Other [...] Onset: 02-18-2019 11-28-2023 Chronic Residual codes; unclassified (8 sources) Obstructive sleep apnea (adult) (pediatric); Translations: [...] Onset: 03-27-2022 Episodic Other connective tissue disease (5 sources) Pain in limb; Translations: [Pain in unspecified limb] Onset: 12-24-2022 12-24-2022 Episodic Other connective tissue disease (5 sources) Plantar fasciitis of right foot; Translations: [...] Reference Range Facility Ambulatory Visit Summaryon 0 11-24-2024 Ambulatory Visit Summary Ambulatory Visit Summary YAYA DE ANDA :1935 Visit Date:11/24/2024 Ambulatory Visit Instructions Your Diagnosis Hypogonadism male Your Care Team Attending Physician - ILYA MAHAJAN PA-C Primary Care Physician - DAVID MARX DO [...] to do next Scheduled Follow-Up Appointments Thursday 8:45 AM EDT With: Where: [facility] of [address] [address]- Thursday 9:45 AM EDT With: ZECHARIAH WYNN, Ramya Jung Where: [facility] [address] [place] [id number]- Medications What How Much When Instructions Unchanged [...] Kayla) 150 Milligram Intramuscular Every other week Medications and Immunizations Administered Given Depo-Testosterone 200 mg/mL intramuscular solution, 100 mg, IntraMuscular. For: Hypogonadism male Allergies No Known Medication Allergies Problems Ongoing - Any problem that you are currently receiving treatment for. 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 Please share your experience with us by completing your survey. We appreciate your feedback and thank you for choosing us for your care. [facility] Ambulatory Visit Summaryon 0 10-27-2024 Ambulatory Visit Summary Ambulatory Visit Summary YAYA DE ANDA :1935 Visit Date:10/27/2024 Ambulatory Visit Instructions Your Diagnosis Hypogonadism male Your Care Team Attending Physician - ILYA MAHAJAN PA-C Primary Care Physician - DAVID MARX DO This Is Your Medications List finasteride (finasteride 5 mg Tab) losartan (losartan 25 mg Tab) metoprolol (metoprolol 25 mg ER Tab) omeprazole (omeprazole 40 mg Cap-DR) tamsulosin (Flomax 0.4 mg Cap) testosterone (testosterone cypionate 200 mg/mL IM Kayal) Procedures Performed Urodynamics (01/05/2013), Cystoscopy (12/28/2012), TURP - Transurethral resection of prostate (11/01/2001), Transrectal biopsy of prostate using ultrasound (US) guidance (12/02/1999), Radical orchiectomy (1990). What to do next Scheduled Follow-Up Appointments 2024 10:30 AM EDT With: Where: [facility] of [address] [place] [address]- Thursday 8:45 AM EDT With: Where: [facility] [place] [address]- Thursday 9:45 AM EDT With: Ramya BAUER MD Where: [facility] of [address] [address]- Medications What How Much When Instructions Unchanged [...] Kayla) 150 Milligram Intramuscular Every other week Medications and Immunizations Administered Given Depo-Testosterone 200 mg/mL intramuscular solution, 100 mg, IntraMuscular. For: Hypogonadism male Allergies No Known Medication Allergies Problems Ongoing - Any problem that you are currently receiving treatment for. 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 Please share your experience with us by completing your survey. We appreciate your feedback and thank you for choosing us for your care. 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 Your Care Team Attending Physician - Ramya BAUER MD Primary Care Physician - BALL DO, DAVID This Is Your Medications List finasteride (finasteride 5 mg Tab) tamsulosin (Flomax 0.4 mg Cap) testosterone (testosterone cypionate 200 mg/mL IM Kayla) Contact prescribing physician if questions or concerns losartan (losartan 25 mg Tab) metoprolol (metoprolol 25 mg ER Tab) omeprazole (omeprazole 40 mg Cap-) Procedures Performed Urodynamics (01/05/2013), Cystoscopy (12/28/2012), TURP - Transurethral resection of prostate (11/01/2001), Transrectal biopsy of prostate using ultrasound (US) guidance (12/02/1999), Radical orchiectomy (1990). Discharge Vitals Temperature (Temporal Artery) 37 ???C Heart Rate (Peripheral) 71 Respiratory Rate 16 Blood Pressure 136/70 Height 170 cm Height 67 in Weight 88.5 kg Weight 195.109 lb BMI 30.62 What to do next Scheduled Follow-Up Appointments 2024 10:00 AM EDT With: Where: [facility] [address] [address]- Thursday 9:30 AM EDT With: Where: [facility] [address] [address]- Thursday 9:45 AM EDT With: Ramya BAUER MD Where: [facility] [address] [address]- You Need to Schedule the Following Appointments Follow Up with Ramya BAUER MD, URL When: Where: [facility] [address] [facility], [place] [address]- You Need to Complete the Following Testosterone Level Total, Blood, Routine collect, 10/21/24, Order for future visit, Lab Collect, Hypogonadism male, Not Required, Print Label By Order Location Medications What How Much When Instructions Unchanged finasteride (finasteride 5 mg Tab) 1 Tablets By Mouth Every day Unchanged tamsulosin (Flomax 0.4 mg Cap) 1 Capsules By Mouth Every day Unchanged testosterone (testosterone cypionate 200 mg/ mL IM Kayla) 150 Milligram Intramuscular Every other week Pickup at [facility]/pharmacy #[id number] Unchanged losartan (losartan 25 mg Tab) Contact prescribing physician if questions or concerns Unchanged metoprolol (metoprolol 25 mg ER Tab) By Mouth Every day Contact prescribing physician if questions or concerns Unchanged omeprazole (omeprazole 40 mg Cap-DR) 1 Capsules By Mouth Every day Contact prescribing physician if questions or concerns Pharmacy Information [facility]/pharmacy #[id number]: [address], [place] [phone] Allergies No Known Medication Allergies Problems Ongoing - Any problem that you are currently receiving treatment for. 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 Diabetes. ? Sleep apnea. ? Genetic condit (more content not included)... [facility] Urology Office/Clinic Noteon 10-21-2024 Urology Office/Clinic Note Urology Office/Clinic Note Chief Complaint F/u with testosterone level HPI Staff 89yr old male pt here for 4mo f/u with T Level. Restarted testosterone injections at last OV. Last injection given 09/29/24. S/p urodynamics done 01/05/13, TURP done 11/01/01, TRUS/Bx done 12/02/99, and radical orchiectomy in 1990 Previous Dx: hypogonadism male, BPH with obstruction/lower urinary tract symptoms *testosterone 150mg IM q4wks, tamsulosin 0.4mg qd, finasteride 5mg qd Testosterone (ref range [id number]): 09/03/20 - 323 03/22/21 - 319 04/15/22 - 261 04/22/23 - 256 06/13/24 - 240 10/14/24 - 435 Denies any urinary complaints at this time. History of Present Illness Tests reviewed: UA, T level I have reviewed the [...] Physical Exam Vitals & Measurements T: 37 ???C(Temporal Artery) HR: 71(Peripheral) RR: 16 BP: 136/70 HT: 170 cm HT: 67 in WT: 88.5 kg WT: 195.109 lb BMI: 30.62 General Appearance: alert, no distress, well nourished, well developed male. Assessment/Plan 1. 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 Receiving T IM 150 mg q4wks. T level slightly elevated for his age. Will decrease dose. Follow up 6 mos with T level or sooner if needed. Pt understands and agrees with plan. -Decrease T IM to 100 mg, maintain q4wks -Due on 10/27 for next inj (nurse visit) 2. BPH with obstruction/lower urinary tract symptoms (N40.1: Benign prostatic hyperplasia with lower urinary tract symptoms) S/p TURP 2001. UA neg. IPSS 11. Taking Tamsulosin 0.4 mg qd and Finasteride 5 mg qd. Follow-up With When Contact Information ZECHARIAH WYNN, Ramya Jung, URL [facility] [address], [place] [address]- Additional Instructions: 6 mos with T level Due on 10/27 for next inj (nurse visit) Patient Education Hypogonadism, Male I, Savanna Isabel, personally scribed for Dr. Bauer on 10/21/2024 11:10:55. . Documentation recorded by the scribe, Savanna Isabel, accurately reflects the services(s) I performed and decisions made by me. Authenticated by Dr. Bauer on 10/21/2024 11:13:55. 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 Beer. 1-2 times per month., 06/20/2024 Substance Abuse Never., 06/20/2024 Tobacco Former smoker, quit more than 30 days ago Tobacco Use:. Never Smokeless Tobacco Use:. Cigarettes, Yes, 10/21/2024 Former smoker, quit more than 30 days ago Tobacco Use:. Never Smokeless Tobacco Use:. Cigarettes, 06/20/2024 Former smoker, quit more than 30 days ago Tobacco Use:., 06/20/2024 Family History Cancer: Mother. Immunizations Vaccine Date Status Comments influenza virus vaccine, inactivated 05/16/2024 Recorded zoster vaccine, inactivated 02/18/2023 Recorded zoster vaccine, inactivated 09/01/2022 Recorded SARS-CoV-2 (COVID-19) [id number] 05/31/2022 Recorded 2024-06-20: TPV80 influenza virus vaccine, inactivated 05/23/2022 Recorded SARS-CoV-2 (COVID-19) mRNA-1273 vaccine 12/20/2021 Recorded 2022-04-14: TPV80 SARS-CoV-2 (COVID-19) mRNA-1273 vaccine 06/18/2021 Recorded 2022-04-14: TPV80 SARS-CoV-2 (COVID-19) mRNA-1273 vaccine 10/02/2020 Recorded SARS- (more content not included)... [facility] Comment on above: Result Comment: Elec tronically Signed By: Ramya BAUER MD\.br\Date and Time Signed: 10/21/24 11:14 EDT\.br\Electronically Co-Signed By: Savanna Isabel\.br\Date and Time Co-Signed: 10/21/24 11:11 EDT No Panel Informationon 10-14 Testosterone Level 435 ng/dL [id number] [facility] Comment on above: Adult male reference interval is based on a population ofhealthy nonobese males (BMI <30) between 19 and 39 yearsold. fahad Hill.al. JCEM 2017,102;2433-8944. PMID:[id number].Performed at: [address] [id number] Director: Tato Landaverde PhD, Phone: [phone] Ambulatory Visit Summaryon 0 09-01-2024 Ambulatory Visit Summary Ambulatory Visit Summary YAYA DE ANDA :1935 Visit Date:09/01/2024 Ambulatory Visit Instructions Your Diagnosis Hypogonadism male Your Care Team Attending Physician - Ramya BAUER MD Primary Care Physician - DAVID [...] AM EST With: Where: [facility] [address] [address]- Thursday 9:45 AM EDT With: Ramya BAUER MD Where: [facility] [address] [address]- Medications What How Much When Instructions Unchanged [...] for choosing us for your care. 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 Your Care Team Attending Physician - Ramya BAUER MD Primary Care Physician - DAVID [...] AM EST With: Where: [facility] [address] [place] [address]- Thursday 9:45 AM EDT With: Ramya BAUER MD Where: [facility] [address] [address]- You Need to Schedule the Following Appointments Follow Up with Ramya BAUER MD, URL When: Where: [facility] [address], [place] [phone] Medications What How Much When Why Instructions New testosterone (testosterone cypionate 100 mg/ mL intramuscular solution) 150 Milligram Intramuscular Every 4 weeks Hypogonadism male Refills: 3 Pickup at [facility]/pharmacy #[id number] Unchanged finasteride (finasteride 5 mg Tab) 1 Tablets By Mouth Every day Pickup at [facility]/pharmacy #[id number] Unchanged tamsulosin (Flomax 0.4 mg Cap) 1 Capsules By Mouth Every day Pickup at [facility]/pharmacy #[id number] Unchanged losartan (losartan 25 mg Tab) Contact prescribing physician if questions or concerns Unchanged metoprolol (metoprolol 25 mg ER Tab) By Mouth Every day Contact prescribing physician if questions or concerns Unchanged omeprazole (omeprazole 40 mg Cap-DR) 1 Capsules By Mouth Every day Contact prescribing physician if questions or concerns Pharmacy Information [facility]/pharmacy #[id number]: [address], [place] [id number] [phone] Allergies No Known Medication Allergies Problems Ongoing [...] of diseases (more content not included)... Normal [facility] Urology Office/Clinic Noteon 06-20-2024 Urology Office/Clinic Note [...] 150mg IM injection q4wks. Rx sent to [facility]. -F/u in 4 mos w/ T level [...] Follow-up With When Contact Information ZECHARIAH WYNN, Ramya Jung, [facility] [address], [place] [phone] Additional Instructions: 4 mos w/ T level [...] 05/16/2024 Recorde (more content not included)... Normal [facility] Comment on above: Result Comment: Elec tronically Signed By: Ramya BAUER MD\.br\Date and Time Signed: 06/20/24 14:50 EST\.br\Electronically Co-Signed By: Erica Alamo\.br\Date and Time Co-Signed: 06/20/24 14:49 EST Office Visiton 01-28-2024 Follow-up visit [id number] Yaya De Anda 1935 M Date Provider Department Center 01/28/2024 VJ CUELLO HENRI Shannon Family History Family history unknown: Yes Level of Service:53767 MA OFFICE/OUTPATIENT ESTABLISHED MOD MDM 30 MIN Normal [facility] Basophils Auto (Bld) [#/Vol] on 01-06-2024 Basophils (Bld) [#/Vol] 0.0 10 3/uL 0.0-0.1 [facility] Basophils/100 WBC Auto (Bld) on 01-06-2024 Basophils/100 WBC (Bld) 0.5 % 0.2-2.0 [facility] Cholesterol in LDL Calc [Mas s/Vol]on 01-06-2024 Cholesterol in LDL [Mass/Vol] 102.0 mg/dL [facility] Comment on above: <100 mg/dl [id number] 0-129 mg/dl NEAR OR ABOVE EXBYORS188-544 mg/dl BORDERLINE [id number] mg/dl HIGH>190 mg/dl VERY HIGH Cholesterol in VLDL Calc [Ma ss/Vol]on 01-06-2024 Cholesterol in VLDL [Mass/Vol] 26.0 mg/dL [facility] Eosinophils/100 WBC Auto (Bl d)on 01-06-2024 Eosinophils/100 WBC (Bld) 2.1 % 0.9-7.0 [facility] Erythrocyte distribution wid th Auto (RBC) [Ratio]on 01-06-2024 Erythrocyte distribution width (RBC) [Ratio] 13.2 % 11.0-15.0 [facility] Estimated glomerular filtrat ion rate (GFR) non- Americanon 01-06-2024 GFR/1.73 sq M.predicted among non-blacks MDRD (S/P/Bld) [Vol rate/Area] 55 mL/min/{1.73_m2} Low >=60 [facility] Globulin Calc (S) [Mass/Vol] on 01-06-2024 Globulin (S) [Mass/Vol] 3.5 g/dL [facility] Hematocrit Auto (Bld) [Volum e fraction]on 01-06-2024 Hematocrit (Bld) [Volume fraction] 43.7 % 42.0-54.0 [facility] Hemoglobin [Mass/volume] in Bloodon 01-06-2024 Hemoglobin (Bld) [Mass/Vol] 14.0 g/dL 14.0-18.0 [facility] Laboratory - Chemistry and C hemistry - challengeon 01-06-2024 Albumin [Mass/Vol] 3.7 g/dL 3.4-5.0 [facility] ALP [Catalytic activity/Vol] 59 U/L 46-116 [facility] ALT [Catalytic activity/Vol] 32 U/L 16-63 [facility] AST [Catalytic activity/Vol] 25 U/L 15-37 [facility] Bilirubin [Mass/Vol] 0.8 mg/dL 0.2-1.[address] [facility] Calcium [Mass/Vol] 9.0 mg/dL 8.5-10.1 [facility] Chloride [Moles/Vol] 105 mmol/L 98-[address] [facility] Cholesterol [Mass/Vol] 175 mg/dL <=200 [facility] Cholesterol in HDL [Mass/Vol] 47 mg/dL 40-60 [facility] Comment on above: > or =60 mg/dl - LOW CARDIOVASCULAR RISK<40 mg/dl - HIGH CARDIOVASCULAR RISK CO2 [Moles/Vol] 27.0 mmol/L 21.0-32.0 [facility] Creatinine [Mass/Vol] 1.24 mg/dL 0.70-1.30 [facility] GFR/1.73 sq M.predicted MDRD (S/P/Bld) [Vol rate/Area] mL/min/{1.73_m2} >=60 [facility] Glucose [Mass/Vol] 106 mg/dL 74-106 [facility] Potassium [Moles/Vol] 4.1 mmol/L 3.5-5.1 [facility] Protein [Mass/Vol] 7.2 g/dL 6.4-8.2 [facility] Sodium [Moles/Vol] 144 mmol/L 136-145 [facility] Triglyceride [Mass/Vol] 130 mg/dL <=150 [facility] Urea nitrogen [Mass/Vol] 35.0 mg/dL High 7.0-18.0 [facility] Urea nitrogen/Creatinine [Mass ratio] 28.2 mg/mg [facility] Laboratory - Hematology and Cell countson 01-06-2024 Immature granulocytes/100 WBC (Bld) 0.2 % 0.0-0.5 [facility] Leukocytes [#/volume] correc pam for nucleated erythrocytes in Blood by Automated counon 01-06-2024 WBC corrected for nucl RBC Auto (Bld) [#/Vol] 5.7 10 3/uL 4.0-11.0 [facility] Lymphocytes Auto (Bld) [#/Vo l]on 01-06-2024 Lymphocytes (Bld) [#/Vol] 1.7 10 3/uL 1.2-3.8 [facility] Lymphocytes/100 WBC Auto (Bl d)on 01-06-2024 Lymphocytes/100 WBC (Bld) 30.7 % 20.5-60.0 [facility] MCH Auto (RBC) [Entitic mass ]on 01-06-2024 MCH (RBC) [Entitic mass] 29.1 pg 25.9-34.0 [facility] MCHC Auto (RBC) [Mass/Vol]on 01-06-2024 MCHC (RBC) [Mass/Vol] 32.0 g/dL 29.9-35.2 [facility] MCV Auto (RBC) [Entitic vol] on 01-06-2024 MCV (RBC) [Entitic vol] 90.9 fL 80.0-94.0 [facility] Monocytes Auto (Bld) [#/Vol] on 01-06-2024 Monocytes (Bld) [#/Vol] 0.4 10 3/uL 0.3-0.8 [facility] Monocytes/100 WBC Auto (Bld) on 01-06-2024 Monocytes/100 WBC (Bld) 7.2 % 1.7-12.0 [facility] Neutrophils Auto (Bld) [#/Vo l]on 01-06-2024 Neutrophils (Bld) [#/Vol] 3.4 10 3/uL 1.4-6.5 [facility] Neutrophils/100 WBC Auto (Bl d)on 01-06-2024 Neutrophils/100 WBC (Bld) 59.3 % 43.0-75.0 [facility] No Panel Informationon 01-05 Eosinophils # (Auto) 0.1 10 3/uL 0.0-0.7 [facility] Immature Granulocyte # (Auto) 0.01 10 3/uL 0.00-0.03 [facility] Nucleated Red Blood Cells/100 WBC 0 [facility] Platelet mean volume Auto (B ld) [Entitic vol]on 01-06-2024 Platelet mean volume (Bld) [Entitic vol] 10.6 fL 9.5-13.5 [facility] Platelets Auto (Bld) [#/Vol] on 01-06-2024 Platelets (Bld) [#/Vol] 169 10 3/uL 150-450 [facility] RBC Auto (Bld) [#/Vol]on RBC (Bld) [#/Vol] 4.81 10 6/uL 4.70-6.10 [facility] Serum or plasma albumin/glob ulin mass ratioon 01-06-2024 Albumin/Globulin [Mass ratio] 1.1 {ratio} [facility] Serum or plasma anion gap de terminationon 01-06-2024 Anion gap [Moles/Vol] 16.1 mmol/L [facility] Serum or plasma total choles terol/high density lipoprotein (HDL) cholesterol mass luis enrique 01-06-2024 Cholesterol.total/Ch olesterol in HDL [Mass ratio] 3.7 {ratio} [facility] Comment on above: 3.3 - 4.4 LOW RISK4. 4 - 7.1 AVERAGE RISK7.1 - 11.0 MODERATE RISK>11.0 HIGH RISK CBC AUTO DIFFon 11-18-2022 BASO # 0.1 103/ul Normal 0.0-0.1 [facility] Comment on above: Performed By: #### D ATCBC #### [facility] [address] [place] [address] Dr. Sagrario Schilling Basophils/100 WBC (Bld) 0.8 % Normal 0.2-2.0 [facility] Comment on above: Performed By: #### D ATCBC #### [facility] [address] [place] [address] Dr. Sagrario Schilling EO # 0.1 103/ul Normal 0.0-0.7 [facility] Comment on above: Performed By: #### D ATCBC #### [facility] [address] [place] [address] Dr. Sagrario Schilling Eosinophils/100 WBC (Bld) 1.8 % Normal 0.9-7.0 [facility] Comment on above: Performed By: #### D ATCBC #### [facility] [address] [place] [address] Dr. Sagrario Schilling Erythrocyte distribution width (RBC) [Ratio] 13.2 % Normal 11.0-15.0 [facility] Comment on above: Performed By: #### D ATCBC #### [facility] [address] [place] [address] Dr. Sagrario Schilling Hematocrit (Bld) [Volume fraction] 45.2 % Normal 42.0-54.0 [facility] Comment on above: Performed By: #### D ATCBC #### [facility] [address] [place] [address] Dr. Sagrario Schilling Hemoglobin (Bld) [Mass/Vol] 14.6 g/dL Normal 14.0-18.0 [facility] Comment on above: Performed By: #### D ATCBC #### [facility] [address] [place] [address] Dr. Sagrario Schilling IG # 0.03 10e3/ul Normal 0.00-0.03 [facility] Comment on above: Performed By: #### D ATCBC #### [facility] [address] [place] [address] Dr. Sagrario Schilling IG % 0.5 % Normal 0.0-0.5 [facility] Comment on above: Performed By: #### D ATCBC #### [facility] [address] [place] [address] Dr. Sagrario Schilling LYMPH # 1.7 103/ul Normal 1.2-3.8 [facility] Comment on above: Performed By: #### D ATCBC #### [facility] [address] [place] [address] Dr. Sagrario Schilling Lymphocytes/100 WBC (Bld) 27.6 % Normal 20.5-60.0 [facility] Comment on above: Performed By: #### D ATCBC #### [facility] [address] [place] [address] Dr. Sagrario Schilling MCH (RBC) [Entitic mass] 28.9 pg Normal 25.9-34.0 [facility] Comment on above: Performed By: #### D ATCBC #### [facility] [address] [place] [address] Dr. Sagrario Schilling MCHC (RBC) [Mass/Vol] 32.3 g/dL Normal 29.9-35.2 [facility] Comment on above: Performed By: #### D ATCBC #### [facility] [address] [place] [address] Dr. Sagrario Schilling MCV (RBC) [Entitic vol] 89.5 fL Normal 80.0-94.0 [facility] Comment on above: Performed By: #### D ATCBC #### [facility] [address] [place] [address] Dr. Sagrario Schilling MONO # 0.4 103/ul Normal 0.3-0.8 [facility] Comment on above: Performed By: #### D ATCBC #### [facility] [address] [place] [address] Dr. Sagrario Schilling Monocytes/100 WBC (Bld) 7.2 % Normal 1.7-12.0 [facility] Comment on above: Performed By: #### D ATCBC #### [facility] [address] [place] [address] Dr. Sagrario Schilling NEUT # 3.7 103/ul Normal 1.4-6.5 [facility] [place] [facility] Comment on above: Performed By: #### D ATCBC #### [facility] [address] [place] [address] Dr. Sagrario Schilling Neutrophils/100 WBC (Bld) 62.1 % Normal 43.0-75.0 [facility] Comment on above: Performed By: #### D ATCBC #### [facility] [address] [place] [address] Dr. Sagrario Schilling Platelet mean volume (Bld) [Entitic vol] 10.0 fL Normal 9.5-13.5 [facility] Comment on above: Performed By: #### D ATCBC #### [facility] [address] [place] [address] Dr. Sagrario Schilling PLT 171 103/ul Normal 150-450 [facility] Comment on above: Performed By: #### D ATCBC #### [facility] [address] [place] [address] Dr. Sagrario Schilling RBC 5.05 106/ul Normal 4.70-6.10 [facility] Comment on above: Performed By: #### D ATCBC #### [facility] [address] [place] [address] Dr. Sagrario Schilling WBC 6.0 103/ul Normal 4.0-11.0 [facility] Comment on above: Performed By: #### D ATCBC #### [facility] [address] [place] [address] Dr. Sagrario Schilling DIANE- BMP WITH LIPIDon 2022 Anion gap [Moles/Vol] 10.1 mmol/L Normal [facility] [place] [facility] Comment on above: Performed By: #### D ATBMP #### [facility] [address] [address] [address] Sagrario Schilling Calcium [Mass/Vol] 9.0 mg/dL Normal 8.5-10.1 [facility] Comment on above: Performed By: #### D ATBMP #### [facility] [address] [address] [address] Sagrario Schilling Chloride [Moles/Vol] 106 mmol/L Normal 98-107 [facility] [place] [facility] Comment on above: Performed By: #### D ATBMP #### [facility] [address] [address] [address] Sagrario Schilling Cholesterol [Mass/Vol] 181 mg/dL Normal <=200 [facility] Comment on above: Performed By: #### D ATBMP #### [facility] [address] [address] [address] Sagrario Schilling Cholesterol in HDL [Mass/Vol] 40 mg/dL Normal 40-60 [facility] Comment on above: Performed By: #### D ATBMP #### [facility] [address] [address] [address] Sagrario Schilling Cholesterol in LDL [Mass/Vol] 109.2 mg/dL Normal [facility] Comment on above: Performed By: #### D ATBMP #### [facility] [address] [address] [address] Sagrario Schilling CO2 [Moles/Vol] 29.1 mmol/L Normal 21.0-32.0 [facility] Comment on above: Performed By: #### D ATBMP #### [facility] [address] [address] [address] Sagrario Schilling Creatinine [Mass/Vol] 1.16 mg/dL Normal 0.70-1.30 [facility] Comment on above: Performed By: #### D ATBMP #### [facility] [address] [address] [address] Sagrario Schilling EGFR-AF PANAMANIAN >60 Normal >=60 [facility] Comment on above: Performed By: #### D ATBMP #### [facility] [address] [address] [address] Sagrario Schilling EGFR-NON AF PANAMANIAN =60 Normal >=60 [facility] Comment on above: Performed By: #### D ATBMP #### [facility] [address] [address] [address] Sagrario Schilling Glucose [Mass/Vol] 101 mg/dL Normal 74-106 [facility] Comment on above: Performed By: #### D ATBMP #### [facility] [address] [address] [address] Sagrario Schilling HDL NORMAL > or = 60 mg/dl - LO W CARDIOVASCULAR RISK <40 mg/dl - HIGH CARDIOVASCULAR RISK Normal [facility] Comment on above: Performed By: #### D ATBMP #### [facility] [address] [address] [address] Sagrario Schilling LDL CALC NORMAL SEE BELOW Normal [facility] Comment on above: Result Comment: <100 mg/dl OPTIMAL 100 - 129 mg/dl NEAR OR ABOVE OPTIMAL 130 - 159 mg/dl BORDERLINE HIGH 160 - 189 mg/dl HIGH >190 mg/dl VERY HIGH Performed By: #### D ATBMP #### [facility] [address] [address] [address] Sagrario Schilling Potassium [Moles/Vol] 4.2 mmol/L Normal 3.5-5.1 [facility] Comment on above: Performed By: #### D ATBMP #### [facility] [address] [address] [address] Sagrario Schilling Sodium [Moles/Vol] 141 mmol/L Normal 136-145 [facility] Comment on above: Performed By: #### D ATBMP #### [facility] [address] [address] [address] Sagrario Schilling Triglyceride [Mass/Vol] 159 mg/dL Critically high <=150 [facility] Comment on above: Performed By: #### D ATBMP #### [facility] [address] [place], [place] [address] Dr. Sagrario Schilling Urea nitrogen [Mass/Vol] 29.0 mg/dL Critically high 7.0-18.0 [facility] Comment on above: Performed By: #### D ATBMP #### [facility] [address] [place], [place] [address] Dr. Sagrario Schilling Urea nitrogen/Creatinine [Mass ratio] 25.0 mg/mg Normal [facility] Comment on above: Performed By: #### D ATBMP #### [facility] [address] [address] [address] Sagrario Schilling VLDL CALC 31.8 mg/dL Normal [facility] Comment on above: Performed By: #### D ATBMP #### [facility] [address] [id number] Sagrario Schilling ECHOCARDIO M/2D COMPLETEon 0 11-18-2022 ECHOCARDIO M/2D COMPLETE Patient: YAYA DE ANDA Exam Date: 11/18/2022 : 1935 Gender:M Ordering : DR DAVID MARX D.O. Admission #: [id number] Family : Order #: [id number] CLICK HERE TO VIEW EXAM ECHOCARDIOGRAM REPORT [...] Area (VTI): 3.31 cm2, 3.31 cm2 Deceleration [place]: 0.68 m/s2 Pressure Half-Time: 1.35 s Peak [...] Espitia M.D. on 11/18/2022 at 10:21 Normal [facility] XR CHEST 2 Von 11-18-2022 XR [...] by: MILKA ANDERS Date: 2022-11-18 08:44 Normal [facility] MRI HIP RT WO CONon 05-29-20 MRI [...] MILKA ANDERS Date: 2022-05-29 18:20 Normal [facility] TESTOSTERONE, TOTALon 2021 Testosterone [Mass/Vol] 261 ng/dL Critically low 264-916 [facility] Comment on above: Result Comment: Adul t male reference interval is based on a population of healthy nonobese males (BMI <30) between 19 and 39 years old. Liz et.al. JCEM 2017,102;7447-2787. PMID: [id number]. Performed By: #### T ESTTOT #### [facility] [address] [address] [address] Sagrairo Schilling BASIC METABOLIC PANELon 01-01 Calcium [Mass/Vol] 8.6 mg/dL Normal 8.6-10.3 [facility] Comment on above: Order Comment: Yes: Add to Previous draw if able Performed By: #### 5 0103 #### [facility] [address] [place] [address], [place] Chloride [Moles/Vol] 103 mmol/L Normal 98-107 [facility] Comment on above: Order Comment: Yes: Add to Previous draw if able Performed By: #### 5 0103 #### [facility] [address] [place] [address], [place] CO2 [Moles/Vol] 27 mmol/L Normal 21-31 [facility] Comment on above: Order Comment: Yes: Add to Previous draw if able Performed By: #### 5 0103 #### [facility] [address] [place] [address], [place] Creatinine [Mass/Vol] 1.23 mg/dL Normal 0.70-1.30 [facility] Comment on above: Order Comment: Yes: Add to Previous draw if able Performed By: #### 5 0103 #### [facility] [address] [place] [address], [place] GFR/1.73 sq M predicted among blacks MDRD (S/P/Bld) [Vol rate/Area] mL/min/{1.73_m2} Normal >60 [facility] Comment on above: Order Comment: Yes: Add to Previous draw if able Result Comment: Calc ulation may not be valid for patients over 70 years Performed By: #### 5 0103 #### [facility] [address] [place] [address], [place] GFR/1.73 sq M predicted among non-blacks MDRD (S/P/Bld) [Vol rate/Area] 56 ml/min/1.73sq m Abnormal >60 [facility] Comment on above: Order Comment: Yes: Add to Previous draw if able Result Comment: Calc ulation may not be valid for patients over 70 years Performed By: #### 5 0103 #### [facility] [address] [place] [address], [place] Glucose [Mass/Vol] 100 mg/dL Normal 70-100 [facility] Comment on above: Order Comment: Yes: Add to Previous draw if able Performed By: #### 5 0103 #### [facility] [address] [place] [address], [place] Potassium [Moles/Vol] 4.3 mmol/L Normal 3.5-5.1 [facility] Comment on above: Order Comment: Yes: Add to Previous draw if able Performed By: #### 5 0103 #### [facility] [address] [place] [address], [place] Sodium [Moles/Vol] 133 mmol/L Low 136-145 [facility] Comment on above: Order Comment: Yes: Add to Previous draw if able Performed By: #### 5 0103 #### [facility] [address] [place] [address], [place] Urea nitrogen [Mass/Vol] 26 mg/dL High 7-25 [facility] Comment on above: Order Comment: Yes: Add to Previous draw if able Performed By: #### 5 0103 #### [facility] [address] [place] [address], [facility] CBC COMPLETE BLOOD COUNTon 0 01-19-2019 Erythrocyte distribution width (RBC) [Ratio] 14.0 % Normal 11.5-15.0 [facility] Comment on above: Order Comment: Yes: Add to Previous draw if able Performed By: #### 3 5200, 60729, 87147 #### [facility] [address] [place] [address], [facility] Hematocrit (Bld) [Volume fraction] 46.5 % Normal 39.0-50.0 [facility] Comment on above: Order Comment: Yes: Add to Previous draw if able Performed By: #### 3 5200, 11497, 19731 #### [facility] [address] [place] [address], [facility] Hemoglobin (Bld) [Mass/Vol] 14.9 g/dL Normal 13.0-17.0 [facility] Comment on above: Order Comment: Yes: Add to Previous draw if able Performed By: #### 3 5200, 20868, 36551 #### [facility] [address] [place] [id number], [place] MCH (RBC) [Entitic mass] 28.9 pg Normal 27.0-33.0 [facility] Comment on above: Order Comment: Yes: Add to Previous draw if able Performed By: #### 3 5200, 44334, 76539 #### [facility] [address] [place] [address], [place] MCHC (RBC) [Mass/Vol] 32.0 g/dL Normal 32.0-35.0 [facility] Comment on above: Order Comment: Yes: Add to Previous draw if able Performed By: #### 3 5200, 04321, 36988 #### [facility] [address] [place] [address], [place] MCV (RBC) [Entitic vol] 90.1 fL Normal 82.0-98.0 [facility] Comment on above: Order Comment: Yes: Add to Previous draw if able Performed By: #### 3 5200, 34911, 35482 #### [facility] [address] [place] [address], [facility] Nucleated RBC/100 WBC (Bld) [Ratio] 0 % Normal 0-0 [facility] Comment on above: Order Comment: Yes: Add to Previous draw if able Performed By: #### 3 5200, 01103, 20944 #### [facility] [address] [place] [id number], [place] PLAT CNT 149 10*3/uL Low 150-400 [facility] Comment on above: Order Comment: Yes: Add to Previous draw if able Performed By: #### 3 5200, 08387, 80503 #### [facility] [address] [place] [address], [facility] RBC (Bld) [#/Vol] 5.16 10*6/uL Normal 4.20-5.70 [facility] Comment on above: Order Comment: Yes: Add to Previous draw if able Performed By: #### 3 5200, 87887, 66598 #### [facility] [address] [place] [address], [facility] WBC (Bld) [#/Vol] 8.05 10*3/uL Normal 4.00-10.60 [facility] Comment on above: Order Comment: Yes: Add to Previous draw if able Performed By: #### 3 5200, 48600, 50258 #### [facility] [address] [place] [id number], [facility] PROTHROMBIN TIMEon 9 INR Coag (PPP) [Relative time] 1.04 {INR} Normal 0.91-1.16 [facility] Comment on above: Order Comment: Yes: [...] 1995;108:[id number]. Performed By: #### 5 0103 #### [facility] [address] PT Coag (PPP) [Time] 13.6 s Normal 12.3-14.8 [facility] Comment on above: Order Comment: Yes: Add to Previous draw if able Result Comment: ALL RESULTS MUST BE INTERPRETED WITH RESPECT TO BLOOD DRAWING ARTIFACT OR DILUTION ERROR OF ANTICOAGULANT AT THE TIME OF SAMPLING. Performed By: #### 5 0103 #### [facility] [address] BASIC METABOLIC PANELon 06- Calcium [Mass/Vol] 8.6 mg/dL Normal 8.6-10.3 [facility] Comment on above: Order Comment: Yes: Add to Previous draw if able Performed By: #### 3 7280, 72563, 20683 #### [facility] [address] Chloride [Moles/Vol] 102 mmol/L Normal 98-107 [facility] Comment on above: Order Comment: Yes: Add to Previous draw if able Performed By: #### 3 3330, 76821, 25206 #### [facility] [address] [place] [address], [place] CO2 [Moles/Vol] 24 mmol/L Normal 21-31 [facility] Comment on above: Order Comment: Yes: Add to Previous draw if able Performed By: #### 3 5200, 88522, 68677 #### [facility] [address] [place] [address], [place] Creatinine [Mass/Vol] 1.28 mg/dL Normal 0.70-1.30 [facility] Comment on above: Order Comment: Yes: Add to Previous draw if able Performed By: #### 3 5200, 21410, 23027 #### [facility] [address] [place] [address], [place] GFR/1.73 sq M predicted among blacks MDRD (S/P/Bld) [Vol rate/Area] mL/min/{1.73_m2} Normal >60 [facility] Comment on above: Order Comment: Yes: Add to Previous draw if able Result Comment: Calc ulation may not be valid for patients over 70 years Performed By: #### 3 0, 42590, 62324 #### [facility] [address] [place] [address], [place] GFR/1.73 sq M predicted among non-blacks MDRD (S/P/Bld) [Vol rate/Area] 54 ml/min/1.73sq m Abnormal >60 [facility] Comment on above: Order Comment: Yes: Add to Previous draw if able Result Comment: Calc ulation may not be valid for patients over 70 years Performed By: #### 3 5200, 21373, 07197 #### [facility] [address] [place] [address], [place] Glucose [Mass/Vol] 90 mg/dL Normal 70-100 [facility] Comment on above: Order Comment: Yes: Add to Previous draw if able Performed By: #### 3 0, 59752, 07373 #### [facility] [address] [place] [address], [place] Potassium [Moles/Vol] 4.1 mmol/L Normal 3.5-5.1 [facility] Comment on above: Order Comment: Yes: Add to Previous draw if able Performed By: #### 3 5200, 37139, 58921 #### [facility] [address] [place] [address], [place] Sodium [Moles/Vol] 135 mmol/L Low 136-145 [facility] Comment on above: Order Comment: Yes: Add to Previous draw if able Performed By: #### 3 5200, 97396, 23089 #### [facility] [address] [place] [address], [place] Urea nitrogen [Mass/Vol] 31 mg/dL High 7-25 [facility] Comment on above: Order Comment: Yes: Add to Previous draw if able Performed By: #### 3 5200, 61268, 50720 #### [facility] [address] [place] [address], [place] CBC COMPLETE BLOOD COUNTon 0 - Erythrocyte distribution width (RBC) [Ratio] 14.1 % Normal 11.5-15.0 [facility] Comment on above: Order Comment: Yes: Add to Previous draw if able Performed By: #### 3 5200, 39333, 87835 #### [facility] [address] [place] [address], [place] Hematocrit (Bld) [Volume fraction] 48.7 % Normal 39.0-50.0 [facility] Comment on above: Order Comment: Yes: Add to Previous draw if able Performed By: #### 3 5200, 70376, 27523 #### [facility] [address] [place] [address], [place] Hemoglobin (Bld) [Mass/Vol] 15.3 g/dL Normal 13.0-17.0 [facility] Comment on above: Order Comment: Yes: Add to Previous draw if able Performed By: #### 3 5200, 06098, 94386 #### [facility] [address] [place] [address], [facility] MCH (RBC) [Entitic mass] 29.1 pg Normal 27.0-33.0 [facility] Comment on above: Order Comment: Yes: Add to Previous draw if able Performed By: #### 3 5200, 50535, 94546 #### [facility] [address] [place] [id number], [facility] MCHC (RBC) [Mass/Vol] 31.4 g/dL Low 32.0-35.0 [facility] Comment on above: Order Comment: Yes: Add to Previous draw if able Performed By: #### 3 5200, 03359, 84408 #### [facility] [address] [place] [address], [facility] MCV (RBC) [Entitic vol] 92.6 fL Normal 82.0-98.0 [facility] Comment on above: Order Comment: Yes: Add to Previous draw if able Performed By: #### 3 5200, 53334, 43452 #### [facility] [address] [place] [address], [facility] Nucleated RBC/100 WBC (Bld) [Ratio] 0 % Normal 0-0 [facility] Comment on above: Order Comment: Yes: Add to Previous draw if able Performed By: #### 3 5200, 21313, 47789 #### [facility] [address] [place] [id number], [place] PLAT CNT 160 10*3/uL Normal 150-400 [facility] Comment on above: Order Comment: Yes: Add to Previous draw if able Performed By: #### 3 5200, 52465, 15336 #### [facility] [address] [place] [address], [facility] RBC (Bld) [#/Vol] 5.26 10*6/uL Normal 4.20-5.70 [facility] Comment on above: Order Comment: Yes: Add to Previous draw if able Performed By: #### 3 5200, 16987, 53122 #### [facility] [address] WBC (Bld) [#/Vol] 7.34 10*3/uL Normal 4.00-10.60 [facility] Comment on above: Order Comment: Yes: Add to Previous draw if able Performed By: #### 3 5200, 69172, 95757 #### [facility] [address] MAGNESIUM BLOODon 01-18-2019 Magnesium [Mass/Vol] 2.1 mg/dL Normal 1.9-2.7 [facility] Comment on above: Order Comment: Yes: Add to Previous draw if able Performed By: #### 3 5200, 23017, 49375 #### [facility] [address] [place] [address], [facility] PHOSPHORUS BLOODon 9 Phosphate [Mass/Vol] 2.6 mg/dL Normal 2.5-5.0 [facility] Comment on above: Order Comment: Yes: Add to Previous draw if able Performed By: #### 3 5200, 45680, 45058 #### [facility] [address] PROTHROMBIN TIMEon 9 INR Coag (PPP) [Relative time] 1.05 {INR} Normal 0.91-1.16 [facility] Comment on above: Order Comment: Yes: [...] CHEST 1995;108:231S-246S. Performed By: #### 3 5200, 85620, 20912 #### [facility] [address] [place] [address], [facility] PT Coag (PPP) [Time] 13.7 s Normal 12.3-14.8 [facility] Comment on above: Order Comment: Yes: Add to Previous draw if able Result Comment: ALL RESULTS MUST BE INTERPRETED WITH RESPECT TO BLOOD DRAWING ARTIFACT OR DILUTION ERROR OF ANTICOAGULANT AT THE TIME OF SAMPLING. Performed By: #### 3 5200, 27102, 68606 #### [facility] [address] BASIC METABOLIC PANELon 06- Calcium [Mass/Vol] 8.2 mg/dL Low 8.6-10.3 [facility] Comment on above: Order Comment: Yes: Add to Previous draw if able Performed By: #### 3 5200, 86626, 18155 #### [facility] [address] [place] [address], [facility] Chloride [Moles/Vol] 100 mmol/L Normal 98-107 [facility] Comment on above: Order Comment: Yes: Add to Previous draw if able Performed By: #### 3 5200, 72563, 87314 #### [facility] [address] [place] [address], [facility] CO2 [Moles/Vol] 26 mmol/L Normal 21-31 [facility] Comment on above: Order Comment: Yes: Add to Previous draw if able Performed By: #### 3 5200, 49878, 44177 #### [facility] [address] [place] [address], [place] Creatinine [Mass/Vol] 1.53 mg/dL High 0.70-1.30 [facility] Comment on above: Order Comment: Yes: Add to Previous draw if able Performed By: #### 3 5200, 62685, 75456 #### [facility] [address] [place] [address], [place] GFR/1.73 sq M predicted among blacks MDRD (S/P/Bld) [Vol rate/Area] 53 ml/min/1.73sq m Abnormal >60 [facility] Comment on above: Order Comment: Yes: Add to Previous draw if able Result Comment: Calc ulation may not be valid for patients over 70 years Performed By: #### 3 5200, 81400, 39723 #### [facility] [address] [place] [address], [place] GFR/1.73 sq M predicted among non-blacks MDRD (S/P/Bld) [Vol rate/Area] 44 ml/min/1.73sq m Abnormal >60 [facility] Comment on above: Order Comment: Yes: Add to Previous draw if able Result Comment: Calc ulation may not be valid for patients over 70 years Performed By: #### 3 5200, 83813, 76965 #### [facility] [address] [place] [address], [place] Glucose [Mass/Vol] 95 mg/dL Normal 70-100 [facility] Comment on above: Order Comment: Yes: Add to Previous draw if able Performed By: #### 3 5200, 79159, 81647 #### [facility] [address] [place] [address], [place] Potassium [Moles/Vol] 3.7 mmol/L Normal 3.5-5.1 [facility] Comment on above: Order Comment: Yes: Add to Previous draw if able Performed By: #### 3 5200, 93602, 54383 #### [facility] [address] [place] [address], [place] Sodium [Moles/Vol] 135 mmol/L Low 136-145 [facility] Comment on above: Order Comment: Yes: Add to Previous draw if able Performed By: #### 3 5200, 45523, 56799 #### [facility] [address] [place] [address], [facility] Urea nitrogen [Mass/Vol] 41 mg/dL High 7-25 [facility] Comment on above: Order Comment: Yes: Add to Previous draw if able Performed By: #### 3 5200, 49923, 22780 #### [facility] [address] [place] [address], [facility] CBC COMPLETE BLOOD COUNTon 0 - Erythrocyte distribution width (RBC) [Ratio] 14.3 % Normal 11.5-15.0 [facility] Comment on above: Order Comment: Yes: Add to Previous draw if able Performed By: #### 3 5200, 93966, 46480 #### [facility] [address] [place] [address], [facility] Hematocrit (Bld) [Volume fraction] 47.8 % Normal 39.0-50.0 [facility] Comment on above: Order Comment: Yes: Add to Previous draw if able Performed By: #### 3 5200, 44263, 76968 #### [facility] [address] [place] [address], [place] Hemoglobin (Bld) [Mass/Vol] 15.5 g/dL Normal 13.0-17.0 [facility] Comment on above: Order Comment: Yes: Add to Previous draw if able Performed By: #### 3 5200, 76402, 21125 #### [facility] [address] [place] [address], [facility] MCH (RBC) [Entitic mass] 29.1 pg Normal 27.0-33.0 [facility] Comment on above: Order Comment: Yes: Add to Previous draw if able Performed By: #### 3 5200, 74336, 41188 #### [facility] [address] [place] [address], [facility] MCHC (RBC) [Mass/Vol] 32.4 g/dL Normal 32.0-35.0 [facility] Comment on above: Order Comment: Yes: Add to Previous draw if able Performed By: #### 3 5200, 71671, 90168 #### [facility] [address] [place] [address], [facility] MCV (RBC) [Entitic vol] 89.8 fL Normal 82.0-98.0 [facility] Comment on above: Order Comment: Yes: Add to Previous draw if able Performed By: #### 3 5200, 33618, 39844 #### [facility] [address] [place] [address], [facility] Nucleated RBC/100 WBC (Bld) [Ratio] 0 % Normal 0-0 [facility] Comment on above: Order Comment: Yes: Add to Previous draw if able Performed By: #### 3 5200, 56306, 69243 #### [facility] [address] [place] [address], [facility] PLAT CNT 153 10*3/uL Normal 150-400 [facility] Comment on above: Order Comment: Yes: Add to Previous draw if able Performed By: #### 3 5200, 75149, 30322 #### [facility] [address] [place] [address], [facility] RBC (Bld) [#/Vol] 5.32 10*6/uL Normal 4.20-5.70 [facility] Comment on above: Order Comment: Yes: Add to Previous draw if able Performed By: #### 3 5200, 12934, 90557 #### [facility] [address] WBC (Bld) [#/Vol] 6.80 10*3/uL Normal 4.00-10.60 [facility] Comment on above: Order Comment: Yes: Add to Previous draw if able Performed By: #### 3 5200, 38397, 51681 #### [facility] [address] Cardiovascular Lab Reporton 01-17-2019 Cardiovascular Lab Report [facility] Patient Name: Yaya De Anda [facility] MR #: [id number] Physician: Heather Duff, Department of M.D. Medicine Service Date: 01/17/2019 Division of Birthdate: 1935 Cardiology Room #: [id number] Adult Cardiovascular Services [place] [address] Cardiovascular Laboratory Report CLINICAL PRESENTATION: The patient [...] systolic congestive heart failure. 2. Titrate beta paul, BERNARDINO-I/ARB/ARNI, and aldosterone antagonist as tolerated for optimal [...] micropuncture access technique and ultrasound guidance. A 6-Angolan sheath was placed in the right internal [...] artery was anesthetized with 1% lidocaine. A 6-Angolan Terumo Glidesheath slender was placed in the right radial artery. A 100 mcg nitroglycerin was administered through the sheath to prevent radial artery spasm. A Carvajal wire was advanced and a 5-Angolan [place] catheter were advanced to the descending aorta. The 5-Angolan [place] catheter was used to engage the left [...] branches are patent also. Electronically Signed by: Heather Duff M.D. 01/26/2019 03:57 P Heather Duff M.D. Date Dict: 01/17/2019/09:46 Adry/Heather Duff M.D. Date Trans: 01/17/2019 11:54 Adry/catarino DN_JN:[id number] cc: David Marx D.O. [address] [place] [phone] [address] M[address], [facility] [phone] Normal [facility] MAGNESIUM BLOODon 01-17-2019 Magnesium [Mass/Vol] 1.9 mg/dL Normal 1.9-2.7 [facility] Comment on above: Order Comment: Yes: Add to Previous draw if able Performed By: #### 3 5200, 43823, 81729 #### [facility] [address] [facility] [place] [address], [facility] PROTHROMBIN TIMEon 9 INR Coag (PPP) [Relative time] 1.06 {INR} Normal 0.91-1.16 [facility] Comment on above: Order Comment: Yes: [...] CHEST 1995;108:231S-246S. Performed By: #### 3 5200, 87025, 54970 #### [facility] [address] PT Coag (PPP) [Time] 13.8 s Normal 12.3-14.8 [facility] Comment on above: Order Comment: Yes: Add to Previous draw if able Result Comment: ALL RESULTS MUST BE INTERPRETED WITH RESPECT TO BLOOD DRAWING ARTIFACT OR DILUTION ERROR OF ANTICOAGULANT AT THE TIME OF SAMPLING. Performed By: #### 3 5200, 73104, 73270 #### [facility] [address] UFH HEPARIN ASSAYon 01-18-20 19 UNFRACTIONATED HEPARIN 0.29 IU/mL Low 0.30-0.70 [facility] Comment on above: Result Comment: [place] roxaban and Apixaban will interfere with the anti Xa assay used to monitor UFH and LMWH. Performed By: #### 3 5200, 40654, 28152 #### [facility] [address] [place] [address], [facility] BASIC METABOLIC PANELon 06- Calcium [Mass/Vol] 8.4 mg/dL Low 8.6-10.3 [facility] Comment on above: Order Comment: Yes: Add to Previous draw if able Performed By: #### 3 5200, 53071, 35104 #### [facility] [address] [place] [address], [facility] Chloride [Moles/Vol] 98 mmol/L Normal 98-107 [facility] Comment on above: Order Comment: Yes: Add to Previous draw if able Performed By: #### 3 5200, 17588, 05895 #### [facility] [address] [place] [address], [place] CO2 [Moles/Vol] 27 mmol/L Normal 21-31 [facility] Comment on above: Order Comment: Yes: Add to Previous draw if able Performed By: #### 3 5200, 52715, 16668 #### [facility] [address] [place] [address], [place] Creatinine [Mass/Vol] 1.60 mg/dL High 0.70-1.30 [facility] Comment on above: Order Comment: Yes: Add to Previous draw if able Performed By: #### 3 5200, 96118, 25613 #### [facility] [address] [place] [address], [place] GFR/1.73 sq M predicted among blacks MDRD (S/P/Bld) [Vol rate/Area] 50 ml/min/1.73sq m Abnormal >60 [facility] Comment on above: Order Comment: Yes: Add to Previous draw if able Result Comment: Calc ulation may not be valid for patients over 70 years Performed By: #### 3 5200, 77249, 06713 #### [facility] [address] [place] [address], [place] GFR/1.73 sq M predicted among non-blacks MDRD (S/P/Bld) [Vol rate/Area] 42 ml/min/1.73sq m Abnormal >60 [facility] Comment on above: Order Comment: Yes: Add to Previous draw if able Result Comment: Calc ulation may not be valid for patients over 70 years Performed By: #### 3 5200, 62389, 81349 #### [facility] [address] [place] [address], [place] Glucose [Mass/Vol] 107 mg/dL High 70-100 [facility] Comment on above: Order Comment: Yes: Add to Previous draw if able Performed By: #### 3 5200, 41009, 58161 #### [facility] [address] [place] [address], [place] Potassium [Moles/Vol] 3.4 mmol/L Low 3.5-5.1 [facility] Comment on above: Order Comment: Yes: Add to Previous draw if able Performed By: #### 3 5200, 29864, 70388 #### [facility] [address] [place] [address], [place] Sodium [Moles/Vol] 135 mmol/L Low 136-145 [facility] Comment on above: Order Comment: Yes: Add to Previous draw if able Performed By: #### 3 5200, 52564, 82108 #### [facility] [address] [place] [address], [place] Urea nitrogen [Mass/Vol] 39 mg/dL High 7-25 [facility] Comment on above: Order Comment: Yes: Add to Previous draw if able Performed By: #### 3 5200, 49388, 50975 #### [facility] [address] [place] [address], [place] CBC COMPLETE BLOOD COUNTon 0 6-16 Erythrocyte distribution width (RBC) [Ratio] 14.3 % Normal 11.5-15.0 [facility] Comment on above: Order Comment: Yes: Add to Previous draw if able Performed By: #### 3 5200, 24736, 51907 #### [facility] [address] [place] [address], [place] Hematocrit (Bld) [Volume fraction] 50.8 % High 39.0-50.0 [facility] Comment on above: Order Comment: Yes: Add to Previous draw if able Performed By: #### 3 5200, 08556, 83349 #### [facility] [address] [place] [address], [place] Hemoglobin (Bld) [Mass/Vol] 16.2 g/dL Normal 13.0-17.0 [facility] Comment on above: Order Comment: Yes: Add to Previous draw if able Performed By: #### 3 5200, 16726, 67309 #### [facility] [address] [place] [id number], [facility] MCH (RBC) [Entitic mass] 28.9 pg Normal 27.0-33.0 [facility] Comment on above: Order Comment: Yes: Add to Previous draw if able Performed By: #### 3 5200, 55204, 18654 #### [facility] [address] [place] [address], [facility] MCHC (RBC) [Mass/Vol] 31.9 g/dL Low 32.0-35.0 [facility] Comment on above: Order Comment: Yes: Add to Previous draw if able Performed By: #### 3 5200, 60082, 33384 #### [facility] [address] [place] [address], [facility] MCV (RBC) [Entitic vol] 90.6 fL Normal 82.0-98.0 [facility] Comment on above: Order Comment: Yes: Add to Previous draw if able Performed By: #### 3 5200, 76638, 89313 #### [facility] [address] [place] [address], [facility] Nucleated RBC/100 WBC (Bld) [Ratio] 0 % Normal 0-0 [facility] Comment on above: Order Comment: Yes: Add to Previous draw if able Performed By: #### 3 5200, 70831, 71242 #### [facility] [address] [place] [id number], [facility] PLAT CNT 179 10*3/uL Normal 150-400 [facility] Comment on above: Order Comment: Yes: Add to Previous draw if able Performed By: #### 3 5200, 65970, 00241 #### [facility] [address] RBC (Bld) [#/Vol] 5.61 10*6/uL Normal 4.20-5.70 [facility] Comment on above: Order Comment: Yes: Add to Previous draw if able Performed By: #### 3 5200, 32250, 78669 #### [facility] [address] [address], [facility] WBC (Bld) [#/Vol] 7.83 10*3/uL Normal 4.00-10.60 [facility] Comment on above: Order Comment: Yes: Add to Previous draw if able Performed By: #### 3 5200, , 76909 #### [facility] [address] PROTHROMBIN TIMEon 9 INR Coag (PPP) [Relative time] 1.05 {INR} Normal 0.91-1.16 [facility] Comment on above: Result Comment: ACCC [...] CHEST 1995;108:231S-246S. Performed By: #### 3 5200, 63050, 67865 #### [facility] [address] [place] [address], [facility] PT Coag (PPP) [Time] 13.7 s Normal 12.3-14.8 [facility] Comment on above: Result Comment: ALL RESULTS MUST BE INTERPRETED WITH RESPECT TO BLOOD DRAWING ARTIFACT OR DILUTION ERROR OF ANTICOAGULANT AT THE TIME OF SAMPLING. Performed By: #### 3 5200, 77051, 90160 #### [facility] [address] UFH HEPARIN ASSAYon 01-17-20 19 UNFRACTIONATED HEPARIN 0.54 IU/mL Normal 0.30-0.70 [facility] Comment on above: Result Comment: [place] roxaban and Apixaban will interfere with the anti Xa assay used to monitor UFH and LMWH. Performed By: #### 3 5200, 81107, 76334 #### [facility] [address] UNFRACTIONATED HEPARIN 0.49 IU/mL Normal 0.30-0.70 [facility] Comment on above: Result Comment: [place] roxaban and Apixaban will interfere with the anti Xa assay used to monitor UFH and LMWH. Performed By: #### 3 5200, 08959, 82687 #### [facility] [address] APTTon 01-15-2019 aPTT Coag (Bld) [Time] s Critically high 25.0-35.0 [facility] Comment on above: Order Comment: Yes: [...] = 1.16 Performed By: #### 3 5200, 73515, 16959 #### [facility] [address] aPTT Coag (Bld) [Time] 65.5 s High 25.0-35.0 [facility] Comment on above: Order Comment: Yes: [...] THIS PURPOSE. Performed By: #### 3 5200, 70441, 39486 #### [facility] [address] BNP (B-TYPE NATRIURETIC PEPT JOSE)on 01-15-2019 Natriuretic peptide B (Bld) [Mass/Vol] 682 pg/mL High 0-100 [facility] Comment on above: Order Comment: Yes: Add to Previous draw if able Result Comment: Give n the appropriate clinical setting a BNP result of >100 pg/mL indicates congestive heart failure. Performed By: #### 8 5123 #### [facility] [address] CBC W/DIFFon 01-15-2019 ABS BASOPHILS 0.1 10*3/uL Normal 0.0-0.2 [facility] Comment on above: Order Comment: Yes: Add to Previous draw if able Performed By: #### 5 0103 #### [facility] [address] [place] [address], [facility] ABS IMM GRANS 0.1 10*3/uL Normal 0.0-0.2 [facility] Comment on above: Order Comment: Yes: Add to Previous draw if able Performed By: #### 5 0103 #### [facility] [address] [place] [address], [facility] ABS NEUTROPHILS 8.5 10*3/uL High 1.6-7.6 [facility] Comment on above: Order Comment: Yes: Add to Previous draw if able Performed By: #### 5 0103 #### [facility] [address] [place] [address], [place] Basophils/100 WBC (Bld) 0.4 % Normal 0.0-1.0 [facility] Comment on above: Order Comment: Yes: Add to Previous draw if able Performed By: #### 5 0103 #### [facility] [facility] [address] [place] [address], [facility] Eosinophils (Bld) [#/Vol] 0.1 10*3/uL Normal 0.0-0.5 [facility] Comment on above: Order Comment: Yes: Add to Previous draw if able Performed By: #### 5 0103 #### [facility] [address] [place] [address], [facility] Eosinophils/100 WBC (Bld) 0.7 % Normal 0.0-6.0 [facility] Comment on above: Order Comment: Yes: Add to Previous draw if able Performed By: #### 5 0103 #### [facility] [address] [place] [address], [facility] Erythrocyte distribution width (RBC) [Ratio] 14.4 % Normal 11.5-15.0 [facility] Comment on above: Order Comment: Yes: Add to Previous draw if able Performed By: #### 5 0103 #### [facility] [address] [place] [address], [place] Hematocrit (Bld) [Volume fraction] 53.0 % High 39.0-50.0 [facility] Comment on above: Order Comment: Yes: Add to Previous draw if able Performed By: #### 5 0103 #### [facility] [address] [place] [address], [facility] Hemoglobin (Bld) [Mass/Vol] 16.8 g/dL Normal 13.0-17.0 [facility] Comment on above: Order Comment: Yes: Add to Previous draw if able Performed By: #### 5 0103 #### [facility] [address] [place] [id number], [facility] IMMATURE GRANS 0.4 % Normal 0.0-1.0 [facility] Comment on above: Order Comment: Yes: Add to Previous draw if able Performed By: #### 5 0103 #### [facility] [address] [place] [address], [facility] Lymphocytes (Bld) [#/Vol] 1.7 10*3/uL Normal 1.2-4.0 [facility] Comment on above: Order Comment: Yes: Add to Previous draw if able Performed By: #### 5 3 #### [facility] [address] [place] [address], [facility] Lymphocytes/100 WBC (Bld) 14.8 % Low 20.0-45.0 [facility] Comment on above: Order Comment: Yes: Add to Previous draw if able Performed By: #### 5 0103 #### [facility] [address] [place] [id number], [facility] MCH (RBC) [Entitic mass] 29.0 pg Normal 27.0-33.0 [facility] Comment on above: Order Comment: Yes: Add to Previous draw if able Performed By: #### 5 0103 #### [facility] [address] [place] [id number], [facility] MCHC (RBC) [Mass/Vol] 31.7 g/dL Low 32.0-35.0 [facility] Comment on above: Order Comment: Yes: Add to Previous draw if able Performed By: #### 5 3 #### [facility] [address] [place] [address], [facility] MCV (RBC) [Entitic vol] 91.5 fL Normal 82.0-98.0 [facility] Comment on above: Order Comment: Yes: Add to Previous draw if able Performed By: #### 5 0103 #### [facility] [address] [place] [address], [facility] Monocytes (Bld) [#/Vol] 0.9 10*3/uL Normal 0.1-1.0 [facility] Comment on above: Order Comment: Yes: Add to Previous draw if able Performed By: #### 5 0103 #### [facility] [address] [place] [address], [facility] MONOS 7.8 % Normal 5.0-12.0 [facility] Comment on above: Order Comment: Yes: Add to Previous draw if able Performed By: #### 5 0103 #### [facility] [address] [place] [address], [facility] Neutrophils/100 WBC (Bld) 75.9 % High 40.0-72.0 [facility] Comment on above: Order Comment: Yes: Add to Previous draw if able Performed By: #### 5 0103 #### [facility] [address] [place] [address], [facility] Nucleated RBC/100 WBC (Bld) [Ratio] 0 % Normal 0-0 [facility] Comment on above: Order Comment: Yes: Add to Previous draw if able Performed By: #### 5 0103 #### [facility] [address] [place] [id number], [place] PLAT CNT 187 10*3/uL Normal 150-400 [facility] Comment on above: Order Comment: Yes: Add to Previous draw if able Performed By: #### 5 3 #### [facility] [address] [place] [id number], [facility] RBC (Bld) [#/Vol] 5.79 10*6/uL High 4.20-5.70 [facility] Comment on above: Order Comment: Yes: Add to Previous draw if able Performed By: #### 5 0103 #### [facility] [address] [place] [address], [place] WBC (Bld) [#/Vol] 11.18 10*3/uL High 4.00-10.60 [facility] Comment on above: Order Comment: Yes: Add to Previous draw if able Performed By: #### 5 0103 #### [facility] [address] [place] [address], [place] COMP METABOLIC PANELon 01-15 Albumin [Mass/Vol] 4.2 g/dL Normal 3.5-5.7 [facility] Comment on above: Order Comment: Yes: Add to Previous draw if able Performed By: #### 3 5200, 06618, 29862 #### [facility] [address] [place] [address], [place] ALKALINE PHOSPH 38 IU/L Normal 34-104 [facility] Comment on above: Order Comment: Yes: Add to Previous draw if able Performed By: #### 3 5200, 08566, 40945 #### [facility] [address] [place] [address], [place] ALT [Catalytic activity/Vol] 19 U/L Normal 7-52 [facility] Comment on above: Order Comment: Yes: Add to Previous draw if able Performed By: #### 3 5200, 34825, 27853 #### [facility] [address] [place] [address], [place] AST [Catalytic activity/Vol] 20 U/L Normal 13-39 [facility] Comment on above: Order Comment: Yes: Add to Previous draw if able Performed By: #### 3 5200, 22301, 76184 #### [facility] [address] [place] [address], [place] Bilirubin [Mass/Vol] 0.9 mg/dL Normal 0.3-1.0 [facility] Comment on above: Order Comment: Yes: Add to Previous draw if able Performed By: #### 3 5200, 73493, 02076 #### [facility] [address] [place] [address], [place] Calcium [Mass/Vol] 9.2 mg/dL Normal 8.6-10.3 [facility] Comment on above: Order Comment: Yes: Add to Previous draw if able Performed By: #### 3 5200, 88461, 94864 #### [facility] [address] [place] [address], [place] Chloride [Moles/Vol] 99 mmol/L Normal 98-107 [facility] Comment on above: Order Comment: Yes: Add to Previous draw if able Performed By: #### 3 5200, 05309, 81347 #### [facility] [address] [place] [address], [place] CO2 [Moles/Vol] 24 mmol/L Normal 21-31 [facility] Comment on above: Order Comment: Yes: Add to Previous draw if able Performed By: #### 3 5200, 96467, 72562 #### [facility] [address] [place] [address], [place] Creatinine [Mass/Vol] 1.37 mg/dL High 0.70-1.30 [facility] Comment on above: Order Comment: Yes: Add to Previous draw if able Performed By: #### 3 5200, 94369, 34582 #### [facility] [address] [place] [address], [place] GFR/1.73 sq M predicted among blacks MDRD (S/P/Bld) [Vol rate/Area] 60 ml/min/1.73sq m Abnormal >60 [facility] Comment on above: Order Comment: Yes: Add to Previous draw if able Result Comment: Calc ulation may not be valid for patients over 70 years Performed By: #### 3 5200, 65119, 03480 #### [facility] [address] [place] [address], [place] GFR/1.73 sq M predicted among non-blacks MDRD (S/P/Bld) [Vol rate/Area] 50 ml/min/1.73sq m Abnormal >60 [facility] Comment on above: Order Comment: Yes: Add to Previous draw if able Result Comment: Calc ulation may not be valid for patients over 70 years Performed By: #### 3 5200, 12570, 75120 #### [facility] [address] [place] [address], [place] Glucose [Mass/Vol] 107 mg/dL High 70-100 [facility] Comment on above: Order Comment: Yes: Add to Previous draw if able Performed By: #### 3 5200, 90067, 31586 #### [facility] [address] [place] [address], [place] Potassium [Moles/Vol] 3.8 mmol/L Normal 3.5-5.1 [facility] Comment on above: Order Comment: Yes: Add to Previous draw if able Performed By: #### 3 5200, 50005, 76260 #### [facility] [address] [place] [address], [place] Protein [Mass/Vol] 7.4 g/dL Normal 6.0-8.3 [facility] Comment on above: Order Comment: Yes: Add to Previous draw if able Performed By: #### 3 5200, 79449, 75669 #### [facility] [address] [place] [address], [place] Sodium [Moles/Vol] 135 mmol/L Low 136-145 [facility] Comment on above: Order Comment: Yes: Add to Previous draw if able Performed By: #### 3 5200, 73388, 05436 #### [facility] [address] [place] [address], [place] Urea nitrogen [Mass/Vol] 30 mg/dL High 7-25 [facility] Comment on above: Order Comment: Yes: Add to Previous draw if able Performed By: #### 3 5200, 18348, 81058 #### [facility] [address] CPKon 01-15-2019 CK [Catalytic activity/Vol] 67 U/L Normal 30-223 [facility] Comment on above: Performed By: #### 3 5200, 00504 #### [facility] [address] MAGNESIUM BLOODon 01-15-2019 Magnesium [Mass/Vol] 1.9 mg/dL Normal 1.9-2.7 [facility] Comment on above: Order Comment: Yes: Add to Previous draw if able Performed By: #### 3 5200, 65654, 15128 #### [facility] [address] PROTHROMBIN TIMEon 9 INR Coag (PPP) [Relative time] 1.04 {INR} Normal 0.91-1.16 [facility] Comment on above: Order Comment: if [...] CHEST 1995;[id number]. Performed By: #### 5 6101, 72480, 00153 #### [facility] [address] [place] [address], [facility] PT Coag (PPP) [Time] 13.6 s Normal 12.3-14.8 [facility] Comment on above: Order Comment: if no t already done No: Do not add to previous draw Result Comment: ALL RESULTS MUST BE INTERPRETED WITH RESPECT TO BLOOD DRAWING ARTIFACT OR DILUTION ERROR OF ANTICOAGULANT AT THE TIME OF SAMPLING. Performed By: #### 5 6101, 44600, 98027 #### [facility] [address] [place] [address], [facility] TROPONIN-Ion 01-15-2019 Troponin I.cardiac [Mass/Vol] 0.05 ng/mL High 0.00-0.04 [facility] Comment on above: Order Comment: No: D o not add to previous draw Result Comment: REFE RENCE RANGES: 0.00 - 0.04 ng/ml NORMAL 0.05 - 0.50 ng/ml INDETERMINATE > 0.50 ng/ml CONSISTENT WITH AN M.I. Performed By: #### 3 5200, 48485 #### [facility] [address] [place] [address], [facility] Troponin I.cardiac [Mass/Vol] 0.05 ng/mL High 0.00-0.04 [facility] Comment on above: Order Comment: Yes: Add to Previous draw if able Result Comment: REFE RENCE RANGES: 0.00 - 0.04 ng/ml NORMAL 0.05 - 0.50 ng/ml INDETERMINATE > 0.50 ng/ml CONSISTENT WITH AN M.I. Performed By: #### 3 5200, 24375, 45008 #### [facility] [address] [place] [address], [facility] UFH HEPARIN ASSAYon 01-16-20 19 UNFRACTIONATED HEPARIN >1.00 Critically high 0.30-0.70 [facility] Comment on above: Result Comment: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
== END 2024-12-15 08:48 | disposition home or self-care (01) ==
LOC: CARD 08:47
PROVIDERS: PCP Internal Medicine; Visit Provider Internal Medicine Interventional Cardiology
DX: I34.0 Nonrheumatic mitral (valve) insufficiency (principal); I50.32 Chronic diastolic (congestive) heart failure
CPT/HCPCS: 93306

== ENCOUNTER 2025-02-15 10:08 | Outpatient (OUT) | payer MEDICARE, SELFPAY ==
--- OUTSIDE RECORDS SUMMARY | 2024-09-12 09:40 | XMS_ITS ---
Author Organization [facility] Address [address] [place] [address] Care Team Providers Care [employer] Name Role Phone CAROLE HEATH DO Primary Care Provider Paul Reyes Unavailable [phone] REASON FOR VISIT left hip and right knee recheck Medications Medication SIG (Take, Route, Fr equency, Duration) Notes Start Date End Date Status losartan 25 mg 1 tab(s) orally once a day Active finasteride 5 mg 1 tab(s) orally once a day Active tamsulosin 0.4 mg 1 cap(s) orally once a day Active omeprazole 40 mg 1 cap(s) orally once a day Active metoprolol 25 mg 1 tab(s) orally once a day Active Encounters Encounter Location Date Provider Diagnosis [facility] Office [address] [place] [address] [address] [place] [address] 09/12/2024 Paul Burt Primary osteoarthrit is of right knee M17.11 Assessments Encounter Date Diagnosis (ICD Code) Assessment Notes Treatment Notes Treatment Clinical Notes Section Notes 09/12/2024 Primary osteoarthritis of right knee (ICD-10 - M17.11) Plan Of Treatment Pending Test Test Name Order Date SCC- KNEE 4 VIEW RIGHT [id number] 09/12/2024 Progress Notes * MACI MORTENSEN EDOB:[birth year] (89 yo M)Acc No.[id number]:09/12/2024 Patient: MACI BANERJEE Provider: Deyvi Burt DO :1935 A ge:89 Y S ex:Male Date:09/12/2024 Address:[place], [id number] Pcp:CARLOE HEATH DO Subjective: * Chief Complaints: * 1 . Left hip and right knee recheck. * Medical History: * Medications: T aking tamsulosin 0.4 mg capsule 1 cap(s) orally once a day , Taking omeprazole 40 mg delayed release capsule 1 cap(s) orally once a day , Taking metoprolol 25 mg tablet, extended release 1 tab(s) orally once a day , Taking losartan 25 mg tablet 1 tab(s) orally once a day , Taking finasteride 5 mg tablet 1 tab(s) orally once a day Objective: * Vitals: Assessment: * Assessment: 1. P rimary osteoarthritis of right knee - M17.11 (Primary) Plan: * Treatment: Forms: * Images: * Electronic signature of Greg Burt DO on 02/15/2025 at 10:10 AM EDT Sign off status: Pending * Provider: Deyvi Burt DO Date: 0 09/12/2024 Generated for Alyssa foley/Doreen/Natanaelitting on: 0 02/15/2025 10:10 AM EDT
--- OUTSIDE RECORDS SUMMARY | 2025-02-15 10:10 | XMS_ITS | Clinical Summary ---
Author Organization [facility] Healthcare Address [address] [place] [address] Care Team Providers Care Water Maintenance Supervisor Name Role Phone David Marx Primary Care Provider [phone] Allergies Active Allergy Reactions Criticality Noted Date Comments Jose Alfredo Inhibitors Cough Medium 01/01/2023 Tramadol Hives 01/30/2022 Medications finasteride (Proscar) 5 MG tablet Take 5 mg by mouth in the morning. Active furosemide (Lasix) 20 MG tablet Take 20 mg by mouth in the morning. 3 Active ketorolac (Acular) 0.5 % ophthalmic solution Administer 1 drop into both eyes in the morning and 1 drop at noon and 1 drop in the evening and 1 drop before bedtime. 3 Active losartan (Cozaar) 25 MG tablet Take 25 mg by mouth in the morning. Active metoprolol succinate XL (Toprol-XL) 25 MG 24 hr tablet Take 25 mg by mouth in the morning. Active ofloxacin (Ocuflox) 0.3 % ophthalmic solution Administer 1 drop into both eyes in the morning and 1 drop at noon and 1 drop in the evening and 1 drop before bedtime. 3 Active omeprazole (PriLOSEC) [address] capsule Take 40 mg by mouth in the morning. Take before meals. Active tamsulosin (Flomax) 0.4 MG 24 hr capsule Take 0.4 mg by mouth in the morning. Active testosterone cypionate (Depo-Testoster one) 100 MG/ML injection Inject 100 mg into the shoulder, thigh, or buttocks every 14 (fourteen) days. Active HYDROcodone-jose alfredo taminophen ([place]) 5-325 MG tablet 3 Active Active Problems Problem Noted Date Diagnosed Date Onychomycosis 12/24/2022 Pain in limb 12/24/2022 Plantar fasciitis of right foot 12/24/2022 Encounters Date Type Department Care Team Description 01/19/2025 9:30 AM EDT Procedure Visit [facility] [address] [facility] [address] [place] [id number] Yfn Gusman DPM Metatarsalgia, left foot (Primary Dx); Pain due to onychomycosis of toenails of both feet; Venous insufficiency 01/19/2025 Bamboo flowsheet [facility] [address] [facility] [address] [place] [id number] Yfn Gusman DPM 01/19/2025 Travel from Last 3 Months Family History Medical History Relation Name Comments Cancer Mother Relation Name Status Comments Father Mother Social History Tobacco Use Types Packs/Day Years Used Date Smoking Tobacco: Never Passive Smoke Exposure: Never Smokeless Tobacco: Never Tobacco Cessation:Counseling Given: Yes Alcohol Use Standard Drinks/Week Comments Never 0 (1 standard drink = 0.6 oz pur e alcohol) Sex and Gender Information Value Date Recorded Sex Assigned at Not on file Legal Sex Male 6:40 PM EDT Gender Identity Not on file Sexual Orientation Not on file Last Filed Vital Signs Vital Sign Reading Time Taken Comments Blood Pressure 125/80 10/27/2024 8:39 AM EDT Pulse 81 10/27/2024 8:39 AM EDT Temperature - - Respiratory Rate 18 01/19/2025 9:30 AM EDT Oxygen Saturation - - Inhaled Oxygen Concentration - - Weight 95.3 kg (210 lb) 01/19/2025 9:30 AM EDT Height 175.3 cm (5' 9 ) 01/19/2025 9:30 AM EDT Body Mass Index 31.01 01/19/2025 9:30 AM EDT Plan of Treatment Upcoming Encounters Date Type Department Care Team ([facility] st Contact Info) Description 03/30/2025 9:50 AM EDT Procedure Visit [facility] [address] [facility] [address] [place] [id number] Yfn Gusman DPM [address] [facility] [address] [place] [address] Health Maintenance Due Date Last Done Comments Influenza Vaccine (#1) 2025 4, 05/23/2022, 05/18/2018, Additional history exists Pneumococcal Vaccine: 65+ Years Completed 6, 05/03/2014 [place] [address] [facility] Care Teams Water Maintenance Supervisor Relationship Specialty Start Date End Date David Marx DO [address] [place] [id number] PCP - General Internal Medicine 01/01/23
--- NOTE | 2025-02-15 10:11 | CT_ITS ---
The [address] [address] Patient Name: MAIC MORTENSEN MRN: [id number] date: 1935 Sex: M Assigned Patient Location: CT Current Patient Location: CT Accession/Order Number: [id number] Exam Date: 02/15/2025 10:47 Report Date: 02/15/2025 10:57 At the request of: CAROLE HEATH DO Procedure: CT chest wo con CT CHEST WITHOUT CONTRAST CLINICAL DATA: Follow-up left lower lobe nodularity COMPARISON: 02/05/2024 Spiral axial unenhanced images were obtained through the chest. Images were reviewed using both narrow and wide window settings. This CT exam was performed using one or more following dose reduction techniques: Automated exposure control, adjustment of the mA and/or kV according to patient size, or use of iterative reconstruction technique. The heart is top normal in size. There is still a trace amount of pericardial fluid. There is minor coronary artery disease. 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 There is plaque at the aortic arch and minimal at the descending aorta. There is subtle dextroscoliotic curvature and mild degenerative changes at the spine. Mild calcified pleural plaque is seen posteriorly in both sides. There is no pleural effusion or pneumothorax. Minimal apical scarring is noted. There is also atelectasis and/or scarring at both lung bases. No new consolidation is seen. There is redemonstration of a 5 mm nodular area associated with the left major fissure (axial image 54), slightly smaller than the comparison. This may be an intrapulmonary lymph node. There are also 2 pleural-based nodular densities at the left lower lobe laterally. The anterior area measures 6 mm. The posterior area measures 4 mm. No new nodularity is seen. Limited cuts through the upper abdomen show continued bilateral perinephric fibrofatty stranding. CT/CT chest wo con IMPRESSION: ECTATIC AORTA. MINOR SCARRING AND/OR ATELECTASIS. CALCIFIED PLEURAL PLAQUE. STABLE LEFT LOWER LOBE NODULARITY. Impression dictated by: Eva Stewart M.D. 02/15/2025 10:57 AM Dictation Location: [place] [address] Electronically authenticated by: [id number] Y Date: 02/15/2025 10:57
--- OUTSIDE RECORDS SUMMARY | 2025-02-15 10:11 | XMS_ITS | Clinical Summary ---
Author Organization [facility] Address [address] [place] [address] Care Team Providers Care College Football Coach Name Role Phone David Marx DO Primary Care Provider [phone] Allergies Active Allergy Reactions Criticality Noted Date Comments Jose Alfredo Inhibitors Cough Medium 01/01/2023 Tramadol Hives,Unknown 01/30/2022 Medications finasteride (Proscar) 5 mg tablet Take 1 tablet by mouth in the morning. Active tamsulosin (Flomax) 0.4 mg 24 hr capsule Take 1 tablet by mouth in the morning. Active omeprazole (PriLOSEC) [address] capsule TAKE 1 CAPSULE BY MOUTH EVERYDAY ON AN EMPTY STOMACH FOLLOWED IN 30 MINUTES BY BREAKFAST 9 Active losartan (Cozaar) 25 mg tabletIndicatio ns:Acute systolic (congestive) heart failure (CMS/HCC) TAKE 1 TABLET BY MOUTH EVERY DAY 90 tablet 3 4 Active metoprolol succinate XL (Toprol-XL) 25 mg 24 hr tabletIndicatio ns:Acute systolic (congestive) heart failure (CMS/HCC) TAKE 1/2 TABLET BY MOUTH DAILY 45 tablet 3 4 Active testosterone cypionate (Depo-Testoster one) 100 mg/mL injection Inject 100 mg into the shoulder, thigh, or buttocks every 14 (fourteen) days. Active Active Problems Problem Noted Date Diagnosed Date Primary osteoarthritis of left hip 01/02/2025 Acute bronchitis due to other specified organism s 07/18/2024 Left hip pain 07/18/2024 Primary localized osteoarthritis of pelvic regio n and thigh 07/18/2024 Ascending aortic aneurysm 01/28/2024 Chronic venous insufficiency 01/28/2024 Gastroesophageal reflux dise ase with esophagitis without hemorrhage 01/28/2024 Heart failure with improved ejection fraction (H FimpEF) 01/28/2024 History of chronic prostatitis 01/28/2024 Obstructive sleep apnea 01/28/2024 Overweight 01/28/2024 Primary osteoarthritis of right knee 01/28/2024 Pulmonary nodule 01/28/2024 Restrictive lung disease 01/28/2024 Urge incontinence 01/28/2024 Benign prostatic hyperplasia with urinary obstru ction 02/26/2023 02/26/2023 Chronic prostatitis 02/26/2023 02/26/2023 Dysuria 02/26/2023 02/26/2023 Hypogonadism in male 02/26/2023 02/26/2023 Increased frequency of urination 02/26/2023 02/26/2023 Nocturia 02/26/2023 02/26/2023 Urinary hesitancy 02/26/2023 02/26/2023 Acute renal impairment 01/18/2021 Nonsustained ventricular tachycardia 01/18/2021 02/26/2023 Acute systolic heart failure 01/26/2020 At risk for falls 01/11/2020 02/26/2023 Onychomycosis 01/11/2020 02/26/2023 Pain in limb 01/11/2020 02/26/2023 Plantar fasciitis of right foot 01/11/2020 02/26/2023 Chronic pain 11/12/2017 02/26/2023 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 02/26/2023 Dysphagia 06/18/2012 02/26/2023 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 Primary osteoarthritis 06/18/2012 3 Encounters Date Type Department Care Team Description 01/02/2025 3:30 PM EDT Office Visit [facility] [place] [address] [place] [address] Braxton Pineda MD Heart failure with improved ejection fraction (HFimpEF) (CMS/HCC) (Primary Dx); Aneurysm of ascending aorta without rupture; Non-rheumatic mitral regurgitation from Last 3 Months Immunizations Immunization Administration Dates Next Due Influenza, High Dose Seasona l, Preservative Free 05/27/2017,05/16/2016,05/31/2015 Influenza, Seasonal, Quadriv alent, Adjuvanted 05/23/2022 Influenza, seasonal, injecta ble, preservative free, 6 moonths & older 05/03/2015 Influenza, trivalent, adjuvanted 05/18/2018 Moderna 12 YR UP Vaccine BiValent Booster 2021 Pneumococcal Conjugate PCV 13 05/23/2016 Pneumococcal Polysaccharide PPV23 05/03/2014 Zoster, live 09/01/2022 Family History Relation Name Status Comments Father Mother Social History Tobacco Use Types Packs/Day Years Used Date Smoking Tobacco: Former Cigarettes Smokeless Tobacco: Never Tobacco Cessation:Counseling Given: Not Answered Alcohol Use Standard Drinks/Week Comments Not Currently 0 (1 standard drink = 0.6 oz pur e alcohol) occasional [place] Safety & Environment Answer Date Rec orded Fear of Current or Ex-Partner Not on file Emotionally Abused Not on file 09/24/2023 Physically Abused Not on file 09/24/2023 Sexually Abused Not on file 09/24/2023 Physically or Sexually Abused Not on file Sex and Gender Information Value Date Recorded Sex Assigned at Male 02/26/2023 6:14 PM EDT Legal Sex Male 10:04 PM EDT Gender Identity Male 02/26/2023 6:14 PM EDT Sexual Orientation Heterosexual or Straight 02/01 6:14 PM EDT Last Filed Vital Signs Vital Sign Reading Time Taken Comments Blood Pressure 128/74 01/02/2025 4:55 PM EDT Pulse 60 01/02/2025 4:55 PM EDT Temperature - - Respiratory Rate 11 02/27/2023 11:35 AM EDT Oxygen Saturation 98% 01/02/2025 4:55 PM EDT Inhaled Oxygen Concentration - - Weight 91.6 kg (202 lb) 01/02/2025 4:55 PM EDT Height 175.3 cm (5' 9 ) 01/02/2025 4:55 PM EDT Body Mass Index 29.83 01/02/2025 4:55 PM EDT Plan of Treatment Health Maintenance Due Date Last Done Comments Medicare Annual Wellness (AWV) 1935 Depression Screening 1947 Adult Tetanus 1958 Fall Risk Screening 2001 Zoster Vaccines (2 of 2) 04/15/2023 02/18/2023, 08/05 COVID-19 Vaccine ( season) 2024 05/30/2024, 05/31/2022, 05/31/2022, Additional history exists Influenza Vaccine (#1) 2025 , 05/23/2022, 05/18/2018, Additional history exists Pneumococcal Vaccine: 50+ Years Completed 05/23/2016, 05/03/2014 HIB Vaccines Aged Out No longer eligi ble based on patient's age to complete this topic HPV Vaccines Aged Out No longer eligi ble based on patient's age to complete this topic IPV Vaccines Aged Out No longer eligi ble based on patient's age to complete this topic Meningococcal B Vaccine Aged Out No l onger eligible based on patient's age to complete this topic Meningococcal Vaccine Aged Out No reece jocelyn eligible based on patient's age to complete this topic Rotavirus Vaccines Aged Out No longer eligible based on patient's age to complete this topic Insurance MEDICARE [facility] Care Teams College Football Coach Relationship Specialty Start Date End Date David Marx DO [address] [place] [address] PCP - General 02/25/23
--- OUTSIDE RECORDS SUMMARY | 2025-02-15 10:11 | XMS_ITS | Patient Health Record ---
Author Organization [facility] Address [address] [place] [address] Care Team Providers Care Cross Country Coach Name Role Phone CAROLE HEATH DO Primary Care Provider Paul Reyes Unavailable [phone] Jennifer Rossi Unavailable Allergies No Known Allergies Reason For Referral No Information Medications Medication SIG (Take, Route, Fr equency, Duration) Notes Start Date End Date Status testosterone Active tamsulosin 0.4 mg 1 cap(s) orally once a day Active omeprazole 40 mg 1 cap(s) orally once a day Active metoprolol 25 mg 1 tab(s) orally once a day Active losartan 25 mg 1 tab(s) orally once a day Active finasteride 5 mg 1 tab(s) orally once a day Active Social History Tobacco Use: Social History Observation Description Date Details (start date - stop date) Never Smoker NA - NA AUDIT-C (Standard) Question Answer Notes Did you have a drink containing alcohol in the p ast year? 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 Office [address] [place] [address] [place] [address] 03/28/2024 Jennifer Rossi Primary osteoarthritis of right knee M17.[address] [facility] Office [address] [place] [address] 06/27/2024 Jennifer Rossi Left hip pain M25.552 ; Primary osteoarthritis of left hip M16.12 and Primary osteoarthritis of right knee M17.[address] [facility] Office [address] [place] [address] [place] [address] 10/24/2024 Paul Burt Primary osteoarthrit is of right knee M17.11 Assessments Encounter Date Diagnosis (ICD Code) Assessment Notes Treatment Notes Treatment Clinical Notes Section Notes 03/28/2024 Primary osteoarthritis of right knee (ICD-10 - M17.11) 06/27/2024 Left hip pain (ICD-10 - M25.552) Left hip osteoarthritis Right knee osteoarthritis 06/27/2024 Primary osteoarthritis of left hip (ICD-10 - M16.12) Left hip osteoarthritis Right knee osteoarthritis 10/24/2024 Primary osteoarthritis of right knee (ICD-10 - M17.11) Right knee osteoarthritis 06/27/2024 Primary osteoarthritis of right knee (ICD-10 - M17.11) Left hip osteoarthritis Right knee osteoarthritis 03/28/2024 Other Patient wishes to continue conservative treatment of his knee pain. Today I went ahead and repeated corticosteroid injection of his right knee. He will follow-up in 3 months. 06/27/2024 Other Patient evaluated by myself and Dr. Burt today. We did go over patient's x-ray results of his hip and given he is doing a lot better we will hold off on any corticosteroid injections for the hip. I did discuss that if this pain should return he can call and come in earlier and we could get him scheduled for the procedure at the hospital. For his right knee pain we will continue with the corticosteroid injections as he is still getting good relief with these. Patient agreed and I did provide him with a right knee injection today. We will have him scheduled for 3 months for recheck, if his left hip pain should return sooner he will call. Left hip osteoarthritis Right knee osteoarthritis 10/24/2024 Other I discussed today with the patient regarding his right knee pain. Overall does have osteoarthritis. He has done well with prior injections. Repeated injection today. Follow-up in 6 weeks Right knee osteoarthritis Plan Of Treatment Pending Test Test Name Order Date CBC with diff, BMP, EKG 05/11/2023 Surgery Scheduling 05/11/2023 SCC- HIP W/ PELVIS, LEFT [id number] SCC- KNEE 4 VIEW RIGHT [id number] 06/08/2023 Insurance Providers Payer Name Payer Address Payer Phone Subscriber Number Group Number Insured Name Patient Relationship to Insured Coverage Start Date Coverage [place] [address] [place] [address] [id number] MACI MORTENSEN Self - patient is the insured AAR SUPPLEMENT [address] [place] [address] [phone] [id number] MACI MORTENSEN Self - patient is the insured Medications Administered Medication Instructions Date of Administration Dosage Notes BUPIVACAINE 06/27/2024 2 mL Medical (General) History Surgical History Surgery Date(Month/Year) Right endoscopic carpal tunnel release 1
== END 2025-02-15 10:09 | disposition home or self-care (01) ==
LOC: CT 10:09
PROVIDERS: PCP Internal Medicine; Visit Provider Internal Medicine
DX: R91.1 Solitary pulmonary nodule (principal); I77.810 Thoracic aortic ectasia
CPT/HCPCS: 71250

== ENCOUNTER 2025-03-27 11:13 | Outpatient (OUT) | payer MEDICARE, SELFPAY ==
--- OUTSIDE RECORDS SUMMARY | 2025-03-17 23:59 | XMS_ITS | Continuity of Care Document ---
Author Organization [facility] Address [address] [place] [address] Care Team Providers Care Sales Manager Prearranged Funerals Name Role Phone CAROLE HEATH Primary Care Physician Encounter FT_SEA [id number] Date(s): 03/17/25 - 03/17/25 [facility] [address] [place] [address]- Discharge Disposition: Home (Routine DC) Attending Physician: Robert APPLE MD Encounter Type: Clinic Allergies, Adverse Reactions, Alerts No Known Medication Allergies Assessment and Plan Future Appointments Appointment Date:04/24/2025 08:45:00 AM Scheduled Provider: Location:[facility] Appointment Type:URO Nurse Visit Appointment Date:05/01/2025 09:45:00 AM Scheduled Provider:Robert APPLE MD Location:[facility] Appointment Type:URO Office Visit Future Scheduled Tests Laboratory* Testosterone Level Total 10/21/24 Immunizations Given and Recorded Vaccine Date Status Refusal Reason influenza virus vaccine, inactivated 05/16/24 Ankit rded influenza virus vaccine, inactivated 05/23/22 Ankit rded influenza virus vaccine, inactivated 05/18/18 Ankit rded influenza virus vaccine, inactivated 05/27/17 Ankit rded influenza virus vaccine, inactivated 05/16/16 Ankit rded influenza virus vaccine, inactivated 05/31/15 Ankit rded influenza virus vaccine, inactivated 05/03/15 Ankit rded zoster vaccine, inactivated 02/18/23 Recorded zoster vaccine, inactivated 09/01/22 Recorded SARS-CoV-2 (COVID-19) [id number] 1 05/31/22 Recorded SARS-CoV-2 (COVID-19) mRNA-1273 vaccine 2 12/20/21 Recorded SARS-CoV-2 (COVID-19) mRNA-1273 vaccine 3 06/18/21 Recorded SARS-CoV-2 (COVID-19) mRNA-1273 vaccine 10/02/20 R ecorded SARS-CoV-2 (COVID-19) mRNA-1273 vaccine 09/04/20 R ecorded pneumococcal 13-valent vaccine 05/23/16 Recorded pneumococcal 23-valent vaccine 05/03/14 Recorded 1Result Comment: 2024-06-20: [id number] 2Result Comment: 2022-04-14: TPV80 3Result Comment: 2022-04-14: TPV80 Medications finasteride 5 mg Tab 5 mg = 1 tab(s), Oral, Daily, # 90 tab(s), Refills(s) 3, Pharmacy: [facility]/pharmacy #[id number], 170, cm, 10/21/24 10:24:00 EDT, Height/Length Dosing, 88.5, kg, 10/21/24 10:24:00 EDT, Weight Dosing Start Date: 01/31/25 Status: Ordered Quantity: 90.0 Unit: tab(s) Repeat number: 4 Flomax 0.4 mg Cap 0.4 mg = 1 cap(s), Oral, Daily, # 90 cap(s), Refills(s) 3, Pharmacy: [facility]/pharmacy #[id number], 170, cm, 06/20/24 13:43:00 EST, Height/Length Dosing, 86, kg, 06/20/24 13:43:00 EST, Weight Dosing Start Date: 10/09/24 Status: Ordered Quantity: 90.0 Unit: cap(s) Repeat number: 4 losartan 25 mg Tab Refills(s) 0 Start Date: 04/27/23 Status: Ordered Repeat number: 1 metoprolol 25 mg ER Tab mg tab(s), Oral, Daily, Refills(s) 0 Start Date: 09/26/19 Status: Ordered Repeat number: 1 omeprazole 40 mg Cap-DR 40 mg = 1 cap(s), Oral, Daily Start Date: 03/04/19 Status: Ordered Repeat number: 1 testosterone cypionate 200 mg/mL IM Kayla 50 mg, IntraMuscular, q4wk, # 1 mL, Refills(s) 3, Pharmacy: [facility]/pharmacy #[id number], 170, cm, 10/21/24 10:24:00 EDT, Height/Length Dosing, 88.5, kg, 10/21/24 10:24:00 EDT, Weight Dosing Start Date: 02/01/25 Status: Ordered Quantity: 1.0 Unit: mL Repeat number: 4 Indications: Testicular hypofunction; Problem List Condition Confirmation Course Effective Dates Status Health St atus Informant 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 History of chronic prostatitis Confirmed Active 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 Nocturia Confirmed Active Urge incontinence Confirmed Active Procedures Procedure Date Related Diagnosis Body Site Status Urodynamics 01/05/13 Completed Cystoscopy 12/28/12 Completed TURP - Transurethral resecti on of prostate 11/01/01 Completed Transrectal biopsy of prosta te using ultrasound (US) guidance 12/02/99 Complet ed right Radical orchiectomy 1990 Completed Social History Social History Type Response Smoking Status Former smoker, quit more than 30 days ago;Never; Type: Cigarettes; Smoking Cessation Yes entered on: 10/21/24 Sex Male Sex Representation Male (finding) Patient Care team information Care Team Personnel Name: CAROLE HEATH DO Position: FT Physician Member Role: Primary Care Physician Address: [address] Telecom: Care Team Related Persons Name: MADY MORTENSEN Name: MADY MORTENSEN Insurance Providers Guarantor name: MACI MORTENSEN Health Plan Information #: 1 Payer: NA Payer Identifier: [id number] Member Number: [id number] Group Number: AB Subscriber Identifier: [id number] Relationship to Subscriber: Self Coverage Type: MEDICARE Coverage Verification Date: 25 Telecom: NA Address: Health Plan Information #: 2 Payer: NA Payer Identifier: [id number] Member Number: [id number] Group Number: n Subscriber Identifier: [id number] Relationship to Subscriber: Self Coverage Type: PRIVATE HEALTH INSURANCE Coverage Verification Date: 25 Telecom: Address:
--- NOTE | 2025-03-27 | XR_ITS ---
[address] [address] Patient Name: MACI MORTENSEN MRN: [id number] date: 1935 Sex: M Assigned Patient Location: RAD Current Patient Location: [facility] Accession/Order Number: [id number] Exam Date: 03/27/2025 11:35 Report Date: 03/27/2025 12:41 At the request of: GHISLAINE HOLDER DO Procedure: XR knee RT 4V 4 views right knee plain film COMPARISON: 06/08/2023 HISTORY: Chronic right knee pain ACUTE FINDINGS: No acute findings DEGENERATIVE CHANGE: Dsem-[id number]-[id number] lateral degeneration. Mild progression SOFT TISSUE FINDINGS: Unremarkable JOINT EFFUSION: None POSTOP CHANGES: None BONE MINERALIZATION: Adequate XR/XR knee RT 4V IMPRESSION: Extensive lateral degeneration with mild progression Impression dictated by: Elgin Millan M.D. 03/27/2025 12:41 PM Dictation Location: [place] [address] Electronically authenticated by: [id number] Y Date: 03/27/2025 12:41
--- OUTSIDE RECORDS SUMMARY | 2025-03-27 11:15 | XMS_ITS | Clinical Summary ---
Author Organization [email or web address] tem Address [id number] [address] [place] [address] Care Team Providers Care Furniture Reproducer Name Role Phone David Marx Primary Care Provider [phone] Social History Tobacco Use Types Packs/Day Years Used Date Smoking Tobacco: Never Assessed Childcare Answer Date Recorded Childcare Unknown 01/12/2019 Employment Answer Date Recorded Employment Unknown 01/12/2019 Sex and Gender Information Value Date Recorded Sex Assigned at Not on file Legal Sex Male 12:11 PM EDT Gender Identity Not on file Sexual Orientation Not on file Plan of Treatment Not on file Medical Devices Not on file Insurance MEDICARE [facility] Care Teams Furniture Reproducer Relationship Specialty Start Date End Date David Marx DO [address] [place] [address] PCP - General 07/29/16
--- OUTSIDE RECORDS SUMMARY | 2025-03-27 11:15 | XMS_ITS | Clinical Summary ---
Author Organization [facility] Address [address] [place] [address] Care Team Providers Care Nurse Healthcare Manager Name Role Phone David Marx Primary Care Provider [phone] Allergies Active Allergy Reactions Criticality Noted Date [...] 14 (fourteen) days. Active HYDROcodone-jose alfredo taminophen ([place]) 5-325 MG tablet 3 Active Active Problems Problem Noted Date Diagnosed Date Onychomycosis 12/24/2022 Pain in limb 12/24/2022 Plantar fasciitis of right foot 12/24/2022 Encounters Date Type Department Care Team Description 01/19/2025 9:30 AM EDT Procedure Visit [facility] [address] [facility] [address] [place] [address] Yfn Gusman DPM Metatarsalgia, left foot (Primary Dx); Pain due to onychomycosis of toenails of both feet; Venous insufficiency 01/19/2025 Bamboo flowsheet [facility] [address] [facility] [address] [place] [id number] Yfn Gusman DPM 01/19/2025 Travel from Last [...] Upcoming Encounters Date Type Department Care Team ([facility] st Contact Info) Description 03/30/2025 9:50 AM EDT Procedure Visit [facility] [address] [facility] [address] [place] [address] Yfn Gusman DPM [address] [facility] [address] [place] [address] Health Maintenance Due Date Last Done Comments Influenza Vaccine (#1) 2025 4, 05/23/2022, 05/18/2018, Additional history exists Pneumococcal Vaccine: 65+ Years Completed 6, 05/03/2014 [place] [address] MEDICARE [facility] Care Teams Nurse Healthcare Manager Relationship Specialty Start Date End Date David Marx DO [address] [place] [id number] PCP - General Internal Medicine 01/01/23
--- OUTSIDE RECORDS SUMMARY | 2025-03-27 11:15 | XMS_ITS | Clinical Summary ---
Author Organization [facility] Address [address] [place] [address] Care Team Providers Care Continuity Clerk Name Role Phone David Marx DO Primary Care Provider Allergies Active Allergy Reactions Criticality Noted Date [...] STOMACH FOLLOWED IN 30 MINUTES BY BREAKFAST 03/04/20 19 Active testosterone cypionate (Depo-Testoste angelique) 100 mg/mL injection Inject 100 mg into the shoulder, thigh, or buttocks every 14 (fourteen) days. Active losartan (Cozaar) 25 mg tabletIndicati ons:Acute systolic (congestive) heart failure (CMS/HCC) TAKE 1 TABLET BY MOUTH EVERY DAY 90 tablet 3 03/17/20 25 Active metoprolol succinate XL (Toprol-XL) 25 mg 24 hr tabletIndicati ons:Acute systolic (congestive) heart failure (CMS/HCC) TAKE 1/2 TABLET BY MOUTH DAILY 45 tablet 3 03/17/20 25 Active losartan (Cozaar) 25 mg tabletIndicati ons:Acute systolic (congestive) heart failure (CMS/HCC) TAKE 1 TABLET BY MOUTH EVERY DAY 90 tablet 3 03/30/20 24 025 Discontinued metoprolol succinate XL (Toprol-XL) 25 mg 24 hr tabletIndicati ons:Acute systolic (congestive) heart failure (CMS/HCC) TAKE 1/2 TABLET BY MOUTH DAILY 45 tablet 3 03/30/20 025 Discontinued Active Problems Problem Noted Date Diagnosed Date [...] Encounters Date Type Department Care Team Description [facility] [address] [place] [address] Elidia Aguilar CNP Acute systolic (congestive) heart failure (CMS/HCC) 01/02/2025 3:30 PM EDT Office Visit [facility] [address] [place] [address] Braxton Pineda MD Heart failure [...] age to complete this topic Insurance MEDICARE [employer] Care Teams Continuity Clerk Relationship Specialty Start Date End Date David Marx DO [address] [place] [phone] PCP - General 02/25/23
--- OUTSIDE RECORDS SUMMARY | 2025-03-27 11:15 | XMS_ITS | Patient Health Record ---
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) Active confirmed Vital Signs Height 66 in 10/24/2024 Weight 195 lbs 10/24/2024 BMI 31.47 10/24/2024 Encounters Encounter Location Date Provider Diagnosis [facility] [address] [place] [address] [place] [address] 03/28/2024 Jennifer [facility] Primary osteoarthritis of right knee M17.11 [facility] [address] [facility] [place] [address] 06/27/2024 [place] Left hip pain M25.552 ; Primary osteoarthritis of left hip M16.12 and Primary osteoarthritis of right knee M17.11 [facility] Office [address] [facility] [place] [address] [place] [address] 10/24/2024 Paul Burt Primary osteoarthrit is of [...] Scheduling 05/11/2023 [facility]- HIP W/ PELVIS, LEFT 10010 [facility]- KNEE 4 VIEW RIGHT [id number] 06/08/2023 Insurance Providers Payer Name Payer Address Payer Phone Subscriber Number Group Number Insured Name Patient Relationship to Insured Coverage Start Date Coverage End [place] [address] [place] [address] [id number] MACI MORTENSEN Self - patient is the insured [employer] SUPPLEMENT [address] [place] [address] [id number] MACI MORTENSEN Self - patient is the insured Medications Administered Medication Instructions Date of Administration Dosage Notes BUPIVACAINE 06/27/2024 2 mL Medical (General) History Surgical History Surgery Date(Month/Year) Right endoscopic carpal tunnel release 1
--- OUTSIDE RECORDS SUMMARY | 2025-03-27 11:25 | XMS_ITS | CCD ---
Author Organization [facility] Care Team Providers Care Entry Engineer Name Role Phone KEKE AKERS Admitting Unavailable ADITHYA SCHMIDT Referring DAVID Damon Primary Care Unavailable Deng Aguilar Attending Unavailable DE Procedure Practitioner Unavailab HEATHER Eastman Surgeon Unavailable DAVID MARX Primary Care Physician [phone] David Marx Unavailable APLING, FOSTER Sarmad Admitting Unavailable APLING, [...] Consulting Unavailable APLINGFOSTER Attending Unavailable APLING, FOSTER Sarmad Admitting Unavailable ZIEBER, DR MILKA Jung Consulting Unavailable IVANA, DR LAM Primary Care Unavailable APLING, FOSTER B Consulting Unavailable David Marx MD Primary Care Provider VJ ESPITIA Attending Unavailable VJ ESPITIA Attending Unavailable VJ ESPITIA Attending Unavailable David Marx DO Primary Care Provider YFN GUSMAN Attending Unavailable YFN GUSMAN Attending Unavailable YFN GUSMAN Attending Unavailable YFN GUSMAN Attending Unavailable YFN GUSMAN Attending Unavailable BAUER, Ramya R Attending Unavailable BAUER, Ramya R Attending Unavailable BAUER, Ramya R Attending Unavailable KEYSHAWN, ILYA E Attending Unavailable KEYSHAWN, ILYA E Attending Unavailable KEYSHAWN, ILYA E Attending Unavailable BAUER, Ramya R Attending Unavailable BAUER, Ramya R Attending Unavailable KEYSHAWN, ILYA E Attending Unavailable KEYSHAWN, ILYA E Attending Unavailable KEYSHAWN, ILYA E Attending Unavailable KEYSHAWN, ILYA E Attending Unavailable BAUER, Ramya R Attending Unavailable BAUER, Ramya R Attending Unavailable BAUER, Ramya R Attending Unavailable BAUER, Ramya R Attending Unavailable Allergies Allergy Classification Reported Allergen(s) Allergy Type Date of Onset Reaction(s) Facility (17 sources) traMADol; Translations: [TRAMADOL] Drug Allergy 2 [facility] Other (3 sources) patient allergy list reviewed by nurse or physicia Propensity to adverse reactions 6 Comment:Done [facility] Other (6 sources) TraMADol & Dietary Manage Prod *ANALGESICS - OPIOI Propensity to adverse reactions Unknown [facility] Other (8 sources) Angiotensin-con verting enzyme inhibitor agent; Translations: [BERNARDINO INHIBITORS] Drug Allergy 3 [facility] (1 source) No Known Medication Allergies; Translations: [No Known Medication Allergies] Propensity to adverse reactions (disorder) [facility] Repository Medications Current Medications Medication Drug Class(es) Dates Sig (Normalized) Sig (Original) acetaminophen 325 mg / HYDROcodone bitartrate 5 mg oral tablet (7 sources) Opioid Agonist Start: 05-25-2023 HYDROcodone-aceta minophen ([place]) 5-325 MG tablet 05/25/2023 Active amiodarone hydrochloride 200 mg oral tablet (1 source) Antiarrhythmic Start: 03-04-2019 take 1 tablet by mouth once daily amiodarone 200 mg Tab 200 mg = 1 tab(s), Oral, Daily Start Date: 03/04/19 Status: Ordered finasteride 5 mg oral tablet (20 sources) 5-alpha Reductase Inhibitor Start: 01-31-2025 take 1 tablet by mouth once daily finasteride 5 mg Tab 5 mg = 1 tab(s), Oral, Daily, # 90 tab(s), Refills(s) 3, Pharmacy: [facility]/pharmacy #[id number], 170, cm, 10/21/24 10:24:00 EDT, Height/Length Dosing, 88.5, kg, 10/21/24 10:24:00 EDT, Weight Dosing Start Date: 01/31/25 Status: Ordered Quantity: 90.0 Unit: tab(s) Repeat number: 4 Start: 11-15-2021 take 1 tablet by guilherme th once daily finasteride 5 mg Tab 5 mg = 1 tab(s), Oral, Daily, # 90 tab(s), Refills(s) 3, Pharmacy: [facility]/pharmacy #[id number], 170, cm, 06/20/24 13:43:00 EST, Height/Length Dosing, 86, kg, 06/20/24 13:43:00 EST, Weight Dosing Start Date: 10/09/24 Status: Ordered Quantity: 90.0 Unit: tab(s) Repeat number: 4 furosemide 20 mg oral tablet (20 sources) Loop Diuretic Start: 03-04-2019 End: 01-08-2024 take 1 tablet by mouth in the morning furosemide (Lasix) 20 MG tablet Take 20 mg by mouth in the morning. 11/05/2022 Active ketorolac tromethamine 5 mg/ml ophthalmic solution (7 sources) Nonsteroidal Anti-inflammatory Drug, Cyclooxygenase Inhibitor Start: 09-17-2022 ketorolac (Acular) 0.5 % ophthalmic solution Administer 1 drop into both eyes in the morning and 1 drop at noon and 1 drop in the evening and 1 drop before bedtime. 09/17/2022 Active losartan potassium 25 mg oral tablet (20 sources) Angiotensin 2 Receptor Paul Start: 04-27-2023 losartan 25 mg Tab Refills(s) 0 Start Date: 04/27/23 Status: Ordered Repeat number: 1 24 hr metoprolol succinate 25 mg extended release oral tablet (20 sources) beta-Adrenergic Paul Start: 09-26-2019 take 1 mg by mouth once daily metoprolol 25 mg ER Tab mg tab(s), Oral, Daily, Refills(s) 0 Start Date: 09/26/19 Status: Ordered Repeat number: 1 take 1 tablet by guilherme th every twenty-four hours in the morning metoprolol succinate XL (Toprol-XL) 25 M G 24 hr tablet Take 25 mg by mouth in the morning. Active ofloxacin 3 mg/ml ophthalmic solution (7 sources) Quinolone Antimicrobial Start: 09-17-2022 ofloxacin (Ocuflox) [...] mg capsule,delayed release(DR/EC) Active 0 .ROUTE .COMPLEX October 04, 2024 12:52pm TAKE 1 CAPSULE BY MOUTH EVERYDAY ON AN EMPTY STOMACH FOLLOWED IN 30 MINUTES BY BREAKFAST Start: 03-04-2019 End: 01-14-2024 take 1 capsule by mouth once daily omeprazole 40 mg Cap-DR 40 mg = 1 cap(s), Oral, Daily Start Date: 03/04/19 Status: Ordered Repeat number: 1 paxlovid (300/100) 20 x 150 mg & 10 x 100mg tablet therapy pack (1 source) Start: 08-10-2023 Paxlovid (300/100) 20 x 150 MG & 10 x 100MG as directed Orally bid for 5 days Aug, Active tamsulosin hydrochloride 0.4 mg oral capsule (20 sources) alpha-Adrenergi c Paul Start: 11-10-2023 take 1 capsule by mouth once daily Flomax 0.4 mg Cap 0.4 mg = 1 cap(s), Oral, Daily, # 90 cap(s), Refills(s) 3, Pharmacy: [facility]/pharmacy #[id number], 170, cm, 06/20/24 13:43:00 EST, Height/Length Dosing, 86, kg, 06/20/24 13:43:00 EST, Weight Dosing Start Date: 10/09/24 Status: Ordered Quantity: 90.0 Unit: cap(s) Repeat number: 4 Start: 11-15-2021 take [address] [facility] once daily Flomax 0.4 mg Cap 0.4 mg = 1 cap(s), Oral, Daily, # 90 cap(s), Refills(s) 3, Pharmacy: [facility]/pharmacy #[id number] Start Date: 11/13/22 Status: Ordered take [address] [facility] every twenty-four hours in the morning tamsulosin (Flomax) 0.4 MG 24 hr capsule Take 0.4 mg by mouth in the morning. Active testosterone cypionate 200 mg/ml injectable solution (8 sources) Androgen Start: 07-29-2024 Testosterone C ypionate 200 mg/mL kit Active 200 MG IM EVERY 4 WEEKS July 29, 2024 1:00am testosterone cyp ionate (Depo-Testosterone) 100 MG/ML injection Inject 100 mg into the shoulder, thigh, or buttocks every 14 (fourteen) days. Active testosterone cypionate 200 mg/mL IM Kayla (8 sources) Start: 02-01-2025 testosterone c ypionate 200 mg/mL IM Kayla 50 mg, IntraMuscular, q4wk, # 1 mL, Refills(s) 3, Pharmacy: [facility]/pharmacy #[id number], 170, cm, 10/21/24 10:24:00 EDT, Height/Length Dosing, 88.5, kg, 10/21/24 10:24:00 EDT, Weight Dosing Start Date: 02/01/25 Status: Ordered Quantity: 1.0 Unit: mL Repeat number: 4 Indications: Testicular hypofunction; Start: 06-20-2024 inject 150 mg by int ramuscular injection every other week testosterone cypionate 200 mg/mL IM Kayla 150 mg, IntraMuscular, q2wk, # 10 mL, Refills(s) 0, Pharmacy: [facility]/pharmacy #[id number], 170, cm, 06/20/24 13:43:00 EST, Height/Length Dosing, 86, kg, 06/20/24 13:43:00 EST, Weight Dosing Start Date: 06/20/24 Status: Ordered Quantity: 10.0 Unit: mL Repeat number: 1 Start: 06-20-2024 inject 150 mg by int ramuscular injection every other week testosterone cypionate 200 mg/mL IM Kayla 150 mg, IntraMuscular, q2wk, # 10 mL, Refills(s) 0, Pharmacy: [facility]/pharmacy #[id number], 170, cm, 06/20/24 13:43:00 EST, Height/Length Dosing, 86, kg, 06/20/24 13:43:00 EST, Weight Dosing Start Date: 06/20/24 Status: Ordered testosterone cypionate 200 mg/mL intramuscular solution (2 sources) Start: 11-09-2020 testosterone c ypionate 200 mg/mL intramuscular solution 200 mg = 1 mL, IntraMuscular, q4wk, E29.1, # 10 mL, Refills(s) 3, Pharmacy: [facility]/pharmacy #[id number], 178, cm, 09/10/20 9:06:00 EST, [...] 22, 2024 12:00am July 29, 2024 11:04am Problems Active Problems Problem Classification Problem Date [...] ankle] Episodic Genitourinary symptoms and ill-defined conditions (10 sources) Urge incontinence; Translations: [Urge incontinence of [...] Episodic Inflammatory conditions of male genital organs (10 sources) 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 Mycoses (11 sources) Pain in toe; Translations: [Tinea unguium] Onset: 12-24-2022 05-16-2024 Episodic Osteoarthritis (20 sources) Idiopathic osteoarthritis; 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, right knee] Onset: 04-14-2013 11-30-2023 Chronic Other aftercare (1 source) Other residential (current) drug therapy; Translations: [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] Onset: 10-15-2022 Episodic Other [...] BURSITIS RIGHT HIP] Onset: 05-29-2022 Episodic Other connective tissue disease (1 source) Metatarsalgia of left foot; Translations: [Metatarsalgia, left foot] 01-19-2025 Episodic Other diseases of veins and lymphatics (20 sources) Peripheral venous insufficiency; Translations: [Venous insufficiency (chronic) (peripheral)] Onset: 01-14-2019 11-28-2023 Episodic Other diseases of veins and lymphatics (9 sources) Venous insufficiency (chronic) (peripheral); Translations: [Venous (peripheral) insufficiency, unspecified] Episodic Other diseases of veins and lymphatics (4 sources) Vascular insufficiency; Translations: [Venous insufficiency (chronic) (peripheral)] 05-16-2024 Episodic Other endocrine disorders (13 sources) Testicular hypofunction; 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 Other endocrine disorders (10 sources) 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 Other endocrine [...] classified] 11-30-2023 Episodic Other male genital disorders (10 sources) 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 Other male genital disorders (1 source) H/O: male genital disorder; Translations: [Personal history of other diseases of male genital organs] Onset: 04-14-2022 Episodic Other male genital disorders (10 sources) History of prostatitis 09-10-2020 Episodic Other [...] Onset: 03-27-2022 Episodic Other connective tissue disease (7 sources) Pain in limb; Translations: [Pain in unspecified limb] Onset: 12-24-2022 12-24-2022 Episodic Other connective tissue disease (7 sources) Plantar fasciitis of right foot; Translations: [...] Reference Range Facility Ambulatory Visit Summaryon 0 02-20-2025 Ambulatory Visit Summary Ambulatory Visit Summary ADILSON, YAYA Milligan :1935 Visit Date:02/20/2025 Ambulatory Visit Instructions Your Diagnosis Hypogonadism male [...] to do next Scheduled Follow-Up Appointments Thursday 9:30 AM EDT With: Where: [facility] [address] [place] [address] [place] [address]- Thursday 8:45 AM EDT With: Where: [facility] [address] [place] [address] [place] [address]- Thursday 9:45 AM EDT With: ZECHARIAH WYNN, Ramya Jung Where: [facility] [address] [place] [address]- Medications What How Much When Why Instructions Unchanged finasteride (finasteride 5 mg Tab) 1 Tablets By Mouth Every day Unchanged losartan (losartan 25 mg Tab) Unchanged metoprolol (metoprolol 25 mg ER Tab) By Mouth Every day Unchanged omeprazole (omeprazole 40 mg Cap-DR) 1 Capsules By Mouth Every day Unchanged tamsulosin (Flomax 0.4 mg Cap) 1 Capsules By Mouth Every day Unchanged testosterone (testosterone cypionate 200 mg/ mL IM Kayla) 50 Milligram Intramuscular Every 4 weeks Hypogonadism male Medications and Immunizations Administered Given Depo-Testosterone 200 [...] you for choosing us for your care. Patient Portal You may access all of your results and other medical record information on our secure patient portal. If you are not signed up for this yet, please contact [employer] at [phone] to get signed up today. Language Information Language assistance services are available as needed. Normal [facility] Ambulatory Visit Summaryon 0 01-23-2025 Ambulatory Visit Summary Ambulatory Visit Summary YAYA DE ANDA :1935 Visit Date:01/23/2025 Ambulatory Visit Instructions Your Care Team Attending Physician - ILYA MAHAJAN PA-C Primary Care Physician - IVANA LUONG DAVID This Is Your Medications List finasteride [...] to do next Scheduled Follow-Up Appointments Thursday 9:00 AM EDT With: Where: [facility] [address] [place] [address]- Thursday 8:45 AM EDT With: Where: [facility] [address] [id number]- Thursday 9:45 AM EDT With: Ramya BAUER MD Where: [facility] [address] [address]- Medications What How Much When Instructions Unchanged [...] for choosing us for your care. Normal [facility] Office Visiton 01-02-2025 Follow-up visit [id number] Yaya De Anda 1935 M Date Provider Department Center 01/02/2025 [facility] Family History Family history unknown: Yes Family Status - Relation Status Age at Mother Father Level of Service:02604 DE OFFICE/OUTPATIENT ESTABLISHED LOW MDM 20 MIN Normal [facility] Ambulatory Visit Summaryon 0 12-22-2024 Ambulatory Visit Summary Ambulatory Visit Summary YAYA DE ANDA :1935 Visit Date:12/22/2024 Ambulatory Visit Instructions Your Diagnosis Hypogonadism male [...] AM EDT With: Where: [facility] [address] [facility] [place] [address]- Thursday 9:45 AM EDT With: ZECHARIAH WYNN, Ramya Jung Where: [facility] [address] [place] [address]- Medications What How Much When Instructions Unchanged [...] for choosing us for your care. Normal [facility] Ambulatory Visit Summaryon 0 11-24-2024 Ambulatory Visit [...] AM EDT With: Where: [facility] [address] [address]- Thursday 9:45 AM EDT With: Ramya BAUER MD Where: [facility] [address] [place] [address]- Medications What How Much When Instructions Unchanged [...] for choosing us for your care. Normal [facility] Ambulatory Visit Summaryon 0 10-27-2024 Ambulatory Visit [...] AM EDT With: Where: [facility] [address] [address]- Thursday 8:45 AM EDT With: Where: [facility] [address] [address]- Thursday 9:45 AM EDT With: ZECHARIAH WYNN, Ramya Jung Where: [facility] [address] [address]- Medications What How Much When Instructions Unchanged [...] for choosing us for your care. Normal [facility] Ambulatory Visit Summaryon 0 10-21-2024 Ambulatory Visit Summary Ambulatory Visit Summary YAYA DE NADA :1935 Visit Date:10/21/2024 Ambulatory Visit Instructions Your [...] AM EDT With: Where: [facility] [address] [address]- Thursday 9:30 AM EDT With: Where: [facility] [place] [address] [address] [facility] [place] [address]- Thursday 9:45 AM EDT With: Ramya BAUER MD Where: [facility] [place] [address] [place] [address]- You Need to Schedule the Following Appointments Follow Up with Ramya BAUER MD, URL When: Where: [facility] [place] [address]- You Need to Complete the Following Testosterone [...] Milligram Intramuscular Every other week Pickup at [facility]/pharmacy #[id number] Unchanged losartan (losartan 25 mg Tab) Contact prescribing physician if questions or concerns Unchanged metoprolol (metoprolol 25 mg ER Tab) By Mouth Every day Contact prescribing physician if questions or concerns Unchanged omeprazole (omeprazole 40 mg Cap-DR) 1 Capsules By Mouth Every day Contact prescribing physician if questions or concerns Pharmacy Information [facility]/pharmacy #[id number]: [address], [place] [phone] Allergies No Known Medication Allergies Problems Ongoing [...] Genetic condit (more content not included)... [facility] Urology Office/Clinic Noteon 10-21-2024 Urology Office/Clinic Note [...] and history for this patient from Dr. Buaer. I have reviewed and verified the staff [...] Ramya Jung, URL [facility] [address] [place] [address]- Additional Instructions: 6 mos with T level Due on 10/27 for next inj (nurse visit) Patient Education Hypogonadism, Male I, Savanna Isabel, personally scribed for Dr. Bauer on 10/21/2024 11:10:55. . Documentation recorded by the scribSavanna milligan, accurately reflects the services(s) I performed and [...] zoster vaccine, inactivated 09/01/2022 Recorded SARS-CoV-2 (COVID-19) [id number] 05/31/2022 Recorded 2024-06-20: TPV80 influenza virus vaccine, inactivated 05/23/2022 Recorded SARS-CoV-2 (COVID-19) mRNA-1273 vaccine 12/20/2021 Recorded 2022-04-14: TPV80 SARS-CoV-2 (COVID-19) mRNA-1273 vaccine 06/18/2021 Recorded 2022-04-14: TPV80 SARS-CoV-2 (COVID-19) mRNA-1273 vaccine 10/02/2020 Recorded SARS- (more content not included)... [facility] Comment on above: Result Comment: Elec tronically Signed By: ZECHARIAH WYNN, Ramya Smith\Date and Time Signed: 10/21/24 11:14 EDT\.br\Electronically Co-Signed By: Savanna Isabel\.br\Date and Time Co-Signed: 10/21/24 11:11 EDT No Panel Informationon 10-14 Testosterone Level 435 ng/dL [phone] [facility] Comment on above: Adult male reference interval is based on a population ofhealthy nonobese males (BMI <30) between 19 and 39 yearsold. Liz et.al. JCEM 2017,102;8772-4632. PMID:[id number].Performed at: [facility] [id number] Director: Tato Landaverde PhD, Phone: [phone] Ambulatory Visit Summaryon 0 09-01-2024 Ambulatory Visit [...] AM EST With: Where: [facility] [place] [address] [address] [facility] [place] [address]- Thursday 9:45 AM EDT With: Ramya BAUER MD Where: [facility] [address] [facility] [place] [address]- Medications What How Much When Instructions Unchanged [...] for choosing us for your care. 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 Your Care Team Attending Physician - ZECHARIAH WYNN, Ramya Jung Primary Care Physician - DAVID MARX [...] AM EST With: Where: [facility] [address] [place] [address]- Thursday 9:45 AM EDT With: Ramya BAUER MD Where: [facility] [address] [place] [address]- You Need to Schedule the Following Appointments Follow Up with Ramya BAUER MD, URL When: Where: [facility] [address], [place] [phone] Medications What How Much When Why Instructions New testosterone (testosterone cypionate 100 mg/ mL intramuscular solution) 150 Milligram Intramuscular Every 4 weeks Hypogonadism male Refills: 3 Pickup at [facility]/pharmacy #[id number] Unchanged finasteride (finasteride 5 mg Tab) 1 Tablets By Mouth Every day Pickup at [facility]/pharmacy #[id number] Unchanged tamsulosin (Flomax 0.4 mg Cap) 1 Capsules By Mouth Every day Pickup at [facility]/pharmacy #[id number] Unchanged losartan (losartan 25 mg Tab) Contact prescribing physician if questions or concerns Unchanged metoprolol (metoprolol 25 mg ER Tab) By Mouth Every day Contact prescribing physician if questions or concerns Unchanged omeprazole (omeprazole 40 mg Cap-DR) 1 Capsules By Mouth Every day Contact prescribing physician if questions or concerns Pharmacy Information [facility]/pharmacy #[id number]: [address], [place] [phone] Allergies No Known Medication Allergies Problems Ongoing [...] of diseases (more content not included)... Normal [facility] Urology Office/Clinic Noteon 06-20-2024 Urology Office/Clinic Note Urology Office/Clinic Note Chief Complaint 1yr f/u HPI Staff 1 yr w/ T level. 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 *Flomax 0.4mg qd and Finasteride 5mg qd T-Level: 04/15/2204/202306/13/24 Dysuria: denies Incomplete bladder emptying: unsure, feels [...] - 323 03/22/21 - 319 04/15/22 - 04/22/23 - 06/13/24 S/p radical orchiectomy 1990. Previously reported no [...] 150mg IM injection q4wks. Rx sent to [facility]. -F/u in 4 mos w/ [...] [facility] [address], [place] [phone] Additional Instructions: 4 mos w/ T level Patient Education Hypogonadism, Male Benign Prostatic Hyperplasia I, Erica Alamo, personally scribed for Dr. Bauer on 06/20/2024 14:48:44. . Documentation recorded by the scribeErica, accurately reflects the services(s) I performed and [...] 05/16/2024 Recorde (more content not included)... [facility] Comment on above: Result Comment: Elec tronically Signed By: Ramya BAUER MD\.br\Date and Time Signed: 06/20/24 14:50 EST\.br\Electronically Co-Signed By: Erica Alamo\.br\Date and Time Co-Signed: 06/20/24 14:49 EST Office Visiton 01-28-2024 Follow-up visit [id number] Yaya De Anda 1935 M Date Provider Department Center 01/28/2024 [facility] CUELLO HENRI Shannon Family History Family history unknown: Yes Level of Service:75082 DE OFFICE/OUTPATIENT ESTABLISHED MOD MDM 30 MIN Normal [facility] Basophils Auto (Bld) [#/Vol] on 01-06-2024 Basophils (Bld) [#/Vol] 0.0 10 3/uL 0.0-0.1 [facility] Basophils/100 WBC Auto (Bld) on 01-06-2024 Basophils/100 WBC (Bld) 0.5 % 0.2-2.0 [facility] Cholesterol in LDL Calc [Mas s/Vol]on 01-06-2024 Cholesterol in LDL [Mass/Vol] 102.0 mg/dL [facility] Comment on above: <100 mg/dl [id number] 0-129 mg/dl NEAR OR ABOVE [id number] mg/dl BORDERLINE [id number] mg/dl HIGH>190 mg/dl VERY HIGH Cholesterol in VLDL Calc [Ma ss/Vol]on 01-06-2024 Cholesterol in VLDL [Mass/Vol] 26.0 mg/dL [facility] Eosinophils/100 WBC Auto (Bl d)on 01-06-2024 Eosinophils/100 WBC (Bld) 2.1 % 0.9-7.0 [facility] Erythrocyte distribution wid th Auto (RBC) [Ratio]on 01-06-2024 Erythrocyte distribution width (RBC) [Ratio] 13.2 % 11.0-15.0 [facility] Estimated glomerular filtrat ion rate (GFR) non- Americanon 01-06-2024 GFR/1.73 sq M.predicted among non-blacks MDRD (S/P/Bld) [Vol rate/Area] 55 mL/min/{1.73_m2} Low >=60 [facility] Globulin Calc (S) [Mass/Vol] on 01-06-2024 Globulin (S) [Mass/Vol] 3.5 g/dL [facility] Hematocrit Auto (Bld) [Volum e fraction]on 01-06-2024 Hematocrit (Bld) [Volume fraction] 43.7 % 42.0-54.0 [facility] Hemoglobin [Mass/volume] in Bloodon 01-06-2024 Hemoglobin (Bld) [Mass/Vol] 14.0 g/dL 14.0-18.0 [facility] Laboratory - Chemistry and C hemistry - challengeon 01-06-2024 Albumin [Mass/Vol] 3.7 g/dL 3.4-5.0 [facility] ALP [Catalytic activity/Vol] 59 U/L 46-116 [facility] ALT [Catalytic activity/Vol] 32 U/L 16-63 [facility] AST [Catalytic activity/Vol] 25 U/L 15-37 [facility] [facility] Bilirubin [Mass/Vol] 0.8 mg/dL 0.2-1.0 [facility] Calcium [Mass/Vol] 9.0 mg/dL 8.5-10.1 [facility] Chloride [Moles/Vol] 105 mmol/L 98-107 [facility] Cholesterol [Mass/Vol] 175 mg/dL <=200 [facility] Cholesterol in HDL [Mass/Vol] 47 mg/dL 40-60 [facility] Comment on above: > or =60 mg/dl - LOW CARDIOVASCULAR RISK<40 mg/dl - HIGH CARDIOVASCULAR RISK CO2 [Moles/Vol] 27.0 mmol/L 21.0-32.0 [facility] Creatinine [Mass/Vol] 1.24 mg/dL 0.70-1.30 [facility] GFR/1.73 sq M.predicted MDRD (S/P/Bld) [Vol rate/Area] mL/min/{1.73_m2} >=60 [facility] Glucose [Mass/Vol] 106 mg/dL 74-106 [facility] Potassium [Moles/Vol] 4.1 mmol/L 3.5-5.1 [facility] Protein [Mass/Vol] 7.2 g/dL 6.4-8.2 [facility] Sodium [Moles/Vol] 144 mmol/L 136-145 [facility] Triglyceride [Mass/Vol] 130 mg/dL <=150 [facility] Urea nitrogen [Mass/Vol] 35.0 mg/dL High 7.0-18.0 [facility] Urea nitrogen/Creatinine [Mass ratio] 28.2 mg/mg [facility] Laboratory - Hematology and Cell countson 01-06-2024 Immature granulocytes/100 WBC (Bld) 0.2 % 0.0-0.5 [facility] Leukocytes [#/volume] correc pam for nucleated erythrocytes in Blood by Automated counon 01-06-2024 WBC corrected for nucl RBC Auto (Bld) [#/Vol] 5.7 10 3/uL 4.0-11.0 [facility] Lymphocytes Auto (Bld) [#/Vo l]on 01-06-2024 Lymphocytes (Bld) [#/Vol] 1.7 10 3/uL 1.2-3.8 [facility] Lymphocytes/100 WBC Auto (Bl d)on 01-06-2024 Lymphocytes/100 WBC (Bld) 30.7 % 20.5-60.0 [facility] MCH Auto (RBC) [Entitic mass ]on 01-06-2024 MCH (RBC) [Entitic mass] 29.1 pg 25.9-34.0 [facility] MCHC Auto (RBC) [Mass/Vol]on 01-06-2024 MCHC (RBC) [Mass/Vol] 32.0 g/dL 29.9-35.2 [facility] MCV Auto (RBC) [Entitic vol] on 01-06-2024 MCV (RBC) [Entitic vol] 90.9 fL 80.0-94.0 [facility] Monocytes Auto (Bld) [#/Vol] on 01-06-2024 Monocytes (Bld) [#/Vol] 0.4 10 3/uL 0.3-0.8 [facility] Monocytes/100 WBC Auto (Bld) on 01-06-2024 Monocytes/100 WBC (Bld) 7.2 % 1.7-12.0 [facility] Neutrophils Auto (Bld) [#/Vo l]on 01-06-2024 Neutrophils (Bld) [#/Vol] 3.4 10 3/uL 1.4-6.5 [facility] Neutrophils/100 WBC Auto (Bl d)on 01-06-2024 Neutrophils/100 WBC (Bld) 59.3 % 43.0-75.0 [facility] No Panel Informationon 01-05 Eosinophils # (Auto) 0.1 10 3/uL 0.0-0.7 [facility] Immature Granulocyte # (Auto) 0.01 10 3/uL 0.00-0.03 [facility] Nucleated Red Blood Cells/100 WBC 0 [facility] Platelet mean volume Auto (B ld) [Entitic vol]on 01-06-2024 Platelet mean volume (Bld) [Entitic vol] 10.6 fL 9.5-13.5 [facility] Platelets Auto (Bld) [#/Vol] on 01-06-2024 Platelets (Bld) [#/Vol] 169 10 3/uL 150-450 [facility] RBC Auto (Bld) [#/Vol]on RBC (Bld) [#/Vol] 4.81 10 6/uL 4.70-6.10 [facility] Serum or plasma albumin/glob ulin mass ratioon 01-06-2024 Albumin/Globulin [Mass ratio] 1.1 {ratio} [facility] Serum or plasma anion gap de terminationon 01-06-2024 Anion gap [Moles/Vol] 16.1 mmol/L [facility] Serum or plasma total choles terol/high density lipoprotein (HDL) cholesterol mass luis enrique 01-06-2024 Cholesterol.total/Ch olesterol in HDL [Mass ratio] 3.7 {ratio} [facility] Comment on above: 3.3 - 4.4 LOW RISK4. 4 - 7.1 AVERAGE RISK7.1 - 11.0 MODERATE RISK>11.0 HIGH RISK CBC AUTO DIFFon 11-18-2022 BASO # 0.1 103/ul Normal 0.0-0.1 [facility] Comment on above: Performed By: #### D ATCBC #### [facility] [address] [place] [address] Dr. Sagrario Schilling Basophils/100 WBC (Bld) 0.8 % Normal 0.2-2.0 [facility] Comment on above: Performed By: #### D ATCBC #### [facility] [address] [address] [address] Sagrario Schilling EO # 0.1 103/ul Normal 0.0-0.7 [facility] Comment on above: Performed By: #### D ATCBC #### [facility] [address] [address] [address] Sagrario Schilling Eosinophils/100 WBC (Bld) 1.8 % Normal 0.9-7.0 [facility] Comment on above: Performed By: #### D ATCBC #### [facility] [address] [place] [address] Dr. Sagrario Schilling Erythrocyte distribution width (RBC) [Ratio] 13.2 % Normal 11.0-15.0 [facility] Comment on above: Performed By: #### D ATCBC #### [facility] [address] [place] [address] Dr. Sagrario Schilling Hematocrit (Bld) [Volume fraction] 45.2 % Normal 42.0-54.0 [facility] Comment on above: Performed By: #### D ATCBC #### [facility] [address] [address] [address] Sagrario Schilling Hemoglobin (Bld) [Mass/Vol] 14.6 g/dL Normal 14.0-18.0 [facility] Comment on above: Performed By: #### D ATCBC #### [facility] [address] [place] [address] Dr. Sagrario Schilling IG # 0.03 10e3/ul Normal 0.00-0.03 [facility] Comment on above: Performed By: #### D ATCBC #### [facility] [address] [place] [address] Dr. Sagrario Schilling IG % 0.5 % Normal 0.0-0.5 [facility] Comment on above: Performed By: #### D ATCBC #### [facility] [address] [place] [address] Dr. Sagrario Schilling LYMPH # 1.7 103/ul Normal 1.2-3.8 [facility] Comment on above: Performed By: #### D ATCBC #### [facility] [address] [place] [address] Dr. Sagrario Schilling Lymphocytes/100 WBC (Bld) 27.6 % Normal 20.5-60.0 [facility] Comment on above: Performed By: #### D ATCBC #### [facility] [address] [place] [address] Dr. Sagrario Schilling MCH (RBC) [Entitic mass] 28.9 pg Normal 25.9-34.0 [facility] Comment on above: Performed By: #### D ATCBC #### [facility] [address] [place] [address] Dr. Sagrario Schilling MCHC (RBC) [Mass/Vol] 32.3 g/dL Normal 29.9-35.2 [facility] Comment on above: Performed By: #### D ATCBC #### [facility] [address] [place] [address] Dr. Sagrario Schilling MCV (RBC) [Entitic vol] 89.5 fL Normal 80.0-94.0 [facility] Comment on above: Performed By: #### D ATCBC #### [facility] [address] [place] [address] Dr. Sagrario Schilling MONO # 0.4 103/ul Normal 0.3-0.8 [facility] Comment on above: Performed By: #### D ATCBC #### [facility] [address] [place] [address] Dr. Sagrario Schilling Monocytes/100 WBC (Bld) 7.2 % Normal 1.7-12.0 [facility] Comment on above: Performed By: #### D ATCBC #### [facility] [address] [place] [address] Dr. Sagrario Schilling NEUT # 3.7 103/ul Normal 1.4-6.5 [facility] Comment on above: Performed By: #### D ATCBC #### [facility] [address] [place] [address] Dr. Sagrario Schilling Neutrophils/100 WBC (Bld) 62.1 % Normal 43.0-75.0 [facility] Comment on above: Performed By: #### D ATCBC #### [facility] [address] [place] [address] Dr. Sagrario Schilling Platelet mean volume (Bld) [Entitic vol] 10.0 fL Normal 9.5-13.5 [facility] Comment on above: Performed By: #### D ATCBC #### [facility] [address] [place] [address] Dr. Sagrario Schilling PLT 171 103/ul Normal 150-450 [facility] Comment on above: Performed By: #### D ATCBC #### [facility] [address] [place] [address] Dr. Sagrario Schilling RBC 5.05 106/ul Normal 4.70-6.10 [facility] Comment on above: Performed By: #### D ATCBC #### [facility] [address] [place] [address] Dr. Sagrario Schilling WBC 6.0 103/ul Normal 4.0-11.0 [facility] Comment on above: Performed By: #### D ATCBC #### [facility] [address] [address] [address] Sagrario Schilling DIANE- BMP WITH LIPIDon 2022 Anion gap [Moles/Vol] 10.1 mmol/L Normal [facility] Comment on above: Performed By: #### D ATBMP #### [facility] [address] [address] [address] Sagrario Schilling Calcium [Mass/Vol] 9.0 mg/dL Normal 8.5-10.1 [facility] Comment on above: Performed By: #### D ATBMP #### [facility] [address] [address] [address] Sagrario Schilling Chloride [Moles/Vol] 106 mmol/L Normal 98-107 [facility] Comment on above: Performed By: #### D ATBMP #### [facility] [address] [address] [address] Sagrario Schilling Cholesterol [Mass/Vol] 181 mg/dL Normal <=200 [facility] Comment on above: Performed By: #### D ATBMP #### [facility] [address] [address] [address] Sagrario Schilling Cholesterol in HDL [Mass/Vol] 40 mg/dL Normal 40-60 [facility] Comment on above: Performed By: #### D ATBMP #### [facility] [address] [address] [address] Sagrario Schilling Cholesterol in LDL [Mass/Vol] 109.2 mg/dL Normal [facility] Comment on above: Performed By: #### D ATBMP #### [facility] [address] [address] [address] Sagrario Schilling CO2 [Moles/Vol] 29.1 mmol/L Normal 21.0-32.0 [facility] Comment on above: Performed By: #### D ATBMP #### [facility] [address] [address] [address] Sagrario Schilling Creatinine [Mass/Vol] 1.16 mg/dL Normal 0.70-1.30 [facility] Comment on above: Performed By: #### D ATBMP #### [facility] [address] [address] [address] Sagrario Schilling EGFR-AF KYRGYZ >60 Normal >=60 [facility] Comment on above: Performed By: #### D ATBMP #### [facility] [address] [address] [address] Sagrario Schilling EGFR-NON AF KYRGYZ =60 Normal >=60 [facility] Comment on above: Performed By: #### D ATBMP #### [facility] [address] [address] [address] Sagrario Schilling Glucose [Mass/Vol] 101 mg/dL Normal 74-106 [facility] Comment on above: Performed By: #### D ATBMP #### [facility] [address] [address] [address] Sagrario Schilling HDL NORMAL > or = 60 mg/dl - LO W CARDIOVASCULAR RISK <40 mg/dl - HIGH CARDIOVASCULAR RISK Normal [facility] Comment on above: Performed By: #### D ATBMP #### [facility] [address] [address] [address] Sagrario Schilling LDL CALC NORMAL SEE BELOW Normal [facility] Comment on above: Result Comment: <100 mg/dl OPTIMAL 100 - 129 mg/dl NEAR OR ABOVE OPTIMAL 130 - 159 mg/dl BORDERLINE HIGH 160 - 189 mg/dl HIGH >190 mg/dl VERY HIGH Performed By: #### D ATBMP #### [facility] [address] [address] [address] Sagrario Schilling Potassium [Moles/Vol] 4.2 mmol/L Normal 3.5-5.1 [facility] Comment on above: Performed By: #### D ATBMP #### [facility] [address] [address] [address] Sagrario Schilling Sodium [Moles/Vol] 141 mmol/L Normal 136-145 [facility] Comment on above: Performed By: #### D ATBMP #### [facility] [address] [address] [address] Sagrario Schilling Triglyceride [Mass/Vol] 159 mg/dL Critically high <=150 [facility] Comment on above: Performed By: #### D ATBMP #### [facility] [address] [address] [address] Sagrario Schilling Urea nitrogen [Mass/Vol] 29.0 mg/dL Critically high 7.0-18.0 [facility] Comment on above: Performed By: #### D ATBMP #### [facility] [address] [address] [address] Sagrario Schilling Urea nitrogen/Creatinine [Mass ratio] 25.0 mg/mg Normal [facility] Comment on above: Performed By: #### D ATBMP #### [facility] [address] [address] [address] Sagrario Schilling VLDL CALC 31.8 mg/dL Normal [facility] Comment on above: Performed By: #### D ATBMP #### [facility] [address] [address] [address] Sagrario Schilling ECHOCARDIO M/2D COMPLETEon 0 11-18-2022 ECHOCARDIO M/2D COMPLETE Patient: YAYA DE ANDA Exam Date: 11/18/2022 : 1935 Gender:M Ordering : DR DAVID MARX D.O. Admission #: [id number] Family : Order #: [id number] CLICK HERE TO VIEW EXAM ECHOCARDIOGRAM REPORT [...] Area (VTI): 3.31 cm2, 3.31 cm2 Deceleration Bowman: 0.68 m/s2 Pressure Half-Time: 1.35 s Peak [...] Espitia M.D. on 11/18/2022 at 10:21 Normal [facility] XR CHEST 2 Von 11-18-2022 XR [...] by: MILKA ANDERS Date: 2022-11-18 08:44 Normal [facility] MRI HIP RT WO CONon 05-29-20 [...] MILKA ANDERS Date: 2022-05-29 18:20 Normal [facility] TESTOSTERONE, TOTALon 2021 Testosterone [Mass/Vol] 261 ng/dL Critically low 264-916 [facility] Comment on above: Result Comment: Adul t male reference interval is based on a population of healthy nonobese males (BMI <30) between 19 and 39 years old. Liz et.al. JCEM 2017,102;1399-1307. PMID: [id number]. Performed By: #### T ESTTOT #### [facility] [address] [place] [address] Dr. Sagrario Schilling BASIC METABOLIC PANELon 01-01 Calcium [Mass/Vol] 8.6 mg/dL Normal 8.6-10.3 [facility] Comment on above: Order Comment: Yes: Add to Previous draw if able Performed By: #### 5 0103 #### [facility] [address] [place] [address], [facility] Chloride [Moles/Vol] 103 mmol/L Normal 98-107 [facility] Comment on above: Order Comment: Yes: Add to Previous draw if able Performed By: #### 5 0103 #### [facility] [address] [place] [address], [place] CO2 [Moles/Vol] 27 mmol/L Normal 21-31 [facility] Comment on above: Order Comment: Yes: Add to Previous draw if able Performed By: #### 5 0103 #### [facility] [address] [place] [address], [place] Creatinine [Mass/Vol] 1.23 mg/dL Normal 0.70-1.30 [facility] Comment on above: Order Comment: Yes: Add to Previous draw if able Performed By: #### 5 0103 #### [facility] [address] [place] [address], [place] GFR/1.73 sq M predicted among blacks MDRD (S/P/Bld) [Vol rate/Area] mL/min/{1.73_m2} Normal >60 [facility] Comment on above: Order Comment: Yes: Add to Previous draw if able Result Comment: Calc ulation may not be valid for patients over 70 years Performed By: #### 5 0103 #### [facility] [address] [place] [address], [facility] GFR/1.73 sq M predicted among non-blacks MDRD (S/P/Bld) [Vol rate/Area] 56 ml/min/1.73sq m Abnormal >60 [facility] Comment on above: Order Comment: Yes: Add to Previous draw if able Result Comment: Calc ulation may not be valid for patients over 70 years Performed By: #### 5 0103 #### [facility] [address] [place] [address], [place] Glucose [Mass/Vol] 100 mg/dL Normal 70-100 [facility] Comment on above: Order Comment: Yes: Add to Previous draw if able Performed By: #### 5 0103 #### [facility] [address] [place] [address], [place] Potassium [Moles/Vol] 4.3 mmol/L Normal 3.5-5.1 [facility] Comment on above: Order Comment: Yes: Add to Previous draw if able Performed By: #### 5 0103 #### [facility] [address] [place] [address], [place] Sodium [Moles/Vol] 133 mmol/L Low 136-145 [facility] Comment on above: Order Comment: Yes: Add to Previous draw if able Performed By: #### 5 3 #### [facility] [address] [place] [address], [place] Urea nitrogen [Mass/Vol] 26 mg/dL High 7-25 [facility] Comment on above: Order Comment: Yes: Add to Previous draw if able Performed By: #### 5 0103 #### [facility] [address] [place] [address], [place] CBC COMPLETE BLOOD COUNTon 01-19-2019 Erythrocyte distribution width (RBC) [Ratio] 14.0 % Normal 11.5-15.0 [facility] Comment on above: Order Comment: Yes: Add to Previous draw if able Performed By: #### 3 5200, 73849, 18651 #### [facility] [address] [place] [address], [facility] Hematocrit (Bld) [Volume fraction] 46.5 % Normal 39.0-50.0 [facility] Comment on above: Order Comment: Yes: Add to Previous draw if able Performed By: #### 3 5200, 44035, 74331 #### [facility] [address] [place] [address], [place] Hemoglobin (Bld) [Mass/Vol] 14.9 g/dL Normal 13.0-17.0 [facility] Comment on above: Order Comment: Yes: Add to Previous draw if able Performed By: #### 3 5200, 52590, 13394 #### [facility] [address] [place] [address], [place] MCH (RBC) [Entitic mass] 28.9 pg Normal 27.0-33.0 [facility] Comment on above: Order Comment: Yes: Add to Previous draw if able Performed By: #### 3 5200, 31483, 45245 #### [facility] [address] [place] [address], [place] MCHC (RBC) [Mass/Vol] 32.0 g/dL Normal 32.0-35.0 [facility] Comment on above: Order Comment: Yes: Add to Previous draw if able Performed By: #### 3 5200, 98062, 38156 #### [facility] [address] [place] [address], [facility] MCV (RBC) [Entitic vol] 90.1 fL Normal 82.0-98.0 [facility] Comment on above: Order Comment: Yes: Add to Previous draw if able Performed By: #### 3 5200, 39621, 33170 #### [facility] [address] [place] [address], [facility] Nucleated RBC/100 WBC (Bld) [Ratio] 0 % Normal 0-0 [facility] Comment on above: Order Comment: Yes: Add to Previous draw if able Performed By: #### 3 5200, 23221, 17656 #### [facility] [address] [place] [address], [facility] PLAT CNT 149 10*3/uL Low 150-400 [facility] Comment on above: Order Comment: Yes: Add to Previous draw if able Performed By: #### 3 5200, 25561, 48332 #### [facility] [address] [place] [address], [facility] RBC (Bld) [#/Vol] 5.16 10*6/uL Normal 4.20-5.70 [facility] Comment on above: Order Comment: Yes: Add to Previous draw if able Performed By: #### 3 5200, 90747, 54092 #### [facility] [address] [place] [address], [facility] WBC (Bld) [#/Vol] 8.05 10*3/uL Normal 4.00-10.60 [facility] Comment on above: Order Comment: Yes: Add to Previous draw if able Performed By: #### 3 5200, 87029, 66219 #### [facility] [address] [place] [address], [facility] PROTHROMBIN TIMEon 06-19-201 9 INR Coag (PPP) [Relative time] 1.04 {INR} Normal 0.91-1.16 [facility] Comment on above: Order [...] 1995;108:231S-246S. Performed By: #### 5 0103 #### [facility] [address] PT Coag (PPP) [Time] 13.6 s Normal 12.3-14.8 [facility] Comment on above: Order Comment: Yes: Add to Previous draw if able Result Comment: ALL RESULTS MUST BE INTERPRETED WITH RESPECT TO BLOOD DRAWING ARTIFACT OR DILUTION ERROR OF ANTICOAGULANT AT THE TIME OF SAMPLING. Performed By: #### 5 0103 #### [facility] [address] BASIC METABOLIC PANELon 01-01 Calcium [Mass/Vol] 8.6 mg/dL Normal 8.6-10.3 [facility] Comment on above: Order Comment: Yes: Add to Previous draw if able Performed By: #### 3 0870, 19679, 08271 #### [facility] [address] [place] [address], [place] Chloride [Moles/Vol] 102 mmol/L Normal 98-107 [facility] Comment on above: Order Comment: Yes: Add to Previous draw if able Performed By: #### 3 5200, 79899, 34398 #### [facility] [address] [place] [address], [place] CO2 [Moles/Vol] 24 mmol/L Normal 21-31 [facility] Comment on above: Order Comment: Yes: Add to Previous draw if able Performed By: #### 3 5200, 14416, 92364 #### [facility] [address] [place] [address], [place] Creatinine [Mass/Vol] 1.28 mg/dL Normal 0.70-1.30 [facility] Comment on above: Order Comment: Yes: Add to Previous draw if able Performed By: #### 3 5200, 75715, 07967 #### [facility] [address] [place] [address], [place] GFR/1.73 sq M predicted among blacks MDRD (S/P/Bld) [Vol rate/Area] mL/min/{1.73_m2} Normal >60 [facility] Comment on above: Order Comment: Yes: Add to Previous draw if able Result Comment: Calc ulation may not be valid for patients over 70 years Performed By: #### 3 5200, 11298, 02074 #### [facility] [address] [place] [address], [place] GFR/1.73 sq M predicted among non-blacks MDRD (S/P/Bld) [Vol rate/Area] 54 ml/min/1.73sq m Abnormal >60 [facility] Comment on above: Order Comment: Yes: Add to Previous draw if able Result Comment: Calc ulation may not be valid for patients over 70 years Performed By: #### 3 5200, 06965, 34353 #### [facility] [address] [place] [address], [place] Glucose [Mass/Vol] 90 mg/dL Normal 70-100 [facility] Comment on above: Order Comment: Yes: Add to Previous draw if able Performed By: #### 3 5200, 09140, 06399 #### [facility] [address] [place] [address], [place] Potassium [Moles/Vol] 4.1 mmol/L Normal 3.5-5.1 [facility] Comment on above: Order Comment: Yes: Add to Previous draw if able Performed By: #### 3 5200, 37813, 55438 #### [facility] [address] [place] [address], [place] Sodium [Moles/Vol] 135 mmol/L Low 136-145 [facility] Comment on above: Order Comment: Yes: Add to Previous draw if able Performed By: #### 3 5200, 33501, 26347 #### [facility] [address] [place] [address], [place] Urea nitrogen [Mass/Vol] 31 mg/dL High 7-25 [facility] Comment on above: Order Comment: Yes: Add to Previous draw if able Performed By: #### 3 5200, 22836, 00422 #### [facility] [address] [place] [address], [place] CBC COMPLETE BLOOD COUNTon 0 - Erythrocyte distribution width (RBC) [Ratio] 14.1 % Normal 11.5-15.0 [facility] Comment on above: Order Comment: Yes: Add to Previous draw if able Performed By: #### 3 5200, 65369, 47437 #### [facility] [address] [place] [address], [place] Hematocrit (Bld) [Volume fraction] 48.7 % Normal 39.0-50.0 [facility] Comment on above: Order Comment: Yes: Add to Previous draw if able Performed By: #### 3 5200, 03115, 96188 #### [facility] [address] [place] [address], [facility] Hemoglobin (Bld) [Mass/Vol] 15.3 g/dL Normal 13.0-17.0 [facility] Comment on above: Order Comment: Yes: Add to Previous draw if able Performed By: #### 3 5200, 85926, 13176 #### [facility] [facility] [address] [place] [address], [facility] MCH (RBC) [Entitic mass] 29.1 pg Normal 27.0-33.0 [facility] Comment on above: Order Comment: Yes: Add to Previous draw if able Performed By: #### 3 5200, 76659, 52638 #### [facility] [address] [place] [address], [facility] MCHC (RBC) [Mass/Vol] 31.4 g/dL Low 32.0-35.0 [facility] Comment on above: Order Comment: Yes: Add to Previous draw if able Performed By: #### 3 5200, 67237, 95161 #### [facility] [address] [place] [address], [facility] MCV (RBC) [Entitic vol] 92.6 fL Normal 82.0-98.0 [facility] Comment on above: Order Comment: Yes: Add to Previous draw if able Performed By: #### 3 5200, 37970, 14490 #### [facility] [address] [place] [id number], [place] Nucleated RBC/100 WBC (Bld) [Ratio] 0 % Normal 0-0 [facility] Comment on above: Order Comment: Yes: Add to Previous draw if able Performed By: #### 3 5200, 50247, 95398 #### [facility] [address] [place] [address], [place] PLAT CNT 160 10*3/uL Normal 150-400 [facility] Comment on above: Order Comment: Yes: Add to Previous draw if able Performed By: #### 3 5200, 61242, 84214 #### [facility] [address] [place] [address], [facility] RBC (Bld) [#/Vol] 5.26 10*6/uL Normal 4.20-5.70 The [facility] Comment on above: Order Comment: Yes: Add to Previous draw if able Performed By: #### 3 5200, 04143, 65279 #### [facility] [address] [place] [address], [facility] WBC (Bld) [#/Vol] 7.34 10*3/uL Normal 4.00-10.60 [facility] Comment on above: Order Comment: Yes: Add to Previous draw if able Performed By: #### 3 5200, 42103, 34160 #### [facility] [address] [place] [address], [facility] MAGNESIUM BLOODon 01-18-2019 Magnesium [Mass/Vol] 2.1 mg/dL Normal 1.9-2.7 [facility] Comment on above: Order Comment: Yes: Add to Previous draw if able Performed By: #### 3 5200, 04930, 00294 #### [facility] [address] [place] [address], [facility] PHOSPHORUS BLOODon 9 Phosphate [Mass/Vol] 2.6 mg/dL Normal 2.5-5.0 [facility] Comment on above: Order Comment: Yes: Add to Previous draw if able Performed By: #### 3 5200, 71238, 27576 #### [facility] [address] [place] [address], [facility] PROTHROMBIN TIMEon 9 INR Coag (PPP) [Relative time] 1.05 {INR} Normal 0.91-1.16 [facility] Comment on above: Order Comment: Yes: [...] CHEST 1995;108:231S-246S. Performed By: #### 3 5200, 32730, 28219 #### [facility] [address] PT Coag (PPP) [Time] 13.7 s Normal 12.3-14.8 [facility] Comment on above: Order Comment: Yes: Add to Previous draw if able Result Comment: ALL RESULTS MUST BE INTERPRETED WITH RESPECT TO BLOOD DRAWING ARTIFACT OR DILUTION ERROR OF ANTICOAGULANT AT THE TIME OF SAMPLING. Performed By: #### 3 5200, 78315, 32617 #### [facility] [address] [place] [address], [facility] BASIC METABOLIC PANELon - Calcium [Mass/Vol] 8.2 mg/dL Low 8.6-10.3 The [facility] Comment on above: Order Comment: Yes: Add to Previous draw if able Performed By: #### 3 5200, 67940, 30624 #### [facility] [address] [place] [address], [facility] Chloride [Moles/Vol] 100 mmol/L Normal 98-107 [facility] Comment on above: Order Comment: Yes: Add to Previous draw if able Performed By: #### 3 5200, 65231, 16388 #### [facility] [address] [place] [address], [place] CO2 [Moles/Vol] 26 mmol/L Normal 21-31 [facility] Comment on above: Order Comment: Yes: Add to Previous draw if able Performed By: #### 3 5200, 45929, 67869 #### [facility] [address] [place] [address], [place] Creatinine [Mass/Vol] 1.53 mg/dL High 0.70-1.30 [facility] Comment on above: Order Comment: Yes: Add to Previous draw if able Performed By: #### 3 5200, 69572, 88111 #### [facility] [address] [place] [address], [place] GFR/1.73 sq M predicted among blacks MDRD (S/P/Bld) [Vol rate/Area] 53 ml/min/1.73sq m Abnormal >60 [facility] Comment on above: Order Comment: Yes: Add to Previous draw if able Result Comment: Calc ulation may not be valid for patients over 70 years Performed By: #### 3 5200, 12151, 28790 #### [facility] [address] [place] [address], [place] GFR/1.73 sq M predicted among non-blacks MDRD (S/P/Bld) [Vol rate/Area] 44 ml/min/1.73sq m Abnormal >60 [facility] Comment on above: Order Comment: Yes: Add to Previous draw if able Result Comment: Calc ulation may not be valid for patients over 70 years Performed By: #### 3 5200, 37541, 13085 #### [facility] [address] [place] [address], [place] Glucose [Mass/Vol] 95 mg/dL Normal 70-100 [facility] Comment on above: Order Comment: Yes: Add to Previous draw if able Performed By: #### 3 5200, 32422, 08762 #### [facility] [address] [place] [address], [place] Potassium [Moles/Vol] 3.7 mmol/L Normal 3.5-5.1 [facility] Comment on above: Order Comment: Yes: Add to Previous draw if able Performed By: #### 3 5200, 68949, 01862 #### [facility] [address] [place] [address], [place] Sodium [Moles/Vol] 135 mmol/L Low 136-145 [facility] Comment on above: Order Comment: Yes: Add to Previous draw if able Performed By: #### 3 5200, 31840, 36277 #### [facility] [address] [place] [address], [place] Urea nitrogen [Mass/Vol] 41 mg/dL High 7-25 [facility] Comment on above: Order Comment: Yes: Add to Previous draw if able Performed By: #### 3 5200, 68060, 33480 #### [facility] [address] [place] [address], [place] CBC COMPLETE BLOOD COUNTon 0 - Erythrocyte distribution width (RBC) [Ratio] 14.3 % Normal 11.5-15.0 [facility] Comment on above: Order Comment: Yes: Add to Previous draw if able Performed By: #### 3 5200, 32540, 79464 #### [facility] [address] [place] [address], [place] Hematocrit (Bld) [Volume fraction] 47.8 % Normal 39.0-50.0 [facility] Comment on above: Order Comment: Yes: Add to Previous draw if able Performed By: #### 3 5200, 95063, 82198 #### [facility] [address] [place] [address], [place] Hemoglobin (Bld) [Mass/Vol] 15.5 g/dL Normal 13.0-17.0 [facility] Comment on above: Order Comment: Yes: Add to Previous draw if able Performed By: #### 3 5200, 50448, 80627 #### [facility] [address] [place] [address], [facility] MCH (RBC) [Entitic mass] 29.1 pg Normal 27.0-33.0 [facility] Comment on above: Order Comment: Yes: Add to Previous draw if able Performed By: #### 3 5200, 25964, 14275 #### [facility] [address] [place] [id number], [facility] MCHC (RBC) [Mass/Vol] 32.4 g/dL Normal 32.0-35.0 [facility] Comment on above: Order Comment: Yes: Add to Previous draw if able Performed By: #### 3 5200, 93409, 61676 #### [facility] [address] [place] [address], [facility] MCV (RBC) [Entitic vol] 89.8 fL Normal 82.0-98.0 [facility] Comment on above: Order Comment: Yes: Add to Previous draw if able Performed By: #### 3 5200, 31221, 99662 #### [facility] [address] [place] [address], [facility] Nucleated RBC/100 WBC (Bld) [Ratio] 0 % Normal 0-0 [facility] Comment on above: Order Comment: Yes: Add to Previous draw if able Performed By: #### 3 5200, 24294, 07348 #### [facility] [address] [place] [address], [facility] PLAT CNT 153 10*3/uL Normal 150-400 [facility] Comment on above: Order Comment: Yes: Add to Previous draw if able Performed By: #### 3 5200, 00522, 56657 #### [facility] [address] RBC (Bld) [#/Vol] 5.32 10*6/uL Normal 4.20-5.70 [facility] Comment on above: Order Comment: Yes: Add to Previous draw if able Performed By: #### 3 5200, 44950, 65756 #### [facility] [address] [place] [address], [facility] WBC (Bld) [#/Vol] 6.80 10*3/uL Normal 4.00-10.60 [facility] Comment on above: Order Comment: Yes: Add to Previous draw if able Performed By: #### 3 5200, 89656, 55655 #### [facility] [address] [facility] [address] Cardiovascular Lab Reporton 01-17-2019 Cardiovascular Lab Report [facility] Patient Name: Ad[facility] MR #: [id number] Physician: Heather Duff, Department of M.D. Medicine Service Date: 01/17/2019 Division of Birthdate: 1935 Cardiology Room #: [id number] Adult Cardiovascular Services [place] [address] Cardiovascular Laboratory Report CLINICAL PRESENTATION: The patient [...] micropuncture access technique and ultrasound guidance. A 6-Cambodian sheath was placed in the right internal [...] artery was anesthetized with 1% lidocaine. A 6-Cambodian Terumo Glidesheath slender was placed in the right radial artery. A 100 mcg nitroglycerin was administered through the sheath to prevent radial artery spasm. A Carvajal wire was advanced and a 5-Cambodian [place] catheter were advanced to the descending aorta. The 5-Cambodian [place] catheter was used to engage the left [...] Duff M.D. Date Trans: 01/17/2019 11:54 Adry/catarino [id number] cc: David Marx D.O. [address] [place] [phone] Adithya Schmidt M.D. [address], [facility] [id number] Normal [facility] MAGNESIUM BLOODon 01-17-2019 Magnesium [Mass/Vol] 1.9 mg/dL Normal 1.9-2.7 [facility] Comment on above: Order Comment: Yes: Add to Previous draw if able Performed By: #### 3 5200, 88494, 58853 #### [facility] 3000 [facility]. [address] PROTHROMBIN TIMEon 9 INR Coag (PPP) [Relative time] 1.06 {INR} Normal 0.91-1.16 [facility] Comment on above: Order Comment: Yes: [...] CHEST 1995;108:231S-246S. Performed By: #### 3 5200, 16385, 65321 #### [facility] [address] PT Coag (PPP) [Time] 13.8 s Normal 12.3-14.8 [facility] Comment on above: Order Comment: Yes: Add to Previous draw if able Result Comment: ALL RESULTS MUST BE INTERPRETED WITH RESPECT TO BLOOD DRAWING ARTIFACT OR DILUTION ERROR OF ANTICOAGULANT AT THE TIME OF SAMPLING. Performed By: #### 3 5200, 20381, 01611 #### [facility] [address] UFH HEPARIN ASSAYon 01-18-20 19 UNFRACTIONATED HEPARIN 0.29 IU/mL Low 0.30-0.70 [facility] Comment on above: Result Comment: Angy roxaban and Apixaban will interfere with the anti Xa assay used to monitor UFH and LMWH. Performed By: #### 3 5200, 44515, 83176 #### [facility] [address] BASIC METABOLIC PANELon 01-01 Calcium [Mass/Vol] 8.4 mg/dL Low 8.6-10.3 [facility] Comment on above: Order Comment: Yes: Add to Previous draw if able Performed By: #### 3 0, 37841, 50531 #### [facility] [address] [place] [address], [place] Chloride [Moles/Vol] 98 mmol/L Normal 98-107 [facility] Comment on above: Order Comment: Yes: Add to Previous draw if able Performed By: #### 3 5200, 07465, 32534 #### [facility] [address] [place] [address], [place] CO2 [Moles/Vol] 27 mmol/L Normal 21-31 [facility] Comment on above: Order Comment: Yes: Add to Previous draw if able Performed By: #### 3 5200, 47937, 14573 #### [facility] [address] [place] [address], [place] Creatinine [Mass/Vol] 1.60 mg/dL High 0.70-1.30 [facility] Comment on above: Order Comment: Yes: Add to Previous draw if able Performed By: #### 3 5200, 74955, 75233 #### [facility] [address] [place] [address], [place] GFR/1.73 sq M predicted among blacks MDRD (S/P/Bld) [Vol rate/Area] 50 ml/min/1.73sq m Abnormal >60 [facility] Comment on above: Order Comment: Yes: Add to Previous draw if able Result Comment: Calc ulation may not be valid for patients over 70 years Performed By: #### 3 5200, 42168, 69386 #### [facility] [address] [place] [address], [place] GFR/1.73 sq M predicted among non-blacks MDRD (S/P/Bld) [Vol rate/Area] 42 ml/min/1.73sq m Abnormal >60 [facility] Comment on above: Order Comment: Yes: Add to Previous draw if able Result Comment: Calc ulation may not be valid for patients over 70 years Performed By: #### 3 5200, 07022, 96607 #### [facility] [address] [place] [address], [place] Glucose [Mass/Vol] 107 mg/dL High 70-100 [facility] Comment on above: Order Comment: Yes: Add to Previous draw if able Performed By: #### 3 5200, 84880, 84123 #### [facility] [address] [place] [address], [place] Potassium [Moles/Vol] 3.4 mmol/L Low 3.5-5.1 [facility] Comment on above: Order Comment: Yes: Add to Previous draw if able Performed By: #### 3 5200, 85973, 86289 #### [facility] [address] [place] [address], [place] Sodium [Moles/Vol] 135 mmol/L Low 136-145 [facility] Comment on above: Order Comment: Yes: Add to Previous draw if able Performed By: #### 3 5200, 76491, 09784 #### [facility] [address] [place] [address], [place] Urea nitrogen [Mass/Vol] 39 mg/dL High 7-25 [facility] Comment on above: Order Comment: Yes: Add to Previous draw if able Performed By: #### 3 5200, 01605, 13915 #### [facility] [address] [place] [id number], [facility] CBC COMPLETE BLOOD COUNTon 0 - Erythrocyte distribution width (RBC) [Ratio] 14.3 % Normal 11.5-15.0 [facility] Comment on above: Order Comment: Yes: Add to Previous draw if able Performed By: #### 3 5200, 33289, 58784 #### [facility] [address] [place] [address], [place] Hematocrit (Bld) [Volume fraction] 50.8 % High 39.0-50.0 [facility] Comment on above: Order Comment: Yes: Add to Previous draw if able Performed By: #### 3 5200, 70832, 71488 #### [facility] [address] [place] [address], [facility] Hemoglobin (Bld) [Mass/Vol] 16.2 g/dL Normal 13.0-17.0 [facility] Comment on above: Order Comment: Yes: Add to Previous draw if able Performed By: #### 3 5200, 96496, 19279 #### [facility] [address] [place] [address], [facility] MCH (RBC) [Entitic mass] 28.9 pg Normal 27.0-33.0 [facility] Comment on above: Order Comment: Yes: Add to Previous draw if able Performed By: #### 3 5200, 00987, 05407 #### [facility] [address] [place] [address], [facility] MCHC (RBC) [Mass/Vol] 31.9 g/dL Low 32.0-35.0 [facility] Comment on above: Order Comment: Yes: Add to Previous draw if able Performed By: #### 3 5200, 90055, 89103 #### [facility] [address] [place] [address], [facility] MCV (RBC) [Entitic vol] 90.6 fL Normal 82.0-98.0 [facility] Comment on above: Order Comment: Yes: Add to Previous draw if able Performed By: #### 3 5200, 44563, 18893 #### [facility] [address] [place] [address], [place] Nucleated RBC/100 WBC (Bld) [Ratio] 0 % Normal 0-0 [facility] Comment on above: Order Comment: Yes: Add to Previous draw if able Performed By: #### 3 5200, 66349, 86769 #### [facility] [address] [place] [address], [place] PLAT CNT 179 10*3/uL Normal 150-400 [facility] Comment on above: Order Comment: Yes: Add to Previous draw if able Performed By: #### 3 5200, 42614, 42685 #### [facility] [address] [place] [address], [facility] RBC (Bld) [#/Vol] 5.61 10*6/uL Normal 4.20-5.70 The [facility] Comment on above: Order Comment: Yes: Add to Previous draw if able Performed By: #### 3 5200, 69601, 07217 #### [facility] [address] WBC (Bld) [#/Vol] 7.83 10*3/uL Normal 4.00-10.60 [facility] Comment on above: Order Comment: Yes: Add to Previous draw if able Performed By: #### 3 5200, 57796, 39774 #### [facility] [address] PROTHROMBIN TIMEon 9 INR Coag (PPP) [Relative time] 1.05 {INR} Normal 0.91-1.16 [facility] Comment on above: Result Comment: ACCC [...] CHEST 1995;108:231S-246S. Performed By: #### 3 5200, 29616, 06710 #### [facility] [address] [place] [address], [facility] PT Coag (PPP) [Time] 13.7 s Normal 12.3-14.8 [facility] Comment on above: Result Comment: ALL RESULTS MUST BE INTERPRETED WITH RESPECT TO BLOOD DRAWING ARTIFACT OR DILUTION ERROR OF ANTICOAGULANT AT THE TIME OF SAMPLING. Performed By: #### 3 5200, 31246, 17009 #### [facility] [address] UFH HEPARIN ASSAYon 01-17-20 19 UNFRACTIONATED HEPARIN 0.54 IU/mL Normal 0.30-0.70 [facility] Comment on above: Result Comment: Angy roxaban and Apixaban will interfere with the anti Xa assay used to monitor UFH and LMWH. Performed By: #### 3 5200, 39952, 76182 #### [facility] [address] UNFRACTIONATED HEPARIN 0.49 IU/mL Normal 0.30-0.70 [facility] Comment on above: Result Comment: Hunter roxaban and Apixaban will interfere with the anti Xa assay used to monitor UFH and LMWH. Performed By: #### 3 5200, 94904, 17375 #### [facility] [address] [place] [address], [facility] APTTon 01-15-2019 aPTT Coag (Bld) [Time] s Critically high 25.0-35.0 [facility] Comment on above: Order Comment: Yes: [...] = 1.16 Performed By: #### 3 5200, 28629, 85921 #### [facility] [address] [place] [address], [facility] aPTT Coag (Bld) [Time] 65.5 s High 25.0-35.0 [facility] Comment on above: Order Comment: Yes: [...] THIS PURPOSE. Performed By: #### 3 5200, 94837, 42017 #### [facility] 3000 [facility]. [address] BNP (B-TYPE NATRIURETIC PEPT JOSE)on 01-15-2019 Natriuretic peptide B (Bld) [Mass/Vol] 682 pg/mL High 0-100 [facility] Comment on above: Order Comment: Yes: Add to Previous draw if able Result Comment: Give n the appropriate clinical setting a BNP result of >100 pg/mL indicates congestive heart failure. Performed By: #### 8 5123 #### [facility] [address] [facility] [place] [address], [facility] CBC W/DIFFon 01-15-2019 ABS BASOPHILS 0.1 10*3/uL Normal 0.0-0.2 The [facility] Comment on above: Order Comment: Yes: Add to Previous draw if able Performed By: #### 5 0103 #### [facility] [address] [place] [address], [facility] ABS IMM GRANS 0.1 10*3/uL Normal 0.0-0.2 [facility] Comment on above: Order Comment: Yes: Add to Previous draw if able Performed By: #### 5 0103 #### [facility] [address] [place] [address], [facility] ABS NEUTROPHILS 8.5 10*3/uL High 1.6-7.6 The [facility] Comment on above: Order Comment: Yes: Add to Previous draw if able Performed By: #### 5 0103 #### [facility] [address] [place] [address], [place] Basophils/100 WBC (Bld) 0.4 % Normal 0.0-1.0 [facility] Comment on above: Order Comment: Yes: Add to Previous draw if able Performed By: #### 5 0103 #### [facility] [address] [place] [address], [place] Eosinophils (Bld) [#/Vol] 0.1 10*3/uL Normal 0.0-0.5 [facility] Comment on above: Order Comment: Yes: Add to Previous draw if able Performed By: #### 5 3 #### [facility] [address] [place] [address], [facility] Eosinophils/100 WBC (Bld) 0.7 % Normal 0.0-6.0 [facility] Comment on above: Order Comment: Yes: Add to Previous draw if able Performed By: #### 5 3 #### [facility] [address] [place] [address], [place] Erythrocyte distribution width (RBC) [Ratio] 14.4 % Normal 11.5-15.0 [facility] Comment on above: Order Comment: Yes: Add to Previous draw if able Performed By: #### 3 #### [facility] [address] [place] [address], [place] Hematocrit (Bld) [Volume fraction] 53.0 % High 39.0-50.0 [facility] Comment on above: Order Comment: Yes: Add to Previous draw if able Performed By: #### 5 0103 #### [facility] [address] [place] [address], [facility] Hemoglobin (Bld) [Mass/Vol] 16.8 g/dL Normal 13.0-17.0 [facility] Comment on above: Order Comment: Yes: Add to Previous draw if able Performed By: #### 5 0103 #### [facility] [address] [place] [address], [facility] IMMATURE GRANS 0.4 % Normal 0.0-1.0 The [facility] Comment on above: Order Comment: Yes: Add to Previous draw if able Performed By: #### 5 0103 #### [facility] [address] [facility] [place] [address], [facility] Lymphocytes (Bld) [#/Vol] 1.7 10*3/uL Normal 1.2-4.0 [facility] Comment on above: Order Comment: Yes: Add to Previous draw if able Performed By: #### 5 0103 #### [facility] [address] [facility] [place] [address], [facility] Lymphocytes/100 WBC (Bld) 14.8 % Low 20.0-45.0 [facility] Comment on above: Order Comment: Yes: Add to Previous draw if able Performed By: #### 5 0103 #### [facility] [address] [facility] [place] [address], [facility] MCH (RBC) [Entitic mass] 29.0 pg Normal 27.0-33.0 [facility] Comment on above: Order Comment: Yes: Add to Previous draw if able Performed By: #### 5 3 #### [facility] [address] [place] [address], [facility] MCHC (RBC) [Mass/Vol] 31.7 g/dL Low 32.0-35.0 [facility] Comment on above: Order Comment: Yes: Add to Previous draw if able Performed By: #### 5 0103 #### [facility] [address] [place] [address], [facility] MCV (RBC) [Entitic vol] 91.5 fL Normal 82.0-98.0 The [facility] Comment on above: Order Comment: Yes: Add to Previous draw if able Performed By: #### 5 3 #### [facility] [address] [place] [address], [facility] Monocytes (Bld) [#/Vol] 0.9 10*3/uL Normal 0.1-1.0 The [facility] Comment on above: Order Comment: Yes: Add to Previous draw if able Performed By: #### 102 #### [facility] [address] [facility] [facility] [place] [address], [facility] MONOS 7.8 % Normal 5.0-12.0 The [facility] Comment on above: Order Comment: Yes: Add to Previous draw if able Performed By: #### 102 #### [facility] [address] [place] [address], [facility] Neutrophils/100 WBC (Bld) 75.9 % High 40.0-72.0 The [facility] Comment on above: Order Comment: Yes: Add to Previous draw if able Performed By: #### 3 #### [facility] [address] [facility] Nucleated RBC/100 WBC (Bld) [Ratio] 0 % Normal 0-0 The [facility] Comment on above: Order Comment: Yes: Add to Previous draw if able Performed By: #### 102 #### [facility] [address] [place] [address], [facility] PLAT CNT 187 10*3/uL Normal 150-400 The [facility] Comment on above: Order Comment: Yes: Add to Previous draw if able Performed By: #### 102 #### [facility] [address] [place] [address], [facility] RBC (Bld) [#/Vol] 5.79 10*6/uL High 4.20-5.70 The [facility] Comment on above: Order Comment: Yes: Add to Previous draw if able Performed By: #### 5 0103 #### [facility] [address] [place] [address], [place] WBC (Bld) [#/Vol] 11.18 10*3/uL High 4.00-10.60 The [facility] Comment on above: Order Comment: Yes: Add to Previous draw if able Performed By: #### 5 0103 #### [facility] [address] [place] [id number], [facility] COMP METABOLIC PANELon 01-15 Albumin [Mass/Vol] 4.2 g/dL Normal 3.5-5.7 The [facility] Comment on above: Order Comment: Yes: Add to Previous draw if able Performed By: #### 3 5200, 60575, 57855 #### [facility] [address] [place] [id number], [facility] ALKALINE PHOSPH 38 IU/L Normal 34-104 The [facility] Comment on above: Order Comment: Yes: Add to Previous draw if able Performed By: #### 3 5200, [id number], 33606 #### [facility] [address] [place] [address], [place] ALT [Catalytic activity/Vol] 19 U/L Normal 7-52 The [facility] Comment on above: Order Comment: Yes: Add to Previous draw if able Performed By: #### 3 5200, 29295, 45104 #### [facility] [address] [place] [address], [place] AST [Catalytic activity/Vol] 20 U/L Normal 13-39 The [facility] Comment on above: Order Comment: Yes: Add to Previous draw if able Performed By: #### 3 5200, 19979, 74632 #### [facility] [address] [place] [address], [place] Bilirubin [Mass/Vol] 0.9 mg/dL Normal 0.3-1.0 The [facility] Comment on above: Order Comment: Yes: Add to Previous draw if able Performed By: #### 3 5200, 73709, 34241 #### [facility] [address] [place] [address], [place] Calcium [Mass/Vol] 9.2 mg/dL Normal 8.6-10.3 [facility] Comment on above: Order Comment: Yes: Add to Previous draw if able Performed By: #### 3 5200, 74194, 75961 #### [facility] [address] [place] [address], [place] Chloride [Moles/Vol] 99 mmol/L Normal 98-107 [facility] Comment on above: Order Comment: Yes: Add to Previous draw if able Performed By: #### 3 5200, 37819, 76243 #### [facility] [address] [place] [address], [place] CO2 [Moles/Vol] 24 mmol/L Normal 21-31 [facility] Comment on above: Order Comment: Yes: Add to Previous draw if able Performed By: #### 3 5200, 85089, 19376 #### [facility] [address] [place] [address], [place] Creatinine [Mass/Vol] 1.37 mg/dL High 0.70-1.30 The [facility] Comment on above: Order Comment: Yes: Add to Previous draw if able Performed By: #### 3 5200, 38814, 98177 #### [facility] [address] [place] [address], [place] GFR/1.73 sq M predicted among blacks MDRD (S/P/Bld) [Vol rate/Area] 60 ml/min/1.73sq m Abnormal >60 The [facility] Comment on above: Order Comment: Yes: Add to Previous draw if able Result Comment: Calc ulation may not be valid for patients over 70 years Performed By: #### 3 5200, 09170, 46389 #### [facility] [address] [place] [address], [place] GFR/1.73 sq M predicted among non-blacks MDRD (S/P/Bld) [Vol rate/Area] 50 ml/min/1.73sq m Abnormal >60 [facility] Comment on above: Order Comment: Yes: Add to Previous draw if able Result Comment: Calc ulation may not be valid for patients over 70 years Performed By: #### 3 5200, 08780, 72173 #### [facility] [address] [place] [address], [place] Glucose [Mass/Vol] 107 mg/dL High 70-100 The [facility] Comment on above: Order Comment: Yes: Add to Previous draw if able Performed By: #### 3 5200, 86493, 30669 #### [facility] [address] [place] [address], [place] Potassium [Moles/Vol] 3.8 mmol/L Normal 3.5-5.1 The [facility] Comment on above: Order Comment: Yes: Add to Previous draw if able Performed By: #### 3 5200, 22262, 64670 #### [facility] [address] [place] [address], [place] Protein [Mass/Vol] 7.4 g/dL Normal 6.0-8.3 [facility] Comment on above: Order Comment: Yes: Add to Previous draw if able Performed By: #### 3 5200, 28997, 05310 #### [facility] [address] [place] [address], [place] Sodium [Moles/Vol] 135 mmol/L Low 136-145 [facility] Comment on above: Order Comment: Yes: Add to Previous draw if able Performed By: #### 3 5200, 45953, 09387 #### [facility] [address] [place] [address], [facility] Urea nitrogen [Mass/Vol] 30 mg/dL High 7-25 The [facility] Comment on above: Order Comment: Yes: Add to Previous draw if able Performed By: #### 3 5200, 80059, 06432 #### [facility] [address] CPKon 01-15-2019 CK [Catalytic activity/Vol] 67 U/L Normal 30-223 [facility] Comment on above: Performed By: #### 3 5200, 79047 #### [facility] [address] [place] [address], [facility] MAGNESIUM BLOODon 01-15-2019 Magnesium [Mass/Vol] 1.9 mg/dL Normal 1.9-2.7 The [facility] Comment on above: Order Comment: Yes: Add to Previous draw if able Performed By: #### 3 5200, 46698, 97468 #### [facility] [address] PROTHROMBIN TIMEon 9 INR Coag (PPP) [Relative time] 1.04 {INR} Normal 0.91-1.16 The [facility] Comment on above: Order Comment: if [...] CHEST 1995;[id number]. Performed By: #### 5 6101, 44337, 48351 #### [facility] [address] [place] [address], [facility] PT Coag (PPP) [Time] 13.6 s Normal 12.3-14.8 [facility] Comment on above: Order Comment: if no t already done No: Do not add to previous draw Result Comment: ALL RESULTS MUST BE INTERPRETED WITH RESPECT TO BLOOD DRAWING ARTIFACT OR DILUTION ERROR OF ANTICOAGULANT AT THE TIME OF SAMPLING. Performed By: #### 5 6101, 35693, 82376 #### [facility] [address] [place] [address], [facility] TROPONIN-Ion 01-15-2019 Troponin I.cardiac [Mass/Vol] 0.05 ng/mL High 0.00-0.04 [facility] Comment on above: Order Comment: No: D o not add to previous draw Result Comment: REFE RENCE RANGES: 0.00 - 0.04 ng/ml NORMAL 0.05 - 0.50 ng/ml INDETERMINATE > 0.50 ng/ml CONSISTENT WITH AN M.I. Performed By: #### 3 5200, 71708 #### [facility] [address] [place] [address], [facility] Troponin I.cardiac [Mass/Vol] 0.05 ng/mL High 0.00-0.04 [facility] Comment on above: Order Comment: Yes: Add to Previous draw if able Result Comment: REFE RENCE RANGES: 0.00 - 0.04 ng/ml NORMAL 0.05 - 0.50 ng/ml INDETERMINATE > 0.50 ng/ml CONSISTENT WITH AN M.I. Performed By: #### 3 5200, 68697, 97217 #### [facility] [address] [place] [address], [facility] UFH HEPARIN ASSAYon 01-16-20 19 UNFRACTIONATED HEPARIN >1.00 Critically high 0.30-0.70 The [facility] Comment on above: Result Comment: Angy roxaban and Apixaban will interfere with the anti Xa assay used to monitor UFH and LMWH. RESULTS CHECKED AND CALLED. ACCURATELY READ BACK BY TAWNYA MOSQUEDA RN AT 21:44 SPECIMEN DRAWN FROM ARM NOT CONTAINING IV LINE PER TAWNYA MOSQUEDA RN. Performed By: #### 3 5200, 50113, 21023 #### [facility] [address] [place] [address], [facility] UNFRACTIONATED HEPARIN 0.79 IU/mL High 0.30-0.70 The [facility] Comment on above: Result Comment: Angy roxaban and Apixaban will interfere with the anti Xa assay used to monitor UFH and LMWH. Performed By: #### 3 5200, 05422, 23228 #### [facility] [address] [place] [address], [facility] UNFRACTIONATED HEPARIN 0.35 IU/mL Normal 0.30-0.70 [facility] Comment on above: Result Comment: Angy roxaban and Apixaban will interfere with the anti Xa assay used to monitor UFH and LMWH. Performed By: #### 5 6101, 64158, 59283 #### [facility] [address] [place] [address], [place] UNFRACTIONATED HEPARIN 0.15 IU/mL Critically low 0.30-0.70 [facility] Comment on above: Result Comment: Angy roxaban and Apixaban will interfere with the anti Xa assay used to monitor UFH and LMWH. RESULTS CHECKED AND CALLED. ACCURATELY READ BACK BY JONE MENDOZA RN @ 0728 Performed By: #### 3 0477 #### [facility] [address] [place] [address], [facility] Vital Signs Date Time Vital Sign Value Performing Clinician Facility 01-19-2025 09:30-0400 Body height 175.3 cm Yfn Gusman DPM Work Phone: [facility] 01-19-2025 09:30-0400 Body mass index (BMI) [Ratio] 31.01 kg/m2 Yfn Naseem DPM Work Phone: [facility] 01-19-2025 09:30-0400 Body weight 95.25 kg Yfn Naseem DPM Work Phone: [facility] 01-19-2025 09:30-0400 Respiratory rate 18 /min Yfn Gusman DPM Work Phone: [facility] 12-01-2024 10:32-0400 Body height 175.26 cm [facility] 12-01-2024 10:32-0400 Body mass index (BMI) [Ratio] 30.2 kg/m2 [facility] 12-01-2024 10:32-0400 Body weight 92.75 kg [facility] 12-01-2024 10:32-0400 Diastolic blood pressure 75 mm[Hg] [facility] 12-01-2024 10:32-0400 Heart rate 69 /min [facility] 12-01-2024 10:32-0400 Respiratory rate 16 /min [facility] 12-01-2024 10:32-0400 Systolic blood pressure 131 mm[Hg] [facility] 10-27-2024 08:39-0400 Body height 175.3 cm Yfn Naseem DPM Work Phone: [facility] 10-27-2024 08:39-0400 Body mass index (BMI) [Ratio] 31.01 kg/m2 Yfn Gusman DPM Work Phone: [facility] 10-27-2024 08:39-0400 Body weight 95.25 kg Yfn Brown DPM Work Phone: [facility] 10-27-2024 08:39-0400 Diastolic blood pressure 80 mm[Hg] Yfn Gusman DPM Work Phone: [facility] 10-27-2024 08:39-0400 Heart rate 81 /min Yfn Gusman DPM Work Phone: [facility] 10-27-2024 08:39-0400 Systolic blood pressure 125 mm[Hg] Yfn Gusman DPM Work Phone: [facility] 08-11-2024 08:40-0500 Body height 175.3 cm Yfn Gusman DPM Work Phone: [facility] 08-11-2024 08:40-0500 Body mass index (BMI) [Ratio] 31.01 kg/m2 Yfn Gusman DPM Work Phone: [facility] 08-11-2024 08:40-0500 Body weight 95.25 kg Yfn Gusman DPM Work Phone: [facility] 08-11-2024 08:40-0500 Respiratory rate 18 /min Yfn Gusman DPM Work Phone: [facility] 06-20-2024 13:39-0500 Blood Pressure Location Ramya BAUER [facility] 06-20-2024 13:39-0500 Body temperature 98.6 [degF] Ramya BAUER [facility] 06-20-2024 13:39-0500 Diastolic blood pressure 68 mm[Hg] Ramya BAUER [facility] 06-20-2024 13:39-0500 Heart rate 72 /min Ramya BAUER [facility] 06-20-2024 13:39-0500 Respiratory rate 16 /min Ramya BAUER [facility] 06-20-2024 13:39-0500 Systolic blood pressure 131 mm[Hg] Ramya BAUER [facility] 05-19-2024 08:53-0400 Body height 175.3 cm Yfn Gusman DPM Work Phone: [facility] 05-19-2024 08:53-0400 Body mass index (BMI) [Ratio] 31.01 kg/m2 Yfn Gusman DPM Work Phone: [facility] 05-19-2024 08:53-0400 Body weight 95.25 kg Yfn Gusman DPM Work Phone: [facility] 05-19-2024 08:53-0400 Diastolic blood pressure 80 mm[Hg] Yfn Gusman DPM Work Phone: [facility] 05-19-2024 08:53-0400 Heart rate 81 /min Yfn Gusman DPM Work Phone: [facility] 05-19-2024 08:53-0400 Systolic blood pressure 125 mm[Hg] Yfn Gusman DPM Work Phone: [facility] 04-01-2024 10:12-0400 Body height 175.26 cm [facility] 04-01-2024 10:12-0400 Body mass index (BMI) [Ratio] 29.3 kg/m2 [facility] 04-01-2024 10:12-0400 Body weight 90.26 kg [facility]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
== END 2025-03-27 11:14 | disposition home or self-care (01) ==
LOC: RAD 11:13
PROVIDERS: PCP Internal Medicine; Visit Provider Orthopaedic Surgery Orthopaedic Trauma
DX: M25.561 Pain in right knee (principal); M17.11 Unilateral primary osteoarthritis, right knee
CPT/HCPCS: 73564